=== PATIENT | female | born 1960 | race Caucasian/White ===

== ENCOUNTER 2018-01-16 06:56 | Inpatient (IN) | payer BC, OTHER ==
--- NOTE | 2018-01-16 07:13 | PDOC ---
Attending Attestation - HPI HPI: 01/16/18 10:08 The patient is a 58 year old female with a significant PMH of breast ca( recurred in September of this year, now on chemo pill, radiation, and hormone injections)who presents to the emergency department via EMS with 5 days of worsening SOB, confusion and decrease in food intake . EMS reports that that her pulse oxygenation was in the mid-80s on 25 LPM via non-rebreather en route to the ED, and she has been tachycardic and tachypneic. The patient and her family deny any recent fever, chills, new nausea or vomiting (they note baseline n/v since starting her chemo pill and radiation this year), rashes, headache, vision changes, new numbness/tingling/focal weakness, or other symptoms. Deny any other complaints. Documentation prepared by Daniela España, acting as medical office supervisor for Gilmer Wylie MD. <Daniela España - Last Filed: 01/16/18 10:08> - Resident Resident Name: Analisa Montgomery - ED Attending Attestation I have performed the following: I have examined & evaluated the patient, The case was reviewed & discussed with the resident, I agree w/resident's findings & plan, Exceptions are as noted - Physicial Exam PE: 01/16/18 15:14 Vitals: Triage Vital signs reviewed General Appearance: no acute distress, well nourished well developed, Head: Atraumatic, Neck: Supple;No Nucal rigidity Chest Wall: Nontender Cardiac: Tachycardic Lungs: Coarse breath sounds bilaterally crackles bilaterally, wheezing bilaterally Abdomen: Soft, non distended, normal bowel sounds, non tender to palpation Extremities: Full range of motion to all extremities, no cyanosis, clubbing, or edema Skin: Warm and dry, no rashes or lesions, no rash, no petechiae Neuro: AOX3; Cranial Nerves 2-12 grossly intact, Strength intact to all extremities, Sensation intact to all extremities Psych: normal mood, normal affect - Critical Care Time Total Critical Care Time: 120 Critical Care Statement: The care of this patient involved high complexity decision making to prevent further life threatening deterioration of the patient 's condition and/or to evaluate & treat vital organ system(s) failure or risk of failure. - Medical Decision Making 01/16/18 15:15 The patient is a 58 year old female with a significant PMH of breast ca( recurred in September of this year, now on chemo pill, radiation, and hormone injections)who presents to the emergency department via EMS with 5 days of worsening SOB, confusion and decrease in food intake . EMS reports that that her pulse oxygenation was in the mid-80s on 25 LPM via non-rebreather en route to the ED, and she has been tachycardic and tachypneic. The patient and her family deny any recent fever, chills, new nausea or vomiting (they note baseline n/v since starting her chemo pill and radiation this year), rashes, headache, vision changes, new numbness/tingling/focal weakness, or other symptoms. Deny any other complaints. Patient's vital signs concerning for sepsis. Sepsis workup initiated. Differential diagnosis includes likely sepsis from pneumonia we'll check labs cultures chest x-ray head CT given slight altered mental status despite patient being AO 3 Reevaluation nurse able to obtain IV access but unable to obtain labs. Multiple attempts including attempts by phlebotomy and using ultrasound for guidance unsuccessful at obtaining IV access Given concern for sepsis patient and family consented for central line Central line initially attempted see resident's note right IJ good blood return however at the approximate level of the clavicle unable to advance wire further. This may be secondary to previous radiation treatment At this point we'll change to femoral central line Timeout and consent performed on the universal sterile precautions a clean central line was placed in the right femoral region. See procedure note Patient started empirically on triple antibiotic Therapy Reevaluation: Patient noted to be pancytopenic. Platelets 13 hemoglobin 5 and neutropenic Case discussed with ICU infectious disease as well as hematology oncology. We attempted several times to reach the patient's oncologist at the [facility] but never received a phone call back After discussion with family given the gravity and seriousness of the patient's condition family requesting to have patient admitted here and not have patient transferred We have ordered 2 units of platelets 2 units of packed red blood cells she has been started on triple therapy antibiotics a central line has been placed ID, critical care, he marked oral consult didn't aware of the case. Patient will be transported to the ICU Patient's blood pressure prior to transfer 99 systolic. Upon arrival to the ICU given access pressors will be started <Gilmer Wylie - Last Filed: 01/16/18 15:26> Heart Score/ECG Review - ECG Impressions Comment:: 01/16/18 15:15 Sinus tachycardia no acute ST elevations or T-wave inversions patient with baseline tremor difficult to interpret EKG. <Gilmer Wylie - Last Filed: 01/16/18 15:26>
[2018-01-16] MEDS ORDERED: SODIUM CHLORIDE 0.9% 1000 ML INFUS.BAG IV ONE (07:14)
[2018-01-16] MEDS ORDERED: ALBUTEROL SO4 2.5/IPRATROPIUM 0.5 INH SOL 3 ML VIAL.NEB. NEB ONE ×2 (07:32→07:40)
--- NOTE | 2018-01-16 07:32 | PDOC ---
History of Present Illness - General Chief Complaint: Respiratory Distress Stated Complaint: AMS Time Seen by Provider: 01/16/18 07:12 History Source: Patient, Family Exam Limitations: No Limitations - History of Present Illness Initial Comments: This is a 58 YOF with h/o breast CA (mastectomy ~15 years ago, found to have recurred in September of this year, now on chemo pill, radiation, and hormone injections) who was BIBA with 5 days of worsening SOB, confusion, decreased PO intake of food and liquid, and pallor. EMS notes that her pulse oxygenation was in the mid-80s on 25 LPM via non-rebreather en route to the ED, and she has been tachycardic and tachypneic for them. The patient herself remains mildly confused but a/o x4. She and her family deny any recent fever, chills, new nausea or vomiting (they note baseline n/v since starting her chemo pill and radiation this year), rashes, headache, vision changes, new numbness/tingling/ focal weakness, or other symptoms. Past History - Past Medical History Allergies/Adverse Reactions: Allergies Allergy/AdvReac Type Severity Reaction Status Date / Time No Known Allergies Allergy Verified 01/16/18 07:21 Home Medications: Ambulatory Orders Unobtainable 01/16/18 Cancer: Yes (breast) COPD: No Lung CA: Yes - Suicide/Smoking/Psychosocial Hx Smoking History: Former smoker Have you smoked in the past 12 months: No Information on smoking cessation initiated: No *Physical Exam - Vital Signs Last Vital Signs Temp Pulse Resp BP Pulse Ox 98.9 F 130 H 34 H 75/50 83 L 01/16/18 07:17 01/16/18 07:17 01/16/18 07:17 01/16/18 07:17 01/16/18 07:17 Procedures - Central Line Central Line Lumen: triple Central Line Position: femoral (R) Anesthesia: 1% Lidocaine Amount of anesthesia (ccs): 4 Complications: none Post Central Line Insertion: sutured, good blood return Progress: Initially attempted placement of RIJ CVC with 3cc of 1% lidocaine, able to cannulate RIJ but wire could not be threaded after multiple attempts. Thought to be stenosis of vein vs. collapse of vein 2/2 severe dehydration vs. equipment malfunction. Ultimately decided to do right femoral vein CVC instead, which was placed on first attempt without issue or complication, good dark non- pulsatile blood return, line draws and flushes, sutured in place, sterile bio- dressing applied. ED Treatment Course - LABORATORY CBC & Chemistry Diagram: 01/16/18 11:49 01/16/18 10:30 Medical Decision Making - Medical Decision Making Patient p/w SOB, confusion, decreased PO intake, in the setting of chemoradiation and hormone injections for active metastatic breast cancer. Initial Vital Signs Temp Pulse Resp BP Pulse Ox 98.9 F 130 H 34 H 75/50 83 L 01/16/18 07:17 01/16/18 07:17 01/16/18 07:17 01/16/18 07:17 01/16/18 07:17 Exam: Tachypneic, tachycardic, pale, speaking 3-4 word sentences, diffuse crackles and mild wheezing, no edema, no calf tenderness. DDX IBNLT: PNA, bronchitis, CHF (e.g. cardiotoxicity from chemo), viral URI ( e.g. influenza), COPD, asthma, other lung disease, laryngitis, tracheitis, etc. W/U ordered: Septic w/u including CBCD CMP Coags Type&Screen Lactate x2 BCx UA UCx CXR EKG EKG: Sinus tachycardia, rate CXR: Bilateral diffuse patchy consolidations c/f bilateral PNA, bilateral pleural effusions, pulmonary vascular congestion. TX ordered: IVF, Vanc/Zosyn/Azithro for empiric coverage for HCAP. Patient is a very difficult PIV stick and after multiple attempts only blood cultures can be drawn. Given her predicted clinical course here in the hospital, CVC is indicated and will be placed and labs drawn. RIJ CVC could not be placed; Rt femoral vein CVC placed without issue. Blood drawn and sent to lab. 01/16/18 13:07 Reassessment: Patient appears slightly more agitated, tremulous Placed page to Pt's Hem/Onc provider Dr. Tay at [facility] ([phone]) who is not in office, message taken to call back here. The patient remains unstable for transfer to [facility]. The family and patient have chosen to have her stay Laboratory Tests 01/16/18 01/16/18 01/16/18 07:21 10:30 10:30 WBC 0.7 L* RBC 1.53 L Hgb 5.0 L* Hct 14.7 L MCV 95.7 MCH 32.8 MCHC 34.2 RDW 23.3 H Plt Count 13 L* MPV 10.5 Absolute Neuts (auto) 0.6 Neutrophils % 91.1 H Lymphocytes % 4.1 L Monocytes % 4.1 Eosinophils % 0.5 Basophils % 0.2 Nucleated RBC % 2 H PT with INR INR PTT (Actin FS) VBG pH 7.50 H POC VBG pCO2 36.0 L POC VBG pO2 124.0 H Mixed VBG HCO3 27.7 H Sodium 135 L Potassium 2.5 L* Chloride 94 L Carbon Dioxide 29 Anion Gap 12 BUN 16 Creatinine 0.5 L Creat Clearance w eGFR > 60 Random Glucose 179 H Lactic Acid Calcium 7.7 L Total Bilirubin 0.6 AST 8 L ALT 8 L Alkaline Phosphatase 107 Creatine Kinase 35 Troponin I < 0.02 Total Protein 5.6 L Albumin 2.1 L Urine Color Urine Appearance Urine pH Ur Specific [place] Urine Protein Urine Glucose (UA) Urine Ketones Urine Blood Urine Nitrite Urine Bilirubin Urine Urobilinogen Ur Leukocyte Esterase Blood Type Antibody Screen Crossmatch 01/16/18 01/16/18 01/16/18 10:30 10:30 10:30 WBC RBC Hgb Hct MCV MCH MCHC RDW Plt Count MPV Absolute Neuts (auto) Neutrophils % Lymphocytes % Monocytes % Eosinophils % Basophils % Nucleated RBC % PT with INR 17.10 H INR 1.51 H PTT (Actin FS) 16.6 L VBG pH POC VBG pCO2 POC VBG pO2 Mixed VBG HCO3 Sodium Potassium Chloride Carbon Dioxide Anion Gap BUN Creatinine Creat Clearance w eGFR Random Glucose Lactic Acid 1.5 Calcium Total Bilirubin AST ALT Alkaline Phosphatase Creatine Kinase Troponin I Total Protein Albumin Urine Color Urine Appearance Urine pH Ur Specific [place] Urine Protein Urine Glucose (UA) Urine Ketones Urine Blood Urine Nitrite Urine Bilirubin Urine Urobilinogen Ur Leukocyte Esterase Blood Type O POSITIVE Antibody Screen Crossmatch 01/16/18 01/16/18 01/16/18 11:49 11:49 11:54 WBC 0.6 L* RBC 1.33 L Hgb 4.4 L* D Hct 12.8 L MCV 96.2 H MCH 33.1 MCHC 34.4 RDW 23.3 H Plt Count 12 L* MPV 9.7 Absolute Neuts (auto) 0.6 Neutrophils % 91.5 H Lymphocytes % 3.7 L Monocytes % 4.2 Eosinophils % 0.0 D Basophils % 0.6 Nucleated RBC % 2 H PT with INR INR PTT (Actin FS) VBG pH POC VBG pCO2 POC VBG pO2 Mixed VBG HCO3 Sodium Potassium Chloride Carbon Dioxide Anion Gap BUN Creatinine Creat Clearance w eGFR Random Glucose Lactic Acid 2.0 Calcium Total Bilirubin AST ALT Alkaline Phosphatase Creatine Kinase Troponin I Total Protein Albumin Urine Color Yellow Urine Appearance Slcloudy Urine pH 6.0 Ur Specific [place] 1.014 Urine Protein Negative Urine Glucose (UA) Negative Urine Ketones Trace H Urine Blood Negative Urine Nitrite Negative Urine Bilirubin Negative Urine Urobilinogen 4.0 e.u/dl H Ur Leukocyte Esterase Negative Blood Type Antibody Screen Crossmatch 01/16/18 12:00 WBC RBC Hgb Hct MCV MCH MCHC RDW Plt Count MPV Absolute Neuts (auto) Neutrophils % Lymphocytes % Monocytes % Eosinophils % Basophils % Nucleated RBC % PT with INR INR PTT (Actin FS) VBG pH POC VBG pCO2 POC VBG pO2 Mixed VBG HCO3 Sodium Potassium Chloride Carbon Dioxide Anion Gap BUN Creatinine Creat Clearance w eGFR Random Glucose Lactic Acid Calcium Total Bilirubin AST ALT Alkaline Phosphatase Creatine Kinase Troponin I Total Protein Albumin Urine Color Urine Appearance Urine pH Ur Specific [place] Urine Protein Urine Glucose (UA) Urine Ketones Urine Blood Urine Nitrite Urine Bilirubin Urine Urobilinogen Ur Leukocyte Esterase Blood Type O POSITIVE Antibody Screen Negative Crossmatch See Detail Vital Signs Temperature 98.8 F 01/16/18 12:10 Pulse Rate 109 H 01/16/18 12:10 Respiratory Rate 20 01/16/18 12:10 Blood Pressure 123/76 01/16/18 12:10 O2 Sat by Pulse Oximetry (%) 100 01/16/18 12:10 Patient receiving 2 units pRBC and 2 units platelets. Potassium 10 mEq ordered for hypokalemia. CURB-65 and PSI suggest Pt should be admitted for inpatient management. Patient has pancytopenia and persistent unstable vitals. The Pt is unsafe for discharge at this time. They require further hospital observation, workup, and treatment. Spoke with Dr. Hutchison who accepts patient to the ICU. Spoke with Dr. Guardado, in agreement Pt to be admitted to ICU. Decision to Admit order placed to covering attending Dr. Guardado. 01/16/18 16:43 Spoke with patient's Heme/Onc provider at [facility], Dr. Thayer. She has been pancytopenic thought 2/2 extensive radiation to bones for bone mets (to right hip, etc). She notes that the patient had been getting transfused, getting Neupogen, with some success. She has missed a couple of appointments and had been DC'ed from Neupogen on discharge from SNF. Dr. Thayer is aware the patient is staying in [facility] ICU and will be cared for by Dr. Dugan and team. *DC/Admit/Observation/Transfer Diagnosis at time of Disposition: Pancytopenia due to antineoplastic chemotherapy, Hypokalemia Pneumonia Qualifiers: Pneumonia type: due to unspecified organism Laterality: bilateral Lung location : unspecified part of lung Qualified Code(s): J18.9 - Pneumonia, unspecified organism Breast cancer Qualifiers: Breast location: unspecified site of breast Estrogen receptor status: unspecified Patient sex: female Laterality: unspecified laterality Qualified Code(s): C50.919 - Malignant neoplasm of unspecified site of unspecified female breast Altered mental status Qualifiers: Altered mental status type: unspecified Qualified Code(s): R41.82 - Altered mental status, unspecified - Discharge Dispostion Condition at time of disposition: Guarded Decision to Admit order: Yes - Referrals - Patient Instructions - Post Discharge Activity
[2018-01-16] MEDS ORDERED: VANCOMYCIN 1,500 MG in DEXTROSE 5%-WATER - 250 ML IVPB ONE (08:38)
[2018-01-16] MEDS ORDERED: AZITHROMYCIN IVPB 500 MG in DEXTROSE 5%-WATER - 250 ML IVPB ONE (08:38)
[2018-01-16] MEDS ORDERED: PIPERACILLIN/TAZOB 3.375 GM 3.375 GM in DEXTROSE 5%-WATER - 50 ML IVPB ONE (08:44)
[2018-01-16] MEDS ORDERED: LIDOCAINE HCL 1%, 10 MG/ML (50 mL VIAL) SQ ONE (08:56)
[2018-01-16] MEDS ORDERED: LIDOCAINE HCL 1%, 10 MG/ML (20ML VIAL) ONE (08:58)
[2018-01-16] MEDS ORDERED: AZITHROMYCIN IVPB 250 ML IVPB ONE (09:09)
[2018-01-16] MEDS ORDERED: PIPERACILLIN/TAZOB 3.375 GM 3.375 GM/50 ML BAG IVPB ONE (09:09)
[2018-01-16] MEDS ORDERED: VANCOMYCIN 1,500 MG in DEXTROSE 5%-WATER - 500 ML IVPB ONE (09:30)
[2018-01-16 10:51] LABS: VENOUS PH 7.5 (7.32-7.42)
[2018-01-16 11:07] LABS: BASO % 0.2 % (0-2.0); EOS % 0.5 % (0-4.5); HEMATOCRIT 14.7 % (32.4-45.2); LYMPH % 4.1 % (8-40); MCH 32.8 pg (25.7-33.7); MCHC 34.2 g/dl (32.0-36.0); MEAN CELL VOLUME 95.7 fl (80-96); MEAN PLT VOLUME 10.5 fl (7.5-11.1); MONO % 4.1 % (3.8-10.2); NEUT % 91.1 % (42.8-82.8); RBC 1.53 M/mm3 (3.60-5.2); RDW 23.3 % (11.6-15.6)
[2018-01-16 11:27] LABS: ALBUMIN 2.1 g/dl (3.4-5.0); ANION GAP 12 (8-16); BILIRUBIN,TOTAL 0.6 mg/dL (0.2-1.0); BLOOD UREA NITROGEN 16 mg/dL (7-18); CALCIUM 7.7 mg/dL (8.5-10.1); CHLORIDE 94 mmol/L (98-107); CO2 29 mmol/L (21-32); CREATININE 0.5 mg/dL (0.55-1.02); GLUCOSE,RANDOM 179 mg/dL (74-106); SGOT/AST 8 U/L (15-37); SGPT/ALT 8 U/L (12-78); SODIUM 135 mmol/L (136-145); TOT PROT 5.6 g/dl (6.4-8.2)
[2018-01-16 11:29] LABS: ALK PHOS 107 U/L (45-117)
[2018-01-16 11:31] LABS: WHITE BLOOD COUNT 0.7 K/mm3 (4.0-10.0)
[2018-01-16 11:32] LABS: PLATELET COUNT 13 K/MM3 (134-434)
[2018-01-16 11:43] LABS: INR 1.51 (0.82-1.09); PROTHROMBIN TIME (PATIENT) 17.1 SEC (9.7-13.0)
[2018-01-16 11:51] LABS: POTASSIUM 2.5 mmol/L (3.5-5.1)
[2018-01-16 12:11] LABS: URINE APPEARANCE SLCLOUDY; URINE BILIRUBIN NEGATIVE (<2.0 mg/dL); URINE COLOR YELLOW; URINE GLUCOSE (UA) NEGATIVE (NEGATIVE); URINE KETONE TRACE (NEGATIVE); URINE LEUK ESTERASE NEGATIVE (NEGATIVE); URINE NITRITE NEGATIVE (NEGATIVE); URINE PROTEIN NEGATIVE (NEGATIVE); URINE UROBILINOGEN 4.0 E.U/dl mg/dL (0.2-1.0)
[2018-01-16 12:13] LABS: BASO % 0.6 % (0-2.0); HEMATOCRIT 12.8 % (32.4-45.2); LYMPH % 3.7 % (8-40); MCH 33.1 pg (25.7-33.7); MCHC 34.4 g/dl (32.0-36.0); MEAN CELL VOLUME 96.2 fl (80-96); MEAN PLT VOLUME 9.7 fl (7.5-11.1); MONO % 4.2 % (3.8-10.2); NEUT % 91.5 % (42.8-82.8); RBC 1.33 M/mm3 (3.60-5.2); RDW 23.3 % (11.6-15.6)
[2018-01-16 12:23] LABS: HEMOGLOBIN 4.4 GM/dL (10.7-15.3); PLATELET COUNT 12 K/MM3 (134-434); WHITE BLOOD COUNT 0.6 K/mm3 (4.0-10.0)
[2018-01-16 12:41] LABS: ACTIVATED PTT 16.6 SECONDS (25.2-36.5)
[2018-01-16] MEDS ORDERED: KCL 10 MEQ IVPB 10 MEQ/100 ML INFUS.BAG IVPB SCH (12:45)
[2018-01-16] MEDS ORDERED: BENZOIN/ALOE VERA/STORAX/TOLU 58 ML BOTTLE ONE (13:33)
[2018-01-16] MEDS ORDERED: KCL 10 MEQ IVPB 10 MEQ/100 ML INFUS.BAG IVPB ONE (13:35)
--- NOTE | 2018-01-16 14:27 | PN ---
Teaching Attending Note ATTENDING PHYSICIAN STATEMENT I saw and evaluated the patient. I reviewed the resident's note and discussed the case with the resident. I agree with the resident's findings and plan as documented. SUBJECTIVE: Pt seen and examined in the ICU. Briefly, 58yo female with h/o recurrent metastatic breast ca who presents with worsening shortness of breath x 5 days. Noted to be hypoxic despite supplemental oxygen. Found to be tachycardic, hypotensive and pancytopenic. Placed on BiPAP and transferred to the ICU for further monitoring. Per ER, RIJ attempted but could not pass the wire due to suspected stenosis and R femoral line placed under sterile conditions. OBJECTIVE: Vital Signs Period Temp Pulse Resp BP Sys/[place]y Pulse Ox Last 24 Hr 98.7 F-99.1 F 107-130 19-34 75-123/50-76 83-100 Intake & Output 01/13/18 01/14/18 01/15/18 01/16/18 23:59 23:59 23:59 23:59 Intake Total 2100 Output Total 200 Balance 1900 Weight 54.431 kg Gen: tachypneic on BiPAP Heart: tachycardic, regular Lung: bilateral rhonchi Abd: soft, nontender Ext: no edema CBC, BMP 01/16/18 11:49 01/16/18 10:30 ASSESSMENT AND PLAN: Acute Hypoxic Respiratory Failure Pneumonia Neutropenic Septic Shock Pancytopenia Coagulopathy r/o DIC Metastatic Breast Ca - broad spectrum antibiotics - f/u cultures - IVF resuscitation - start levophed gtt - replete K - transfuse platelets, PRBC - added on fibrinogen level - onc eval, will likely need filgrastim - continue BiPAP to assist in work of breathing - echocardiogram - discussed with pt if her respiratory status worsens, she will need intubation and she consents - prognosis guarded - ICU monitoring critical care time spent in reviewing chart, evaluating patient and formulating plan 35 min
--- NOTE | 2018-01-16 14:29 | CONSULT ---
Consult - text type - Consultation Consultation Note: This is a 58 YOF with h/o breast CA (mastectomy ~15 years ago, found to have recurred in September of this year) who was BIBA with 5 days of worsening SOB, confusion, decreased PO intake, and pallor. EMS notes that her pulse oxygenation was in the mid-80s on 25 LPM via non-rebreather en route to the ED, and she has been tachycardic and tachypneic. She is currently on BIPAP Talking and coherent Per patient has been getting abemaciclib for the last 6 weeks - Past Medical History Breast cancer Allergies/Adverse Reactions: Allergies Allergy/AdvReac Type Severity Reaction Status Date / Time No Known Allergies Allergy Verified 01/16/18 07:21 Home Medications: Ambulatory Orders Unobtainable 01/16/18 - Suicide/Smoking/Psychosocial Hx Smoking History: Former smoker *Physical Exam - Vital Signs Last Vital Signs Temp Pulse Resp BP Pulse Ox 98.4 F 97 H 28 H 80/56 97 01/16/18 14:20 01/16/18 14:59 01/16/18 14:59 01/16/18 14:59 01/16/18 14:46 Cor: RSR, No murmurs, No gallops Lungs: Clear to P&A Abd: Soft, Normal bowel sounds, No organomegaly Ext:No significant edema Left breast mastectomy/reconstruction Abnormal Lab Results 01/16/18 01/16/18 01/16/18 07:21 10:30 10:30 WBC 0.7 L* RBC 1.53 L Hgb 5.0 L* Hct 14.7 L MCV RDW 23.3 H Plt Count 13 L* Neutrophils % 91.1 H Neutrophils % (Manual) 92.0 H Lymphocytes % 4.1 L Lymphocytes % (Manual) 6.0 L Monocytes % (Manual) 1 L Nucleated RBC % 2 H PT with INR INR PTT (Actin FS) VBG pH 7.50 H POC VBG pCO2 36.0 L POC VBG pO2 124.0 H Mixed VBG HCO3 27.7 H Sodium 135 L Potassium 2.5 L* Chloride 94 L Creatinine 0.5 L Random Glucose 179 H Calcium 7.7 L AST 8 L ALT 8 L Total Protein 5.6 L Albumin 2.1 L Urine Ketones Urine Urobilinogen Crossmatch 06/01/16/18 01/16/18 10:30 11:49 11:54 WBC 0.6 L* RBC 1.33 L Hgb 4.4 L* D Hct 12.8 L MCV 96.2 H RDW 23.3 H Plt Count 12 L* Neutrophils % 91.5 H Neutrophils % (Manual) Lymphocytes % 3.7 L Lymphocytes % (Manual) Monocytes % (Manual) Nucleated RBC % 2 H PT with INR 17.10 H INR 1.51 H PTT (Actin FS) 16.6 L VBG pH POC VBG pCO2 POC VBG pO2 Mixed VBG HCO3 Sodium Potassium Chloride Creatinine Random Glucose Calcium AST ALT Total Protein Albumin Urine Ketones Trace H Urine Urobilinogen 4.0 e.u/dl H Crossmatch 01/16/18 12:00 WBC RBC Hgb Hct MCV RDW Plt Count Neutrophils % Neutrophils % (Manual) Lymphocytes % Lymphocytes % (Manual) Monocytes % (Manual) Nucleated RBC % PT with INR INR PTT (Actin FS) VBG pH POC VBG pCO2 POC VBG pO2 Mixed VBG HCO3 Sodium Potassium Chloride Creatinine Random Glucose Calcium AST ALT Total Protein Albumin Urine Ketones Urine Urobilinogen Crossmatch See Detail Active Medications Generic Name Dose Route Start Last Admin Trade Name Freq PRN Reason Stop Dose Admin Sodium Chloride 1,000 mls @ 1,000 mls/hr 01/16/18 14:34 Normal Saline - IV 01/16/18 15:33 ASDIR STA Norepinephrine Bitartrate 8, 500 mls @ 18.75 mls/hr 01/16/18 14:45 01/16/18 14:46 000 mcg/ Dextrose IV 5 mcg/min TITR TYSHAWN 18.75 mls/hr Administration Protocol 5 MCG/MIN Piperacillin Sod/Tazobactam 100 mls @ 200 mls/hr 01/16/18 15:00 Sod 4.5 gm/ Dextrose IVPB 01/16/18 15:29 ONCE ONE Protocol Potassium Chloride 20 meq 01/16/18 14:45 01/16/18 14:52 Potassium Chloride 20 Meq Premix Ivpb - IVPB 01/16/18 16:46 20 meq Q60M TYSHAWN Administration A/P 58 y/o patient with metastatic breast cancer, extensive bone mets, on abemaciclib 150mg bid for last 6 weeks and faslodex monthly. Recently discharged from rehab 2 weeks ago. Had RT early November. Now with profound pancytopenia, respiratory distress ? pneumonia Transfuse PRBCs/monodonor platelets Empiric antibiotics with vanco/zosyn neupogen support
[2018-01-16] MEDS ORDERED: NOREPINEPHRINE BITARTRATE 4 MG/4 ML ML IV ONE (14:34)
[2018-01-16] MEDS ORDERED: SODIUM CHLORIDE 1,000 ML IV STA (14:34)
[2018-01-16] MEDS ORDERED: NOREPINEPHRINE BITARTRATE 8,000 MCG in DEXTROSE 5%-WATER - 492 ML IV SCH (14:45)
[2018-01-16] MEDS: NOREPINEPHRINE BITARTRATE 8,000 MCG in DEXTROSE 5%-WATER - 492 ML IV SCH (14:46)
[2018-01-16] MEDS: POTASSIUM CHLORIDE 20 MEQ PREMIX IVPB 100 ML IVPB SCH ×2 (14:52→16:45)
--- NOTE | 2018-01-16 14:56 | HP ---
Admitting History and Physical - Primary Care Physician PCP: Jhon Guardado - Admission History of Present Illness: 58 year old female with a significant PMH of breast ca(recurred in September of this year, now on chemo pill, radiation, and hormone injections)who presents to the emergency department via EMS with 5 days of worsening SOB, confusion and decrease in food intake . EMS reports that that her pulse oxygenation was in the mid-80s on 25 LPM via non-rebreather en route to the ED, and she has been tachycardic and tachypneic. The patient and her family deny any recent fever, chills, new nausea or vomiting (they note baseline n/v since starting her chemo pill and radiation this year), rashes, headache, vision changes, new numbness/ tingling/focal weakness, or other symptoms. Deny any other complaints. - Past Medical History Heme/Onc: Yes: Other (br ca) - Smoking History Smoking history: Former smoker Have you smoked in the past 12 months: No Home Medications - Allergies Allergies/Adverse Reactions: Allergies Allergy/AdvReac Type Severity Reaction Status Date / Time No Known Allergies Allergy Verified 01/16/18 07:21 - Home Medications Home Medications: Ambulatory Orders Unobtainable 01/16/18 Physical Examination Vital Signs: Vital Signs Temperature 98.4 F 01/16/18 14:20 Pulse Rate 94 H 01/16/18 14:46 Respiratory Rate 26 H 01/16/18 14:35 Blood Pressure 71/52 01/16/18 14:46 O2 Sat by Pulse Oximetry (%) 97 01/16/18 14:20 Constitutional: Yes: Calm HENT: Yes: Atraumatic Neck: Yes: Supple Cardiovascular: Yes: Regular Rate and Rhythm Respiratory: Yes: Rhonchi Gastrointestinal: Yes: Normal Bowel Sounds Extremities: Yes: WNL Neurological: Yes: Other (awake) Labs: CBC, BMP 01/16/18 11:49 01/16/18 10:30 Imaging - Results Chest X-ray: Report Reviewed Problem List - Problems (1) Altered mental status Assessment/Plan: ON BIPAP Code(s): R41.82 - ALTERED MENTAL STATUS, UNSPECIFIED Qualifiers: Altered mental status type: unspecified Qualified Code(s): R41.82 - Altered mental status, unspecified (2) Pancytopenia due to antineoplastic chemotherapy Assessment/Plan: will get prbc and platelets Code(s): D61.810 - ANTINEOPLASTIC CHEMOTHERAPY INDUCED PANCYTOPENIA; T45.1X5A - ADVERSE EFFECT OF ANTINEOPLASTIC AND IMMUNOSUP DRUGS, INIT (3) Pneumonia Assessment/Plan: iv abx cxs sent id on board Code(s): J18.9 - PNEUMONIA, UNSPECIFIED ORGANISM Qualifiers: Pneumonia type: due to unspecified organism Laterality: bilateral Lung location: unspecified part of lung Qualified Code(s): J18.9 - Pneumonia, unspecified organism (4) Acute respiratory failure with hypoxia Assessment/Plan: on bipap Code(s): J96.01 - ACUTE RESPIRATORY FAILURE WITH HYPOXIA Assessment/Plan Laboratory Tests 01/16/18 01/16/18 01/16/18 07:21 10:30 10:30 WBC 0.7 L* RBC 1.53 L Hgb 5.0 L* Hct 14.7 L MCV 95.7 MCH 32.8 MCHC 34.2 RDW 23.3 H Plt Count 13 L* MPV 10.5 Absolute Neuts (auto) 0.6 Neutrophils % 91.1 H Lymphocytes % 4.1 L Monocytes % 4.1 Eosinophils % 0.5 Basophils % 0.2 Nucleated RBC % 2 H PT with INR INR PTT (Actin FS) VBG pH 7.50 H POC VBG pCO2 36.0 L POC VBG pO2 124.0 H Mixed VBG HCO3 27.7 H Sodium 135 L Potassium 2.5 L* Chloride 94 L Carbon Dioxide 29 Anion Gap 12 BUN 16 Creatinine 0.5 L Creat Clearance w eGFR > 60 Random Glucose 179 H Lactic Acid Calcium 7.7 L Total Bilirubin 0.6 AST 8 L ALT 8 L Alkaline Phosphatase 107 Creatine Kinase 35 Troponin I < 0.02 Total Protein 5.6 L Albumin 2.1 L Urine Color Urine Appearance Urine pH Ur Specific [place] Urine Protein Urine Glucose (UA) Urine Ketones Urine Blood Urine Nitrite Urine Bilirubin Urine Urobilinogen Ur Leukocyte Esterase Blood Type Antibody Screen Crossmatch 01/16/18 01/16/18 01/16/18 10:30 10:30 10:30 WBC RBC Hgb Hct MCV MCH MCHC RDW Plt Count MPV Absolute Neuts (auto) Neutrophils % Lymphocytes % Monocytes % Eosinophils % Basophils % Nucleated RBC % PT with INR 17.10 H INR 1.51 H PTT (Actin FS) 16.6 L VBG pH POC VBG pCO2 POC VBG pO2 Mixed VBG HCO3 Sodium Potassium Chloride Carbon Dioxide Anion Gap BUN Creatinine Creat Clearance w eGFR Random Glucose Lactic Acid 1.5 Calcium Total Bilirubin AST ALT Alkaline Phosphatase Creatine Kinase Troponin I Total Protein Albumin Urine Color Urine Appearance Urine pH Ur Specific [place] Urine Protein Urine Glucose (UA) Urine Ketones Urine Blood Urine Nitrite Urine Bilirubin Urine Urobilinogen Ur Leukocyte Esterase Blood Type O POSITIVE Antibody Screen Crossmatch 01/16/18 01/16/18 01/16/18 11:49 11:49 11:54 WBC 0.6 L* RBC 1.33 L Hgb 4.4 L* D Hct 12.8 L MCV 96.2 H MCH 33.1 MCHC 34.4 RDW 23.3 H Plt Count 12 L* MPV 9.7 Absolute Neuts (auto) 0.6 Neutrophils % 91.5 H Lymphocytes % 3.7 L Monocytes % 4.2 Eosinophils % 0.0 D Basophils % 0.6 Nucleated RBC % 2 H PT with INR INR PTT (Actin FS) VBG pH POC VBG pCO2 POC VBG pO2 Mixed VBG HCO3 Sodium Potassium Chloride Carbon Dioxide Anion Gap BUN Creatinine Creat Clearance w eGFR Random Glucose Lactic Acid 2.0 Calcium Total Bilirubin AST ALT Alkaline Phosphatase Creatine Kinase Troponin I Total Protein Albumin Urine Color Yellow Urine Appearance Slcloudy Urine pH 6.0 Ur Specific [place] 1.014 Urine Protein Negative Urine Glucose (UA) Negative Urine Ketones Trace H Urine Blood Negative Urine Nitrite Negative Urine Bilirubin Negative Urine Urobilinogen 4.0 e.u/dl H Ur Leukocyte Esterase Negative Blood Type Antibody Screen Crossmatch 01/16/18 12:00 WBC RBC Hgb Hct MCV MCH MCHC RDW Plt Count MPV Absolute Neuts (auto) Neutrophils % Lymphocytes % Monocytes % Eosinophils % Basophils % Nucleated RBC % PT with INR INR PTT (Actin FS) VBG pH POC VBG pCO2 POC VBG pO2 Mixed VBG HCO3 Sodium Potassium Chloride Carbon Dioxide Anion Gap BUN Creatinine Creat Clearance w eGFR Random Glucose Lactic Acid Calcium Total Bilirubin AST ALT Alkaline Phosphatase Creatine Kinase Troponin I Total Protein Albumin Urine Color Urine Appearance Urine pH Ur Specific [place] Urine Protein Urine Glucose (UA) Urine Ketones Urine Blood Urine Nitrite Urine Bilirubin Urine Urobilinogen Ur Leukocyte Esterase Blood Type O POSITIVE Antibody Screen Negative Crossmatch See Detail Active Medications Generic Name Dose Route Start Last Admin Trade Name Freq PRN Reason Stop Dose Admin Sodium Chloride 1,000 mls @ 1,000 mls/hr 01/16/18 14:34 Normal Saline - IV 01/16/18 15:33 ASDIR STA Norepinephrine Bitartrate 8, 500 mls @ 18.75 mls/hr 01/16/18 14:45 01/16/18 14:46 000 mcg/ Dextrose IV 5 mcg/min TITR TYSHAWN 18.75 mls/hr Administration Protocol 5 MCG/MIN Piperacillin Sod/Tazobactam 100 mls @ 200 mls/hr 01/16/18 15:00 Sod 4.5 gm/ Dextrose IVPB 01/16/18 15:29 ONCE ONE Protocol Potassium Chloride 20 meq 01/16/18 14:45 01/16/18 14:52 Potassium Chloride 20 Meq Premix Ivpb - IVPB 01/16/18 16:46 20 meq Q60M TYSHAWN Administration cc time 60 min
--- NOTE | 2018-01-16 15:29 | CON.CARD ---
Consult Consult Specialty:: Cardiology Referred by:: Lisa Guardado MD Reason for Consultation:: Dyspnea - History of Present Illness Chief Complaint: Dyspnea History of Present Illness: 58yo female with h/o recurrent metastatic breast ca who presents with worsening shortness of breath, found to be hypoxic despite supplemental oxygen, confused anorexic, tachycardic, tachypneic, hypotensive and pancytopenic. Placed on BiPAP and transferred to the ICU for further monitoring. Per ER, RIJ attempted but could not pass the wire due to suspected stenosis and R femoral line placed under sterile conditions. She is now at baseline sensorium, hemodynamics stabilized on Levophed gtt. - History Source History Provided By: Patient Limitations to Obtaining History: No Limitations - Past Medical History ...: No - Alcohol/Substance Use Hx Alcohol Use: No - Smoking History Smoking history: Former smoker Have you smoked in the past 12 months: No Home Medications - Allergies Allergies/Adverse Reactions: Allergies Allergy/AdvReac Type Severity Reaction Status Date / Time No Known Allergies Allergy Verified 01/16/18 07:21 - Home Medications Home Medications: Ambulatory Orders Unobtainable 01/16/18 Review of Systems - Review of Systems Constitutional: reports: Lethargy, Loss of Appetite Respiratory: reports: SOB Vital Signs: Vital Signs Temperature 98.8 F 01/16/18 15:07 Pulse Rate 98 H 01/16/18 15:14 Respiratory Rate 34 H 01/16/18 15:14 Blood Pressure 85/65 01/16/18 15:14 O2 Sat by Pulse Oximetry (%) 97 01/16/18 14:46 Constitutional: Yes: No Distress, Calm, Thin Neck: Yes: Supple Respiratory: Yes: On BiPap, Rhonchi Gastrointestinal: Yes: Soft, Hypoactive Bowel Sounds Cardiovascular: Yes: Regular Rate and Rhythm, Tachycardia JVD: No Carotid Bruit: No Heart Sounds: Yes: S1, S2 Edema: No - Other Data Labs, Other Data: CBC, BMP 01/16/18 11:49 01/16/18 10:30 INR, PTT INR 1.51 (0.82-1.09) H 01/16/18 10:30 Troponin, BNP 01/16/18 10:30 Troponin I < 0.02 Troponin, BNP 01/16/18 10:30 Troponin I < 0.02 Pending Imaging - Results Chest X-ray: Report Reviewed (Congestion, left infiltrates) EKG: Pending Problem List - Problems (1) Acute respiratory failure with hypoxia Code(s): J96.01 - ACUTE RESPIRATORY FAILURE WITH HYPOXIA (2) Breast cancer Code(s): C50.919 - MALIGNANT NEOPLASM OF UNSP SITE OF UNSPECIFIED FEMALE BREAST Qualifiers: Breast location: unspecified site of breast Estrogen receptor status: unspecified Patient sex: female Laterality: unspecified laterality Qualified Code(s): C50.919 - Malignant neoplasm of unspecified site of unspecified female breast (3) Pancytopenia due to antineoplastic chemotherapy Code(s): D61.810 - ANTINEOPLASTIC CHEMOTHERAPY INDUCED PANCYTOPENIA; T45.1X5A - ADVERSE EFFECT OF ANTINEOPLASTIC AND IMMUNOSUP DRUGS, INIT (4) Pneumonia Code(s): J18.9 - PNEUMONIA, UNSPECIFIED ORGANISM Qualifiers: Pneumonia type: due to unspecified organism Laterality: bilateral Lung location: unspecified part of lung Qualified Code(s): J18.9 - Pneumonia, unspecified organism Assessment/Plan 1. Acute Hypoxic Respiratory Failure->Pneumonia 2. Neutropenic Septic Shock 3. Pancytopenia 4. Coagulopathy, r/o DIC 5. Metastatic Breast Ca, extensive bone mets on abemaciclib post XRT P: 1. Empiric broad spectrum antibiotics, f/u cultures, IVF resuscitation, replete K 2. Levophed gtt to maintain MAP>65 mmHg 3. Transfuse monodonor platelets, PRBC, neupogen 4. Continue BiPAP to assist in work of breathing, wean FIO2 5. F/u echocardiogram results 6. Thank you for consultative opportunity
[2018-01-16] MEDS ORDERED: PIPERACILLIN/TAZOB 4.5 GM 4.5 GM in DEXTROSE 5%-WATER 100 ML IVPB ONE (16:00)
[2018-01-16] MEDS: KCL 20 MEQ PREMIX BAG 100 ML IVPB SCH ×3 (16:45→20:04)
[2018-01-16] MEDS ORDERED: PIPERACILLIN/TAZOBACTAM 4.5 GM VIAL IVPB ONE (16:54)
[2018-01-16] MEDS ORDERED: DEXTROSE 5%-WATER 100 ML IVPB ONE (16:54)
[2018-01-16] MEDS ORDERED: PIPERACILLIN/TAZOB 4.5 GM 4.5 GM in DEXTROSE 5%-WATER 100 ML IVPB SCH (18:00)
[2018-01-17] MEDS ORDERED: TBO-FILGRASTIM 300 MCG/0.5 ML DISP.SYRINGE SQ ONE (00:27)
[2018-01-17 01:42] LABS: BASO % 0.3 % (0-2.0); EOS % 0.3 % (0-4.5); HEMATOCRIT 24.2 % (32.4-45.2); HEMOGLOBIN 8.3 GM/dL (10.7-15.3); LYMPH % 1.8 % (8-40); MCH 30.8 pg (25.7-33.7); MCHC 34.1 g/dl (32.0-36.0); MEAN CELL VOLUME 90.3 fl (80-96); MEAN PLT VOLUME 8.1 fl (7.5-11.1); MONO % 2.1 % (3.8-10.2); NEUT % 95.5 % (42.8-82.8); PLATELET COUNT 97 K/MM3 (134-434); RBC 2.68 M/mm3 (3.60-5.2); RDW 18.3 % (11.6-15.6)
[2018-01-17 01:51] LABS: WHITE BLOOD COUNT 1.3 K/mm3 (4.0-10.0)
[2018-01-17 02:00] LABS: INR 1.38 (0.82-1.09); PROTHROMBIN TIME (PATIENT) 15.6 SEC (9.7-13.0)
[2018-01-17] MEDS ORDERED: PIPERACILLIN/TAZOB 4.5 GM 4.5 GM in DEXTROSE 5%-WATER 100 ML IVPB SCH (02:00)
[2018-01-17 02:02] LABS: ACTIVATED PTT 22.7 SECONDS (25.2-36.5)
[2018-01-17] MEDS ORDERED: PIPERACILLIN/TAZOBACTAM 4.5 GM VIAL IVPB ONE ×3 (02:59→17:21)
[2018-01-17] MEDS ORDERED: DEXTROSE 5%-WATER 100 ML IVPB ONE ×3 (03:01→17:21)
[2018-01-17] MEDS: PIPERACILLIN/TAZOB 4.5 GM 4.5 GM in DEXTROSE 5%-WATER 100 ML IVPB SCH ×3 (03:03→17:23)
[2018-01-17 06:12] LABS: BASO % 0.7 % (0-2.0); EOS % 0.1 % (0-4.5); HEMATOCRIT 23.2 % (32.4-45.2); HEMOGLOBIN 8.1 GM/dL (10.7-15.3); MCH 31.7 pg (25.7-33.7); MCHC 35.1 g/dl (32.0-36.0); MEAN CELL VOLUME 90.3 fl (80-96); MEAN PLT VOLUME 7.9 fl (7.5-11.1); MONO % 2.2 % (3.8-10.2); PLATELET COUNT 77 K/MM3 (134-434); RBC 2.57 M/mm3 (3.60-5.2); RDW 18.1 % (11.6-15.6)
[2018-01-17 06:27] LABS: ANISOCYTOSIS 2+; MACROCYTOSIS 1+; PLATELET ESTIMATE DECREASED
[2018-01-17 06:33] LABS: INR 1.43 (0.82-1.09); PROTHROMBIN TIME (PATIENT) 16.2 SEC (9.7-13.0)
[2018-01-17 06:35] LABS: ACTIVATED PTT 22.1 SECONDS (25.2-36.5)
[2018-01-17 06:41] LABS: WHITE BLOOD COUNT 1.4 K/mm3 (4.0-10.0)
[2018-01-17 06:46] LABS: CHLORIDE 100 mmol/L (98-107); POTASSIUM 3.5 mmol/L (3.5-5.1); SODIUM 137 mmol/L (136-145)
[2018-01-17 06:54] LABS: ARTERIAL BLOOD GAS BASE EXCESS 0.9 meq/l (-2-2); ARTERIAL BLOOD GAS PCO2 49.1 mmHg (35-45); ARTERIAL BLOOD GAS PO2 97.7 mmHg (80-100); ARTERIAL BLOOD GAS pH 7.35 (7.35-7.45)
--- NOTE | 2018-01-17 07:00 | PN ---
Progress Note (short form) - Note Progress Note: Chief Complaint: Events noted, notes reviewed, on BiPAP complaining of persistent dyspnea, denies any chest pain, remains on pressors/Norepinephrine, sinus rhythm noted History of Present Illness: Seen and examined in the ICU. Events noted, notes reviewed, on BiPAP complaining of persistent dyspnea, denies any chest pain, remains on pressors/ Norepinephrine, sinus rhythm noted Electrocardiogram revealed normal LV size and function, with trace to mild MR Medications: Current Medications Norepinephrine Bitartrate 8, (000 mcg/ Dextrose) 500 mls @ 18.75 mls/hr IV TITR TYSHAWN; Protocol Last Admin: 01/16/18 14:46 Dose: 5 mcg/min, 18.75 mls/hr Piperacillin Sod/Tazobactam (Sod 4.5 gm/ Dextrose) 100 mls @ 200 mls/hr IVPB Q8H-IV TYSHAWN; Protocol Last Admin: 01/17/18 03:03 Dose: 200 mls/hr Review of Systems Cardiovascular: As noted above Respiratory: denies: Cough or Sputum Production Gastrointestinal: denies: Nausea, Vomiting, Diarrhea, Constipation or Abdominal Discomfort Musculoskeletal: No Symptoms Reported Endocrine: No Symptoms Reported Vital Signs: Last Vital Signs Temp Pulse Resp BP Pulse Ox 96.6 F L 94 H 25 H 91/67 97 01/17/18 05:58 01/17/18 05:58 01/17/18 05:58 01/17/18 05:58 01/17/18 06:55 Intake & Output 01/14/18 01/15/18 01/16/18 01/17/18 23:59 23:59 23:59 23:59 Intake Total 4192 250 Output Total 900 775 Balance 3292 -525 Weight 101 lb 11.2 oz Constitutional: No Distress, Calm, Thin Neck: Supple Respiratory: Bilateral Course Crepitus Cardiovascular: S1 S2 Regular Rate and Rhythm Gastrointestinal: Soft, Benign Normal Bowel Sounds Ext: No Edema Labs: CBC, BMP 01/17/18 05:30 Hepatic Panel Total Bilirubin 0.6 mg/dL (0.2-1.0) 01/16/18 10:30 AST 8 U/L (15-37) L 01/16/18 10:30 ALT 8 U/L (12-78) L 01/16/18 10:30 Alkaline Phosphatase 107 U/L (45-117) 01/16/18 10:30 Albumin 2.1 g/dl (3.4-5.0) L 01/16/18 10:30 INR, PTT INR 1.43 (0.82-1.09) H 01/17/18 05:30 Fibrinogen 388.0 mg/dL (238-498) 01/17/18 05:30 Assessment/Plan ASSESSMENT: 1. Acute Hypoxic Respiratory Failure related to probable pneumonia, rule out lymphangitic spread based on chest x-ray finding and clinical exam 2. Neutropenic Septic Shock, remains on pressors/Norepinephrine 3. Pancytopenia related to probable chemotherapy 4. Metastatic Breast carcinoma, extensive bone mets on abemaciclib post XRT PLAN: 1. Antibiotics as per the primary team 2. Continue Norepinephrine to maintain MAP > 65 mmHg and attempt to wean off as tolerated 3. Transfuse and maintain Hg equal or > 8.0 4. Continue supplemental O2 5. Consider CT scan of the chest for evaluation of the above noted pulmonary pathology Joselin Sanchez MD
[2018-01-17 07:01] LABS: ALK PHOS 94 U/L (45-117); ANION GAP 9 (8-16); BILIRUBIN,TOTAL 1.2 mg/dL (0.2-1.0); BLOOD UREA NITROGEN 7 mg/dL (7-18); CALCIUM 7.5 mg/dL (8.5-10.1); CO2 28 mmol/L (21-32); CREATININE 0.3 mg/dL (0.55-1.02); GLUCOSE,RANDOM 148 mg/dL (74-106); MAGNESIUM 1.6 mg/dL (1.8-2.4); PHOSPHOROUS 1.9 mg/dL (2.5-4.9); SGOT/AST 12 U/L (15-37); SGPT/ALT 9 U/L (12-78); TOT PROT 5.3 g/dl (6.4-8.2)
[2018-01-17 07:30] LABS: ALLENS TEST POSITIVE
[2018-01-17] MEDS ORDERED: SODIUM PHOSPHATE - 30 MM in SODIUM CHLORIDE 250 ML IVPB ONE (08:45)
[2018-01-17] MEDS ORDERED: MAGNESIUM 1GM/D5W 100ML - 100 ML IVPB IVPB ONE (09:00)
[2018-01-17 09:55] LABS: ANISOCYTOSIS 1+; MACROCYTOSIS 1+; PLATELET ESTIMATE DECREASED
[2018-01-17] MEDS ORDERED: TBO-FILGRASTIM 300 MCG/0.5 ML DISP.SYRINGE SQ SCH (10:00)
--- NOTE | 2018-01-17 11:10 | PN ---
Progress Note (short form) - Note Progress Note: On BIPAP Spoke to daughter s Cor: RSR, No murmurs, No gallops Lungs: Clear to P&A Abd: Soft, Normal bowel sounds, No organomegaly Ext:No significant edema Left breast mastectomy/reconstruction Temp Pulse Resp BP Pulse Ox 96.6 F L 97 H 24 101/61 97 01/17/18 10:00 01/17/18 10:00 01/17/18 10:00 01/17/18 10:00 01/17/18 10:36 CBC, BMP 01/17/18 05:30 01/17/18 05:30 Current Medications Generic Name Dose Route Start Last Admin Trade Name Freq PRN Reason Stop Dose Admin Norepinephrine Bitartrate 8, 500 mls @ 18.75 mls/hr 01/16/18 14:45 01/16/18 14:46 000 mcg/ Dextrose IV 5 mcg/min TITR TYSHAWN 18.75 mls/hr Administration Protocol 5 MCG/MIN Piperacillin Sod/Tazobactam 100 mls @ 200 mls/hr 01/17/18 02:00 01/17/18 09: 15 Sod 4.5 gm/ Dextrose IVPB 200 mls/hr Q8H-IV TYSHAWN Administration Protocol Sodium Phosphate 30 mm/ Sodium 260 mls @ 62.5 mls/hr 01/17/18 08:45 01/17/18 09:12 Chloride IVPB 01/17/18 12:54 62.5 mls/hr ONCE ONE Administration Tbo-Filgrastim 300 mcg 01/17/18 11:15 Granix - SQ DAILY TYSHAWN mBC--extensive bony dis, including spinal cord, s/p RT Neutropenic septic shock Resp failure on BiPAP, ?PNA hold chemo neupogen support--continue daily until improvement Platelets stable ID c/s follows with ,will d/w her
--- NOTE | 2018-01-17 12:25 | PN ---
Teaching Attending Note Name of Resident: Alisa Romero ATTENDING PHYSICIAN STATEMENT I saw and evaluated the patient. I reviewed the resident's note and discussed the case with the resident. I agree with the resident's findings and plan as documented. SUBJECTIVE: Patient seen and examined in the ICU. Remains drowsy but arousbale on NIPPV. NE @ 3 mcq via femoral TLC. Daughter at the bedside. Apparently has been declining since September. OBJECTIVE: Intake & Output 01/14/18 01/15/18 01/16/18 01/17/18 23:59 23:59 23:59 23:59 Intake Total 4192 250 Output Total 900 775 Balance 3292 -525 Weight 101 lb 11.2 oz Last Vital Signs Temp Pulse Resp BP Pulse Ox 96.6 F L 93 H 23 85/70 97 01/17/18 10:00 01/17/18 11:26 01/17/18 11:00 01/17/18 11:26 01/17/18 10:36 Active Medications Norepinephrine Bitartrate 8, (000 mcg/ Dextrose) 500 mls @ 18.75 mls/hr IV TITR TYSHAWN; Protocol Last Titration: 01/17/18 11:26 Dose: 0 mcg/min, 0 mls/hr Piperacillin Sod/Tazobactam (Sod 4.5 gm/ Dextrose) 100 mls @ 200 mls/hr IVPB Q8H-IV TYSHAWN; Protocol Last Admin: 01/17/18 09:15 Dose: 200 mls/hr Sodium Phosphate 30 mm/ Sodium (Chloride) 260 mls @ 62.5 mls/hr IVPB ONCE ONE Stop: 01/17/18 12:54 Last Admin: 01/17/18 09:12 Dose: 62.5 mls/hr Tbo-Filgrastim (Granix -) 300 mcg SQ DAILY TYSHAWN Gen: Drowsy but mildly tachypneic on BiPAP Heart: tachycardic, regular Lung: bilateral rhonchi Abd: soft, nontender Ext: no edema Laboratory Results - last 24 hr 01/16/18 01/16/18 01/16/18 10:30 10:30 10:30 WBC RBC Hgb Hct MCV MCH MCHC RDW Plt Count MPV Absolute Neuts (auto) Total Counted 100 Neutrophils % Neutrophils % (Manual) 92.0 H Band Neutrophils % Lymphocytes % Lymphocytes % (Manual) 6.0 L Monocytes % Monocytes % (Manual) 1 L Eosinophils % Eosinophils % (Manual) Basophils % Basophils % (Manual) 1.0 Myelocytes % (Man) Promyelocytes % (Man) Blast Cells % (Manual) Nucleated RBC % Metamyelocytes Hypochromia Platelet Estimate Polychromasia Poikilocytosis Anisocytosis Microcytosis Macrocytosis Schistocytes PT with INR INR PTT (Actin FS) 16.6 L Fibrinogen Anticoagulation Therapy Puncture Site ABG pH ABG pCO2 at Pt Temp ABG pO2 at Pt Temp ABG HCO3 ABG O2 Sat (Measured) ABG O2 Content ABG Base Excess Deejay Test O2 Delivery Device Oxygen Flow Rate Vent Mode Vent Rate Mechanical Rate Pressure Support Vent Sodium Potassium Chloride Carbon Dioxide Anion Gap BUN Creatinine Creat Clearance w eGFR Random Glucose Lactic Acid Calcium Phosphorus Magnesium Total Bilirubin AST ALT Alkaline Phosphatase Creatine Kinase Troponin I Total Protein Albumin Urine Color Urine Appearance Urine pH Ur Specific [place] Urine Protein Urine Glucose (UA) Urine Ketones Urine Blood Urine Nitrite Urine Bilirubin Urine Urobilinogen Ur Leukocyte Esterase Blood Type O POSITIVE Antibody Screen Crossmatch 01/16/18 01/16/18 01/16/18 11:49 11:49 11:54 WBC RBC Hgb Hct MCV MCH MCHC RDW Plt Count MPV Absolute Neuts (auto) Total Counted Neutrophils % Neutrophils % (Manual) No Result Required. Band Neutrophils % Lymphocytes % Lymphocytes % (Manual) Monocytes % Monocytes % (Manual) Eosinophils % Eosinophils % (Manual) Basophils % Basophils % (Manual) Myelocytes % (Man) Promyelocytes % (Man) Blast Cells % (Manual) Nucleated RBC % Metamyelocytes Hypochromia Platelet Estimate Polychromasia Poikilocytosis Anisocytosis Microcytosis Macrocytosis Schistocytes PT with INR INR PTT (Actin FS) Fibrinogen Anticoagulation Therapy Puncture Site ABG pH ABG pCO2 at Pt Temp ABG pO2 at Pt Temp ABG HCO3 ABG O2 Sat (Measured) ABG O2 Content ABG Base Excess Deejay Test O2 Delivery Device Oxygen Flow Rate Vent Mode Vent Rate Mechanical Rate Pressure Support Vent Sodium Potassium Chloride Carbon Dioxide Anion Gap BUN Creatinine Creat Clearance w eGFR Random Glucose Lactic Acid 2.0 Calcium Phosphorus Magnesium Total Bilirubin AST ALT Alkaline Phosphatase Creatine Kinase Troponin I Total Protein Albumin Urine Color Yellow Urine Appearance Slcloudy Urine pH 6.0 Ur Specific [place] 1.014 Urine Protein Negative Urine Glucose (UA) Negative Urine Ketones Trace H Urine Blood Negative Urine Nitrite Negative Urine Bilirubin Negative Urine Urobilinogen 4.0 e.u/dl H Ur Leukocyte Esterase Negative Blood Type Antibody Screen Crossmatch 01/16/18 01/16/18 01/16/18 12:00 15:15 15:15 WBC RBC Hgb Hct MCV MCH MCHC RDW Plt Count MPV Absolute Neuts (auto) Total Counted Neutrophils % Neutrophils % (Manual) Band Neutrophils % Lymphocytes % Lymphocytes % (Manual) Monocytes % Monocytes % (Manual) Eosinophils % Eosinophils % (Manual) Basophils % Basophils % (Manual) Myelocytes % (Man) Promyelocytes % (Man) Blast Cells % (Manual) Nucleated RBC % Metamyelocytes Hypochromia Platelet Estimate Polychromasia Poikilocytosis Anisocytosis Microcytosis Macrocytosis Schistocytes PT with INR INR PTT (Actin FS) Fibrinogen 363.0 Anticoagulation Therapy Puncture Site ABG pH ABG pCO2 at Pt Temp ABG pO2 at Pt Temp ABG HCO3 ABG O2 Sat (Measured) ABG O2 Content ABG Base Excess Deejay Test O2 Delivery Device Oxygen Flow Rate Vent Mode Vent Rate Mechanical Rate Pressure Support Vent Sodium Potassium Chloride Carbon Dioxide Anion Gap BUN Creatinine Creat Clearance w eGFR Random Glucose Lactic Acid Calcium Phosphorus Magnesium 1.5 L Total Bilirubin AST ALT Alkaline Phosphatase Creatine Kinase Troponin I Total Protein Albumin Urine Color Urine Appearance Urine pH Ur Specific [place] Urine Protein Urine Glucose (UA) Urine Ketones Urine Blood Urine Nitrite Urine Bilirubin Urine Urobilinogen Ur Leukocyte Esterase Blood Type O POSITIVE Antibody Screen Negative Crossmatch See Detail 01/16/18 01/17/18 01/17/18 15:15 01:00 01:00 WBC 1.3 L* D RBC 2.68 L D Hgb 8.3 L D Hct 24.2 L D MCV 90.3 MCH 30.8 MCHC 34.1 RDW 18.3 H Plt Count 97 L D MPV 8.1 D Absolute Neuts (auto) 1.2 Total Counted Neutrophils % 95.5 H Neutrophils % (Manual) 88.9 H Band Neutrophils % 4.1 Lymphocytes % 1.8 L D Lymphocytes % (Manual) 3.0 L D Monocytes % 2.1 L Monocytes % (Manual) 2 L D Eosinophils % 0.3 D Eosinophils % (Manual) 0.0 Basophils % 0.3 Basophils % (Manual) 0.0 Myelocytes % (Man) 0 Promyelocytes % (Man) 0 Blast Cells % (Manual) 0 Nucleated RBC % 2 H Metamyelocytes 0 Hypochromia 1+ Platelet Estimate Decreased Polychromasia 1+ Poikilocytosis 1+ Anisocytosis 2+ Microcytosis 2+ Macrocytosis 1+ Schistocytes PT with INR 15.60 H INR 1.38 H PTT (Actin FS) 22.7 L D Fibrinogen 378.0 Anticoagulation Therapy Puncture Site ABG pH ABG pCO2 at Pt Temp ABG pO2 at Pt Temp ABG HCO3 ABG O2 Sat (Measured) ABG O2 Content ABG Base Excess Deejay Test O2 Delivery Device Oxygen Flow Rate Vent Mode Vent Rate Mechanical Rate Pressure Support Vent Sodium Potassium Chloride Carbon Dioxide Anion Gap BUN Creatinine Creat Clearance w eGFR Random Glucose Lactic Acid Calcium Phosphorus Magnesium Total Bilirubin AST ALT Alkaline Phosphatase Creatine Kinase 41 Troponin I < 0.02 Total Protein Albumin Urine Color Urine Appearance Urine pH Ur Specific [place] Urine Protein Urine Glucose (UA) Urine Ketones Urine Blood Urine Nitrite Urine Bilirubin Urine Urobilinogen Ur Leukocyte Esterase Blood Type Antibody Screen Crossmatch 01/17/18 01/17/18 01/17/18 05:30 05:30 05:30 WBC 1.4 L* RBC 2.57 L Hgb 8.1 L Hct 23.2 L MCV 90.3 MCH 31.7 MCHC 35.1 RDW 18.1 H Plt Count 77 L D MPV 7.9 Absolute Neuts (auto) 1.3 Total Counted Neutrophils % 95.0 H Neutrophils % (Manual) 94.9 H Band Neutrophils % 2.0 Lymphocytes % 2.0 L Lymphocytes % (Manual) 2.1 L D Monocytes % 2.2 L Monocytes % (Manual) 1 L Eosinophils % 0.1 Eosinophils % (Manual) 0.0 Basophils % 0.7 Basophils % (Manual) 0.0 Myelocytes % (Man) 0 Promyelocytes % (Man) 0 Blast Cells % (Manual) 0 Nucleated RBC % 1 H Metamyelocytes 0 Hypochromia 0 Platelet Estimate Decreased Polychromasia 0 Poikilocytosis 0 Anisocytosis 1+ Microcytosis 1+ Macrocytosis 1+ Schistocytes 1+ PT with INR 16.20 H INR 1.43 H PTT (Actin FS) 22.1 L Fibrinogen 388.0 Anticoagulation Therapy Puncture Site ABG pH ABG pCO2 at Pt Temp ABG pO2 at Pt Temp ABG HCO3 ABG O2 Sat (Measured) ABG O2 Content ABG Base Excess Deejay Test O2 Delivery Device Oxygen Flow Rate Vent Mode Vent Rate Mechanical Rate Pressure Support Vent Sodium 137 Potassium 3.5 Chloride 100 Carbon Dioxide 28 Anion Gap 9 BUN 7 Creatinine 0.3 L Creat Clearance w eGFR > 60 Random Glucose 148 H Lactic Acid Calcium 7.5 L Phosphorus 1.9 L Magnesium 1.6 L Total Bilirubin 1.2 H D AST 12 L ALT 9 L Alkaline Phosphatase 94 Creatine Kinase 43 Troponin I < 0.02 Total Protein 5.3 L Albumin 2.0 L Urine Color Urine Appearance Urine pH Ur Specific [place] Urine Protein Urine Glucose (UA) Urine Ketones Urine Blood Urine Nitrite Urine Bilirubin Urine Urobilinogen Ur Leukocyte Esterase Blood Type Antibody Screen Crossmatch 01/17/18 06:15 WBC RBC Hgb Hct MCV MCH MCHC RDW Plt Count MPV Absolute Neuts (auto) Total Counted Neutrophils % Neutrophils % (Manual) Band Neutrophils % Lymphocytes % Lymphocytes % (Manual) Monocytes % Monocytes % (Manual) Eosinophils % Eosinophils % (Manual) Basophils % Basophils % (Manual) Myelocytes % (Man) Promyelocytes % (Man) Blast Cells % (Manual) Nucleated RBC % Metamyelocytes Hypochromia Platelet Estimate Polychromasia Poikilocytosis Anisocytosis Microcytosis Macrocytosis Schistocytes PT with INR INR PTT (Actin FS) Fibrinogen Anticoagulation Therapy No Result Required. Puncture Site Right radial ABG pH 7.35 ABG pCO2 at Pt Temp 49.1 H ABG pO2 at Pt Temp 97.7 ABG HCO3 26.3 H ABG O2 Sat (Measured) 98.0 ABG O2 Content 11.2 L ABG Base Excess 0.9 Deejay Test Positive O2 Delivery Device No Result Required. Oxygen Flow Rate 60% Vent Mode S/t Vent Rate 14 Mechanical Rate Bipap Pressure Support Vent 14/5 Sodium Potassium Chloride Carbon Dioxide Anion Gap BUN Creatinine Creat Clearance w eGFR Random Glucose Lactic Acid Calcium Phosphorus Magnesium Total Bilirubin AST ALT Alkaline Phosphatase Creatine Kinase Troponin I Total Protein Albumin Urine Color Urine Appearance Urine pH Ur Specific [place] Urine Protein Urine Glucose (UA) Urine Ketones Urine Blood Urine Nitrite Urine Bilirubin Urine Urobilinogen Ur Leukocyte Esterase Blood Type Antibody Screen Crossmatch ASSESSMENT AND PLAN: Acute Hypoxic Respiratory Failure Pneumonia Neutropenic Septic Shock Pancytopenia Coagulopathy r/o DIC Metastatic Breast Ca - broad spectrum antibiotics - f/u cultures - IVF resuscitation - Wean levophed drip - transfuse platelets, PRBC as indicated - filgrastim - NIPPV support - echocardiogram - prognosis guarded - ICU monitoring Dr Sosa Critical care time spent in reviewing chart, evaluating patient and formulating plan 35 min
[2018-01-17] MEDS: TBO-FILGRASTIM 300 MCG/0.5 ML DISP.SYRINGE SQ SCH (12:46)
--- NOTE | 2018-01-17 13:06 | PN ---
Physical Exam: SUBJECTIVE: Patient seen and examined. Patient offers no complaints today. Levophed 3mcgs via R femoral line. OBJECTIVE: Vital Signs Period Temp Pulse Resp BP Sys/[place] Pulse Ox Last 24 Hr 96 F-99.1 F 84-110 19-34 71-107/52-77 95-100 GENERAL: drowsy, a/o x 3 but confused. EYES: sclera anicteric, conjunctiva clear. ENT: oropharynx clear without exudates, moist mucous membranes. NECK: Trachea midline, full range of motion, supple. LUNGS: b/l rhonchi HEART: Regular rate and rhythm ABDOMEN: Soft, nontender, nondistended, normoactive bowel sounds EXTREMITIES: 2+ pulses, warm, no edema. Laboratory Results - last 24 hr 01/16/18 01/16/18 01/16/18 10:30 11:49 12:00 WBC RBC Hgb Hct MCV MCH MCHC RDW Plt Count MPV Absolute Neuts (auto) Total Counted 100 Neutrophils % Neutrophils % (Manual) 92.0 H No Result Required. Band Neutrophils % Lymphocytes % Lymphocytes % (Manual) 6.0 L Monocytes % Monocytes % (Manual) 1 L Eosinophils % Eosinophils % (Manual) Basophils % Basophils % (Manual) 1.0 Myelocytes % (Man) Promyelocytes % (Man) Blast Cells % (Manual) Nucleated RBC % Metamyelocytes Hypochromia Platelet Estimate Polychromasia Poikilocytosis Anisocytosis Microcytosis Macrocytosis Schistocytes PT with INR INR PTT (Actin FS) Fibrinogen Anticoagulation Therapy Puncture Site ABG pH ABG pCO2 at Pt Temp ABG pO2 at Pt Temp ABG HCO3 ABG O2 Sat (Measured) ABG O2 Content ABG Base Excess Deejay Test O2 Delivery Device Oxygen Flow Rate Vent Mode Vent Rate Mechanical Rate Pressure Support Vent Sodium Potassium Chloride Carbon Dioxide Anion Gap BUN Creatinine Creat Clearance w eGFR Random Glucose Calcium Phosphorus Magnesium Total Bilirubin AST ALT Alkaline Phosphatase Creatine Kinase Troponin I Total Protein Albumin Blood Type O POSITIVE Antibody Screen Negative Crossmatch See Detail 01/16/18 01/16/18 01/16/18 15:15 15:15 15:15 WBC RBC Hgb Hct MCV MCH MCHC RDW Plt Count MPV Absolute Neuts (auto) Total Counted Neutrophils % Neutrophils % (Manual) Band Neutrophils % Lymphocytes % Lymphocytes % (Manual) Monocytes % Monocytes % (Manual) Eosinophils % Eosinophils % (Manual) Basophils % Basophils % (Manual) Myelocytes % (Man) Promyelocytes % (Man) Blast Cells % (Manual) Nucleated RBC % Metamyelocytes Hypochromia Platelet Estimate Polychromasia Poikilocytosis Anisocytosis Microcytosis Macrocytosis Schistocytes PT with INR INR PTT (Actin FS) Fibrinogen 363.0 Anticoagulation Therapy Puncture Site ABG pH ABG pCO2 at Pt Temp ABG pO2 at Pt Temp ABG HCO3 ABG O2 Sat (Measured) ABG O2 Content ABG Base Excess Deejay Test O2 Delivery Device Oxygen Flow Rate Vent Mode Vent Rate Mechanical Rate Pressure Support Vent Sodium Potassium Chloride Carbon Dioxide Anion Gap BUN Creatinine Creat Clearance w eGFR Random Glucose Calcium Phosphorus Magnesium 1.5 L Total Bilirubin AST ALT Alkaline Phosphatase Creatine Kinase 41 Troponin I < 0.02 Total Protein Albumin Blood Type Antibody Screen Crossmatch 01/17/18 01/17/18 01/17/18 01:00 01:00 05:30 WBC 1.3 L* D 1.4 L* RBC 2.68 L D 2.57 L Hgb 8.3 L D 8.1 L Hct 24.2 L D 23.2 L MCV 90.3 90.3 MCH 30.8 31.7 MCHC 34.1 35.1 RDW 18.3 H 18.1 H Plt Count 97 L D 77 L D MPV 8.1 D 7.9 Absolute Neuts (auto) 1.2 1.3 Total Counted Neutrophils % 95.5 H 95.0 H Neutrophils % (Manual) 88.9 H 94.9 H Band Neutrophils % 4.1 2.0 Lymphocytes % 1.8 L D 2.0 L Lymphocytes % (Manual) 3.0 L D 2.1 L D Monocytes % 2.1 L 2.2 L Monocytes % (Manual) 2 L D 1 L Eosinophils % 0.3 D 0.1 Eosinophils % (Manual) 0.0 0.0 Basophils % 0.3 0.7 Basophils % (Manual) 0.0 0.0 Myelocytes % (Man) 0 0 Promyelocytes % (Man) 0 0 Blast Cells % (Manual) 0 0 Nucleated RBC % 2 H 1 H Metamyelocytes 0 0 Hypochromia 1+ 0 Platelet Estimate Decreased Decreased Polychromasia 1+ 0 Poikilocytosis 1+ 0 Anisocytosis 2+ 1+ Microcytosis 2+ 1+ Macrocytosis 1+ 1+ Schistocytes 1+ PT with INR 15.60 H INR 1.38 H PTT (Actin FS) 22.7 L D Fibrinogen 378.0 Anticoagulation Therapy Puncture Site ABG pH ABG pCO2 at Pt Temp ABG pO2 at Pt Temp ABG HCO3 ABG O2 Sat (Measured) ABG O2 Content ABG Base Excess Deejay Test O2 Delivery Device Oxygen Flow Rate Vent Mode Vent Rate Mechanical Rate Pressure Support Vent Sodium Potassium Chloride Carbon Dioxide Anion Gap BUN Creatinine Creat Clearance w eGFR Random Glucose Calcium Phosphorus Magnesium Total Bilirubin AST ALT Alkaline Phosphatase Creatine Kinase Troponin I Total Protein Albumin Blood Type Antibody Screen Crossmatch 01/17/18 01/17/18 01/17/18 05:30 05:30 06:15 WBC RBC Hgb Hct MCV MCH MCHC RDW Plt Count MPV Absolute Neuts (auto) Total Counted Neutrophils % Neutrophils % (Manual) Band Neutrophils % Lymphocytes % Lymphocytes % (Manual) Monocytes % Monocytes % (Manual) Eosinophils % Eosinophils % (Manual) Basophils % Basophils % (Manual) Myelocytes % (Man) Promyelocytes % (Man) Blast Cells % (Manual) Nucleated RBC % Metamyelocytes Hypochromia Platelet Estimate Polychromasia Poikilocytosis Anisocytosis Microcytosis Macrocytosis Schistocytes PT with INR 16.20 H INR 1.43 H PTT (Actin FS) 22.1 L Fibrinogen 388.0 Anticoagulation Therapy No Result Required. Puncture Site Right radial ABG pH 7.35 ABG pCO2 at Pt Temp 49.1 H ABG pO2 at Pt Temp 97.7 ABG HCO3 26.3 H ABG O2 Sat (Measured) 98.0 ABG O2 Content 11.2 L ABG Base Excess 0.9 Deejay Test Positive O2 Delivery Device No Result Required. Oxygen Flow Rate 60% Vent Mode S/t Vent Rate 14 Mechanical Rate Bipap Pressure Support Vent 14/5 Sodium 137 Potassium 3.5 Chloride 100 Carbon Dioxide 28 Anion Gap 9 BUN 7 Creatinine 0.3 L Creat Clearance w eGFR > 60 Random Glucose 148 H Calcium 7.5 L Phosphorus 1.9 L Magnesium 1.6 L Total Bilirubin 1.2 H D AST 12 L ALT 9 L Alkaline Phosphatase 94 Creatine Kinase 43 Troponin I < 0.02 Total Protein 5.3 L Albumin 2.0 L Blood Type Antibody Screen Crossmatch Active Medications Generic Name Dose Route Start Last Admin Trade Name Freq PRN Reason Stop Dose Admin Norepinephrine Bitartrate 8, 500 mls @ 18.75 mls/hr 01/16/18 14:45 01/17/18 11:26 000 mcg/ Dextrose IV 0 mcg/min TITR TYSHAWN 0 mls/hr Titration Protocol 5 MCG/MIN Piperacillin Sod/Tazobactam 100 mls @ 200 mls/hr 01/17/18 02:00 01/17/18 09: 15 Sod 4.5 gm/ Dextrose IVPB 200 mls/hr Q8H-IV TYSHAWN Administration Protocol Tbo-Filgrastim 300 mcg 01/17/18 12:00 01/17/18 12:46 Granix - SQ 300 mcg DAILY TYSHAWN Administration ASSESSMENT/PLAN: PULM -Acute hypoxic respiratory failure likely secondary to PNA -Neutropenic -IV abx: Zosyn -ID on board -NIPPV support on BiPap, maintaining sats -maintain O2 > 90% CV -Neutropenic Septic Shock -fu urine, blood cultures -Levophed currently 3mcgs -Wean of pressors -IVF resuscitiation -echo unremarkable -Keep MAP >65 HEME/ONC -hx of metastatic breast cancer, extensive bone mets -Pancytopenia, with mild improvement today. -Filgastrim, continue daily until improvement -transfuse platelets, PRBC as indicated -s/p 2 U PRBC, 2 U platelets 01/16 -Heme/onc on board, follow reccs -follows with . FEN NS @ 100 replete mag, phos npo DVT -scds cont. ICU monitoring Visit type - Emergency Visit Emergency Visit: Yes ED Registration Date: 01/16/18 Care time: The patient presented to the Emergency Department on the above date and was hospitalized for further evaluation of their emergent condition. - New Patient This patient is new to me today: Yes Date on this admission: 01/17/18 - Critical Care Critical Care patient: Yes Total Critical Care Time (in minutes): 40 Critical Care Statement: The care of this patient involved high complexity decision making to prevent further life threatening deterioration of the patient 's condition and/or to evaluate & treat vital organ system(s) failure or risk of failure.
[2018-01-17] MEDS: NOREPINEPHRINE BITARTRATE 8,000 MCG in DEXTROSE 5%-WATER - 492 ML IV SCH (17:26)
[2018-01-17] MEDS ORDERED: SODIUM CHLORIDE 1,000 ML IV SCH (18:00)
--- NOTE | 2018-01-17 18:21 | PN ---
Progress Note, Physician Chief Complaint: on bipap - Current Medication List Current Medications: Active Medications Norepinephrine Bitartrate 8, (000 mcg/ Dextrose) 500 mls @ 18.75 mls/hr IV TITR TYSHAWN; Protocol Last Admin: 01/17/18 17:26 Dose: Not Given Piperacillin Sod/Tazobactam (Sod 4.5 gm/ Dextrose) 100 mls @ 200 mls/hr IVPB Q8H-IV TYSHAWN; Protocol Last Admin: 01/17/18 17:23 Dose: 200 mls/hr Sodium Chloride (Normal Saline -) 1,000 mls @ 100 mls/hr IV ASDIR TYSHAWN Tbo-Filgrastim (Granix -) 300 mcg SQ DAILY TYSHAWN Last Admin: 01/17/18 12:46 Dose: 300 mcg - Objective Vital Signs: Vital Signs Temperature 97 F L 01/17/18 15:00 Pulse Rate 107 H 01/17/18 17:00 Respiratory Rate 22 01/17/18 17:00 Blood Pressure 89/64 01/17/18 17:00 O2 Sat by Pulse Oximetry (%) 96 01/17/18 12:00 Constitutional: Yes: Calm HENT: Yes: Atraumatic Neck: Yes: Supple Cardiovascular: Yes: Regular Rate and Rhythm Respiratory: Yes: Rhonchi Gastrointestinal: Yes: Normal Bowel Sounds Extremities: Yes: WNL Edema: No Neurological: Yes: Alert, Oriented Labs: CBC, BMP 01/17/18 05:30 01/17/18 05:30 INR, PTT INR 1.43 (0.82-1.09) H 01/17/18 05:30 Fibrinogen 388.0 mg/dL (238-498) 01/17/18 05:30 Problem List - Problems (1) Altered mental status Assessment/Plan: pt is awake and alert Code(s): R41.82 - ALTERED MENTAL STATUS, UNSPECIFIED Qualifiers: Altered mental status type: unspecified Qualified Code(s): R41.82 - Altered mental status, unspecified (2) Pancytopenia due to antineoplastic chemotherapy Assessment/Plan: s/p prbc and platelets counts have improved Code(s): D61.810 - ANTINEOPLASTIC CHEMOTHERAPY INDUCED PANCYTOPENIA; T45.1X5A - ADVERSE EFFECT OF ANTINEOPLASTIC AND IMMUNOSUP DRUGS, INIT (3) Pneumonia Assessment/Plan: iv abx cxs sent id on board Code(s): J18.9 - PNEUMONIA, UNSPECIFIED ORGANISM Qualifiers: Pneumonia type: due to unspecified organism Laterality: bilateral Lung location: unspecified part of lung Qualified Code(s): J18.9 - Pneumonia, unspecified organism Assessment/Plan cc time 35 min
[2018-01-17] MEDS ORDERED: CEFEPIME HCL/D5W 1 GM/50 ML BAG IVPB SCH (19:00)
[2018-01-17] MEDS: VANCOMYCIN 1,250 MG in DEXTROSE 5%-WATER - 250 ML IVPB SCH (20:52)
[2018-01-18] MEDS ORDERED: PIPERACILLIN/TAZOBACTAM 4.5 GM VIAL IVPB ONE ×3 (00:04→18:30)
[2018-01-18] MEDS ORDERED: DEXTROSE 5%-WATER 100 ML IVPB ONE ×3 (00:04→18:30)
[2018-01-18] MEDS: PIPERACILLIN/TAZOB 4.5 GM 4.5 GM in DEXTROSE 5%-WATER 100 ML IVPB SCH ×3 (02:00→18:41)
[2018-01-18 05:53] LABS: HEMATOCRIT 22.9 % (32.4-45.2); MCH 31.8 pg (25.7-33.7); MCHC 35.2 g/dl (32.0-36.0); MEAN CELL VOLUME 90.4 fl (80-96); MEAN PLT VOLUME 8.2 fl (7.5-11.1); PLATELET COUNT 48 K/MM3 (134-434); RBC 2.53 M/mm3 (3.60-5.2); RDW 20.4 % (11.6-15.6)
[2018-01-18 06:12] LABS: WHITE BLOOD COUNT 0.7 K/mm3 (4.0-10.0)
[2018-01-18 06:18] LABS: CHLORIDE 102 mmol/L (98-107); SODIUM 142 mmol/L (136-145)
[2018-01-18 06:24] LABS: ALBUMIN 1.7 g/dl (3.4-5.0); ALK PHOS 83 U/L (45-117); ANION GAP 7 (8-16); BILIRUBIN,TOTAL 0.5 mg/dL (0.2-1.0); BLOOD UREA NITROGEN 3 mg/dL (7-18); CALCIUM 7.5 mg/dL (8.5-10.1); CO2 33 mmol/L (21-32); CREATININE 0.2 mg/dL (0.55-1.02); GLUCOSE,RANDOM 127 mg/dL (74-106); MAGNESIUM 1.8 mg/dL (1.8-2.4); PHOSPHOROUS 2.5 mg/dL (2.5-4.9); SGOT/AST 7 U/L (15-37); SGPT/ALT 7 U/L (12-78); TOT PROT 4.9 g/dl (6.4-8.2)
[2018-01-18 06:40] LABS: POTASSIUM 2.5 mmol/L (3.5-5.1)
[2018-01-18] MEDS ORDERED: POTASSIUM CHLORIDE 20 MEQ PREMIX IVPB 100 ML IVPB ONE (07:01)
[2018-01-18] MEDS ORDERED: MAGNESIUM SULF 50% (8.12 MEQ/2 ML-1 GM VIAL) IVPB ONE (07:01)
--- NOTE | 2018-01-18 08:55 | PN ---
Physical Exam: SUBJECTIVE: Patient seen and examined. No acute events overnight. Offers no complaints. Off pressors since yesterday afternoon. Maintaining BP. OBJECTIVE: Vital Signs Period Temp Pulse Resp BP Sys/Langley Pulse Ox Last 24 Hr 96.5 F-97 F 91-107 21-25 81-108/51-75 93-98 GENERAL: lethargic, confused EYES: sclera anicteric, conjunctiva clear. ENT: oropharynx clear without exudates, moist mucous membranes. NECK: Trachea midline, full range of motion, supple. LUNGS: b/l rhonchi HEART: Regular rate and rhythm ABDOMEN: Soft, nontender, nondistended, normoactive bowel sounds EXTREMITIES: 2+ pulses, warm, no edema. Laboratory Results - last 24 hr 01/17/18 01/17/18 01/18/18 05:30 14:30 05:30 WBC 0.7 L* D RBC 2.53 L Hgb 8.0 L Hct 22.9 L MCV 90.4 MCH 31.8 MCHC 35.2 RDW 20.4 H Plt Count 48 L D MPV 8.2 Neutrophils % (Manual) 94.9 H Band Neutrophils % 2.0 Lymphocytes % (Manual) 2.1 L D Monocytes % (Manual) 1 L Eosinophils % (Manual) 0.0 Basophils % (Manual) 0.0 Myelocytes % (Man) 0 Promyelocytes % (Man) 0 Blast Cells % (Manual) 0 Metamyelocytes 0 Hypochromia 0 Platelet Estimate Decreased Polychromasia 0 Poikilocytosis 0 Anisocytosis 1+ Microcytosis 1+ Macrocytosis 1+ Schistocytes 1+ Sodium Potassium Chloride Carbon Dioxide Anion Gap BUN Creatinine Creat Clearance w eGFR Random Glucose Calcium Phosphorus Magnesium Total Bilirubin AST ALT Alkaline Phosphatase Creatine Kinase 35 Troponin I < 0.02 Total Protein Albumin 01/18/18 05:30 WBC RBC Hgb Hct MCV MCH MCHC RDW Plt Count MPV Neutrophils % (Manual) Band Neutrophils % Lymphocytes % (Manual) Monocytes % (Manual) Eosinophils % (Manual) Basophils % (Manual) Myelocytes % (Man) Promyelocytes % (Man) Blast Cells % (Manual) Metamyelocytes Hypochromia Platelet Estimate Polychromasia Poikilocytosis Anisocytosis Microcytosis Macrocytosis Schistocytes Sodium 142 Potassium 2.5 L* Chloride 102 Carbon Dioxide 33 H Anion Gap 7 L BUN 3 L Creatinine 0.2 L Creat Clearance w eGFR > 60 Random Glucose 127 H Calcium 7.5 L Phosphorus 2.5 Magnesium 1.8 Total Bilirubin 0.5 D AST 7 L ALT 7 L Alkaline Phosphatase 83 Creatine Kinase Troponin I Total Protein 4.9 L Albumin 1.7 L Active Medications Generic Name Dose Route Start Last Admin Trade Name Freq PRN Reason Stop Dose Admin Piperacillin Sod/Tazobactam 100 mls @ 200 mls/hr 01/17/18 02:00 01/18/18 02: 00 Sod 4.5 gm/ Dextrose IVPB 200 mls/hr Q8H-IV TYSHAWN Administration Protocol Sodium Chloride 1,000 mls @ 100 mls/hr 01/17/18 18:00 01/17/18 21:04 Normal Saline - IV 100 mls/hr ASDIR TYSHAWN Administration Vancomycin HCl 1,250 mg/ 250 mls @ 250 mls/2 hr 01/17/18 19:00 01/17/18 20:52 Dextrose IVPB 250 mls/2 hr Q24H TYSHAWN Administration Protocol Tbo-Filgrastim 300 mcg 01/17/18 12:00 01/17/18 12:46 Granix - SQ 300 mcg DAILY TYSHAWN Administration ASSESSMENT/PLAN: PULM -Acute hypoxic respiratory failure likely secondary to PNA -Neutropenic -Cont. IV abx: Zosyn, Vanc -Medrol 40mg q8 -Duonebs QID, Albuterol PRN -ID on board -NIPPV support on BiPap, maintaining sats -maintain O2 > 90% CV -Neutropenic Septic Shock -Cx negative -Keep MAP >65 -Off pressors. -echo unremarkable HEME/ONC -hx of metastatic breast cancer, extensive bone mets -Pancytopenia, with mild improvement today. -Filgastrim, continue daily until improvement -transfuse platelets, PRBC as indicated -s/p 2 U PRBC, 2 U platelets 01/16 -Heme/onc on board, follow reccs -follows with . FEN D5 1 with 40K monitor lytes, replete K npo DVT -scds cont. ICU monitoring Visit type - Emergency Visit Emergency Visit: Yes ED Registration Date: 01/16/18 Care time: The patient presented to the Emergency Department on the above date and was hospitalized for further evaluation of their emergent condition. - New Patient This patient is new to me today: No - Critical Care Critical Care patient: Yes Total Critical Care Time (in minutes): 40 Critical Care Statement: The care of this patient involved high complexity decision making to prevent further life threatening deterioration of the patient 's condition and/or to evaluate & treat vital organ system(s) failure or risk of failure.
[2018-01-18] MEDS ORDERED: PT OWN MED DRAWER 7, Y5N ONE ×2 (09:56→18:29)
[2018-01-18] MEDS: TBO-FILGRASTIM 300 MCG/0.5 ML DISP.SYRINGE SQ SCH (10:14)
[2018-01-18] MEDS ORDERED: ALBUTEROL SO4 0.083% IH SOL 2.5 MG/3 ML VIAL.NEB. NEB PRN (10:47)
[2018-01-18] MEDS ORDERED: D5-1/2NS+40 MEQ KCL - 40 MEQ/1,000 ML INFUS.BAG IV SCH (11:00)
--- NOTE | 2018-01-18 11:32 | PN ---
Teaching Attending Note Name of Resident: Alisa Romero ATTENDING PHYSICIAN STATEMENT I saw and evaluated the patient. I reviewed the resident's note and discussed the case with the resident. I agree with the resident's findings and plan as documented. SUBJECTIVE: Pt seen and examined in the ICU. Remains on BiPAP. Off pressors. No fevers recorded. Cultures negative to date. OBJECTIVE: Vital Signs Period Temp Pulse Resp BP Sys/Langley Pulse Ox Last 24 Hr 96.6 F-97.5 F 91-107 21-25 81-108/51-69 93-98 Intake & Output 01/15/18 01/16/18 01/17/18 01/18/18 23:59 23:59 23:59 23:59 Intake Total 4192 1750 1100 Output Total 900 1975 500 Balance 3292 -225 600 Weight 46.13 kg Gen: tachypneic on BiPAP Heart: RRR Lung: bilateral rhonchi, wheezes Abd: soft, nontender Ext: no edema CBC, BMP 01/18/18 05:30 01/18/18 05:30 Active Medications Albuterol Sulfate (Ventolin 0.083% Nebulizer Soln -) 1 amp NEB Q4H PRN PRN Reason: SHORT OF BREATH/WHEEZING Albuterol/Ipratropium (Duoneb -) 1 amp NEB RQID TYSHAWN Piperacillin Sod/Tazobactam (Sod 4.5 gm/ Dextrose) 100 mls @ 200 mls/hr IVPB Q8H-IV TYSHAWN; Protocol Last Admin: 01/18/18 10:12 Dose: 200 mls/hr Vancomycin HCl 1,250 mg/ (Dextrose) 250 mls @ 250 mls/2 hr IVPB Q24H TYSHAWN; Protocol Last Admin: 01/17/18 20:52 Dose: 250 mls/2 hr Dextrose/Sodium Chloride (D5-1/2ns+40 Meq Kcl -) 40 meq in 1,000 mls @ 100 mls/ hr IV ASDIR TYSHAWN Methylprednisolone Sodium Succinate (Solu-Medrol -) 40 mg IVPUSH Q8H-IV TYSHAWN Potassium Chloride (Potassium Chloride 20 Meq Premix Ivpb -) 20 meq IVPB Q60M TYSHAWN Stop: 01/18/18 12:16 Tbo-Filgrastim (Granix -) 300 mcg SQ DAILY TYSHAWN Last Admin: 01/18/18 10:14 Dose: 300 mcg ASSESSMENT AND PLAN: Acute Hypoxic Respiratory Failure Pneumonia Neutropenic Septic Shock Pancytopenia Coagulopathy Metastatic Breast Ca - broad spectrum antibiotics - f/u cultures - IVF - monitor off pressors, maintain MAP >65 - replete K - filgrastim per heme - continue BiPAP to assist in work of breathing - inhaled bronchodilators - start empiric steroids - prognosis guarded - ICU monitoring critical care time spent in reviewing chart, evaluating patient and formulating plan 35 min
[2018-01-18] MEDS: POTASSIUM CHLORIDE 20 MEQ PREMIX IVPB 100 ML IVPB SCH ×2 (11:48→15:12)
--- NOTE | 2018-01-18 11:51 | PN ---
Progress Note, Physician History of Present Illness: Weaned off Levophed gtt on bipap. - Current Medication List Current Medications: Active Medications Albuterol Sulfate (Ventolin 0.083% Nebulizer Soln -) 1 amp NEB Q4H PRN PRN Reason: SHORT OF BREATH/WHEEZING Albuterol/Ipratropium (Duoneb -) 1 amp NEB RQID TYSHAWN Piperacillin Sod/Tazobactam (Sod 4.5 gm/ Dextrose) 100 mls @ 200 mls/hr IVPB Q8H-IV TYSHAWN; Protocol Last Admin: 01/18/18 10:12 Dose: 200 mls/hr Vancomycin HCl 1,250 mg/ (Dextrose) 250 mls @ 250 mls/2 hr IVPB Q24H TYSHAWN; Protocol Last Admin: 01/17/18 20:52 Dose: 250 mls/2 hr Dextrose/Sodium Chloride (D5-1/2ns+40 Meq Kcl -) 40 meq in 1,000 mls @ 100 mls/ hr IV ASDIR TYSHAWN Last Admin: 01/18/18 11:48 Dose: 100 mls/hr Methylprednisolone Sodium Succinate (Solu-Medrol -) 40 mg IVPUSH Q8H-IV TYSHAWN Potassium Chloride (Potassium Chloride 20 Meq Premix Ivpb -) 20 meq IVPB Q60M TYSHAWN Stop: 01/18/18 12:16 Last Admin: 01/18/18 11:48 Dose: 20 meq Tbo-Filgrastim (Granix -) 300 mcg SQ DAILY TYSHAWN Last Admin: 01/18/18 10:14 Dose: 300 mcg - Objective Vital Signs: Vital Signs Temperature 97.5 F L 01/18/18 10:24 Pulse Rate 92 H 01/18/18 10:24 Respiratory Rate 22 01/18/18 10:24 Blood Pressure 106/68 01/18/18 10:24 O2 Sat by Pulse Oximetry (%) 95 01/18/18 09:00 Constitutional: Yes: No Distress, Calm Neck: Yes: Supple Cardiovascular: Yes: Regular Rate and Rhythm Respiratory: Yes: Diminished, On BiPap, Rhonchi Gastrointestinal: Yes: Soft, Hypoactive Bowel Sounds Edema: No Labs: CBC, BMP 01/18/18 05:30 01/18/18 05:30 INR, PTT INR 1.43 (0.82-1.09) H 01/17/18 05:30 Fibrinogen 388.0 mg/dL (238-498) 01/17/18 05:30 - ....Imaging Chest X-ray: Report Reviewed (Stable congestion/pleural effusions) Problem List - Problems (1) Acute respiratory failure with hypoxia Code(s): J96.01 - ACUTE RESPIRATORY FAILURE WITH HYPOXIA (2) Breast cancer Code(s): C50.919 - MALIGNANT NEOPLASM OF UNSP SITE OF UNSPECIFIED FEMALE BREAST Qualifiers: Breast location: unspecified site of breast Estrogen receptor status: unspecified Patient sex: female Laterality: unspecified laterality Qualified Code(s): C50.919 - Malignant neoplasm of unspecified site of unspecified female breast (3) Pancytopenia due to antineoplastic chemotherapy Code(s): D61.810 - ANTINEOPLASTIC CHEMOTHERAPY INDUCED PANCYTOPENIA; T45.1X5A - ADVERSE EFFECT OF ANTINEOPLASTIC AND IMMUNOSUP DRUGS, INIT (4) Pneumonia Code(s): J18.9 - PNEUMONIA, UNSPECIFIED ORGANISM Qualifiers: Pneumonia type: due to unspecified organism Laterality: bilateral Lung location: unspecified part of lung Qualified Code(s): J18.9 - Pneumonia, unspecified organism Assessment/Plan January 16, 2018 Echo: Normal LV size and fxn, tr-mild MR 1. Acute Hypoxic Respiratory Failure->Pneumonia 2. Post Neutropenic Septic Shock 3. Pancytopenia 4. Coagulopathy, r/o DIC 5. Metastatic Breast Ca, extensive bone mets on abemaciclib post XRT P: 1. Empiric broad spectrum antibiotics, f/u cultures, replete K 2. Weaned off Levophed gtt 3. Transfuse monodonor platelets, PRBC, neupogen 4. Continue BiPAP to assist in work of breathing, wean FIO2, BD, IV steroids
[2018-01-18] MEDS: ALBUTEROL SO4 2.5/IPRATROPIUM 0.5 INH SOL 3 ML VIAL.NEB. NEB SCH ×3 (12:00→20:23)
--- NOTE | 2018-01-18 12:06 | PN ---
Progress Note, Physician History of Present Illness: on bipap - Current Medication List Current Medications: Active Medications Albuterol Sulfate (Ventolin 0.083% Nebulizer Soln -) 1 amp NEB Q4H PRN PRN Reason: SHORT OF BREATH/WHEEZING Albuterol/Ipratropium (Duoneb -) 1 amp NEB RQID TYSHAWN Piperacillin Sod/Tazobactam (Sod 4.5 gm/ Dextrose) 100 mls @ 200 mls/hr IVPB Q8H-IV TYSHAWN; Protocol Last Admin: 01/18/18 10:12 Dose: 200 mls/hr Vancomycin HCl 1,250 mg/ (Dextrose) 250 mls @ 250 mls/2 hr IVPB Q24H TYSHAWN; Protocol Last Admin: 01/17/18 20:52 Dose: 250 mls/2 hr Dextrose/Sodium Chloride (D5-1/2ns+40 Meq Kcl -) 40 meq in 1,000 mls @ 100 mls/ hr IV ASDIR TYSHAWN Last Admin: 01/18/18 11:48 Dose: 100 mls/hr Methylprednisolone Sodium Succinate (Solu-Medrol -) 40 mg IVPUSH Q8H-IV TYSHAWN Potassium Chloride (Potassium Chloride 20 Meq Premix Ivpb -) 20 meq IVPB Q60M TYSHAWN Stop: 01/18/18 12:16 Last Admin: 01/18/18 11:48 Dose: 20 meq Tbo-Filgrastim (Granix -) 300 mcg SQ DAILY TYSHAWN Last Admin: 01/18/18 10:14 Dose: 300 mcg - Objective Vital Signs: Vital Signs Temperature 97.5 F L 01/18/18 10:24 Pulse Rate 92 H 01/18/18 10:24 Respiratory Rate 22 01/18/18 10:24 Blood Pressure 106/68 01/18/18 10:24 O2 Sat by Pulse Oximetry (%) 95 01/18/18 09:00 Constitutional: Yes: Calm HENT: Yes: Atraumatic Neck: Yes: Supple Cardiovascular: Yes: Regular Rate and Rhythm Respiratory: Yes: Rhonchi Gastrointestinal: Yes: Normal Bowel Sounds Extremities: Yes: WNL Neurological: Yes: Alert, Oriented Labs: CBC, BMP 01/18/18 05:30 01/18/18 05:30 INR, PTT INR 1.43 (0.82-1.09) H 01/17/18 05:30 Fibrinogen 388.0 mg/dL (238-498) 01/17/18 05:30 Problem List - Problems (1) Altered mental status Assessment/Plan: pt is awake and alert wants food Code(s): R41.82 - ALTERED MENTAL STATUS, UNSPECIFIED Qualifiers: Altered mental status type: unspecified Qualified Code(s): R41.82 - Altered mental status, unspecified (2) Pancytopenia due to antineoplastic chemotherapy Assessment/Plan: s/p prbc and platelets counts have improved Code(s): D61.810 - ANTINEOPLASTIC CHEMOTHERAPY INDUCED PANCYTOPENIA; T45.1X5A - ADVERSE EFFECT OF ANTINEOPLASTIC AND IMMUNOSUP DRUGS, INIT (3) Pneumonia Assessment/Plan: iv abx cxs sent id on board Code(s): J18.9 - PNEUMONIA, UNSPECIFIED ORGANISM Qualifiers: Pneumonia type: due to unspecified organism Laterality: bilateral Lung location: unspecified part of lung Qualified Code(s): J18.9 - Pneumonia, unspecified organism (4) Acute respiratory failure with hypoxia Code(s): J96.01 - ACUTE RESPIRATORY FAILURE WITH HYPOXIA
[2018-01-18] MEDS ORDERED: AMINO ACIDS 4.25%/D5W 1,000 ML IV SCH ×2 (13:30→15:00)
[2018-01-18] MEDS ORDERED: MULTIVIT INJECTION ADULT 10 ML in AMINO ACIDS 4.25%/D5W 1,000 ML IV SCH (15:00)
--- NOTE | 2018-01-18 15:26 | CON.ID ---
Consult Consult Specialty:: infectious diseases Reason for Consultation:: neutropenia resp failure - History of Present Illness Chief Complaint: sob History of Present Illness: 58 year old female with a significant PMH of breast ca who presents to the emergency department via EMS with 5 days of worsening SOB, confusion and decrease in food intake . EMS reports that that her pulse oxygenation was in the mid-80s on 25 LPM via non-rebreather en route to the ED, and she has been tachycardic and tachypneic. The patient and her family deny any recent fever, chills, new nausea or vomiting (they note baseline n/v since starting her chemo pill and radiation this year), rashes, headache, vision changes, new numbness/ tingling/focal weakness, or other symptoms. Deny any other complaints. the above was her history on admission taken from the charts as patient is on bipap patients family in the room.they mention that couple of days back she had dirrhoea and abd pain currently she does not have it patient on bipap and neutropenic patient now on pressors - History Source History Provided By: Family Member, Medical Record Limitations to Obtaining History: Clinical Condition - Past Medical History ...: No - Alcohol/Substance Use Hx Alcohol Use: No - Smoking History Smoking history: Former smoker Have you smoked in the past 12 months: No Home Medications - Allergies Allergies/Adverse Reactions: Allergies Allergy/AdvReac Type Severity Reaction Status Date / Time No Known Allergies Allergy Verified 01/16/18 07:21 - Home Medications Home Medications: Ambulatory Orders Unobtainable 01/16/18 Review of Systems - Review of Systems Constitutional: reports: No Symptoms Eyes: reports: No Symptoms HENT: reports: No Symptoms Neck: reports: No Symptoms Cardiovascular: reports: No Symptoms Respiratory: reports: SOB, SOB on Exertion, Other Gastrointestinal: reports: No Symptoms Genitourinary: reports: No Symptoms Musculoskeletal: reports: No Symptoms Integumentary: reports: No Symptoms Neurological: reports: No Symptoms Endocrine: reports: No Symptoms Hematology/Lymphatic: reports: No Symptoms Psychiatric: reports: No Symptoms Physical Exam Vital Signs: Vital Signs Temperature 97.8 F 01/18/18 10:00 Pulse Rate 90 01/18/18 14:00 Respiratory Rate 22 01/18/18 14:00 Blood Pressure 90/59 01/18/18 14:00 O2 Sat by Pulse Oximetry (%) 95 01/18/18 09:00 Constitutional: Yes: No Distress, Calm Eyes: Yes: Conjunctiva Clear HENT: Yes: Atraumatic, Normocephalic Neck: Yes: Supple, Trachea Midline Cardiovascular: Yes: Regular Rate and Rhythm, Tachycardia Respiratory: Yes: On BiPap, Rhonchi Gastrointestinal: Yes: Soft, Hypoactive Bowel Sounds Musculoskeletal: Yes: WNL Extremities: Yes: WNL Neurological: Yes: Alert, Oriented Psychiatric: Yes: Alert, Oriented Labs: CBC, BMP 01/18/18 05:30 01/18/18 05:30 Imaging - Results Chest X-ray: Report Reviewed, Image Reviewed Cat Scan: Report Reviewed, Image Reviewed Assessment/Plan this patient coming in with neutropenia resp failure and in sepsis and also hypothermia was given vanco and zosyn currently she still using bipap awake and alert on pressors pneumonia septic shock neutropenia resp failure hypoxia metastatic breast ca plan continue broad spectrum abx await for all cx reports pressor support hydration resp support monitor closely rest as per the team and icu discussed in great detail with the family cc time 50 min
--- NOTE | 2018-01-18 15:33 | PN ---
Progress Note, Physician History of Present Illness: wbc has trended down again still on bipap off of pressors - Current Medication List Current Medications: Active Medications Albuterol Sulfate (Ventolin 0.083% Nebulizer Soln -) 1 amp NEB Q4H PRN PRN Reason: SHORT OF BREATH/WHEEZING Albuterol/Ipratropium (Duoneb -) 1 amp NEB RQID TYSHAWN Piperacillin Sod/Tazobactam (Sod 4.5 gm/ Dextrose) 100 mls @ 200 mls/hr IVPB Q8H-IV TYSHAWN; Protocol Last Admin: 01/18/18 10:12 Dose: 200 mls/hr Vancomycin HCl 1,250 mg/ (Dextrose) 250 mls @ 250 mls/2 hr IVPB Q24H TYSHAWN; Protocol Last Admin: 01/17/18 20:52 Dose: 250 mls/2 hr Dextrose/Sodium Chloride (D5-1/2ns+40 Meq Kcl -) 40 meq in 1,000 mls @ 100 mls/ hr IV ASDIR TYSHAWN Last Admin: 01/18/18 11:48 Dose: 100 mls/hr Amino Acids (Clinimix -) 1,000 mls @ 42 mls/hr IV DAILY TYSHAWN Methylprednisolone Sodium Succinate (Solu-Medrol -) 40 mg IVPUSH Q8H-IV TYSHAWN Multivitamins/Minerals (Infuvite Adult -) 10 ml IV DAILY TYSHAWN Tbo-Filgrastim (Granix -) 300 mcg SQ DAILY TYSHAWN Last Admin: 01/18/18 10:14 Dose: 300 mcg - Objective Vital Signs: Vital Signs Temperature 97.8 F 01/18/18 10:00 Pulse Rate 90 01/18/18 14:00 Respiratory Rate 22 01/18/18 14:00 Blood Pressure 90/59 01/18/18 14:00 O2 Sat by Pulse Oximetry (%) 95 01/18/18 09:00 Constitutional: Yes: No Distress, Calm Cardiovascular: Yes: Regular Rate and Rhythm Respiratory: Yes: On BiPap, Rhonchi Gastrointestinal: Yes: Normal Bowel Sounds, Soft Musculoskeletal: Yes: WNL, Muscle Weakness Integumentary: Yes: WNL Neurological: Yes: Alert, Oriented Psychiatric: Yes: Alert, Oriented Labs: CBC, BMP 01/18/18 05:30 01/18/18 05:30 INR, PTT INR 1.43 (0.82-1.09) H 01/17/18 05:30 Fibrinogen 388.0 mg/dL (238-498) 01/17/18 05:30 - ....Imaging Chest X-ray: Report Reviewed, Image Reviewed Assessment/Plan this patient coming in with neutropenia resp failure and in sepsis and also hypothermia was given vanco and zosyn currently she still using bipap awake and alert on pressors pneumonia septic shock neutropenia resp failure hypoxia metastatic breast ca plan continue broad spectrum abx cx reports noted pressor support hydration resp support monitor closely rest as per the team and icu monitor wbc onco on board cc time 50 min
--- NOTE | 2018-01-18 18:27 | PN ---
Progress Note (short form) - Note Progress Note: On BIPAP, but limproved than yesterday Spoke to daughter s Cor: RSR, No murmurs, No gallops Lungs: Clear to P&A Abd: Soft, Normal bowel sounds, No organomegaly Ext:No significant edema Left breast mastectomy/reconstruction Temp Pulse Resp BP Pulse Ox 96.6 F L 97 H 24 101/61 97 01/17/18 10:00 01/17/18 10:00 01/17/18 10:00 01/17/18 10:00 01/17/18 10:36 CBC, BMP 01/17/18 05:30 01/17/18 05:30 Current Medications Generic Name Dose Route Start Last Admin Trade Name Freq PRN Reason Stop Dose Admin Norepinephrine Bitartrate 8, 500 mls @ 18.75 mls/hr 01/16/18 14:45 01/16/18 14:46 000 mcg/ Dextrose IV 5 mcg/min TITR TYSHAWN 18.75 mls/hr Administration Protocol 5 MCG/MIN Piperacillin Sod/Tazobactam 100 mls @ 200 mls/hr 01/17/18 02:00 01/17/18 09: 15 Sod 4.5 gm/ Dextrose IVPB 200 mls/hr Q8H-IV TYSHAWN Administration Protocol Sodium Phosphate 30 mm/ Sodium 260 mls @ 62.5 mls/hr 01/17/18 08:45 01/17/18 09:12 Chloride IVPB 01/17/18 12:54 62.5 mls/hr ONCE ONE Administration Tbo-Filgrastim 300 mcg 01/17/18 11:15 Granix - SQ DAILY TYSHAWN mBC--extensive bony dis, including spinal cord, s/p RT Neutropenic septic shock Resp failure on BiPAP, ?PNA Broad spectrum abx per ID c/w granix regular supportive transfusions never received RT to brain ?ct chest- stability d/wDr.Pelligrino--
[2018-01-18] MEDS: methylPREDNISolone NA SUCC 40 MG/1 ML VIAL IVPUSH SCH (18:41)
[2018-01-18] MEDS: AMINO ACIDS 4.25%/D5W 1,000 ML IV SCH (18:45)
[2018-01-18] MEDS: MULTIVIT INJ. ADULT COMBO WITH VIT K 1 COMBO 10 ML VIAL IV SCH (18:46)
[2018-01-18] MEDS: VANCOMYCIN 1,250 MG in DEXTROSE 5%-WATER - 250 ML IVPB SCH (19:29)
[2018-01-19] MEDS ORDERED: PIPERACILLIN/TAZOBACTAM 4.5 GM VIAL IVPB ONE ×3 (02:29→17:23)
[2018-01-19] MEDS ORDERED: DEXTROSE 5%-WATER 100 ML IVPB ONE ×3 (02:30→17:23)
[2018-01-19] MEDS: PIPERACILLIN/TAZOB 4.5 GM 4.5 GM in DEXTROSE 5%-WATER 100 ML IVPB SCH ×3 (02:32→17:31)
[2018-01-19] MEDS: methylPREDNISolone NA SUCC 40 MG/1 ML VIAL IVPUSH SCH ×3 (02:32→17:30)
[2018-01-19] MEDS: DEXTROSE 5%-0.45% SALINE 1,000 ML IV SCH ×2 (03:14→17:00)
[2018-01-19 06:07] LABS: BASO % 0.1 % (0-2.0); EOS % 0.2 % (0-4.5); HEMATOCRIT 24.3 % (32.4-45.2); HEMOGLOBIN 8.6 GM/dL (10.7-15.3); LYMPH % 1.6 % (8-40); MCH 31.8 pg (25.7-33.7); MCHC 35.2 g/dl (32.0-36.0); MEAN CELL VOLUME 90.5 fl (80-96); MEAN PLT VOLUME 7.9 fl (7.5-11.1); MONO % 2.2 % (3.8-10.2); NEUT % 95.9 % (42.8-82.8); RBC 2.69 M/mm3 (3.60-5.2); RDW 19.3 % (11.6-15.6)
[2018-01-19 06:22] LABS: WHITE BLOOD COUNT 1.8 K/mm3 (4.0-10.0)
[2018-01-19 06:23] LABS: PLATELET COUNT 30 K/MM3 (134-434)
[2018-01-19 06:32] LABS: ALBUMIN 1.7 g/dl (3.4-5.0); ANION GAP 4 (8-16); BLOOD UREA NITROGEN 5 mg/dL (7-18); CALCIUM 7.9 mg/dL (8.5-10.1); CHLORIDE 101 mmol/L (98-107); CO2 35 mmol/L (21-32); GLUCOSE,RANDOM 192 mg/dL (74-106); PHOSPHOROUS 1.4 mg/dL (2.5-4.9); POTASSIUM 3.1 mmol/L (3.5-5.1); SGOT/AST 9 U/L (15-37); SODIUM 140 mmol/L (136-145)
[2018-01-19 06:34] LABS: ALK PHOS 86 U/L (45-117); BILIRUBIN,TOTAL 0.5 mg/dL (0.2-1.0); CREATININE 0.2 mg/dL (0.55-1.02); SGPT/ALT 7 U/L (12-78)
[2018-01-19] MEDS: ALBUTEROL SO4 2.5/IPRATROPIUM 0.5 INH SOL 3 ML VIAL.NEB. NEB SCH ×4 (07:20→20:48)
[2018-01-19] MEDS ORDERED: POTASSIUM PHOSPHATE 30 MM in SODIUM CHLORIDE 250 ML IVPB ONE (07:38)
[2018-01-19] MEDS ORDERED: PT OWN MED DRAWER 7, Y5N ONE ×2 (07:48→17:08)
[2018-01-19] MEDS: TBO-FILGRASTIM 300 MCG/0.5 ML DISP.SYRINGE SQ SCH (09:52)
[2018-01-19 10:49] LABS: ANISOCYTOSIS 1+; MACROCYTOSIS 1+; PLATELET ESTIMATE DECREASED
--- NOTE | 2018-01-19 11:58 | EKG ---
Test Reason : Blood Pressure : / mmHG Vent. Rate : 129 BPM Atrial Rate : 129 BPM P-R Int : 140 ms QRS Dur : 074 ms QT Int : 292 ms P-R-T Axes : 055 050 026 degrees QTc Int : 427 ms POOR DATA QUALITY, INTERPRETATION MAY BE ADVERSELY AFFECTED SINUS TACHYCARDIA POSSIBLE LEFT ATRIAL ENLARGEMENT BORDERLINE ECG NO PREVIOUS ECGS AVAILABLE Confirmed by PARMINDER SHELLEY MD ([id number]) on 01/19/2018 11:58:05 AM Referred By: Confirmed By:PARMINDER SHELLEY MD
--- NOTE | 2018-01-19 12:01 | PN ---
Progress Note, Physician History of Present Illness: Remains off Levophed gtt on T piece. - Current Medication List Current Medications: Active Medications Albuterol Sulfate (Ventolin 0.083% Nebulizer Soln -) 1 amp NEB Q4H PRN PRN Reason: SHORT OF BREATH/WHEEZING Albuterol/Ipratropium (Duoneb -) 1 amp NEB RQID TYSHAWN Last Admin: 01/19/18 11:25 Dose: 1 amp Piperacillin Sod/Tazobactam (Sod 4.5 gm/ Dextrose) 100 mls @ 200 mls/hr IVPB Q8H-IV TYSHAWN; Protocol Last Admin: 01/19/18 09:51 Dose: 200 mls/hr Vancomycin HCl 1,250 mg/ (Dextrose) 250 mls @ 250 mls/2 hr IVPB Q24H TYSHAWN; Protocol Last Admin: 01/18/18 19:29 Dose: 250 mls/2 hr Dextrose/Sodium Chloride (D5-1/2ns -) 1,000 mls @ 100 mls/hr IV ASDIR TYSHAWN Last Admin: 01/19/18 03:14 Dose: 100 mls/hr Methylprednisolone Sodium Succinate (Solu-Medrol -) 40 mg IVPUSH Q8H-IV TYSHAWN Last Admin: 01/19/18 09:51 Dose: 40 mg Tbo-Filgrastim (Granix -) 300 mcg SQ DAILY TYSHAWN Last Admin: 01/19/18 09:52 Dose: 300 mcg - Objective Vital Signs: Vital Signs Temperature 97.4 F L 01/19/18 05:41 Pulse Rate 11 L 01/19/18 11:59 Respiratory Rate 20 01/19/18 09:08 Blood Pressure 110/71 01/19/18 09:08 O2 Sat by Pulse Oximetry (%) 93 L 01/19/18 11:59 Constitutional: Yes: No Distress, Calm, Thin Neck: Yes: Supple Cardiovascular: Yes: Tachycardia Respiratory: Yes: Regular, Diminished, On Venti-Mask, Rhonchi, SOB Gastrointestinal: Yes: Soft, Hypoactive Bowel Sounds Edema: No Labs: CBC, BMP 01/19/18 05:30 01/19/18 05:30 INR, PTT INR 1.43 (0.82-1.09) H 01/17/18 05:30 Fibrinogen 388.0 mg/dL (238-498) 01/17/18 05:30 - ....Imaging Chest X-ray: Report Reviewed (Nodular opacities suspicious of metastatic process ) Problem List - Problems (1) Acute respiratory failure with hypoxia Code(s): J96.01 - ACUTE RESPIRATORY FAILURE WITH HYPOXIA (2) Breast cancer Code(s): C50.919 - MALIGNANT NEOPLASM OF UNSP SITE OF UNSPECIFIED FEMALE BREAST Qualifiers: Breast location: unspecified site of breast Estrogen receptor status: unspecified Patient sex: female Laterality: unspecified laterality Qualified Code(s): C50.919 - Malignant neoplasm of unspecified site of unspecified female breast (3) Pancytopenia due to antineoplastic chemotherapy Code(s): D61.810 - ANTINEOPLASTIC CHEMOTHERAPY INDUCED PANCYTOPENIA; T45.1X5A - ADVERSE EFFECT OF ANTINEOPLASTIC AND IMMUNOSUP DRUGS, INIT (4) Pneumonia Code(s): J18.9 - PNEUMONIA, UNSPECIFIED ORGANISM Qualifiers: Pneumonia type: due to unspecified organism Laterality: bilateral Lung location: unspecified part of lung Qualified Code(s): J18.9 - Pneumonia, unspecified organism Assessment/Plan January 16, 2018 Echo: Normal LV size and fxn, tr-mild MR 1. Acute Hypoxic Respiratory Failure->Pneumonia 2. Post Neutropenic Septic Shock 3. Pancytopenia with improving counts 4. Coagulopathy 5. Metastatic Breast Ca, extensive bone mets on abemaciclib post XRT P: 1. Empiric broad spectrum antibiotics, f/u cultures, replete K 2. Remains off Levophed gtt 3. Transfuse monodonor platelets, PRBC, neupogen 4. Continue T-piece to assist in work of breathing, wean FIO2, BD, IV steroids , chest CT once stable
--- NOTE | 2018-01-19 14:13 | PN ---
Physical Exam: SUBJECTIVE: Patient seen and examined. No acute events overnight. Offers no complaints. Still on bipap. OBJECTIVE: Vital Signs Period Temp Pulse Resp BP Sys/[place]y Pulse Ox Last 24 Hr 97.4 F-97.8 F 11-110 20-32 89-110/61-71 90-97 GENERAL: lethargic, awake and alert EYES: sclera anicteric, conjunctiva clear. ENT: oropharynx clear without exudates, moist mucous membranes. NECK: Trachea midline, full range of motion, supple. LUNGS: b/l rhonchi HEART: Regular rate and rhythm ABDOMEN: Soft, nontender, nondistended, normoactive bowel sounds EXTREMITIES: 2+ pulses, warm, no edema. Laboratory Results - last 24 hr 01/19/18 01/19/18 05:30 05:30 WBC 1.8 L* D RBC 2.69 L Hgb 8.6 L Hct 24.3 L MCV 90.5 MCH 31.8 MCHC 35.2 RDW 19.3 H Plt Count 30 L* D MPV 7.9 Absolute Neuts (auto) 1.7 Neutrophils % 95.9 H Neutrophils % (Manual) 90.7 H Band Neutrophils % 3.1 Lymphocytes % 1.6 L Lymphocytes % (Manual) 1.0 L D Monocytes % 2.2 L Monocytes % (Manual) 3 L D Eosinophils % 0.2 D Eosinophils % (Manual) 0.0 Basophils % 0.1 Basophils % (Manual) 0.0 Myelocytes % (Man) 0 Promyelocytes % (Man) 0 Blast Cells % (Manual) 0 Nucleated RBC % 2 H Metamyelocytes 2 D Hypochromia 0 Platelet Estimate Decreased Polychromasia 0 Poikilocytosis 0 Anisocytosis 1+ Microcytosis 1+ Macrocytosis 1+ Sodium 140 Potassium 3.1 L Chloride 101 Carbon Dioxide 35 H Anion Gap 4 L BUN 5 L Creatinine 0.2 L Creat Clearance w eGFR > 60 Random Glucose 192 H Calcium 7.9 L Phosphorus 1.4 L Magnesium 2.0 Total Bilirubin 0.5 AST 9 L ALT 7 L Alkaline Phosphatase 86 Total Protein 5.0 L Albumin 1.7 L Active Medications Generic Name Dose Route Start Last Admin Trade Name Freq PRN Reason Stop Dose Admin Albuterol Sulfate 1 amp 01/18/18 10:47 Ventolin 0.083% Nebulizer Soln - NEB Q4H PRN SHORT OF BREATH/WHEEZING Albuterol/Ipratropium 1 amp 01/18/18 12:00 01/19/18 11:25 Duoneb - NEB 1 amp RQID TYSHAWN Administration Piperacillin Sod/Tazobactam 100 mls @ 200 mls/hr 01/17/18 02:00 01/19/18 09: 51 Sod 4.5 gm/ Dextrose IVPB 200 mls/hr Q8H-IV TYSHAWN Administration Protocol Vancomycin HCl 1,250 mg/ 250 mls @ 250 mls/2 hr 01/17/18 19:00 01/18/18 19:29 Dextrose IVPB 250 mls/2 hr Q24H TYSHAWN Administration Protocol Dextrose/Sodium Chloride 1,000 mls @ 100 mls/hr 01/18/18 22:00 01/19/18 03:14 D5-1/2ns - IV 100 mls/hr ASDIR TYSHAWN Administration Methylprednisolone Sodium Succinate 40 mg 01/18/18 18:00 01/19/18 09:51 Solu-Medrol - IVPUSH 40 mg Q8H-IV TYSHAWN Administration Tbo-Filgrastim 300 mcg 01/17/18 12:00 01/19/18 09:52 Granix - SQ 300 mcg DAILY TYSHAWN Administration ASSESSMENT/PLAN: PULM -Acute hypoxic respiratory failure likely secondary to PNA -Neutropenic -Cont. IV abx: Zosyn, Vanc -Medrol 40mg q8 -Duonebs QID, Albuterol PRN -ID on board -maintaining sats, take off bipap, start trial of HFNC -maintain O2 > 90% CV -Neutropenic Septic Shock -Cx negative -Keep MAP >65 -BP stable since being off pressors. -echo unremarkable HEME/ONC -hx of metastatic breast cancer, extensive bone mets -Pancytopenia, with mild improvement today. -Filgastrim, continue daily until improvement -transfuse platelets, PRBC as indicated -s/p 2 U PRBC, 2 U platelets 01/16 -Heme/onc on board, follow reccs -follows with . FEN D5 1/2 @ 100 ml/hour monitor lytes, replete K, Phos npo DVT -scds cont. ICU monitoring Visit type - Emergency Visit Emergency Visit: Yes ED Registration Date: 01/16/18 Care time: The patient presented to the Emergency Department on the above date and was hospitalized for further evaluation of their emergent condition. - New Patient This patient is new to me today: No - Critical Care Critical Care patient: Yes Total Critical Care Time (in minutes): 40 Critical Care Statement: The care of this patient involved high complexity decision making to prevent further life threatening deterioration of the patient 's condition and/or to evaluate & treat vital organ system(s) failure or risk of failure.
--- NOTE | 2018-01-19 14:45 | PN ---
Progress Note (short form) - Note Progress Note: seen and examined chart reviewed pt is off of BIPAP, on HF, she is more awake than before and able to converse but appears tachypenic now with diarrhea s Gen: tachypenic Cor: RSR, No murmurs, No gallops Lungs: decreased breath sounds Abd: Soft, Normal bowel sounds, No organomegaly Ext:No significant edema Left breast mastectomy/reconstruction Last Vital Signs Temp Pulse Resp BP Pulse Ox 97.4 F L 11 L 20 110/71 94 L 01/19/18 05:41 01/19/18 11:59 01/19/18 09:08 01/19/18 09:08 01/19/18 14:16 CBC, BMP 01/19/18 05:30 01/19/18 05:30 Current Medications Generic Name Dose Route Start Last Admin Trade Name Freq PRN Reason Stop Dose Admin Albuterol Sulfate 1 amp 01/18/18 10:47 Ventolin 0.083% Nebulizer Soln - NEB Q4H PRN SHORT OF BREATH/WHEEZING Albuterol/Ipratropium 1 amp 01/18/18 12:00 01/19/18 11:25 Duoneb - NEB 1 amp RQID TYSHAWN Administration Piperacillin Sod/Tazobactam 100 mls @ 200 mls/hr 01/17/18 02:00 01/19/18 09: 51 Sod 4.5 gm/ Dextrose IVPB 200 mls/hr Q8H-IV TYSHAWN Administration Protocol Vancomycin HCl 1,250 mg/ 250 mls @ 250 mls/2 hr 01/17/18 19:00 01/18/18 19:29 Dextrose IVPB 250 mls/2 hr Q24H TYSHAWN Administration Protocol Dextrose/Sodium Chloride 1,000 mls @ 100 mls/hr 01/18/18 22:00 01/19/18 03:14 D5-1/2ns - IV 100 mls/hr ASDIR TYSHAWN Administration Methylprednisolone Sodium Succinate 40 mg 01/18/18 18:00 01/19/18 09:51 Solu-Medrol - IVPUSH 40 mg Q8H-IV TYSHAWN Administration Tbo-Filgrastim 300 mcg 01/17/18 12:00 01/19/18 09:52 Granix - SQ 300 mcg DAILY TYSHAWN Administration mBC--extensive bony dis, including spinal cord, s/p RT to the cord/bilateral hip Neutropenic septic shock Resp failure from PNA /?possible Lung mets resp status tenuous--CXR today reviewed/report read on Abx per ID r/o C diff on steroids c/w granix and supportive transfusions/lyte repletion as per daughter, they are unaware if has visceral disease and rememebers being told its predominantly bone. sent message to primary oncologist will follow. Per my discussion with daughter, no advance directives were in place. will follow
--- NOTE | 2018-01-19 14:50 | PN ---
Teaching Attending Note Name of Resident: Alisa Romero ATTENDING PHYSICIAN STATEMENT I saw and evaluated the patient. I reviewed the resident's note and discussed the case with the resident. I agree with the resident's findings and plan as documented. SUBJECTIVE: Patient seen and examined in the ICU. Remains on NIPPV, desaturates quickly off. No pressors. CXR: no gross change in bilateral extensive airspace disease. OBJECTIVE: Intake & Output 01/16/18 01/17/18 01/18/18 01/19/18 23:59 23:59 23:59 23:59 Intake Total 4192 1750 1450 770 Output Total 900 1975 1900 200 Balance 3292 225 -450 570 Weight 101 lb 11.2 oz 101 lb 127 lb 3.307 oz Last Vital Signs Temp Pulse Resp BP Pulse Ox 97.4 F L 11 L 20 110/71 94 L 01/19/18 05:41 01/19/18 11:59 01/19/18 09:08 01/19/18 09:08 01/19/18 14:16 Active Medications Albuterol Sulfate (Ventolin 0.083% Nebulizer Soln -) 1 amp NEB Q4H PRN PRN Reason: SHORT OF BREATH/WHEEZING Albuterol/Ipratropium (Duoneb -) 1 amp NEB RQID TYSHAWN Last Admin: 01/19/18 11:25 Dose: 1 amp Piperacillin Sod/Tazobactam (Sod 4.5 gm/ Dextrose) 100 mls @ 200 mls/hr IVPB Q8H-IV TYSHAWN; Protocol Last Admin: 01/19/18 09:51 Dose: 200 mls/hr Vancomycin HCl 1,250 mg/ (Dextrose) 250 mls @ 250 mls/2 hr IVPB Q24H TYSHAWN; Protocol Last Admin: 01/18/18 19:29 Dose: 250 mls/2 hr Dextrose/Sodium Chloride (D5-1/2ns -) 1,000 mls @ 100 mls/hr IV ASDIR TYSHAWN Last Admin: 01/19/18 03:14 Dose: 100 mls/hr Methylprednisolone Sodium Succinate (Solu-Medrol -) 40 mg IVPUSH Q8H-IV TYSHAWN Last Admin: 01/19/18 09:51 Dose: 40 mg Tbo-Filgrastim (Granix -) 300 mcg SQ DAILY TYSHAWN Last Admin: 01/19/18 09:52 Dose: 300 mcg Gen: Awake and responsive on NIPPV Heart: RRR Lung: bilateral coarse rhonchi, no wheezes Abd: soft, nontender Ext: no edema Laboratory Results - last 24 hr 01/19/18 01/19/18 05:30 05:30 WBC 1.8 L* D RBC 2.69 L Hgb 8.6 L Hct 24.3 L MCV 90.5 MCH 31.8 MCHC 35.2 RDW 19.3 H Plt Count 30 L* D MPV 7.9 Absolute Neuts (auto) 1.7 Neutrophils % 95.9 H Neutrophils % (Manual) 90.7 H Band Neutrophils % 3.1 Lymphocytes % 1.6 L Lymphocytes % (Manual) 1.0 L D Monocytes % 2.2 L Monocytes % (Manual) 3 L D Eosinophils % 0.2 D Eosinophils % (Manual) 0.0 Basophils % 0.1 Basophils % (Manual) 0.0 Myelocytes % (Man) 0 Promyelocytes % (Man) 0 Blast Cells % (Manual) 0 Nucleated RBC % 2 H Metamyelocytes 2 D Hypochromia 0 Platelet Estimate Decreased Polychromasia 0 Poikilocytosis 0 Anisocytosis 1+ Microcytosis 1+ Macrocytosis 1+ Sodium 140 Potassium 3.1 L Chloride 101 Carbon Dioxide 35 H Anion Gap 4 L BUN 5 L Creatinine 0.2 L Creat Clearance w eGFR > 60 Random Glucose 192 H Calcium 7.9 L Phosphorus 1.4 L Magnesium 2.0 Total Bilirubin 0.5 AST 9 L ALT 7 L Alkaline Phosphatase 86 Total Protein 5.0 L Albumin 1.7 L ASSESSMENT AND PLAN: Acute Hypoxic Respiratory Failure Pneumonia Neutropenic Septic Shock Pancytopenia Coagulopathy Metastatic Breast CA Suspected lymphangitic Pulmonary spread - ABX per ID - Minimize IVF as hemodynamics tolerate - Replete lytes PRN - Filgrastim per heme - Trial of HF NC O2 - inhaled bronchodilators - Empiric steroids - prognosis guarded - ICU monitoring - Need to further elucidate GOC with patient/family Dr Sosa Critical care time spent in reviewing chart, evaluating patient and formulating plan 35 min
[2018-01-19] MEDS: AMINO ACIDS 4.25%/D5W 1,000 ML IV SCH (17:32)
[2018-01-19] MEDS: MULTIVIT INJ. ADULT COMBO WITH VIT K 1 COMBO 10 ML VIAL IV SCH (17:32)
--- NOTE | 2018-01-19 18:01 | PN ---
Progress Note, Physician History of Present Illness: patient stable off of bipap on high flow oxygen awake and alert still in distress - Current Medication List Current Medications: Active Medications Albuterol Sulfate (Ventolin 0.083% Nebulizer Soln -) 1 amp NEB Q4H PRN PRN Reason: SHORT OF BREATH/WHEEZING Albuterol/Ipratropium (Duoneb -) 1 amp NEB RQID TYSHAWN Last Admin: 01/19/18 15:22 Dose: 1 amp Piperacillin Sod/Tazobactam (Sod 4.5 gm/ Dextrose) 100 mls @ 200 mls/hr IVPB Q8H-IV TYSHAWN; Protocol Last Admin: 01/19/18 17:31 Dose: 200 mls/hr Dextrose/Sodium Chloride (D5-1/2ns -) 1,000 mls @ 100 mls/hr IV ASDIR TYSHAWN Last Admin: 01/19/18 17:00 Dose: 100 mls/hr Methylprednisolone Sodium Succinate (Solu-Medrol -) 40 mg IVPUSH Q8H-IV TYSHAWN Last Admin: 01/19/18 17:30 Dose: 40 mg Tbo-Filgrastim (Granix -) 300 mcg SQ DAILY TYSHAWN Last Admin: 01/19/18 09:52 Dose: 300 mcg - Objective Vital Signs: Vital Signs Temperature 97.6 F 01/19/18 14:00 Pulse Rate 92 H 01/19/18 15:01 Respiratory Rate 20 01/19/18 15:01 Blood Pressure 107/72 01/19/18 15:01 O2 Sat by Pulse Oximetry (%) 95 01/19/18 17:20 Constitutional: Yes: Calm, Mild Distress Cardiovascular: Yes: Regular Rate and Rhythm Respiratory: Yes: Regular, Poor Air Entry Gastrointestinal: Yes: Normal Bowel Sounds, Soft Musculoskeletal: Yes: WNL Extremities: Yes: WNL Neurological: Yes: Alert, Oriented Psychiatric: Yes: Alert, Oriented Labs: CBC, BMP 01/19/18 05:30 01/19/18 05:30 INR, PTT INR 1.43 (0.82-1.09) H 01/17/18 05:30 Fibrinogen 388.0 mg/dL (238-498) 01/17/18 05:30 Assessment/Plan this patient coming in with neutropenia resp failure and in sepsis and also hypothermia was given vanco and zosyn currently she still using bipap awake and alert on pressors pneumonia septic shock neutropenia resp failure hypoxia metastatic breast ca plan continue abx resp support monitor closely rest as per the team and icu monitor wbc onco on board will stop vanco for now and observe patient is off of pressors now cc time 40 min
[2018-01-19] MEDS ORDERED: DEXTROSE 5%-0.45% SALINE 1,000 ML IV SCH (18:30)
--- NOTE | 2018-01-19 18:52 | PN ---
Progress Note, Physician History of Present Illness: off of bipap had some clear liquids - Current Medication List Current Medications: Active Medications Albuterol Sulfate (Ventolin 0.083% Nebulizer Soln -) 1 amp NEB Q4H PRN PRN Reason: SHORT OF BREATH/WHEEZING Albuterol/Ipratropium (Duoneb -) 1 amp NEB RQID TYSHAWN Last Admin: 01/19/18 15:22 Dose: 1 amp Piperacillin Sod/Tazobactam (Sod 4.5 gm/ Dextrose) 100 mls @ 200 mls/hr IVPB Q8H-IV TYSHAWN; Protocol Last Admin: 01/19/18 17:31 Dose: 200 mls/hr Dextrose/Sodium Chloride (D5-1/2ns -) 1,000 mls @ 75 mls/hr IV ASDIR TYSHAWN Methylprednisolone Sodium Succinate (Solu-Medrol -) 40 mg IVPUSH Q8H-IV TYSHAWN Last Admin: 01/19/18 17:30 Dose: 40 mg Tbo-Filgrastim (Granix -) 300 mcg SQ DAILY TYSHAWN Last Admin: 01/19/18 09:52 Dose: 300 mcg - Objective Vital Signs: Vital Signs Temperature 97.6 F 01/19/18 14:00 Pulse Rate 92 H 01/19/18 15:01 Respiratory Rate 20 01/19/18 15:01 Blood Pressure 107/72 01/19/18 15:01 O2 Sat by Pulse Oximetry (%) 94 L 01/19/18 18:44 HENT: Yes: Atraumatic Neck: Yes: Supple Cardiovascular: Yes: Regular Rate and Rhythm Respiratory: Yes: Rhonchi Gastrointestinal: Yes: Normal Bowel Sounds Extremities: Yes: WNL Neurological: Yes: Alert, Oriented Labs: CBC, BMP 01/19/18 05:30 01/19/18 05:30 INR, PTT INR 1.43 (0.82-1.09) H 01/17/18 05:30 Fibrinogen 388.0 mg/dL (238-498) 01/17/18 05:30 Problem List - Problems (1) Altered mental status Assessment/Plan: pt is awake and alert off of bipap Code(s): R41.82 - ALTERED MENTAL STATUS, UNSPECIFIED Qualifiers: Altered mental status type: unspecified Qualified Code(s): R41.82 - Altered mental status, unspecified (2) Pancytopenia due to antineoplastic chemotherapy Assessment/Plan: s/p prbc and platelets counts have improved Code(s): D61.810 - ANTINEOPLASTIC CHEMOTHERAPY INDUCED PANCYTOPENIA; T45.1X5A - ADVERSE EFFECT OF ANTINEOPLASTIC AND IMMUNOSUP DRUGS, INIT (3) Pneumonia Assessment/Plan: iv abx cxs sent id on board Code(s): J18.9 - PNEUMONIA, UNSPECIFIED ORGANISM Qualifiers: Pneumonia type: due to unspecified organism Laterality: bilateral Lung location: unspecified part of lung Qualified Code(s): J18.9 - Pneumonia, unspecified organism (4) Acute respiratory failure with hypoxia Assessment/Plan: off of bipap monitor Code(s): J96.01 - ACUTE RESPIRATORY FAILURE WITH HYPOXIA Assessment/Plan cc time 35 min
[2018-01-20] MEDS ORDERED: PIPERACILLIN/TAZOBACTAM 4.5 GM VIAL IVPB ONE ×3 (00:48→17:47)
[2018-01-20] MEDS ORDERED: DEXTROSE 5%-WATER 100 ML IVPB ONE ×3 (00:48→17:47)
[2018-01-20] MEDS: methylPREDNISolone NA SUCC 40 MG/1 ML VIAL IVPUSH SCH ×3 (01:16→17:50)
[2018-01-20] MEDS: PIPERACILLIN/TAZOB 4.5 GM 4.5 GM in DEXTROSE 5%-WATER 100 ML IVPB SCH ×3 (01:18→17:49)
[2018-01-20 06:38] LABS: ALBUMIN 1.8 g/dl (3.4-5.0); BLOOD UREA NITROGEN 7 mg/dL (7-18); CHLORIDE 100 mmol/L (98-107); GLUCOSE,RANDOM 210 mg/dL (74-106); PHOSPHOROUS 2.4 mg/dL (2.5-4.9); SGOT/AST 10 U/L (15-37); SODIUM 142 mmol/L (136-145)
[2018-01-20 06:41] LABS: ALK PHOS 96 U/L (45-117); ANION GAP 7 (8-16); BILIRUBIN,TOTAL 0.4 mg/dL (0.2-1.0); CO2 35 mmol/L (21-32); CREATININE 0.2 mg/dL (0.55-1.02); MAGNESIUM 1.9 mg/dL (1.8-2.4); SGPT/ALT 9 U/L (12-78); TOT PROT 5.3 g/dl (6.4-8.2)
[2018-01-20 06:47] LABS: HEMATOCRIT 25.9 % (32.4-45.2); MCH 31.4 pg (25.7-33.7); MCHC 34.6 g/dl (32.0-36.0); MEAN CELL VOLUME 90.8 fl (80-96); MEAN PLT VOLUME 8.5 fl (7.5-11.1); RBC 2.86 M/mm3 (3.60-5.2); RDW 20.3 % (11.6-15.6); WHITE BLOOD COUNT 4.5 K/mm3 (4.0-10.0)
[2018-01-20 07:57] LABS: PLATELET COUNT 24 K/MM3 (134-434)
[2018-01-20] MEDS: ALBUTEROL SO4 2.5/IPRATROPIUM 0.5 INH SOL 3 ML VIAL.NEB. NEB SCH ×4 (08:12→20:50)
[2018-01-20] MEDS ORDERED: POTASSIUM PHOSPHATE 30 MM in DEXTROSE 5%-WATER - 250 ML IVPB ONE (08:55)
[2018-01-20] MEDS ORDERED: POTASSIUM CHLORIDE 20 MEQ PREMIX IVPB 100 ML IVPB SCH (09:00)
[2018-01-20] MEDS ORDERED: MAGNESIUM OXIDE 400 MG TABLET (FP) PO ONE (09:30)
[2018-01-20] MEDS ORDERED: POTASSIUM CHLORIDE TABS 20 MEQ TABLET.ER (FP) PO ONE (09:30)
[2018-01-20] MEDS ORDERED: NAPH,MB-DB/K PH,MBDB POWDER PACKET PO ONE (09:30)
[2018-01-20] MEDS ORDERED: PT OWN MED DRAWER 7, Y5N ONE (10:31)
[2018-01-20] MEDS: TBO-FILGRASTIM 300 MCG/0.5 ML DISP.SYRINGE SQ SCH (10:38)
--- NOTE | 2018-01-20 11:40 | PN ---
Teaching Attending Note Name of Resident: Alisa Romero ATTENDING PHYSICIAN STATEMENT I saw and evaluated the patient. I reviewed the resident's note and discussed the case with the resident. I agree with the resident's findings and plan as documented. SUBJECTIVE: Patient seen and examined in the ICU. Currently on HF NC O2: 50 liters / 70% FiO2. More awake and alert. Reports breathing feels better on the HF. CXR: some improvement in the right base OBJECTIVE: Intake & Output 01/17/18 01/18/18 01/19/18 01/20/18 23:59 23:59 23:59 23:59 Intake Total 1750 1450 2720 720 Output Total 1975 1900 1300 800 Balance -225 -450 1420 -80 Weight 101 lb 127 lb 3.307 oz 121 lb 9 oz Last Vital Signs Temp Pulse Resp BP Pulse Ox 98.6 F 102 H 28 H 100/63 91 L 01/20/18 10:00 01/20/18 10:00 01/20/18 10:00 01/20/18 10:00 01/20/18 10:35 Active Medications Albuterol Sulfate (Ventolin 0.083% Nebulizer Soln -) 1 amp NEB Q4H PRN PRN Reason: SHORT OF BREATH/WHEEZING Albuterol/Ipratropium (Duoneb -) 1 amp NEB RQID TYSHAWN Last Admin: 01/20/18 08:12 Dose: Not Given Piperacillin Sod/Tazobactam (Sod 4.5 gm/ Dextrose) 100 mls @ 200 mls/hr IVPB Q8H-IV TYSHAWN; Protocol Last Admin: 01/20/18 10:34 Dose: 200 mls/hr Dextrose/Sodium Chloride (D5-1/2ns -) 1,000 mls @ 75 mls/hr IV ASDIR TYSHAWN Last Admin: 01/20/18 06:53 Dose: 75 mls/hr Methylprednisolone Sodium Succinate (Solu-Medrol -) 40 mg IVPUSH Q8H-IV TYSHAWN Last Admin: 01/20/18 10:36 Dose: 40 mg Tbo-Filgrastim (Granix -) 300 mcg SQ DAILY TYSHAWN Last Admin: 01/20/18 10:38 Dose: 300 mcg Gen: Awake and responsive on HF NC O2 Heart: RRR Lung: bilateral coarse rhonchi, no wheezes Abd: soft, nontender Ext: no edema Laboratory Results - last 24 hr 01/16/18 01/20/18 01/20/18 12:00 05:30 05:30 WBC 4.5 D RBC 2.86 L Hgb 9.0 L Hct 25.9 L MCV 90.8 MCH 31.4 MCHC 34.6 RDW 20.3 H Plt Count 24 L* MPV 8.5 Sodium 142 Potassium 3.0 L Chloride 100 Carbon Dioxide 35 H Anion Gap 7 L BUN 7 Creatinine 0.2 L Creat Clearance w eGFR > 60 Random Glucose 210 H Calcium 8.0 L Phosphorus 2.4 L Magnesium 1.9 Total Bilirubin 0.4 AST 10 L ALT 9 L Alkaline Phosphatase 96 Total Protein 5.3 L Albumin 1.8 L Blood Type O POSITIVE Antibody Screen Negative Crossmatch See Detail ASSESSMENT AND PLAN: Acute Hypoxic Respiratory Failure Pneumonia Neutropenic Septic Shock Pancytopenia Coagulopathy Metastatic Breast CA Suspected lymphangitic Pulmonary spread - ABX per ID - Minimize IVF as hemodynamics tolerate - Replete lytes PRN - Filgrastim per heme - HF NC O2 - inhaled bronchodilators - Empiric steroids - prognosis guarded - ICU monitoring - Need to further elucidate GOC with patient/family - Will need CT chest Dr Sosa Critical care time spent in reviewing chart, evaluating patient and formulating plan 35 min
--- NOTE | 2018-01-20 11:41 | PN ---
Progress Note (short form) - Note Progress Note: Patient seen and examined Remains dyspneic at rest . On 70% oxygen Denies significant pains Having diarrhea Last Vital Signs Temp Pulse Resp BP Pulse Ox 98.6 F 102 H 28 H 100/63 91 L 01/20/18 10:00 01/20/18 10:00 01/20/18 10:00 01/20/18 10:00 01/20/18 10:35 HEENT: LYSSA, EOM Intact, on oxygen Oropharynx: No thrush, No mucositis Breasts: Without masses, s/p reconstructive surgery Cor: sinus tachycardia, No murmurs, No gallops Lungs: diminished breath sounds bilaterally Abd: Soft, Normal bowel sounds, No organomegaly Ext:No significant edema Skin: No rashes, Integument intact, ecchymoses CBC, BMP 01/20/18 05:30 01/20/18 05:30 Current Medications Generic Name Dose Route Start Last Admin Trade Name Freq PRN Reason Stop Dose Admin Albuterol Sulfate 1 amp 01/18/18 10:47 Ventolin 0.083% Nebulizer Soln - NEB Q4H PRN SHORT OF BREATH/WHEEZING Albuterol/Ipratropium 1 amp 01/18/18 12:00 01/20/18 08:12 Duoneb - NEB Not Given RQID TYSHAWN Piperacillin Sod/Tazobactam 100 mls @ 200 mls/hr 01/17/18 02:00 01/20/18 10: 34 Sod 4.5 gm/ Dextrose IVPB 200 mls/hr Q8H-IV TYSHAWN Administration Protocol Dextrose/Sodium Chloride 1,000 mls @ 75 mls/hr 01/19/18 18:30 01/20/18 06:53 D5-1/2ns - IV 75 mls/hr ASDIR TYSHAWN Administration Methylprednisolone Sodium Succinate 40 mg 01/18/18 18:00 01/20/18 10:36 Solu-Medrol - IVPUSH 40 mg Q8H-IV TYSHAWN Administration Tbo-Filgrastim 300 mcg 01/17/18 12:00 01/20/18 10:38 Granix - SQ 300 mcg DAILY TYSHAWN Administration Impression: Metastatic breast cancer under therapy Bone mets Likely pulmonary mets ? pneumonia Neutropenic sepsis- on granix Anemia Thrombocytopenia- progressive in nature Etiology of thrombocytopenia unclear. Apparent clinical improvement , although ongoing sepsis still possible, coagulopathy possible and will recheck coags, meds- currently on zosyn which may need to be changed would consider platelet infusion if clinical signs of bleeding or if platelets < 15K
--- NOTE | 2018-01-20 11:58 | PN ---
Physical Exam: SUBJECTIVE: Patient seen and examined. No acute events overnight. Patient says she is feeling much better today with improvement in her breathing. on HFNC 50L/70% FiO2 OBJECTIVE: Vital Signs Period Temp Pulse Resp BP Sys/[place] Pulse Ox Last 24 Hr 97.6 F-98.6 F 11-109 22-32 100-114/58-77 91-95 GENERAL: awake, alert, appears comfortable. EYES: sclera anicteric, conjunctiva clear. ENT: oropharynx clear without exudates, moist mucous membranes. NECK: Trachea midline, full range of motion, supple. LUNGS: b/l rhonchi HEART: Regular rate and rhythm ABDOMEN: Soft, nontender, nondistended, normoactive bowel sounds EXTREMITIES: 2+ pulses, warm, no edema. Laboratory Results - last 24 hr 01/16/18 01/20/18 01/20/18 12:00 05:30 05:30 WBC 4.5 D RBC 2.86 L Hgb 9.0 L Hct 25.9 L MCV 90.8 MCH 31.4 MCHC 34.6 RDW 20.3 H Plt Count 24 L* MPV 8.5 Sodium 142 Potassium 3.0 L Chloride 100 Carbon Dioxide 35 H Anion Gap 7 L BUN 7 Creatinine 0.2 L Creat Clearance w eGFR > 60 Random Glucose 210 H Calcium 8.0 L Phosphorus 2.4 L Magnesium 1.9 Total Bilirubin 0.4 AST 10 L ALT 9 L Alkaline Phosphatase 96 Total Protein 5.3 L Albumin 1.8 L Blood Type O POSITIVE Antibody Screen Negative Crossmatch See Detail Active Medications Generic Name Dose Route Start Last Admin Trade Name Freq PRN Reason Stop Dose Admin Albuterol Sulfate 1 amp 01/18/18 10:47 Ventolin 0.083% Nebulizer Soln - NEB Q4H PRN SHORT OF BREATH/WHEEZING Albuterol/Ipratropium 1 amp 01/18/18 12:00 01/20/18 08:12 Duoneb - NEB Not Given RQID TYSHAWN Piperacillin Sod/Tazobactam 100 mls @ 200 mls/hr 01/17/18 02:00 01/20/18 10: 34 Sod 4.5 gm/ Dextrose IVPB 200 mls/hr Q8H-IV TYSHAWN Administration Protocol Dextrose/Sodium Chloride 1,000 mls @ 75 mls/hr 01/19/18 18:30 01/20/18 06:53 D5-1/2ns - IV 75 mls/hr ASDIR TYSHAWN Administration Methylprednisolone Sodium Succinate 40 mg 01/18/18 18:00 01/20/18 10:36 Solu-Medrol - IVPUSH 40 mg Q8H-IV TYSHAWN Administration Tbo-Filgrastim 300 mcg 01/17/18 12:00 01/20/18 10:38 Granix - SQ 300 mcg DAILY TYSHAWN Administration ASSESSMENT/PLAN: PULM -Acute hypoxic respiratory failure likely secondary to PNA -Neutropenic -Cont. IV abx: Zosyn, Vanc -Medrol 40mg q8 -Duonebs QID, Albuterol PRN -ID on board -maintaining sats on HFNC. Will decrease settings and monitor. -maintain O2 > 90% CV -Neutropenic Septic Shock -BP stable since being off pressors. -Cultures negative -Keep MAP >65 -echo unremarkable HEME/ONC #hx of metastatic breast cancer, extensive bone mets #Pancytopenia -wbc improvement today to 4.5 vs 1.8 yesterday. -Filgastrim, continue daily until improvement -transfuse platelets if <15,000, PRBC as indicated -s/p 2 U PRBC, 2 U platelets 01/16 -Heme/onc on board, follow reccs -follows with . FEN D5 1/2 @ 100 ml/hour monitor evi dsouza Phos npo DVT -scds Discuss GOC of with family. cont. ICU monitoring Visit type - Emergency Visit Emergency Visit: Yes ED Registration Date: 01/16/18 Care time: The patient presented to the Emergency Department on the above date and was hospitalized for further evaluation of their emergent condition. - New Patient This patient is new to me today: No - Critical Care Critical Care patient: Yes Total Critical Care Time (in minutes): 40 Critical Care Statement: The care of this patient involved high complexity decision making to prevent further life threatening deterioration of the patient 's condition and/or to evaluate & treat vital organ system(s) failure or risk of failure.
--- NOTE | 2018-01-20 14:21 | PN ---
Progress Note, Physician Chief Complaint: feeling good - Current Medication List Current Medications: Active Medications Albuterol Sulfate (Ventolin 0.083% Nebulizer Soln -) 1 amp NEB Q4H PRN PRN Reason: SHORT OF BREATH/WHEEZING Albuterol/Ipratropium (Duoneb -) 1 amp NEB RQID TYSHAWN Last Admin: 01/20/18 11:25 Dose: 1 amp Piperacillin Sod/Tazobactam (Sod 4.5 gm/ Dextrose) 100 mls @ 200 mls/hr IVPB Q8H-IV TYSHAWN; Protocol Last Admin: 01/20/18 10:34 Dose: 200 mls/hr Dextrose/Sodium Chloride (D5-1/2ns -) 1,000 mls @ 75 mls/hr IV ASDIR TYSHAWN Last Admin: 01/20/18 06:53 Dose: 75 mls/hr Methylprednisolone Sodium Succinate (Solu-Medrol -) 40 mg IVPUSH Q8H-IV TYSHAWN Last Admin: 01/20/18 10:36 Dose: 40 mg Tbo-Filgrastim (Granix -) 300 mcg SQ DAILY TYSHAWN Last Admin: 01/20/18 10:38 Dose: 300 mcg - Objective Vital Signs: Vital Signs Temperature 97.7 F 01/20/18 14:00 Pulse Rate 106 H 01/20/18 14:00 Respiratory Rate 24 01/20/18 14:00 Blood Pressure 115/66 01/20/18 14:00 O2 Sat by Pulse Oximetry (%) 95 01/20/18 13:07 Constitutional: Yes: No Distress HENT: Yes: Atraumatic Cardiovascular: Yes: Regular Rate and Rhythm Respiratory: Yes: Rhonchi Gastrointestinal: Yes: Normal Bowel Sounds Extremities: Yes: WNL Neurological: Yes: Alert, Oriented Labs: CBC, BMP 01/20/18 05:30 01/20/18 05:30 INR, PTT INR 1.43 (0.82-1.09) H 01/17/18 05:30 Fibrinogen 388.0 mg/dL (238-498) 01/17/18 05:30 Problem List - Problems (1) Altered mental status Assessment/Plan: pt is awake and alert off of bipap on nc doing well Code(s): R41.82 - ALTERED MENTAL STATUS, UNSPECIFIED Qualifiers: Altered mental status type: unspecified Qualified Code(s): R41.82 - Altered mental status, unspecified (2) Pancytopenia due to antineoplastic chemotherapy Assessment/Plan: s/p prbc and platelets counts have improved Code(s): D61.810 - ANTINEOPLASTIC CHEMOTHERAPY INDUCED PANCYTOPENIA; T45.1X5A - ADVERSE EFFECT OF ANTINEOPLASTIC AND IMMUNOSUP DRUGS, INIT (3) Pneumonia Assessment/Plan: iv abx cxs sent id on board Code(s): J18.9 - PNEUMONIA, UNSPECIFIED ORGANISM Qualifiers: Pneumonia type: due to unspecified organism Laterality: bilateral Lung location: unspecified part of lung Qualified Code(s): J18.9 - Pneumonia, unspecified organism (4) Acute respiratory failure with hypoxia Code(s): J96.01 - ACUTE RESPIRATORY FAILURE WITH HYPOXIA
--- NOTE | 2018-01-20 14:30 | PN ---
Progress Note, Physician History of Present Illness: Remains off Levophed gtt on high flow O2 to maintain saO2. - Current Medication List Current Medications: Active Medications Albuterol Sulfate (Ventolin 0.083% Nebulizer Soln -) 1 amp NEB Q4H PRN PRN Reason: SHORT OF BREATH/WHEEZING Albuterol/Ipratropium (Duoneb -) 1 amp NEB RQID TYSHAWN Last Admin: 01/20/18 11:25 Dose: 1 amp Piperacillin Sod/Tazobactam (Sod 4.5 gm/ Dextrose) 100 mls @ 200 mls/hr IVPB Q8H-IV TYSHAWN; Protocol Last Admin: 01/20/18 10:34 Dose: 200 mls/hr Dextrose/Sodium Chloride (D5-1/2ns -) 1,000 mls @ 75 mls/hr IV ASDIR TYSHAWN Last Admin: 01/20/18 06:53 Dose: 75 mls/hr Methylprednisolone Sodium Succinate (Solu-Medrol -) 40 mg IVPUSH Q8H-IV TYSHAWN Last Admin: 01/20/18 10:36 Dose: 40 mg Tbo-Filgrastim (Granix -) 300 mcg SQ DAILY TYSHAWN Last Admin: 01/20/18 10:38 Dose: 300 mcg - Objective Vital Signs: Vital Signs Temperature 97.7 F 01/20/18 14:00 Pulse Rate 106 H 01/20/18 14:00 Respiratory Rate 24 01/20/18 14:00 Blood Pressure 115/66 01/20/18 14:00 O2 Sat by Pulse Oximetry (%) 95 01/20/18 13:07 Constitutional: Yes: No Distress, Calm, Thin Neck: Yes: Supple Cardiovascular: Yes: Regular Rate and Rhythm Respiratory: Yes: Regular, Diminished, On Nasal O2 Gastrointestinal: Yes: Normal Bowel Sounds, Soft Edema: No Labs: CBC, BMP 01/20/18 05:30 01/20/18 05:30 INR, PTT INR 1.43 (0.82-1.09) H 01/17/18 05:30 Fibrinogen 388.0 mg/dL (238-498) 01/17/18 05:30 - ....Imaging Chest X-ray: Report Reviewed (Stable) Problem List - Problems (1) Acute respiratory failure with hypoxia Code(s): J96.01 - ACUTE RESPIRATORY FAILURE WITH HYPOXIA (2) Breast cancer Code(s): C50.919 - MALIGNANT NEOPLASM OF UNSP SITE OF UNSPECIFIED FEMALE BREAST Qualifiers: Breast location: unspecified site of breast Estrogen receptor status: unspecified Patient sex: female Laterality: unspecified laterality Qualified Code(s): C50.919 - Malignant neoplasm of unspecified site of unspecified female breast (3) Pancytopenia due to antineoplastic chemotherapy Code(s): D61.810 - ANTINEOPLASTIC CHEMOTHERAPY INDUCED PANCYTOPENIA; T45.1X5A - ADVERSE EFFECT OF ANTINEOPLASTIC AND IMMUNOSUP DRUGS, INIT (4) Pneumonia Code(s): J18.9 - PNEUMONIA, UNSPECIFIED ORGANISM Qualifiers: Pneumonia type: due to unspecified organism Laterality: bilateral Lung location: unspecified part of lung Qualified Code(s): J18.9 - Pneumonia, unspecified organism Assessment/Plan January 16, 2018 Echo: Normal LV size and fxn, tr-mild MR 1. Acute Hypoxic Respiratory Failure->Pneumonia 2. Post Neutropenic Septic Shock 3. Pancytopenia with improving counts 4. Coagulopathy 5. Metastatic Breast Ca, extensive bone mets on abemaciclib post XRT, suspected lymphangitic Pulmonary spread P: 1. Empiric broad spectrum antibiotics, f/u cultures, replete K 2. Remains off Levophed gtt 3. Transfuse monodonor platelets, PRBC as needed, neupogen 4. Continue high flow O2 as needed to assist in work of breathing, wean FIO2, BD, IV steroids, chest CT once stable
[2018-01-20 14:36] LABS: INR 1.2 (0.82-1.09); PROTHROMBIN TIME (PATIENT) 13.6 SEC (9.7-13.0)
[2018-01-20 14:39] LABS: ACTIVATED PTT 20.8 SECONDS (25.2-36.5)
[2018-01-20] MEDS: SODIUM CHLORIDE 0.45% 1,000 ML IV SCH (15:12)
--- NOTE | 2018-01-20 16:20 | PN ---
Progress Note, Physician History of Present Illness: stable remains on high flow oxygen wbc now in normal range - Current Medication List Current Medications: Active Medications Albuterol Sulfate (Ventolin 0.083% Nebulizer Soln -) 1 amp NEB Q4H PRN PRN Reason: SHORT OF BREATH/WHEEZING Albuterol/Ipratropium (Duoneb -) 1 amp NEB RQID TYSHAWN Last Admin: 01/20/18 15:44 Dose: 1 amp Piperacillin Sod/Tazobactam (Sod 4.5 gm/ Dextrose) 100 mls @ 200 mls/hr IVPB Q8H-IV TYSHAWN; Protocol Last Admin: 01/20/18 10:34 Dose: 200 mls/hr Sodium Chloride (1/2 Normal Saline) 1,000 mls @ 2 mls/hr IV ASDIR TYSHAWN Last Admin: 01/20/18 15:12 Dose: 2 mls/hr Methylprednisolone Sodium Succinate (Solu-Medrol -) 40 mg IVPUSH Q8H-IV TYSHAWN Last Admin: 01/20/18 10:36 Dose: 40 mg Tbo-Filgrastim (Granix -) 300 mcg SQ DAILY TYSHAWN Last Admin: 01/20/18 10:38 Dose: 300 mcg - Objective Vital Signs: Vital Signs Temperature 97.7 F 01/20/18 14:00 Pulse Rate 112 H 01/20/18 16:00 Respiratory Rate 24 01/20/18 16:00 Blood Pressure 107/67 01/20/18 16:00 O2 Sat by Pulse Oximetry (%) 94 L 01/20/18 15:13 Constitutional: Yes: No Distress, Calm Cardiovascular: Yes: Regular Rate and Rhythm Respiratory: Yes: Regular, Poor Air Entry Gastrointestinal: Yes: Normal Bowel Sounds, Soft Musculoskeletal: Yes: WNL Extremities: Yes: WNL Neurological: Yes: Alert, Oriented Psychiatric: Yes: Alert, Oriented Labs: CBC, BMP 01/20/18 05:30 01/20/18 05:30 INR, PTT INR 1.20 (0.82-1.09) H 01/20/18 12:55 Fibrinogen 344.0 mg/dL (238-498) 01/20/18 12:55 Assessment/Plan pneumonia septic shock neutropenia resp failure hypoxia metastatic breast ca plan continue abx resp support monitor closely rest as per the team and icu monitor wbc onco on board continue monitoring cc time 40 min
[2018-01-21] MEDS: CEFEPIME HCL/D5W 1 GM/50 ML BAG IVPB SCH ×3 (02:00→17:25)
[2018-01-21] MEDS: methylPREDNISolone NA SUCC 40 MG/1 ML VIAL IVPUSH SCH ×3 (02:44→17:25)
[2018-01-21 06:14] LABS: BASO % 0.2 % (0-2.0); EOS % 0.3 % (0-4.5); HEMATOCRIT 25.8 % (32.4-45.2); LYMPH % 0.9 % (8-40); MCHC 34.8 g/dl (32.0-36.0); MEAN CELL VOLUME 91.8 fl (80-96); MEAN PLT VOLUME 8.7 fl (7.5-11.1); MONO % 0.4 % (3.8-10.2); NEUT % 98.2 % (42.8-82.8); RBC 2.81 M/mm3 (3.60-5.2); RDW 20.4 % (11.6-15.6); WHITE BLOOD COUNT 8.1 K/mm3 (4.0-10.0)
[2018-01-21 06:27] LABS: PLATELET COUNT 20 K/MM3 (134-434)
[2018-01-21 07:08] LABS: ANION GAP 4 (8-16); BILIRUBIN,TOTAL 0.4 mg/dL (0.2-1.0); BLOOD UREA NITROGEN 10 mg/dL (7-18); CALCIUM 8.4 mg/dL (8.5-10.1); CHLORIDE 102 mmol/L (98-107); CO2 39 mmol/L (21-32); CREATININE 0.3 mg/dL (0.55-1.02); GLUCOSE,RANDOM 181 mg/dL (74-106); MAGNESIUM 1.9 mg/dL (1.8-2.4); POTASSIUM 3.1 mmol/L (3.5-5.1); SGOT/AST 10 U/L (15-37); SGPT/ALT 11 U/L (12-78); SODIUM 145 mmol/L (136-145); TOT PROT 5.3 g/dl (6.4-8.2)
[2018-01-21 07:09] LABS: ALK PHOS 113 U/L (45-117)
[2018-01-21] MEDS: ALBUTEROL SO4 2.5/IPRATROPIUM 0.5 INH SOL 3 ML VIAL.NEB. NEB SCH ×4 (08:09→20:46)
[2018-01-21 09:26] LABS: ANISOCYTOSIS 1+
[2018-01-21 09:27] LABS: PLATELET ESTIMATE DECREASED
--- NOTE | 2018-01-21 09:29 | PN ---
Progress Note, Physician Chief Complaint: Events noted Remains in ICU Tachycardic History of Present Illness: Not on Levophed Respiratory distress with tachypnea Denies chest pain Sinus tachycardia at 100-110 bpm - Current Medication List Current Medications: Active Medications Albuterol Sulfate (Ventolin 0.083% Nebulizer Soln -) 1 amp NEB Q4H PRN PRN Reason: SHORT OF BREATH/WHEEZING Albuterol/Ipratropium (Duoneb -) 1 amp NEB RQID TYSHAWN Last Admin: 01/21/18 08:09 Dose: 1 amp Sodium Chloride (1/2 Normal Saline) 1,000 mls @ 2 mls/hr IV ASDIR TYSHAWN Last Admin: 01/20/18 15:12 Dose: 2 mls/hr Cefepime HCl (Maxipime 1 Gm Premix Ivpb) 1 gm in 50 mls @ 100 mls/hr IVPB Q8H- IV TYSHAWN; Protocol Last Admin: 01/21/18 02:00 Dose: 100 mls/hr Methylprednisolone Sodium Succinate (Solu-Medrol -) 40 mg IVPUSH Q8H-IV TYSHAWN Last Admin: 01/21/18 02:44 Dose: 40 mg Tbo-Filgrastim (Granix -) 300 mcg SQ DAILY TYSHAWN Last Admin: 01/20/18 10:38 Dose: 300 mcg - Objective Vital Signs: Vital Signs Temperature 98.6 F 01/21/18 08:59 Pulse Rate 101 H 01/21/18 07:48 Respiratory Rate 19 01/21/18 07:48 Blood Pressure 118/71 01/21/18 07:48 O2 Sat by Pulse Oximetry (%) 95 01/21/18 07:50 Neck: Yes: Supple Cardiovascular: Yes: Regular Rate and Rhythm, Tachycardia, S1, S2 Respiratory: Yes: Diminished Gastrointestinal: Yes: Normal Bowel Sounds, Soft. No: Tenderness Edema: No Labs: CBC, BMP 01/21/18 05:30 01/21/18 05:30 INR, PTT INR 1.20 (0.82-1.09) H 01/20/18 12:55 Fibrinogen 344.0 mg/dL (238-498) 01/20/18 12:55 Problem List - Problems (1) Sinus tachycardia Code(s): R00.0 - TACHYCARDIA, UNSPECIFIED (2) Acute respiratory failure with hypoxia Code(s): J96.01 - ACUTE RESPIRATORY FAILURE WITH HYPOXIA (3) Breast cancer Code(s): C50.919 - MALIGNANT NEOPLASM OF UNSP SITE OF UNSPECIFIED FEMALE BREAST Qualifiers: Breast location: unspecified site of breast Estrogen receptor status: unspecified Patient sex: female Laterality: unspecified laterality Qualified Code(s): C50.919 - Malignant neoplasm of unspecified site of unspecified female breast (4) Hypokalemia Code(s): E87.6 - HYPOKALEMIA (5) Pancytopenia due to antineoplastic chemotherapy Code(s): D61.810 - ANTINEOPLASTIC CHEMOTHERAPY INDUCED PANCYTOPENIA; T45.1X5A - ADVERSE EFFECT OF ANTINEOPLASTIC AND IMMUNOSUP DRUGS, INIT (6) Pneumonia Code(s): J18.9 - PNEUMONIA, UNSPECIFIED ORGANISM Qualifiers: Pneumonia type: due to unspecified organism Laterality: bilateral Lung location: unspecified part of lung Qualified Code(s): J18.9 - Pneumonia, unspecified organism Assessment/Plan 1. Acute Hypoxic Respiratory Failure with Pneumonia 2. Post neutropenic septic shock 3. Pancytopenia 4. Coagulopathy 5. Metastatic Breast Cancer, extensive bone mets on abemaciclib post XRT, suspected lymphangitic Pulmonary spread PLAN: 1. Empiric broad spectrum antibiotics 2. Monitor electrolytes and replete K 3. Transfuse blood product as needed and monitor CBC 4. Continue high flow O2 as needed to assist in work of breathing, wean FIO2, bronchodilator and IV steroids Prognosis: guarded Martin Sanders MD
--- NOTE | 2018-01-21 10:08 | PN ---
Progress Note (short form) - Note Progress Note: PULMONARY/CCM Pt seen and examined in the ICU. Confused, hallucinating. Remains on HFOT with 50L/min, FiO2 70%. Vital Signs Period Temp Pulse Resp BP Sys/Langley Pulse Ox Last 24 Hr 97.7 F-98.6 F 101-112 19-26 103-118/64-75 91-98 Intake & Output 01/18/18 01/19/18 01/20/18 01/21/18 23:59 23:59 23:59 23:59 Intake Total 1450 2720 1628 220 Output Total 1900 1300 1600 500 Balance -450 1420 28 -280 Weight 45.813 kg 57.7 kg 55.14 kg Gen: tachypneic on HFOT Heart: tachycardic, regular Lung: bilateral rhonchi Abd: soft, nontender Ext: no edema CBC, BMP 01/21/18 05:30 01/21/18 05:30 Active Medications Albuterol Sulfate (Ventolin 0.083% Nebulizer Soln -) 1 amp NEB Q4H PRN PRN Reason: SHORT OF BREATH/WHEEZING Albuterol/Ipratropium (Duoneb -) 1 amp NEB RQID TYSHAWN Last Admin: 01/21/18 08:09 Dose: 1 amp Sodium Chloride (1/2 Normal Saline) 1,000 mls @ 2 mls/hr IV ASDIR TYSHAWN Last Admin: 01/20/18 15:12 Dose: 2 mls/hr Cefepime HCl (Maxipime 1 Gm Premix Ivpb) 1 gm in 50 mls @ 100 mls/hr IVPB Q8H- IV TYSHAWN; Protocol Last Admin: 01/21/18 10:00 Dose: 100 mls/hr Methylprednisolone Sodium Succinate (Solu-Medrol -) 40 mg IVPUSH Q8H-IV TYSHAWN Last Admin: 01/21/18 10:00 Dose: 40 mg Tbo-Filgrastim (Granix -) 300 mcg SQ DAILY TYSHAWN Last Admin: 01/20/18 10:38 Dose: 300 mcg A/P Acute Hypoxic Respiratory Failure Pneumonia Neutropenic Septic Shock Pancytopenia Coagulopathy Metastatic Breast Ca - continue antibiotics - monitor off pressors, maintain MAP >65 - replete K - filgrastim per heme - monitor CBC, coags - transfuse as needed - continue HFOT, taper FiO2 to keep SpO2 >90% - inhaled bronchodilators - continue empiric steroids - prognosis guarded - palliatve care eval - ICU monitoring critical care time spent in reviewing chart, evaluating patient and formulating plan 35 min
[2018-01-21] MEDS: TBO-FILGRASTIM 300 MCG/0.5 ML DISP.SYRINGE SQ SCH (10:50)
--- NOTE | 2018-01-21 12:24 | PN ---
Progress Note, Physician History of Present Illness: Pt seen and examined. Chart, labs, radiologic studies reviewed. Pt is alert but still mildly confused as per daughter at bedside. Has had a couple of loose stools today but no abdominal cramping or pain. No respiratory difficulties at this time, on oxygen. - Current Medication List Current Medications: Active Medications Albuterol Sulfate (Ventolin 0.083% Nebulizer Soln -) 1 amp NEB Q4H PRN PRN Reason: SHORT OF BREATH/WHEEZING Albuterol/Ipratropium (Duoneb -) 1 amp NEB RQID TYSHAWN Last Admin: 01/21/18 08:09 Dose: 1 amp Sodium Chloride (1/2 Normal Saline) 1,000 mls @ 2 mls/hr IV ASDIR TYSHAWN Last Admin: 01/20/18 15:12 Dose: 2 mls/hr Cefepime HCl (Maxipime 1 Gm Premix Ivpb) 1 gm in 50 mls @ 100 mls/hr IVPB Q8H- IV TYSHAWN; Protocol Last Admin: 01/21/18 10:00 Dose: 100 mls/hr Methylprednisolone Sodium Succinate (Solu-Medrol -) 40 mg IVPUSH Q8H-IV TYSHAWN Last Admin: 01/21/18 10:00 Dose: 40 mg Tbo-Filgrastim (Granix -) 300 mcg SQ DAILY TYSHAWN Last Admin: 01/21/18 10:50 Dose: 300 mcg - Objective Vital Signs: Vital Signs Temperature 98.6 F 01/21/18 08:59 Pulse Rate 106 H 01/21/18 10:00 Respiratory Rate 18 01/21/18 10:00 Blood Pressure 120/77 01/21/18 10:00 O2 Sat by Pulse Oximetry (%) 95 01/21/18 09:34 Constitutional: Yes: No Distress, Calm Cardiovascular: Yes: Tachycardia Respiratory: Yes: Regular, On Nasal O2 Gastrointestinal: Yes: Normal Bowel Sounds, Soft Genitourinary: Yes: WNL Extremities: Yes: WNL Neurological: Yes: Alert, Confusion, Other (responds to questions) Psychiatric: Yes: Alert Labs: CBC, BMP 01/21/18 05:30 01/21/18 05:30 INR, PTT INR 1.20 (0.82-1.09) H 01/20/18 12:55 Fibrinogen 344.0 mg/dL (238-498) 01/20/18 12:55 Microbiology 01/16/18 07:30 Blood - Peripheral Venous Blood Culture - Final NO GROWTH AFTER 5 DAYS INCUBATION 01/16/18 07:30 Blood - Peripheral Venous Blood Culture - Final NO GROWTH AFTER 5 DAYS INCUBATION 01/16/18 11:34 Urine - Urine Clean Catch Urine Culture - Final NO GROWTH OBTAINED - ....Imaging Chest X-ray: Report Reviewed Cat Scan: Report Reviewed Problem List - Problems (1) Acute respiratory failure with hypoxia Code(s): J96.01 - ACUTE RESPIRATORY FAILURE WITH HYPOXIA (2) Altered mental status Code(s): R41.82 - ALTERED MENTAL STATUS, UNSPECIFIED Qualifiers: Altered mental status type: unspecified Qualified Code(s): R41.82 - Altered mental status, unspecified (3) Breast cancer Code(s): C50.919 - MALIGNANT NEOPLASM OF UNSP SITE OF UNSPECIFIED FEMALE BREAST Qualifiers: Breast location: unspecified site of breast Estrogen receptor status: unspecified Patient sex: female Laterality: unspecified laterality Qualified Code(s): C50.919 - Malignant neoplasm of unspecified site of unspecified female breast (4) Pancytopenia due to antineoplastic chemotherapy Code(s): D61.810 - ANTINEOPLASTIC CHEMOTHERAPY INDUCED PANCYTOPENIA; T45.1X5A - ADVERSE EFFECT OF ANTINEOPLASTIC AND IMMUNOSUP DRUGS, INIT (5) Pneumonia Code(s): J18.9 - PNEUMONIA, UNSPECIFIED ORGANISM Qualifiers: Pneumonia type: due to unspecified organism Laterality: bilateral Lung location: unspecified part of lung Qualified Code(s): J18.9 - Pneumonia, unspecified organism Assessment/Plan Metastatic Breast CA on chemotherapy Septic Shock - resolved PNA Hypoxic Respiratory Failure Neutropenia Thrombocytopenia -- pt is afebrile, on O2, off vasopressors -- platelets progressively decreasing, Zosyn switched to Cefepime in case antibiotic-induced -- if diarrhea persists, send stool for CDT -- continue monitor closely -- rest of care per ICU cc time: 40 min
--- NOTE | 2018-01-21 13:40 | PN ---
Progress Note (short form) - Note Progress Note: Patient seen and examined anxious oriented in person but not in place or time Last Vital Signs Temp Pulse Resp BP Pulse Ox 98.4 F 104 H 20 116/65 96 01/21/18 12:00 01/21/18 12:00 01/21/18 12:00 01/21/18 12:00 01/21/18 13:00 Cor: sinus tachycardia, No murmurs, No gallops Lungs: diminished breath sounds bilaterally Abd: Soft, Normal bowel sounds, No organomegaly Ext:No significant edema Abnormal Lab Results 01/20/18 01/21/18 01/21/18 12:55 05:30 05:30 RBC 2.81 L Hgb 9.0 L Hct 25.8 L RDW 20.4 H Plt Count 20 L* Neutrophils % 98.2 H Neutrophils % (Manual) 91.0 H Lymphocytes % 0.9 L Lymphocytes % (Manual) 1.0 L Monocytes % 0.4 L D PT with INR 13.60 H INR 1.20 H PTT (Actin FS) 20.8 L Potassium 3.1 L Carbon Dioxide 39 H Anion Gap 4 L Creatinine 0.3 L Random Glucose 181 H Calcium 8.4 L AST 10 L ALT 11 L Total Protein 5.3 L Albumin 2.0 L Active Medications Generic Name Dose Route Start Last Admin Trade Name Freq PRN Reason Stop Dose Admin Albuterol Sulfate 1 amp 01/18/18 10:47 Ventolin 0.083% Nebulizer Soln - NEB Q4H PRN SHORT OF BREATH/WHEEZING Albuterol/Ipratropium 1 amp 01/18/18 12:00 01/21/18 12:29 Duoneb - NEB 1 amp RQID TYSHAWN Administration Sodium Chloride 1,000 mls @ 2 mls/hr 01/20/18 15:00 01/20/18 15:12 1/2 Normal Saline IV 2 mls/hr ASDIR TYSHAWN Administration Cefepime HCl 1 gm in 50 mls @ 100 mls/hr 01/21/18 02:00 01/21/18 10:00 Maxipime 1 Gm Premix Ivpb IVPB 100 mls/hr Q8H-IV TYSHAWN Administration Protocol Methylprednisolone Sodium Succinate 40 mg 01/18/18 18:00 01/21/18 10:00 Solu-Medrol - IVPUSH 40 mg Q8H-IV TYSHAWN Administration Tbo-Filgrastim 300 mcg 01/17/18 12:00 01/21/18 10:50 Granix - SQ 300 mcg DAILY TYSHAWN Administration A/P Metastatic breast cancer Bone mets Likely pulmonary mets ? pneumonia neutropenic sepsis --improved. d/c granix Anemia Thrombocytopenia pain control discussed diagnosis of stage IV cancer, her poor fuctional status, treatment being on hold due to perormance status/thrombocytopenia with patients and daughter. Will leave message with patients primary oncologist Dr. Tay. Family requesting CT scans to assess disease status . At this time they want full supportive care
[2018-01-21] MEDS ORDERED: morphine SULFATE 4 MG/ML VIAL ONE (14:59)
[2018-01-21] MEDS: MORPHINE SULFATE 2 MG/ML VIAL IVPUSH PRN ×2 (15:10→23:41)
[2018-01-21] MEDS: SODIUM CHLORIDE 0.45% 1,000 ML IV SCH (15:17)
--- NOTE | 2018-01-21 18:03 | PN ---
Progress Note, Physician History of Present Illness: doing well - Current Medication List Current Medications: Active Medications Albuterol Sulfate (Ventolin 0.083% Nebulizer Soln -) 1 amp NEB Q4H PRN PRN Reason: SHORT OF BREATH/WHEEZING Albuterol/Ipratropium (Duoneb -) 1 amp NEB RQID TYSHAWN Last Admin: 01/21/18 17:01 Dose: 1 amp Sodium Chloride (1/2 Normal Saline) 1,000 mls @ 2 mls/hr IV ASDIR TYSHAWN Last Admin: 01/21/18 15:17 Dose: 2 mls/hr Cefepime HCl (Maxipime 1 Gm Premix Ivpb) 1 gm in 50 mls @ 100 mls/hr IVPB Q8H- IV TYSHAWN; Protocol Last Admin: 01/21/18 17:25 Dose: 100 mls/hr Methylprednisolone Sodium Succinate (Solu-Medrol -) 40 mg IVPUSH Q8H-IV TYSHAWN Last Admin: 01/21/18 17:25 Dose: 40 mg Morphine Sulfate (Morphine Sulfate) 1.5 mg IVPUSH Q6H PRN PRN Reason: PAIN LEVEL 4 - 6 Last Admin: 01/21/18 15:10 Dose: 1.5 mg - Objective Vital Signs: Vital Signs Temperature 98.7 F 01/21/18 17:33 Pulse Rate 102 H 01/21/18 17:33 Respiratory Rate 20 01/21/18 17:33 Blood Pressure 110/74 01/21/18 17:33 O2 Sat by Pulse Oximetry (%) 97 01/21/18 17:49 Constitutional: Yes: Calm HENT: Yes: Atraumatic Neck: Yes: Supple Cardiovascular: Yes: Regular Rate and Rhythm Respiratory: Yes: CTA Bilaterally Gastrointestinal: Yes: Normal Bowel Sounds Extremities: Yes: WNL Edema: No Peripheral Pulses WNL: Yes Neurological: Yes: Alert, Oriented Labs: CBC, BMP 01/21/18 05:30 01/21/18 05:30 INR, PTT INR 1.20 (0.82-1.09) H 01/20/18 12:55 Fibrinogen 344.0 mg/dL (238-498) 01/20/18 12:55 Problem List - Problems (1) Altered mental status Assessment/Plan: pt is awake and alert off of bipap on nc doing well Code(s): R41.82 - ALTERED MENTAL STATUS, UNSPECIFIED Qualifiers: Altered mental status type: unspecified Qualified Code(s): R41.82 - Altered mental status, unspecified (2) Pancytopenia due to antineoplastic chemotherapy Assessment/Plan: s/p prbc and platelets counts have improved Code(s): D61.810 - ANTINEOPLASTIC CHEMOTHERAPY INDUCED PANCYTOPENIA; T45.1X5A - ADVERSE EFFECT OF ANTINEOPLASTIC AND IMMUNOSUP DRUGS, INIT (3) Pneumonia Assessment/Plan: iv abx cxs sent id on board Code(s): J18.9 - PNEUMONIA, UNSPECIFIED ORGANISM Qualifiers: Pneumonia type: due to unspecified organism Laterality: bilateral Lung location: unspecified part of lung Qualified Code(s): J18.9 - Pneumonia, unspecified organism (4) Acute respiratory failure with hypoxia Assessment/Plan: off of bipap monitor Code(s): J96.01 - ACUTE RESPIRATORY FAILURE WITH HYPOXIA Assessment/Plan cc time 35 min
[2018-01-22] MEDS: CEFEPIME HCL/D5W 1 GM/50 ML BAG IVPB SCH ×3 (01:43→17:25)
[2018-01-22] MEDS: methylPREDNISolone NA SUCC 40 MG/1 ML VIAL IVPUSH SCH ×3 (01:43→17:25)
[2018-01-22 06:41] LABS: BASO % 0.3 % (0-2.0); EOS % 0.2 % (0-4.5); HEMATOCRIT 26.2 % (32.4-45.2); HEMOGLOBIN 8.8 GM/dL (10.7-15.3); LYMPH % 0.5 % (8-40); MCH 31.5 pg (25.7-33.7); MCHC 33.7 g/dl (32.0-36.0); MEAN CELL VOLUME 93.6 fl (80-96); MEAN PLT VOLUME 8.9 fl (7.5-11.1); MONO % 0.2 % (3.8-10.2); NEUT % 98.8 % (42.8-82.8); RBC 2.79 M/mm3 (3.60-5.2); RDW 20.8 % (11.6-15.6); WHITE BLOOD COUNT 11.8 K/mm3 (4.0-10.0)
[2018-01-22 06:54] LABS: PLATELET COUNT 17 K/MM3 (134-434)
[2018-01-22 07:02] LABS: INR 1.35 (0.82-1.09); PROTHROMBIN TIME (PATIENT) 15.2 SEC (9.7-13.0)
[2018-01-22 07:04] LABS: ACTIVATED PTT 19.6 SECONDS (25.2-36.5)
[2018-01-22 07:21] LABS: ANION GAP 3 (8-16); BILIRUBIN,TOTAL 0.4 mg/dL (0.2-1.0); BLOOD UREA NITROGEN 16 mg/dL (7-18); CALCIUM 8.4 mg/dL (8.5-10.1); CHLORIDE 101 mmol/L (98-107); CO2 40 mmol/L (21-32); CREATININE 0.3 mg/dL (0.55-1.02); GLUCOSE,RANDOM 207 mg/dL (74-106); PHOSPHOROUS 2.2 mg/dL (2.5-4.9); POTASSIUM 3.2 mmol/L (3.5-5.1); SGOT/AST 15 U/L (15-37); SGPT/ALT 18 U/L (12-78); SODIUM 144 mmol/L (136-145)
[2018-01-22 07:22] LABS: ALK PHOS 134 U/L (45-117); TOT PROT 5.5 g/dl (6.4-8.2)
[2018-01-22] MEDS: ALBUTEROL SO4 2.5/IPRATROPIUM 0.5 INH SOL 3 ML VIAL.NEB. NEB SCH ×4 (08:19→20:33)
--- NOTE | 2018-01-22 09:17 | PN ---
Progress Note (short form) - Note Progress Note: PULMONARY/CCM Pt seen and examined in the ICU. More oriented today. Remains on HFOT with 50L/ min, FiO2 70%. c/o vaginal pain. Vital Signs Period Temp Pulse Resp BP Sys/Langley Pulse Ox Last 24 Hr 98 F-98.8 F 90-114 17-27 97-130/51-77 92-98 Intake & Output 01/19/18 01/20/18 01/21/18 01/22/18 23:59 23:59 23:59 23:59 Intake Total 2720 1628 570 120 Output Total 1300 1600 1400 200 Balance 1420 28 -830 -80 Weight 57.7 kg 55.14 kg 75 kg Gen: less tachypneic on HFOT Heart: tachycardic, regular Lung: bilateral rhonchi Abd: soft, nontender Ext: no edema CBC, BMP 01/22/18 05:30 01/22/18 05:30 Active Medications Albuterol Sulfate (Ventolin 0.083% Nebulizer Soln -) 1 amp NEB Q4H PRN PRN Reason: SHORT OF BREATH/WHEEZING Albuterol/Ipratropium (Duoneb -) 1 amp NEB RQID TYSHAWN Last Admin: 01/22/18 08:19 Dose: 1 amp Sodium Chloride (1/2 Normal Saline) 1,000 mls @ 2 mls/hr IV ASDIR TYSHAWN Last Admin: 01/21/18 15:17 Dose: 2 mls/hr Cefepime HCl (Maxipime 1 Gm Premix Ivpb) 1 gm in 50 mls @ 100 mls/hr IVPB Q8H- IV TYSHAWN; Protocol Last Admin: 01/22/18 01:43 Dose: 100 mls/hr Methylprednisolone Sodium Succinate (Solu-Medrol -) 40 mg IVPUSH Q8H-IV TYSHAWN Last Admin: 01/22/18 01:43 Dose: 40 mg Morphine Sulfate (Morphine Sulfate) 1.5 mg IVPUSH Q6H PRN PRN Reason: PAIN LEVEL 4 - 6 Last Admin: 01/21/18 23:41 Dose: 1.5 mg A/P Acute Hypoxic Respiratory Failure Pneumonia Neutropenic Septic Shock Pancytopenia Coagulopathy Metastatic Breast Ca - continue antibiotics - monitor off pressors, maintain MAP >65 - replete K - filgrastim per heme - monitor CBC, coags - transfuse as needed - continue HFOT, taper FiO2 to keep SpO2 >90%, decreased to 60% - empiric oral fluconazole - inhaled bronchodilators - continue empiric steroids - prognosis guarded - palliatve care eval - ICU monitoring critical care time spent in reviewing chart, evaluating patient and formulating plan 35 min
[2018-01-22] MEDS ORDERED: POTASSIUM CHLORIDE TABS 20 MEQ TABLET.ER (FP) PO SCH (09:30)
[2018-01-22] MEDS ORDERED: POTASSIUM CHLORIDE TABS 20 MEQ TABLET.ER (FP) PO ONE (10:00)
--- NOTE | 2018-01-22 10:16 | PN ---
Progress Note, Physician Chief Complaint: Events noted Remains in ICU Tachypeic still uses some accessory muscles when breathing Tolerating therapy History of Present Illness: Not on Levophed Respiratory distress with tachypnea Denies chest pain - Current Medication List Current Medications: Active Medications Albuterol Sulfate (Ventolin 0.083% Nebulizer Soln -) 1 amp NEB Q4H PRN PRN Reason: SHORT OF BREATH/WHEEZING Albuterol/Ipratropium (Duoneb -) 1 amp NEB RQID TYSHAWN Last Admin: 01/22/18 08:19 Dose: 1 amp Fluconazole (Diflucan -) 150 mg PO ONCE ONE Stop: 01/22/18 11:01 Sodium Chloride (1/2 Normal Saline) 1,000 mls @ 2 mls/hr IV ASDIR TYSHAWN Last Admin: 01/21/18 15:17 Dose: 2 mls/hr Cefepime HCl (Maxipime 1 Gm Premix Ivpb) 1 gm in 50 mls @ 100 mls/hr IVPB Q8H- IV TYSHAWN; Protocol Last Admin: 01/22/18 09:17 Dose: 100 mls/hr Methylprednisolone Sodium Succinate (Solu-Medrol -) 40 mg IVPUSH Q8H-IV TYSHAWN Last Admin: 01/22/18 09:16 Dose: 40 mg Morphine Sulfate (Morphine Sulfate) 1.5 mg IVPUSH Q6H PRN PRN Reason: PAIN LEVEL 4 - 6 Last Admin: 01/21/18 23:41 Dose: 1.5 mg Potassium Phos/Sodium Phos (Phos-Nak Packet -) 1 packet PO TID TYSHAWN Stop: 01/22/18 22:01 - Objective Vital Signs: Vital Signs Temperature 98 F 01/22/18 06:00 Pulse Rate 90 01/22/18 08:00 Respiratory Rate 18 01/22/18 08:00 Blood Pressure 135/77 01/22/18 08:00 O2 Sat by Pulse Oximetry (%) 96 01/22/18 09:40 Neck: Yes: Supple Cardiovascular: Yes: Regular Rate and Rhythm, S1, S2 Respiratory: Yes: Accessory Muscle Use, Diminished Gastrointestinal: Yes: Normal Bowel Sounds, Soft. No: Tenderness Edema: No Labs: CBC, BMP 01/22/18 05:30 01/22/18 05:30 INR, PTT INR 1.35 (0.82-1.09) H 01/22/18 05:30 Fibrinogen 344.0 mg/dL (238-498) 01/20/18 12:55 Problem List - Problems (1) Sinus tachycardia Code(s): R00.0 - TACHYCARDIA, UNSPECIFIED (2) Acute respiratory failure with hypoxia Code(s): J96.01 - ACUTE RESPIRATORY FAILURE WITH HYPOXIA (3) Breast cancer Code(s): C50.919 - MALIGNANT NEOPLASM OF UNSP SITE OF UNSPECIFIED FEMALE BREAST Qualifiers: Breast location: unspecified site of breast Estrogen receptor status: unspecified Patient sex: female Laterality: unspecified laterality Qualified Code(s): C50.919 - Malignant neoplasm of unspecified site of unspecified female breast (4) Hypokalemia Code(s): E87.6 - HYPOKALEMIA (5) Pancytopenia due to antineoplastic chemotherapy Code(s): D61.810 - ANTINEOPLASTIC CHEMOTHERAPY INDUCED PANCYTOPENIA; T45.1X5A - ADVERSE EFFECT OF ANTINEOPLASTIC AND IMMUNOSUP DRUGS, INIT (6) Pneumonia Code(s): J18.9 - PNEUMONIA, UNSPECIFIED ORGANISM Qualifiers: Pneumonia type: due to unspecified organism Laterality: bilateral Lung location: unspecified part of lung Qualified Code(s): J18.9 - Pneumonia, unspecified organism Assessment/Plan 1. Acute Hypoxic Respiratory Failure with Pneumonia 2. Post neutropenic septic shock 3. Anemia and severe thrombocytopenia 4. Coagulopathy 5. Metastatic Breast Cancer, extensive bone mets on abemaciclib post XRT, suspected lymphangitic Pulmonary spread PLAN: 1. Empiric broad spectrum antibiotics 2. Monitor electrolytes and replete K 3. Transfuse blood product as needed and monitor CBC 4. Continue high flow O2 as needed to assist in work of breathing, wean FIO2, bronchodilator and IV steroids Prognosis: guarded Martin Sanders MD
[2018-01-22] MEDS: NAPH,MB-DB/K PH,MBDB POWDER PACKET PO SCH ×3 (10:52→21:29)
[2018-01-22] MEDS ORDERED: FLUCONAZOLE 50 MG TABLET PO ONE (11:00)
[2018-01-22 12:32] LABS: ANISOCYTOSIS 3+; MACROCYTOSIS 0; PLATELET ESTIMATE DECREASED; TOXIC GRANULATION 2+
[2018-01-22] MEDS: SODIUM CHLORIDE 0.45% 1,000 ML IV SCH (15:00)
--- NOTE | 2018-01-22 16:05 | PN ---
Progress Note, Physician History of Present Illness: Pt remains afebrile, alert. Still with mild confusion per family at bedside. Platelets continues to decrease. Noted with tachypnea, on HFOT. - Current Medication List Current Medications: Active Medications Albuterol Sulfate (Ventolin 0.083% Nebulizer Soln -) 1 amp NEB Q4H PRN PRN Reason: SHORT OF BREATH/WHEEZING Albuterol/Ipratropium (Duoneb -) 1 amp NEB RQID TYSHAWN Last Admin: 01/22/18 12:04 Dose: 1 amp Sodium Chloride (1/2 Normal Saline) 1,000 mls @ 2 mls/hr IV ASDIR TYSHAWN Last Admin: 01/21/18 15:17 Dose: 2 mls/hr Cefepime HCl (Maxipime 1 Gm Premix Ivpb) 1 gm in 50 mls @ 100 mls/hr IVPB Q8H- IV TYSHAWN; Protocol Last Admin: 01/22/18 09:17 Dose: 100 mls/hr Methylprednisolone Sodium Succinate (Solu-Medrol -) 40 mg IVPUSH Q8H-IV TYSHAWN Last Admin: 01/22/18 09:16 Dose: 40 mg Morphine Sulfate (Morphine Sulfate) 1.5 mg IVPUSH Q6H PRN PRN Reason: PAIN LEVEL 4 - 6 Last Admin: 01/21/18 23:41 Dose: 1.5 mg Potassium Phos/Sodium Phos (Phos-Nak Packet -) 1 packet PO TID [facility] Stop: 01/22/18 22:01 Last Admin: 01/22/18 13:48 Dose: 1 packet - Objective Vital Signs: Vital Signs Temperature 98 F 01/22/18 06:00 Pulse Rate 90 01/22/18 08:00 Respiratory Rate 18 01/22/18 09:00 Blood Pressure 135/77 01/22/18 08:00 O2 Sat by Pulse Oximetry (%) 95 01/22/18 14:14 Constitutional: Yes: Mild Distress Neck: Yes: Supple Cardiovascular: Yes: Tachycardia Respiratory: Yes: Accessory Muscle Use Gastrointestinal: Yes: Normal Bowel Sounds, Soft Genitourinary: Yes: [place] Present, Other (vaginal discomfort, no d/c noted) Neurological: Yes: Alert Labs: CBC, BMP 01/22/18 05:30 01/22/18 05:30 INR, PTT INR 1.35 (0.82-1.09) H 01/22/18 05:30 Fibrinogen 344.0 mg/dL (238-498) 01/20/18 12:55 - ....Imaging Chest X-ray: Report Reviewed Problem List - Problems (1) Acute respiratory failure with hypoxia Code(s): J96.01 - ACUTE RESPIRATORY FAILURE WITH HYPOXIA (2) Altered mental status Code(s): R41.82 - ALTERED MENTAL STATUS, UNSPECIFIED Qualifiers: Altered mental status type: unspecified Qualified Code(s): R41.82 - Altered mental status, unspecified (3) Breast cancer Code(s): C50.919 - MALIGNANT NEOPLASM OF UNSP SITE OF UNSPECIFIED FEMALE BREAST Qualifiers: Breast location: unspecified site of breast Estrogen receptor status: unspecified Patient sex: female Laterality: unspecified laterality Qualified Code(s): C50.919 - Malignant neoplasm of unspecified site of unspecified female breast (4) Pancytopenia due to antineoplastic chemotherapy Code(s): D61.810 - ANTINEOPLASTIC CHEMOTHERAPY INDUCED PANCYTOPENIA; T45.1X5A - ADVERSE EFFECT OF ANTINEOPLASTIC AND IMMUNOSUP DRUGS, INIT (5) Pneumonia Code(s): J18.9 - PNEUMONIA, UNSPECIFIED ORGANISM Qualifiers: Pneumonia type: due to unspecified organism Laterality: bilateral Lung location: unspecified part of lung Qualified Code(s): J18.9 - Pneumonia, unspecified organism Assessment/Plan Metastatic Breast CA on chemotherapy Sepsis/ Neutropenic Pancytopenia Progressive thrombocytopenia s/p Shock - off vasopressors PNA Hypoxic Respiratory Failure -- cont. antibiotics for now -- diflucan ordered for possible jayde vaginitis -- monitor for evidence of active bleed, blood products as needed -- consider CT chest -- hematology following cont. monitor closely
--- NOTE | 2018-01-22 16:46 | PN ---
Progress Note, Physician History of Present Illness: doing well - Current Medication List Current Medications: Active Medications Albuterol Sulfate (Ventolin 0.083% Nebulizer Soln -) 1 amp NEB Q4H PRN PRN Reason: SHORT OF BREATH/WHEEZING Albuterol/Ipratropium (Duoneb -) 1 amp NEB RQID TYSHAWN Last Admin: 01/22/18 16:43 Dose: 1 amp Sodium Chloride (1/2 Normal Saline) 1,000 mls @ 2 mls/hr IV ASDIR TYSHAWN Last Admin: 01/21/18 15:17 Dose: 2 mls/hr Cefepime HCl (Maxipime 1 Gm Premix Ivpb) 1 gm in 50 mls @ 100 mls/hr IVPB Q8H- IV TYSHAWN; Protocol Last Admin: 01/22/18 09:17 Dose: 100 mls/hr Methylprednisolone Sodium Succinate (Solu-Medrol -) 40 mg IVPUSH Q8H-IV TYSHAWN Last Admin: 01/22/18 09:16 Dose: 40 mg Morphine Sulfate (Morphine Sulfate) 1.5 mg IVPUSH Q6H PRN PRN Reason: PAIN LEVEL 4 - 6 Last Admin: 01/21/18 23:41 Dose: 1.5 mg Potassium Phos/Sodium Phos (Phos-Nak Packet -) 1 packet PO TID [facility] Stop: 01/22/18 22:01 Last Admin: 01/22/18 13:48 Dose: 1 packet - Objective Vital Signs: Vital Signs Temperature 98 F 01/22/18 06:00 Pulse Rate 90 01/22/18 08:00 Respiratory Rate 18 01/22/18 09:00 Blood Pressure 135/77 01/22/18 08:00 O2 Sat by Pulse Oximetry (%) 99 01/22/18 16:42 Constitutional: Yes: No Distress HENT: Yes: Atraumatic Neck: Yes: Supple Cardiovascular: Yes: Regular Rate and Rhythm Respiratory: Yes: CTA Bilaterally Gastrointestinal: Yes: Normal Bowel Sounds Extremities: Yes: WNL Edema: Yes Edema: LLE: 1+, RLE: 1+ Neurological: Yes: Alert, Oriented Labs: CBC, BMP 01/22/18 05:30 01/22/18 05:30 INR, PTT INR 1.35 (0.82-1.09) H 01/22/18 05:30 Fibrinogen 344.0 mg/dL (238-498) 01/20/18 12:55 Problem List - Problems (1) Altered mental status Assessment/Plan: pt is awake and alert on nc doing well Code(s): R41.82 - ALTERED MENTAL STATUS, UNSPECIFIED Qualifiers: Altered mental status type: unspecified Qualified Code(s): R41.82 - Altered mental status, unspecified (2) Pancytopenia due to antineoplastic chemotherapy Assessment/Plan: s/p prbc and platelets counts have improved PLATELET COUNT GOING DOWN Code(s): D61.810 - ANTINEOPLASTIC CHEMOTHERAPY INDUCED PANCYTOPENIA; T45.1X5A - ADVERSE EFFECT OF ANTINEOPLASTIC AND IMMUNOSUP DRUGS, INIT (3) Pneumonia Assessment/Plan: iv abx cxs sent id on board Code(s): J18.9 - PNEUMONIA, UNSPECIFIED ORGANISM Qualifiers: Pneumonia type: due to unspecified organism Laterality: bilateral Lung location: unspecified part of lung Qualified Code(s): J18.9 - Pneumonia, unspecified organism (4) Acute respiratory failure with hypoxia Code(s): J96.01 - ACUTE RESPIRATORY FAILURE WITH HYPOXIA (5) Thrombocytopenia Assessment/Plan: s/p chemo need heme input Code(s): D69.6 - THROMBOCYTOPENIA, UNSPECIFIED
[2018-01-22 18:07] LABS: HEMATOCRIT 24.1 % (32.4-45.2); HEMOGLOBIN 8.1 GM/dL (10.7-15.3); MCH 31.3 pg (25.7-33.7); MCHC 33.5 g/dl (32.0-36.0); MEAN CELL VOLUME 93.4 fl (80-96); MEAN PLT VOLUME 8.9 fl (7.5-11.1); RBC 2.58 M/mm3 (3.60-5.2); RDW 21.6 % (11.6-15.6)
--- NOTE | 2018-01-22 20:54 | PN ---
Progress Note (short form) - Note Progress Note: Patient seen and examined anxious oriented in person but not in place or time Last Vital Signs Temp Pulse Resp BP Pulse Ox 99.1 F 112 H 22 120/70 97 01/22/18 19:26 01/22/18 19:26 01/22/18 19:26 01/22/18 19:26 01/22/18 19:09 Cor: sinus tachycardia, No murmurs, No gallops Lungs: diminished breath sounds bilaterally Abd: Soft, Normal bowel sounds, No organomegaly Ext:No significant edema Abnormal Lab Results 01/20/18 01/21/18 01/21/18 12:55 05:30 05:30 RBC 2.81 L Hgb 9.0 L Hct 25.8 L RDW 20.4 H Plt Count 20 L* Neutrophils % 98.2 H Neutrophils % (Manual) 91.0 H Lymphocytes % 0.9 L Lymphocytes % (Manual) 1.0 L Monocytes % 0.4 L D PT with INR 13.60 H INR 1.20 H PTT (Actin FS) 20.8 L Potassium 3.1 L Carbon Dioxide 39 H Anion Gap 4 L Creatinine 0.3 L Random Glucose 181 H Calcium 8.4 L AST 10 L ALT 11 L Total Protein 5.3 L Albumin 2.0 L Active Medications Generic Name Dose Route Start Last Admin Trade Name Freq PRN Reason Stop Dose Admin Albuterol Sulfate 1 amp 01/18/18 10:47 Ventolin 0.083% Nebulizer Soln - NEB Q4H PRN SHORT OF BREATH/WHEEZING Albuterol/Ipratropium 1 amp 01/18/18 12:00 01/21/18 12:29 Duoneb - NEB 1 amp RQID TYSHAWN Administration Sodium Chloride 1,000 mls @ 2 mls/hr 01/20/18 15:00 01/20/18 15:12 1/2 Normal Saline IV 2 mls/hr ASDIR TYSHAWN Administration Cefepime HCl 1 gm in 50 mls @ 100 mls/hr 01/21/18 02:00 01/21/18 10:00 Maxipime 1 Gm Premix Ivpb IVPB 100 mls/hr Q8H-IV TYSHAWN Administration Protocol Methylprednisolone Sodium Succinate 40 mg 01/18/18 18:00 01/21/18 10:00 Solu-Medrol - IVPUSH 40 mg Q8H-IV TYSHAWN Administration Tbo-Filgrastim 300 mcg 01/17/18 12:00 01/21/18 10:50 Granix - SQ 300 mcg DAILY TYSHAWN Administration A/P Metastatic breast cancer Bone mets Likely pulmonary mets ? pneumonia neutropenic sepsis --improved. d/c granix Anemia Thrombocytopenia ?? marrow suppression from abemaciclib use pain control discussed diagnosis of stage IV cancer, her poor fuctional status, treatment being on hold due to perormance status/thrombocytopenia with patients . Will leave message with patients primary oncologist Dr. Tay. Family requesting CT scans to assess disease status . At this time they want full supportive care palliative care consult
[2018-01-22 21:26] LABS: ADD RBC MORPHOLOGY YES; WHITE BLOOD COUNT 10.5 K/mm3 (4.0-10.0)
[2018-01-22 21:28] LABS: PLATELET COUNT 19 K/MM3 (134-434)
[2018-01-22 21:30] LABS: ANISOCYTOSIS 2+; MACROCYTOSIS 1+; OVALOCYTE 1+; TEAR DROP CELLS RARE
[2018-01-23] MEDS: methylPREDNISolone NA SUCC 40 MG/1 ML VIAL IVPUSH SCH ×3 (01:49→21:28)
[2018-01-23] MEDS: CEFEPIME HCL/D5W 1 GM/50 ML BAG IVPB SCH ×3 (01:49→17:07)
[2018-01-23 06:29] LABS: BASO % 0.3 % (0-2.0); EOS % 1.9 % (0-4.5); HEMATOCRIT 24.4 % (32.4-45.2); HEMOGLOBIN 8.4 GM/dL (10.7-15.3); LYMPH % 0.8 % (8-40); MCH 32.5 pg (25.7-33.7); MCHC 34.6 g/dl (32.0-36.0); MEAN CELL VOLUME 93.8 fl (80-96); MEAN PLT VOLUME 10.5 fl (7.5-11.1); MONO % 0.1 % (3.8-10.2); NEUT % 96.9 % (42.8-82.8); RDW 21.4 % (11.6-15.6); WHITE BLOOD COUNT 10.9 K/mm3 (4.0-10.0)
[2018-01-23 06:30] LABS: PLATELET COUNT 13 K/MM3 (134-434)
[2018-01-23 06:41] LABS: CHLORIDE 99 mmol/L (98-107); POTASSIUM 3.8 mmol/L (3.5-5.1); SODIUM 142 mmol/L (136-145)
[2018-01-23 07:00] LABS: ALK PHOS 142 U/L (45-117); ANION GAP 4 (8-16); BILIRUBIN,TOTAL 0.4 mg/dL (0.2-1.0); BLOOD UREA NITROGEN 14 mg/dL (7-18); CALCIUM 7.8 mg/dL (8.5-10.1); CO2 39 mmol/L (21-32); CREATININE 0.3 mg/dL (0.55-1.02); GLUCOSE,RANDOM 215 mg/dL (74-106); PHOSPHOROUS 2.5 mg/dL (2.5-4.9); SGOT/AST 18 U/L (15-37); SGPT/ALT 25 U/L (12-78); TOT PROT 5.2 g/dl (6.4-8.2)
[2018-01-23] MEDS: ALBUTEROL SO4 2.5/IPRATROPIUM 0.5 INH SOL 3 ML VIAL.NEB. NEB SCH ×4 (08:37→20:09)
[2018-01-23] MEDS ORDERED: FUROSEMIDE 40 MG/4 ML INJECTABLE VIAL IVPUSH ONE (11:13)
--- NOTE | 2018-01-23 11:13 | PN ---
Progress Note, Physician Chief Complaint: Events noted Remains in ICU Tachypeic still uses some accessory muscles when breathing Sinus tachycardia History of Present Illness: Not on Levophed Respiratory distress with tachypnea Denies chest pain - Current Medication List Current Medications: Active Medications Albuterol Sulfate (Ventolin 0.083% Nebulizer Soln -) 1 amp NEB Q4H PRN PRN Reason: SHORT OF BREATH/WHEEZING Albuterol/Ipratropium (Duoneb -) 1 amp NEB RQID TYSHAWN Last Admin: 01/23/18 08:37 Dose: 1 amp Sodium Chloride (1/2 Normal Saline) 1,000 mls @ 2 mls/hr IV ASDIR TYSHAWN Last Admin: 01/22/18 15:00 Dose: 2 mls/hr Cefepime HCl (Maxipime 1 Gm Premix Ivpb) 1 gm in 50 mls @ 100 mls/hr IVPB Q8H- IV TYSHAWN; Protocol Last Admin: 01/23/18 09:31 Dose: 100 mls/hr Methylprednisolone Sodium Succinate (Solu-Medrol -) 40 mg IVPUSH Q8H-IV TYSHAWN Last Admin: 01/23/18 09:31 Dose: 40 mg Morphine Sulfate (Morphine Sulfate) 1.5 mg IVPUSH Q6H PRN PRN Reason: PAIN LEVEL 4 - 6 Last Admin: 01/21/18 23:41 Dose: 1.5 mg - Objective Vital Signs: Vital Signs Temperature 98.6 F 01/23/18 06:00 Pulse Rate 105 H 01/23/18 08:42 Respiratory Rate 21 01/23/18 09:00 Blood Pressure 125/69 01/23/18 06:00 O2 Sat by Pulse Oximetry (%) 96 01/23/18 09:00 HENT: Yes: Atraumatic Neck: Yes: Supple Cardiovascular: Yes: Regular Rate and Rhythm, Tachycardia, S1, S2 Respiratory: Yes: Diminished, On Nasal O2 Gastrointestinal: Yes: Normal Bowel Sounds, Soft. No: Tenderness Musculoskeletal: No: Joint Stiffness, Joint Swelling Edema: No Additional Findings/Remarks: - Review of Systems Constitutional: denies: Weakness. denies: Chills, Fever Cardiovascular: reports: Palpitations, Shortness of Breath. denies: Chest Pain Respiratory: reports: SOB. denies: Cough, Hemoptysis, Orthopnea, PND Gastrointestinal: denies: Abdominal Pain, Diarrhea, Dysphagia, Melena, Nausea, Rectal Bleeding, Vomiting Genitourinary: denies: Dysuria, Hematuria Musculoskeletal: denies: Joint Pain Neurological: denies: Weakness. denies: Dizziness, Headache, Seizure, Syncope Labs: CBC, BMP 01/23/18 05:30 01/23/18 05:30 INR, PTT INR 1.35 (0.82-1.09) H 01/22/18 05:30 Fibrinogen 344.0 mg/dL (238-498) 01/20/18 12:55 Problem List - Problems (1) Sinus tachycardia Code(s): R00.0 - TACHYCARDIA, UNSPECIFIED (2) Acute respiratory failure with hypoxia Code(s): J96.01 - ACUTE RESPIRATORY FAILURE WITH HYPOXIA (3) Breast cancer Code(s): C50.919 - MALIGNANT NEOPLASM OF UNSP SITE OF UNSPECIFIED FEMALE BREAST Qualifiers: Breast location: unspecified site of breast Estrogen receptor status: unspecified Patient sex: female Laterality: unspecified laterality Qualified Code(s): C50.919 - Malignant neoplasm of unspecified site of unspecified female breast (4) Hypokalemia Code(s): E87.6 - HYPOKALEMIA (5) Pancytopenia due to antineoplastic chemotherapy Code(s): D61.810 - ANTINEOPLASTIC CHEMOTHERAPY INDUCED PANCYTOPENIA; T45.1X5A - ADVERSE EFFECT OF ANTINEOPLASTIC AND IMMUNOSUP DRUGS, INIT (6) Pneumonia Code(s): J18.9 - PNEUMONIA, UNSPECIFIED ORGANISM Qualifiers: Pneumonia type: due to unspecified organism Laterality: bilateral Lung location: unspecified part of lung Qualified Code(s): J18.9 - Pneumonia, unspecified organism Assessment/Plan 1. Acute Hypoxic Respiratory Failure with Pneumonia 2. Post neutropenic septic shock 3. Anemia and severe thrombocytopenia 4. Coagulopathy 5. Metastatic Breast Cancer, extensive bone mets on abemaciclib post XRT, suspected lymphangitic Pulmonary spread PLAN: 1. Empiric broad spectrum antibiotics 2. Monitor electrolytes and replete K 3. Transfuse blood product as needed and monitor CBC 4. Continue high flow O2 as needed to assist in work of breathing, wean FIO2, bronchodilator and IV steroids Prognosis: guarded, Patient was seen, examined and chart reviewed for 35 min Martin Sanders MD
--- NOTE | 2018-01-23 13:05 | PN ---
Teaching Attending Note Name of Resident: Alisa Romero ATTENDING PHYSICIAN STATEMENT I saw and evaluated the patient. I reviewed the resident's note and discussed the case with the resident. I agree with the resident's findings and plan as documented. SUBJECTIVE: Pt seen and examined in the ICU. Remains on HFOT 50L/min 70% FiO2, states breathing slightly better. +nonproductive cough. OBJECTIVE: Vital Signs Period Temp Pulse Resp BP Sys/[place]y Pulse Ox Last 24 Hr 98.5 F-99.1 F 98-112 19-28 106-125/69-78 95-100 Intake & Output 01/20/18 01/21/18 01/22/18 01/23/18 23:59 23:59 23:59 23:59 Intake Total 1628 570 760 320 Output Total 1600 8669 156 8102 Balance 28 -830 160 -680 Weight 55.14 kg 75 kg Gen: tachypneic on HFOT Heart: tachycardic, regular Lung: bilateral rhonchi Abd: soft, nontender Ext: + edema CBC, BMP 01/23/18 05:30 01/23/18 05:30 Active Medications Albuterol Sulfate (Ventolin 0.083% Nebulizer Soln -) 1 amp NEB Q4H PRN PRN Reason: SHORT OF BREATH/WHEEZING Albuterol/Ipratropium (Duoneb -) 1 amp NEB RQID TYSHAWN Last Admin: 01/23/18 11:34 Dose: 1 amp Cefepime HCl (Maxipime 1 Gm Premix Ivpb) 1 gm in 50 mls @ 100 mls/hr IVPB Q8H- IV TYSHAWN; Protocol Last Admin: 01/23/18 09:31 Dose: 100 mls/hr Methylprednisolone Sodium Succinate (Solu-Medrol -) 40 mg IVPUSH BID TYSHAWN Morphine Sulfate (Morphine Sulfate) 1.5 mg IVPUSH Q6H PRN PRN Reason: PAIN LEVEL 4 - 6 Last Admin: 01/21/18 23:41 Dose: 1.5 mg ASSESSMENT AND PLAN: Acute Hypoxic Respiratory Failure Pneumonia Neutropenic Septic Shock Pancytopenia Coagulopathy Metastatic Breast Ca Volume Overload - continue antibiotics - monitor off pressors, maintain MAP >65 - lasix today - monitor CBC, coags - transfuse as needed - continue HFOT, taper FiO2 to keep SpO2 >90%, decreased to 60% - inhaled bronchodilators - taper steroids - prognosis guarded - palliatve care eval - ICU monitoring critical care time spent in reviewing chart, evaluating patient and formulating plan 35 min
--- NOTE | 2018-01-23 13:27 | PN ---
Progress Note, Physician History of Present Illness: stable still needing high flow oxygen still very sob wbc high - Current Medication List Current Medications: Active Medications Albuterol Sulfate (Ventolin 0.083% Nebulizer Soln -) 1 amp NEB Q4H PRN PRN Reason: SHORT OF BREATH/WHEEZING Albuterol/Ipratropium (Duoneb -) 1 amp NEB RQID TYSHAWN Last Admin: 01/23/18 11:34 Dose: 1 amp Cefepime HCl (Maxipime 1 Gm Premix Ivpb) 1 gm in 50 mls @ 100 mls/hr IVPB Q8H- IV TYSHAWN; Protocol Last Admin: 01/23/18 09:31 Dose: 100 mls/hr Methylprednisolone Sodium Succinate (Solu-Medrol -) 40 mg IVPUSH BID TYSHAWN Morphine Sulfate (Morphine Sulfate) 1.5 mg IVPUSH Q6H PRN PRN Reason: PAIN LEVEL 4 - 6 Last Admin: 01/21/18 23:41 Dose: 1.5 mg - Objective Vital Signs: Vital Signs Temperature 98.6 F 01/23/18 06:00 Pulse Rate 105 H 01/23/18 08:42 Respiratory Rate 21 01/23/18 09:00 Blood Pressure 125/69 01/23/18 06:00 O2 Sat by Pulse Oximetry (%) 100 01/23/18 11:31 Constitutional: Yes: Calm, Mild Distress Cardiovascular: Yes: Regular Rate and Rhythm Respiratory: Yes: On Nasal O2 (hig flow o2), Poor Air Entry Gastrointestinal: Yes: Normal Bowel Sounds, Soft Musculoskeletal: Yes: WNL Extremities: Yes: WNL Neurological: Yes: Alert, Oriented Psychiatric: Yes: Alert, Oriented Labs: CBC, BMP 01/23/18 05:30 01/23/18 05:30 INR, PTT INR 1.35 (0.82-1.09) H 01/22/18 05:30 Fibrinogen 344.0 mg/dL (238-498) 01/20/18 12:55 Assessment/Plan pneumonia septic shock neutropenia resp failure hypoxia metastatic breast ca plan continue abx resp support monitor closely rest as per the team and icu monitor wbc and platelets onco on board continue monitoring cc time 40 min
[2018-01-23 13:59] LABS: PLATELET ESTIMATE DECREASED
--- NOTE | 2018-01-23 14:09 | PN ---
Physical Exam: SUBJECTIVE: Patient seen and examined. Confused. Pulling on nasal cannula. Offers no complaints. Platelet count 13 this AM. On HFNC 70% Fio2, 50L OBJECTIVE: Vital Signs Period Temp Pulse Resp BP Sys/[place]y Pulse Ox Last 24 Hr 98.5 F-99.1 F 98-112 19-28 106-125/69-78 95-100 GENERAL: awake, alert, confused, tachypneic EYES: sclera anicteric, conjunctiva clear. ENT: oropharynx clear without exudates, moist mucous membranes. NECK: Trachea midline, full range of motion, supple. LUNGS: bibasilar crackles, rhonchi HEART: Regular rate and rhythm ABDOMEN: Soft, nontender, nondistended, normoactive bowel sounds EXTREMITIES: 2+ pulses, warm, +edema Laboratory Results - last 24 hr 01/22/18 01/23/18 01/23/18 15:30 05:30 05:30 WBC 10.5 H 10.9 H RBC 2.58 L 2.60 L Hgb 8.1 L 8.4 L Hct 24.1 L 24.4 L MCV 93.4 93.8 MCH 31.3 32.5 MCHC 33.5 34.6 RDW 21.6 H 21.4 H Plt Count 19 L* 13 L* D MPV 8.9 10.5 D Absolute Neuts (auto) 10.3 10.6 Total Counted 100 100 Neutrophils % No Result Required. 96.9 H Neutrophils % (Manual) 91.0 H 92.0 H Band Neutrophils % 7.0 6.0 Lymphocytes % No Result Required. 0.8 L Lymphocytes % (Manual) 1.0 L D 1.0 L Monocytes % 0.1 L Monocytes % (Manual) 1 L 1 L Eosinophils % 1.9 D Basophils % 0.3 Nucleated RBC % 0 0 Differential Comment Man diff performed Platelet Estimate Decreased Platelet Comment Polychromasia 1+ Poikilocytosis 1+ Anisocytosis 2+ Microcytosis 1+ Macrocytosis 1+ Tear Drop Cells Rare Ovalocytes 1+ Fragmented RBCs Few Sodium 142 Potassium 3.8 Chloride 99 Carbon Dioxide 39 H Anion Gap 4 L BUN 14 Creatinine 0.3 L Creat Clearance w eGFR > 60 Random Glucose 215 H Calcium 7.8 L Phosphorus 2.5 Magnesium 2.0 Total Bilirubin 0.4 AST 18 ALT 25 Alkaline Phosphatase 142 H Total Protein 5.2 L Albumin 2.0 L Active Medications Generic Name Dose Route Start Last Admin Trade Name Freq PRN Reason Stop Dose Admin Albuterol Sulfate 1 amp 01/18/18 10:47 Ventolin 0.083% Nebulizer Soln - NEB Q4H PRN SHORT OF BREATH/WHEEZING Albuterol/Ipratropium 1 amp 01/18/18 12:00 01/23/18 11:34 Duoneb - NEB 1 amp RQID TYSHAWN Administration Cefepime HCl 1 gm in 50 mls @ 100 mls/hr 01/21/18 02:00 01/23/18 09:31 Maxipime 1 Gm Premix Ivpb IVPB 100 mls/hr Q8H-IV TYSHAWN Administration Protocol Methylprednisolone Sodium Succinate 40 mg 01/23/18 22:00 Solu-Medrol - IVPUSH BID TYSHAWN Morphine Sulfate 1.5 mg 01/21/18 14:58 01/21/18 23:41 Morphine Sulfate IVPUSH 1.5 mg Q6H PRN Administration PAIN LEVEL 4 - 6 ASSESSMENT/PLAN: PULM -Acute hypoxic respiratory failure likely secondary to PNA -Neutropenic -Cont. IV abx: Cefepime -Taper Medrol 40mg BID -Lasix 40mg -d/c IV fluids -Duonebs QID, Albuterol PRN -ID on board -maintaining sats on HFNC. Taper -maintain O2 > 90% CV #Neutropenic Septic Shock -resolved -BP stable since off pressors. -Cultures negative -Keep MAP >65 -echo unremarkable HEME/ONC #hx of metastatic breast cancer, extensive bone mets #Pancytopenia -wbc 10.9 today -Platelet 13 -Transfuse 2U platelets today. -FU cbc -transfuse platelets if <15,000, PRBC as indicated -s/p 2 U PRBC, 2 U platelets 01/16 -Heme/onc on board, follow reccs -follows with . FEN Fluids held monitor lytes npo DVT -scds PT for deconditioning Discuss GOC of with family. cont. ICU monitoring Visit type - Emergency Visit Emergency Visit: Yes ED Registration Date: 01/16/18 Care time: The patient presented to the Emergency Department on the above date and was hospitalized for further evaluation of their emergent condition. - New Patient This patient is new to me today: No - Critical Care Critical Care patient: Yes Total Critical Care Time (in minutes): 40 Critical Care Statement: The care of this patient involved high complexity decision making to prevent further life threatening deterioration of the patient 's condition and/or to evaluate & treat vital organ system(s) failure or risk of failure.
[2018-01-23] MEDS: MORPHINE SULFATE 2 MG/ML VIAL IVPUSH PRN (21:30)
--- NOTE | 2018-01-23 21:40 | PN ---
Progress Note, Physician History of Present Illness: doing well - Current Medication List Current Medications: Active Medications Albuterol Sulfate (Ventolin 0.083% Nebulizer Soln -) 1 amp NEB Q4H PRN PRN Reason: SHORT OF BREATH/WHEEZING Albuterol/Ipratropium (Duoneb -) 1 amp NEB RQID TYSHAWN Last Admin: 01/23/18 20:09 Dose: 1 amp Cefepime HCl (Maxipime 1 Gm Premix Ivpb) 1 gm in 50 mls @ 100 mls/hr IVPB Q8H- IV TYSHAWN; Protocol Last Admin: 01/23/18 17:07 Dose: 100 mls/hr Methylprednisolone Sodium Succinate (Solu-Medrol -) 40 mg IVPUSH BID TYSHAWN Last Admin: 01/23/18 21:28 Dose: 40 mg Morphine Sulfate (Morphine Sulfate) 1.5 mg IVPUSH Q6H PRN PRN Reason: PAIN LEVEL 4 - 6 Last Admin: 01/23/18 21:30 Dose: 1.5 mg - Objective Vital Signs: Vital Signs Temperature 97.8 F 01/23/18 20:00 Pulse Rate 110 H 01/23/18 20:00 Respiratory Rate 21 01/23/18 20:00 Blood Pressure 119/72 01/23/18 20:00 O2 Sat by Pulse Oximetry (%) 96 01/23/18 20:16 Constitutional: Yes: No Distress HENT: Yes: Atraumatic Neck: Yes: Supple Cardiovascular: Yes: Regular Rate and Rhythm Respiratory: Yes: Rhonchi Gastrointestinal: Yes: Normal Bowel Sounds Extremities: Yes: WNL Edema: Yes Edema: LLE: 1+, RLE: 1+ Neurological: Yes: Alert, Oriented Labs: CBC, BMP 01/23/18 05:30 01/23/18 05:30 INR, PTT INR 1.35 (0.82-1.09) H 01/22/18 05:30 Fibrinogen 344.0 mg/dL (238-498) 01/20/18 12:55 Problem List - Problems (1) Altered mental status Assessment/Plan: pt is awake and alert on nc doing well Code(s): R41.82 - ALTERED MENTAL STATUS, UNSPECIFIED Qualifiers: Altered mental status type: unspecified Qualified Code(s): R41.82 - Altered mental status, unspecified (2) Pancytopenia due to antineoplastic chemotherapy Assessment/Plan: s/p prbc and platelets counts have improved PLATELET COUNT GOING DOWN Code(s): D61.810 - ANTINEOPLASTIC CHEMOTHERAPY INDUCED PANCYTOPENIA; T45.1X5A - ADVERSE EFFECT OF ANTINEOPLASTIC AND IMMUNOSUP DRUGS, INIT (3) Pneumonia Assessment/Plan: iv abx cxs sent id on board Code(s): J18.9 - PNEUMONIA, UNSPECIFIED ORGANISM Qualifiers: Pneumonia type: due to unspecified organism Laterality: bilateral Lung location: unspecified part of lung Qualified Code(s): J18.9 - Pneumonia, unspecified organism (4) Acute respiratory failure with hypoxia Assessment/Plan: on [place] now Code(s): J96.01 - ACUTE RESPIRATORY FAILURE WITH HYPOXIA (5) Thrombocytopenia Assessment/Plan: s/p chemo need heme input platelet transfusion per hematology Code(s): D69.6 - THROMBOCYTOPENIA, UNSPECIFIED Assessment/Plan cc time 35 min
--- NOTE | 2018-01-23 22:41 | PN ---
Progress Note (short form) - Note Progress Note: Patient seen and examined oriented in person but not in place or time Last Vital Signs Temp Pulse Resp BP Pulse Ox 97.8 F 66 15 106/66 95 01/23/18 20:00 01/24/18 00:00 01/24/18 00:00 01/24/18 00:00 01/23/18 23:45 Cor: sinus tachycardia, No murmurs, No gallops Lungs: diminished breath sounds bilaterally Abd: Soft, Normal bowel sounds, No organomegaly Ext:No significant edema Abnormal Lab Results 01/23/18 01/23/18 05:30 05:30 WBC 10.9 H RBC 2.60 L Hgb 8.4 L Hct 24.4 L RDW 21.4 H Plt Count 13 L* D Neutrophils % 96.9 H Neutrophils % (Manual) 92.0 H Lymphocytes % 0.8 L Lymphocytes % (Manual) 1.0 L Monocytes % 0.1 L Monocytes % (Manual) 1 L Carbon Dioxide 39 H Anion Gap 4 L Creatinine 0.3 L Random Glucose 215 H Calcium 7.8 L Alkaline Phosphatase 142 H Total Protein 5.2 L Albumin 2.0 L Active Medications Generic Name Dose Route Start Last Admin Trade Name Freq PRN Reason Stop Dose Admin Albuterol Sulfate 1 amp 01/18/18 10:47 Ventolin 0.083% Nebulizer Soln - NEB Q4H PRN SHORT OF BREATH/WHEEZING Albuterol/Ipratropium 1 amp 01/18/18 12:00 01/23/18 20:09 Duoneb - NEB 1 amp RQID TYSHAWN Administration Cefepime HCl 1 gm in 50 mls @ 100 mls/hr 01/21/18 02:00 01/23/18 17:07 Maxipime 1 Gm Premix Ivpb IVPB 100 mls/hr Q8H-IV TYSHAWN Administration Protocol Methylprednisolone Sodium Succinate 40 mg 01/23/18 22:00 01/23/18 21:28 Solu-Medrol - IVPUSH 40 mg BID TYSHAWN Administration Morphine Sulfate 1.5 mg 01/21/18 14:58 01/23/18 21:30 Morphine Sulfate IVPUSH 1.5 mg Q6H PRN Administration PAIN LEVEL 4 - 6 A/P Metastatic breast cancer Bone mets Likely pulmonary mets ?lymphangitic spread ? pneumonia s/p neutropenic sepsis Anemia Thrombocytopenia ?? marrow suppression from abemaciclib use vs omgoing infectious/consumptive process? meds transfused 1 unit platelets today ongoing discussions regarding goals of care
[2018-01-24] MEDS: CEFEPIME HCL/D5W 1 GM/50 ML BAG IVPB SCH ×3 (02:09→17:01)
[2018-01-24 06:12] LABS: BASO % 0.3 % (0-2.0); EOS % 0.1 % (0-4.5); HEMOGLOBIN 7.9 GM/dL (10.7-15.3); LYMPH % 0.7 % (8-40); MCH 32.2 pg (25.7-33.7); MCHC 34.5 g/dl (32.0-36.0); MEAN CELL VOLUME 93.4 fl (80-96); MONO % 0.3 % (3.8-10.2); NEUT % 98.6 % (42.8-82.8); PLATELET COUNT 86 K/MM3 (134-434); RBC 2.47 M/mm3 (3.60-5.2); RDW 21.5 % (11.6-15.6); WHITE BLOOD COUNT 7.8 K/mm3 (4.0-10.0)
[2018-01-24 06:42] LABS: ALBUMIN 2.2 g/dl (3.4-5.0); ALK PHOS 153 U/L (45-117); ANION GAP 4 (8-16); BILIRUBIN,TOTAL 0.3 mg/dL (0.2-1.0); BLOOD UREA NITROGEN 12 mg/dL (7-18); CALCIUM 8.2 mg/dL (8.5-10.1); CHLORIDE 94 mmol/L (98-107); CO2 44 mmol/L (21-32); CREATININE 0.3 mg/dL (0.55-1.02); GLUCOSE,RANDOM 213 mg/dL (74-106); MAGNESIUM 1.9 mg/dL (1.8-2.4); PHOSPHOROUS 2.3 mg/dL (2.5-4.9); POTASSIUM 3.3 mmol/L (3.5-5.1); SGOT/AST 12 U/L (15-37); SGPT/ALT 25 U/L (12-78); SODIUM 142 mmol/L (136-145); TOT PROT 5.4 g/dl (6.4-8.2)
--- NOTE | 2018-01-24 07:28 | PN ---
Progress Note (short form) - Note Progress Note: Chief Complaint: Events noted, notes reviewed, dyspnea improved, denies any chest pain, sinus rhythm noted History of Present Illness: Seen and examined in the ICU. Events noted, notes reviewed, dyspnea improved, denies any chest pain, sinus rhythm noted Echocardiography revealed normal LV size and function, with trace to mild MR Medications: Current Medications Albuterol Sulfate (Ventolin 0.083% Nebulizer Soln -) 1 amp NEB Q4H PRN PRN Reason: SHORT OF BREATH/WHEEZING Albuterol/Ipratropium (Duoneb -) 1 amp NEB RQID TYSHAWN Last Admin: 01/23/18 20:09 Dose: 1 amp Cefepime HCl (Maxipime 1 Gm Premix Ivpb) 1 gm in 50 mls @ 100 mls/hr IVPB Q8H- IV TYSHAWN; Protocol Last Admin: 01/24/18 02:09 Dose: 100 mls/hr Methylprednisolone Sodium Succinate (Solu-Medrol -) 40 mg IVPUSH BID TYSHAWN Last Admin: 01/23/18 21:28 Dose: 40 mg Morphine Sulfate (Morphine Sulfate) 1.5 mg IVPUSH Q6H PRN PRN Reason: PAIN LEVEL 4 - 6 Last Admin: 01/23/18 21:30 Dose: 1.5 mg Review of Systems Cardiovascular: As noted above Respiratory: denies: Cough or Sputum Production Gastrointestinal: denies: Nausea, Vomiting, Diarrhea, Constipation or Abdominal Discomfort Musculoskeletal: No Symptoms Reported Endocrine: No Symptoms Reported Vital Signs: Last Vital Signs Temp Pulse Resp BP Pulse Ox 98.4 F 82 16 112/67 95 01/24/18 02:00 01/24/18 06:00 01/24/18 06:00 01/24/18 06:00 01/24/18 06:45 Intake & Output 01/21/18 01/22/18 01/23/18 01/24/18 23:59 23:59 23:59 23:59 Intake Total 349 308 9810 100 Output Total 5887 843 3952 600 Balance -830 160 -1908 -500 Weight 165 lb 5.547 oz 150 lb 3 oz Constitutional: No Distress, Calm, Thin Neck: Supple Respiratory: Bilateral Course Crepitus Cardiovascular: S1 S2 Regular Rate and Rhythm Gastrointestinal: Soft, Benign Normal Bowel Sounds Ext: No Edema Labs: CBC, BMP 01/24/18 05:30 01/24/18 05:30 Assessment/Plan ASSESSMENT: 1. Acute Hypoxic Respiratory Failure related to probable pneumonia, rule out lymphangitic spread based on chest x-ray finding and clinical exam 2. Neutropenic Septic Shock, resolved 3. Pancytopenia related to probable chemotherapy 4. Metastatic Breast carcinoma, extensive bone mets on abemaciclib post XRT PLAN: 1. Antibiotics as per the primary team 2. Transfuse and maintain Hg equal or > 8.0 3. Monitor Platelet count 4. Consider CT scan of the chest for evaluation of the above noted pulmonary pathology Overall poor prognosis Joselin Sanchez MD
[2018-01-24] MEDS: ALBUTEROL SO4 2.5/IPRATROPIUM 0.5 INH SOL 3 ML VIAL.NEB. NEB SCH ×4 (08:25→20:50)
[2018-01-24] MEDS ORDERED: POTASSIUM PHOSPHATE 30 MM in SODIUM CHLORIDE 250 ML IVPB ONE (09:00)
[2018-01-24] MEDS: methylPREDNISolone NA SUCC 40 MG/1 ML VIAL IVPUSH SCH ×2 (09:09→21:16)
[2018-01-24 11:21] LABS: ANISOCYTOSIS 2+; MACROCYTOSIS 1+; PLATELET ESTIMATE DECREASED
[2018-01-24] MEDS ORDERED: FUROSEMIDE 40 MG/4 ML INJECTABLE VIAL IVPUSH ONE (12:09)
[2018-01-24] MEDS: MORPHINE SULFATE 2 MG/ML VIAL IVPUSH PRN (12:22)
--- NOTE | 2018-01-24 13:39 | PN ---
Teaching Attending Note Name of Resident: Alisa Romero ATTENDING PHYSICIAN STATEMENT I saw and evaluated the patient. I reviewed the resident's note and discussed the case with the resident. I agree with the resident's findings and plan as documented. SUBJECTIVE: Pt seen and examined in the ICU. Diuresed well with lasix yesterday. Breathing better. Remains on HFOT 60% FiO2, 50L/min. OBJECTIVE: Vital Signs Period Temp Pulse Resp BP Sys/Langley Pulse Ox Last 24 Hr 97.6 F-98.9 F 66-126 15-26 98-137/50-79 90-99 Intake & Output 01/21/18 01/22/18 01/23/18 01/24/18 23:59 23:59 23:59 23:59 Intake Total 719 380 2511 100 Output Total 4970 533 7711 1300 Balance -830 160 -1908 -1200 Weight 75 kg 68.124 kg Gen: less tachypneic Heart: RRR Lung: bilateral rhonchi Abd: soft, nontender Ext: + edema CBC, BMP 01/24/18 05:30 01/24/18 05:30 Active Medications Albuterol Sulfate (Ventolin 0.083% Nebulizer Soln -) 1 amp NEB Q4H PRN PRN Reason: SHORT OF BREATH/WHEEZING Albuterol/Ipratropium (Duoneb -) 1 amp NEB RQID TYSHAWN Last Admin: 01/24/18 11:32 Dose: 1 amp Cefepime HCl (Maxipime 1 Gm Premix Ivpb) 1 gm in 50 mls @ 100 mls/hr IVPB Q8H- IV TYSHAWN; Protocol Last Admin: 01/24/18 09:09 Dose: 100 mls/hr Potassium Phosphate 30 mm/ (Sodium Chloride) 260 mls @ 52 mls/hr IVPB ONCE ONE Stop: 01/24/18 13:59 Last Admin: 01/24/18 09:22 Dose: 52 mls/hr Methylprednisolone Sodium Succinate (Solu-Medrol -) 40 mg IVPUSH BID TYSHAWN Last Admin: 01/24/18 09:09 Dose: 40 mg Morphine Sulfate (Morphine Sulfate) 1.5 mg IVPUSH Q6H PRN PRN Reason: PAIN LEVEL 4 - 6 Last Admin: 01/24/18 12:22 Dose: 1.5 mg ASSESSMENT AND PLAN: Acute Hypoxic Respiratory Failure Pneumonia Neutropenic Septic Shock Pancytopenia Coagulopathy Metastatic Breast Ca Volume Overload - continue antibiotics - monitor off pressors, maintain MAP >65 - dose lasix again today - replete lytes - monitor CBC, coags - transfuse as needed - continue HFOT, taper FiO2 to keep SpO2 >90%, decreased to 60% - inhaled bronchodilators - taper steroids - prognosis guarded - palliatve care eval - ICU monitoring critical care time spent in reviewing chart, evaluating patient and formulating plan 35 min
--- NOTE | 2018-01-24 14:01 | PN ---
Physical Exam: SUBJECTIVE: Patient seen and examined. Offers no complaints today. says she feels better today compared to yesterday. On HFNC 60%. Platelet count 86 this am. Diuresed well with lasix. No acute events overnight. OBJECTIVE: Vital Signs Period Temp Pulse Resp BP Sys/Langley Pulse Ox Last 24 Hr 97.6 F-98.9 F 66-126 15-26 98-137/50-79 90-99 GENERAL: awake, alert, tachypneic EYES: sclera anicteric, conjunctiva clear. ENT: oropharynx clear without exudates, moist mucous membranes. NECK: Trachea midline, full range of motion, supple. LUNGS: bibasilar crackles, rhonchi HEART: Regular rate and rhythm ABDOMEN: Soft, nontender, nondistended, normoactive bowel sounds EXTREMITIES: 2+ pulses, warm, +edema Laboratory Results - last 24 hr 01/23/18 01/24/18 01/24/18 05:30 05:30 05:30 WBC 7.8 RBC 2.47 L Hgb 7.9 L Hct 23.0 L MCV 93.4 MCH 32.2 MCHC 34.5 RDW 21.5 H Plt Count 86 L D MPV 7.0 L D Absolute Neuts (auto) 7.7 Total Counted 100 Neutrophils % 98.6 H Neutrophils % (Manual) 92.0 H 90.9 H Band Neutrophils % 6.0 4.1 Lymphocytes % 0.7 L Lymphocytes % (Manual) 1.0 L 2.0 L D Monocytes % 0.3 L D Monocytes % (Manual) 1 L 3 L D Eosinophils % 0.1 D Eosinophils % (Manual) 0.0 Basophils % 0.3 Basophils % (Manual) 0.0 Myelocytes % (Man) 0 Promyelocytes % (Man) 0 Blast Cells % (Manual) 0 Nucleated RBC % 0 Metamyelocytes 0 Hypochromia 0 Platelet Estimate Decreased Decreased Polychromasia 0 Poikilocytosis 0 Basophilic Stippling 1+ Anisocytosis 2+ Microcytosis 1+ Macrocytosis 1+ Sodium 142 Potassium 3.3 L Chloride 94 L Carbon Dioxide 44 H Anion Gap 4 L BUN 12 Creatinine 0.3 L Creat Clearance w eGFR > 60 Random Glucose 213 H Calcium 8.2 L Phosphorus 2.3 L Magnesium 1.9 Total Bilirubin 0.3 AST 12 L ALT 25 Alkaline Phosphatase 153 H D Total Protein 5.4 L Albumin 2.2 L Active Medications Generic Name Dose Route Start Last Admin Trade Name Freq PRN Reason Stop Dose Admin Albuterol Sulfate 1 amp 01/18/18 10:47 Ventolin 0.083% Nebulizer Soln - NEB Q4H PRN SHORT OF BREATH/WHEEZING Albuterol/Ipratropium 1 amp 01/18/18 12:00 01/24/18 11:32 Duoneb - NEB 1 amp RQID TYSHAWN Administration Cefepime HCl 1 gm in 50 mls @ 100 mls/hr 01/21/18 02:00 01/24/18 09:09 Maxipime 1 Gm Premix Ivpb IVPB 100 mls/hr Q8H-IV TYSHAWN Administration Protocol Potassium Phosphate 30 mm/ 260 mls @ 52 mls/hr 01/24/18 09:00 01/24/18 09:22 Sodium Chloride IVPB 01/24/18 13:59 52 mls/hr ONCE ONE Administration Methylprednisolone Sodium Succinate 40 mg 01/23/18 22:00 01/24/18 09:09 Solu-Medrol - IVPUSH 40 mg BID TYSHAWN Administration Morphine Sulfate 1.5 mg 01/21/18 14:58 01/24/18 12:22 Morphine Sulfate IVPUSH 1.5 mg Q6H PRN Administration PAIN LEVEL 4 - 6 ASSESSMENT/PLAN: PULM -Acute hypoxic respiratory failure likely secondary to PNA -Neutropenic -Cont. IV abx: Cefepime -Taper Medrol 40mg BID -Lasix 40mg today -d/c IV fluids -Duonebs QID, Albuterol PRN -ID on board -maintaining sats on HFNC. Taper -maintain O2 > 90% CV #Neutropenic Septic Shock -resolved -BP stable since off pressors. -Cultures negative -Keep MAP >65 -echo unremarkable HEME/ONC #hx of metastatic breast cancer, extensive bone mets #Pancytopenia -wbc 10.9 today -Platelet 86 -FU cbc -transfuse platelets if <15,000, PRBC as indicated -s/p 2 U PRBC, 2 U platelets /18, 2U platelets 6.25 -Heme/onc on board, follow reccs -follows with . FEN Fluids held monitor lytes Regular diet DVT -scds PT for deconditioning Discuss GOC of with family. cont. ICU monitoring Visit type - Emergency Visit Emergency Visit: Yes ED Registration Date: 01/16/18 Care time: The patient presented to the Emergency Department on the above date and was hospitalized for further evaluation of their emergent condition. - New Patient This patient is new to me today: No - Critical Care Critical Care patient: Yes Total Critical Care Time (in minutes): 40 Critical Care Statement: The care of this patient involved high complexity decision making to prevent further life threatening deterioration of the patient 's condition and/or to evaluate & treat vital organ system(s) failure or risk of failure.
--- NOTE | 2018-01-24 16:40 | PN ---
Progress Note, Physician History of Present Illness: feeling good - Current Medication List Current Medications: Active Medications Albuterol Sulfate (Ventolin 0.083% Nebulizer Soln -) 1 amp NEB Q4H PRN PRN Reason: SHORT OF BREATH/WHEEZING Albuterol/Ipratropium (Duoneb -) 1 amp NEB RQID TYSHAWN Last Admin: 01/24/18 11:32 Dose: 1 amp Cefepime HCl (Maxipime 1 Gm Premix Ivpb) 1 gm in 50 mls @ 100 mls/hr IVPB Q8H- IV TYSHAWN; Protocol Last Admin: 01/24/18 09:09 Dose: 100 mls/hr Methylprednisolone Sodium Succinate (Solu-Medrol -) 40 mg IVPUSH BID TYSHAWN Last Admin: 01/24/18 09:09 Dose: 40 mg - Objective Vital Signs: Vital Signs Temperature 97.8 F 01/24/18 14:00 Pulse Rate 112 H 01/24/18 16:00 Respiratory Rate 12 01/24/18 16:00 Blood Pressure 85/56 01/24/18 16:00 O2 Sat by Pulse Oximetry (%) 97 01/24/18 13:59 Constitutional: Yes: No Distress HENT: Yes: Atraumatic Cardiovascular: Yes: Regular Rate and Rhythm Respiratory: Yes: Rales, Rhonchi Gastrointestinal: Yes: Normal Bowel Sounds Extremities: Yes: WNL Neurological: Yes: Alert, Oriented Labs: CBC, BMP 01/24/18 05:30 01/24/18 05:30 INR, PTT INR 1.35 (0.82-1.09) H 01/22/18 05:30 Fibrinogen 344.0 mg/dL (238-498) 01/20/18 12:55 Problem List - Problems (1) Altered mental status Assessment/Plan: pt is awake and alert on nc doing well tolerating diet Code(s): R41.82 - ALTERED MENTAL STATUS, UNSPECIFIED Qualifiers: Altered mental status type: unspecified Qualified Code(s): R41.82 - Altered mental status, unspecified (2) Pancytopenia due to antineoplastic chemotherapy Assessment/Plan: s/p prbc and platelets transfusion counts have improved Code(s): D61.810 - ANTINEOPLASTIC CHEMOTHERAPY INDUCED PANCYTOPENIA; T45.1X5A - ADVERSE EFFECT OF ANTINEOPLASTIC AND IMMUNOSUP DRUGS, INIT (3) Pneumonia Assessment/Plan: iv abx cxs sent id on board Code(s): J18.9 - PNEUMONIA, UNSPECIFIED ORGANISM Qualifiers: Pneumonia type: due to unspecified organism Laterality: bilateral Lung location: unspecified part of lung Qualified Code(s): J18.9 - Pneumonia, unspecified organism (4) Acute respiratory failure with hypoxia Assessment/Plan: on [place] now Code(s): J96.01 - ACUTE RESPIRATORY FAILURE WITH HYPOXIA (5) Thrombocytopenia Assessment/Plan: platelet transfusion per hematology Code(s): D69.6 - THROMBOCYTOPENIA, UNSPECIFIED Assessment/Plan cc time 35 min
--- NOTE | 2018-01-24 16:55 | PN ---
Progress Note, Physician History of Present Illness: stable on flow high oxygen - Current Medication List Current Medications: Active Medications Albuterol Sulfate (Ventolin 0.083% Nebulizer Soln -) 1 amp NEB Q4H PRN PRN Reason: SHORT OF BREATH/WHEEZING Albuterol/Ipratropium (Duoneb -) 1 amp NEB RQID TYSHAWN Last Admin: 01/24/18 11:32 Dose: 1 amp Cefepime HCl (Maxipime 1 Gm Premix Ivpb) 1 gm in 50 mls @ 100 mls/hr IVPB Q8H- IV TYSHAWN; Protocol Last Admin: 01/24/18 09:09 Dose: 100 mls/hr Methylprednisolone Sodium Succinate (Solu-Medrol -) 40 mg IVPUSH BID TYSHAWN Last Admin: 01/24/18 09:09 Dose: 40 mg - Objective Vital Signs: Vital Signs Temperature 97.8 F 01/24/18 14:00 Pulse Rate 112 H 01/24/18 16:00 Respiratory Rate 12 01/24/18 16:00 Blood Pressure 85/56 01/24/18 16:00 O2 Sat by Pulse Oximetry (%) 97 01/24/18 13:59 Constitutional: Yes: Calm, Mild Distress Cardiovascular: Yes: Regular Rate and Rhythm Respiratory: Yes: Regular, On Nasal O2 (high flow o2) Gastrointestinal: Yes: Normal Bowel Sounds, Soft Musculoskeletal: Yes: WNL Extremities: Yes: WNL Neurological: Yes: Alert, Oriented Psychiatric: Yes: Alert, Oriented Labs: CBC, BMP 01/24/18 05:30 01/24/18 05:30 INR, PTT INR 1.35 (0.82-1.09) H 01/22/18 05:30 Fibrinogen 344.0 mg/dL (238-498) 01/20/18 12:55 Assessment/Plan pneumonia septic shock neutropenia resp failure hypoxia metastatic breast ca plan continue abx resp support monitor closely rest as per the team and icu monitor wbc and platelets onco on board continue monitoring cc time 40 min
--- NOTE | 2018-01-24 18:38 | PN ---
Progress Note (short form) - Note Progress Note: Patient seen and examined Denies significant pain Denies significant SOB On HFOT Daughter at bedside Last Vital Signs Temp Pulse Resp BP Pulse Ox 97.8 F 109 H 20 122/77 97 01/24/18 14:00 01/24/18 18:00 01/24/18 18:00 01/24/18 18:00 01/24/18 17:00 HFOT Diminished breath sounds bilaterally Cor- sinus tach Abdomen - distended Ext- SCD CBC, BMP 01/24/18 05:30 01/24/18 05:30 Current Medications Generic Name Dose Route Start Last Admin Trade Name Freq PRN Reason Stop Dose Admin Albuterol Sulfate 1 amp 01/18/18 10:47 Ventolin 0.083% Nebulizer Soln - NEB Q4H PRN SHORT OF BREATH/WHEEZING Albuterol/Ipratropium 1 amp 01/18/18 12:00 01/24/18 17:11 Duoneb - NEB 1 amp RQID TYSHAWN Administration Cefepime HCl 1 gm in 50 mls @ 100 mls/hr 01/21/18 02:00 01/24/18 17:01 Maxipime 1 Gm Premix Ivpb IVPB 100 mls/hr Q8H-IV TYSHAWN Administration Protocol Methylprednisolone Sodium Succinate 40 mg 01/23/18 22:00 01/24/18 09:09 Solu-Medrol - IVPUSH 40 mg BID TYSHAWN Administration Impression: Metastatic breast ca -bone mets Neutropenic sepsis Hypoxic respiratory failure Pneumonia Anemia Thrombocytopenia Pulmonary congestion Plans: current therapy Transfuse if further fall in Hb/Hct Patient said that she wished this was all over. I asked her after this if she wanted to give up. She said she would never give up and wanted to keep on fighting.
[2018-01-24] MEDS ORDERED: MORPHINE SULFATE 2 MG/ML VIAL IVPUSH ONE (21:45)
[2018-01-24] MEDS ORDERED: MORPHINE SULFATE 2 MG/ML VIAL IVPUSH PRN (21:56)
[2018-01-25] MEDS: CEFEPIME HCL/D5W 1 GM/50 ML BAG IVPB SCH ×3 (02:00→17:32)
[2018-01-25 06:20] LABS: HEMATOCRIT 22.7 % (32.4-45.2); HEMOGLOBIN 7.9 GM/dL (10.7-15.3); MCH 32.3 pg (25.7-33.7); MCHC 34.5 g/dl (32.0-36.0); MEAN CELL VOLUME 93.4 fl (80-96); PLATELET COUNT 59 K/MM3 (134-434); RBC 2.43 M/mm3 (3.60-5.2); RDW 20.6 % (11.6-15.6); WHITE BLOOD COUNT 5.3 K/mm3 (4.0-10.0)
[2018-01-25 06:58] LABS: ALBUMIN 2.2 g/dl (3.4-5.0); ANION GAP 2 (8-16); BLOOD UREA NITROGEN 15 mg/dL (7-18); CALCIUM 8.1 mg/dL (8.5-10.1); CHLORIDE 93 mmol/L (98-107); CO2 45 mmol/L (21-32); CREATININE 0.4 mg/dL (0.55-1.02); GLUCOSE,RANDOM 226 mg/dL (74-106); MAGNESIUM 1.8 mg/dL (1.8-2.4); PHOSPHOROUS 2.6 mg/dL (2.5-4.9); POTASSIUM 3.6 mmol/L (3.5-5.1); SGOT/AST 12 U/L (15-37); SGPT/ALT 27 U/L (12-78); SODIUM 140 mmol/L (136-145)
[2018-01-25 06:59] LABS: ALK PHOS 158 U/L (45-117); BILIRUBIN,TOTAL 0.4 mg/dL (0.2-1.0); TOT PROT 5.3 g/dl (6.4-8.2)
[2018-01-25] MEDS: ALBUTEROL SO4 2.5/IPRATROPIUM 0.5 INH SOL 3 ML VIAL.NEB. NEB SCH ×4 (08:05→21:31)
[2018-01-25] MEDS: methylPREDNISolone NA SUCC 40 MG/1 ML VIAL IVPUSH SCH (09:44)
[2018-01-25] MEDS ORDERED: FUROSEMIDE 40 MG/4 ML INJECTABLE VIAL IVPUSH ONE (11:40)
--- NOTE | 2018-01-25 12:00 | PN ---
Progress Note, Physician History of Present Illness: Remains on high flow O2 to maintain saO2. - Current Medication List Current Medications: Active Medications Albuterol Sulfate (Ventolin 0.083% Nebulizer Soln -) 1 amp NEB Q4H PRN PRN Reason: SHORT OF BREATH/WHEEZING Albuterol/Ipratropium (Duoneb -) 1 amp NEB RQID TYSHAWN Last Admin: 01/25/18 11:52 Dose: 1 amp Furosemide (Lasix Injection -) 40 mg IVPUSH ONCE ONE Stop: 01/25/18 11:41 Cefepime HCl (Maxipime 1 Gm Premix Ivpb) 1 gm in 50 mls @ 100 mls/hr IVPB Q8H- IV TYSHAWN; Protocol Last Admin: 01/25/18 09:44 Dose: 100 mls/hr Methylprednisolone Sodium Succinate (Solu-Medrol -) 40 mg IVPUSH DAILY TYSHAWN Morphine Sulfate (Morphine Sulfate) 1.5 mg IVPUSH Q6H PRN PRN Reason: PAIN LEVEL 4 - 6 - Objective Vital Signs: Vital Signs Temperature 97.7 F 01/25/18 09:45 Pulse Rate 98 H 01/25/18 09:45 Respiratory Rate 18 01/25/18 09:45 Blood Pressure 111/65 01/25/18 09:45 O2 Sat by Pulse Oximetry (%) 94 L 01/25/18 11:40 Constitutional: Yes: No Distress, Calm Neck: Yes: Supple Cardiovascular: Yes: Regular Rate and Rhythm Respiratory: Yes: Regular, Diminished, On Venti-Mask Gastrointestinal: Yes: Normal Bowel Sounds, Soft Edema: No Labs: CBC, BMP 01/25/18 05:30 01/25/18 05:30 INR, PTT INR 1.35 (0.82-1.09) H 01/22/18 05:30 Fibrinogen 344.0 mg/dL (238-498) 01/20/18 12:55 Problem List - Problems (1) Acute respiratory failure with hypoxia Code(s): J96.01 - ACUTE RESPIRATORY FAILURE WITH HYPOXIA (2) Breast cancer Code(s): C50.919 - MALIGNANT NEOPLASM OF UNSP SITE OF UNSPECIFIED FEMALE BREAST Qualifiers: Breast location: unspecified site of breast Estrogen receptor status: unspecified Patient sex: female Laterality: unspecified laterality Qualified Code(s): C50.919 - Malignant neoplasm of unspecified site of unspecified female breast (3) Pancytopenia due to antineoplastic chemotherapy Code(s): D61.810 - ANTINEOPLASTIC CHEMOTHERAPY INDUCED PANCYTOPENIA; T45.1X5A - ADVERSE EFFECT OF ANTINEOPLASTIC AND IMMUNOSUP DRUGS, INIT (4) Pneumonia Code(s): J18.9 - PNEUMONIA, UNSPECIFIED ORGANISM Qualifiers: Pneumonia type: due to unspecified organism Laterality: bilateral Lung location: unspecified part of lung Qualified Code(s): J18.9 - Pneumonia, unspecified organism Assessment/Plan January 16, 2018 Echo: Normal LV size and fxn, tr-mild MR 1. Acute Hypoxic Respiratory Failure->Pneumonia 2. Post Neutropenic Septic Shock 3. Pancytopenia with improving counts 4. Coagulopathy 5. Metastatic Breast Ca, extensive bone mets on abemaciclib post XRT, suspected lymphangitic spread P: 1. Empiric broad spectrum antibiotics 2. Transfuse monodonor platelets, PRBC as needed, neupogen 3. Continue high flow O2 as needed to assist in work of breathing, wean FIO2, BD , IV steroid taper, chest CT once stable 4. Diuresis as needed 5. Goals of care being addressed
--- NOTE | 2018-01-25 12:31 | PN ---
Teaching Attending Note Name of Resident: Alisa Romero ATTENDING PHYSICIAN STATEMENT I saw and evaluated the patient. I reviewed the resident's note and discussed the case with the resident. I agree with the resident's findings and plan as documented. SUBJECTIVE: Pt seen and examined in the ICU. Remains on HFOT 50L/min, 60% FiO2 saturating low 90s. Diuresed well with lasix again yesterday. OBJECTIVE: Vital Signs Period Temp Pulse Resp BP Sys/[place]y Pulse Ox Last 24 Hr 97.7 F-98 F 70-115 11-20 85-126/56-77 92-100 Intake & Output 01/22/18 01/23/18 01/24/18 01/25/18 23:59 23:59 23:59 23:59 Intake Total 760 1492 1350 100 Output Total 600 3400 3300 400 Balance 160 -1908 -1950 -300 Weight 75 kg 68.124 kg 63.588 kg Gen: less tachypneic on HFOT Heart: tachycardic, regular Lung: scattered rhonchi Abd: soft, nontender Ext: no edema CBC, BMP 01/25/18 05:30 01/25/18 05:30 Active Medications Albuterol Sulfate (Ventolin 0.083% Nebulizer Soln -) 1 amp NEB Q4H PRN PRN Reason: SHORT OF BREATH/WHEEZING Albuterol/Ipratropium (Duoneb -) 1 amp NEB RQID TYSHAWN Last Admin: 01/25/18 11:52 Dose: 1 amp Cefepime HCl (Maxipime 1 Gm Premix Ivpb) 1 gm in 50 mls @ 100 mls/hr IVPB Q8H- IV TYSHAWN; Protocol Last Admin: 01/25/18 09:44 Dose: 100 mls/hr Methylprednisolone Sodium Succinate (Solu-Medrol -) 40 mg IVPUSH DAILY TYSHAWN Morphine Sulfate (Morphine Sulfate) 1.5 mg IVPUSH Q6H PRN PRN Reason: PAIN LEVEL 4 - 6 ASSESSMENT AND PLAN: Acute Hypoxic Respiratory Failure Pneumonia Neutropenic Septic Shock Pancytopenia Coagulopathy Metastatic Breast Ca Volume Overload - continue antibiotics - monitor off pressors, maintain MAP >65 - dose lasix again today - replete lytes - monitor CBC, coags - transfuse as needed - continue HFOT, taper FiO2 to keep SpO2 >90% - inhaled bronchodilators - taper steroids - prognosis guarded - continue discussions regarding goals of care - ICU monitoring critical care time spent in reviewing chart, evaluating patient and formulating plan 35 min
--- NOTE | 2018-01-25 14:23 | PN ---
Physical Exam: SUBJECTIVE: Patient seen and examined. Offers no complaints. Says she feels "great". No acute events overnight. HFNC 50L/60% FIO2, sat low 90's. Good diuresis in 24 hours, Neg 2.3 L. OBJECTIVE: Vital Signs Period Temp Pulse Resp BP Sys/Langley Pulse Ox Last 24 Hr 97.7 F-98 F 70-112 11-20 85-126/56-77 92-100 GENERAL: awake, alert, appears comfortable on HFNC EYES: sclera anicteric, conjunctiva clear. ENT: oropharynx clear without exudates, moist mucous membranes. NECK: Trachea midline, full range of motion, supple. LUNGS: bibasilar crackles, rhonchi HEART: Regular rate and rhythm ABDOMEN: Soft, nontender, nondistended, normoactive bowel sounds EXTREMITIES: 2+ pulses, warm, +edema RUE, b/l LE Laboratory Results - last 24 hr 01/25/18 01/25/18 05:30 05:30 WBC 5.3 RBC 2.43 L Hgb 7.9 L Hct 22.7 L MCV 93.4 MCH 32.3 MCHC 34.5 RDW 20.6 H Plt Count 59 L D MPV 7.0 L Sodium 140 Potassium 3.6 Chloride 93 L Carbon Dioxide 45 H Anion Gap 2 L BUN 15 Creatinine 0.4 L Creat Clearance w eGFR > 60 Random Glucose 226 H Calcium 8.1 L Phosphorus 2.6 Magnesium 1.8 Total Bilirubin 0.4 AST 12 L ALT 27 Alkaline Phosphatase 158 H Total Protein 5.3 L Albumin 2.2 L Active Medications Generic Name Dose Route Start Last Admin Trade Name Dakotaq PRN Reason Stop Dose Admin Albuterol Sulfate 1 amp 01/18/18 10:47 Ventolin 0.083% Nebulizer Soln - NEB Q4H PRN SHORT OF BREATH/WHEEZING Albuterol/Ipratropium 1 amp 01/18/18 12:00 01/25/18 11:52 Duoneb - NEB 1 amp RQID TYSHAWN Administration Cefepime HCl 1 gm in 50 mls @ 100 mls/hr 01/21/18 02:00 01/25/18 09:44 Maxipime 1 Gm Premix Ivpb IVPB 100 mls/hr Q8H-IV TYSHAWN Administration Protocol Methylprednisolone Sodium Succinate 40 mg 01/26/18 10:00 Solu-Medrol - IVPUSH DAILY TYSHAWN Morphine Sulfate 1.5 mg 01/24/18 21:56 Morphine Sulfate IVPUSH Q6H PRN PAIN LEVEL 4 - 6 ASSESSMENT/PLAN: PULM -Acute hypoxic respiratory failure likely secondary to PNA -Neutropenic -Cont. IV abx: Cefepime -Taper Medrol 40mg Daily -Lasix 40mg today -Duonebs QID, Albuterol PRN -ID on board -maintaining sats on HFNC. Wean as tolerated -maintain O2 > 90% CV #Neutropenic Septic Shock -resolved -BP stable since off pressors. -Cultures negative -Keep MAP >65 -echo unremarkable HEME/ONC #hx of metastatic breast cancer, extensive bone mets #Pancytopenia -wbc 5.3 today -Platelet 59 -transfuse platelets if <15,000, PRBC as indicated -s/p 2 U PRBC, 2 U platelets 01/16, 2U platelets 01/23 -Heme/onc on board, follow reccs -follows with . FEN No IV fluids monitor lytes Regular diet DVT -scds PT for deconditioning Discuss GOC of with family. cont. ICU monitoring Visit type - Emergency Visit Emergency Visit: Yes ED Registration Date: 01/16/18 Care time: The patient presented to the Emergency Department on the above date and was hospitalized for further evaluation of their emergent condition. - New Patient This patient is new to me today: No - Critical Care Critical Care patient: Yes Total Critical Care Time (in minutes): 40 Critical Care Statement: The care of this patient involved high complexity decision making to prevent further life threatening deterioration of the patient 's condition and/or to evaluate & treat vital organ system(s) failure or risk of failure.
[2018-01-25 14:43] VITALS: BMI 24.4
--- NOTE | 2018-01-25 16:33 | PN ---
Progress Note, Physician History of Present Illness: remaining stable still requiring high flow oxygen gets sob quickly patient otherwise in good spirits platelets dropping again - Current Medication List Current Medications: Active Medications Albuterol Sulfate (Ventolin 0.083% Nebulizer Soln -) 1 amp NEB Q4H PRN PRN Reason: SHORT OF BREATH/WHEEZING Albuterol/Ipratropium (Duoneb -) 1 amp NEB RQID TYSHAWN Last Admin: 01/25/18 15:46 Dose: 1 amp Cefepime HCl (Maxipime 1 Gm Premix Ivpb) 1 gm in 50 mls @ 100 mls/hr IVPB Q8H- IV TYSHAWN; Protocol Last Admin: 01/25/18 09:44 Dose: 100 mls/hr Methylprednisolone Sodium Succinate (Solu-Medrol -) 40 mg IVPUSH DAILY TYSHAWN Morphine Sulfate (Morphine Sulfate) 1.5 mg IVPUSH Q6H PRN PRN Reason: PAIN LEVEL 4 - 6 - Objective Vital Signs: Vital Signs Temperature 97.7 F 01/25/18 09:45 Pulse Rate 106 H 01/25/18 14:00 Respiratory Rate 18 01/25/18 14:00 Blood Pressure 116/68 01/25/18 14:00 O2 Sat by Pulse Oximetry (%) 96 01/25/18 14:04 Constitutional: Yes: No Distress, Calm Neck: Yes: Supple, Trachea Midline Cardiovascular: Yes: Regular Rate and Rhythm Respiratory: Yes: Regular, Poor Air Entry, Other (on high flow oxygen) Gastrointestinal: Yes: Normal Bowel Sounds, Soft Musculoskeletal: Yes: WNL Extremities: Yes: WNL Neurological: Yes: Alert, Oriented Psychiatric: Yes: Alert, Oriented Labs: CBC, BMP 01/25/18 05:30 01/25/18 05:30 INR, PTT INR 1.35 (0.82-1.09) H 01/22/18 05:30 Fibrinogen 344.0 mg/dL (238-498) 01/20/18 12:55 Assessment/Plan pneumonia septic shock neutropenia resp failure hypoxia metastatic breast ca plan continue abx resp support monitor closely rest as per the team and icu monitor wbc and platelets onco on board continue monitoring cc time 40 min
--- NOTE | 2018-01-25 17:24 | PN ---
Progress Note, Physician History of Present Illness: feeling good - Current Medication List Current Medications: Active Medications Albuterol Sulfate (Ventolin 0.083% Nebulizer Soln -) 1 amp NEB Q4H PRN PRN Reason: SHORT OF BREATH/WHEEZING Albuterol/Ipratropium (Duoneb -) 1 amp NEB RQID TYSHAWN Last Admin: 01/25/18 15:46 Dose: 1 amp Cefepime HCl (Maxipime 1 Gm Premix Ivpb) 1 gm in 50 mls @ 100 mls/hr IVPB Q8H- IV TYSHAWN; Protocol Last Admin: 01/25/18 09:44 Dose: 100 mls/hr Methylprednisolone Sodium Succinate (Solu-Medrol -) 40 mg IVPUSH DAILY TYSHAWN Morphine Sulfate (Morphine Sulfate) 1.5 mg IVPUSH Q6H PRN PRN Reason: PAIN LEVEL 4 - 6 - Objective Vital Signs: Vital Signs Temperature 97.7 F 01/25/18 09:45 Pulse Rate 117 H 01/25/18 16:00 Respiratory Rate 18 01/25/18 16:00 Blood Pressure 118/68 01/25/18 16:00 O2 Sat by Pulse Oximetry (%) 96 01/25/18 14:04 Constitutional: Yes: No Distress HENT: Yes: Atraumatic Neck: Yes: Supple Cardiovascular: Yes: Regular Rate and Rhythm Respiratory: Yes: Rhonchi Gastrointestinal: Yes: Normal Bowel Sounds Extremities: Yes: WNL Edema: LLE: Trace, RLE: Trace Neurological: Yes: Alert, Oriented Labs: CBC, BMP 01/25/18 05:30 01/25/18 05:30 INR, PTT INR 1.35 (0.82-1.09) H 01/22/18 05:30 Fibrinogen 344.0 mg/dL (238-498) 01/20/18 12:55 Problem List - Problems (1) Altered mental status Assessment/Plan: pt is awake and alert on nc doing well tolerating diet Code(s): R41.82 - ALTERED MENTAL STATUS, UNSPECIFIED Qualifiers: Altered mental status type: unspecified Qualified Code(s): R41.82 - Altered mental status, unspecified (2) Pancytopenia due to antineoplastic chemotherapy Assessment/Plan: s/p prbc and platelets transfusion counts have improved Code(s): D61.810 - ANTINEOPLASTIC CHEMOTHERAPY INDUCED PANCYTOPENIA; T45.1X5A - ADVERSE EFFECT OF ANTINEOPLASTIC AND IMMUNOSUP DRUGS, INIT (3) Pneumonia Assessment/Plan: iv abx cxs sent id on board Code(s): J18.9 - PNEUMONIA, UNSPECIFIED ORGANISM Qualifiers: Pneumonia type: due to unspecified organism Laterality: bilateral Lung location: unspecified part of lung Qualified Code(s): J18.9 - Pneumonia, unspecified organism (4) Acute respiratory failure with hypoxia Code(s): J96.01 - ACUTE RESPIRATORY FAILURE WITH HYPOXIA (5) Thrombocytopenia Code(s): D69.6 - THROMBOCYTOPENIA, UNSPECIFIED Assessment/Plan cc time 35 min
[2018-01-26] MEDS: CEFEPIME HCL/D5W 1 GM/50 ML BAG IVPB SCH ×3 (01:08→17:53)
[2018-01-26 06:16] LABS: HEMATOCRIT 24.3 % (32.4-45.2); HEMOGLOBIN 8.2 GM/dL (10.7-15.3); MCHC 33.9 g/dl (32.0-36.0); MEAN CELL VOLUME 94.4 fl (80-96); MEAN PLT VOLUME 6.8 fl (7.5-11.1); PLATELET COUNT 43 K/MM3 (134-434); RBC 2.58 M/mm3 (3.60-5.2); RDW 21.2 % (11.6-15.6); WHITE BLOOD COUNT 4.8 K/mm3 (4.0-10.0)
[2018-01-26 06:46] LABS: ALBUMIN 2.1 g/dl (3.4-5.0); ANION GAP 6 (8-16); BLOOD UREA NITROGEN 12 mg/dL (7-18); CALCIUM 8.4 mg/dL (8.5-10.1); CHLORIDE 89 mmol/L (98-107); CO2 44 mmol/L (21-32); GLUCOSE,RANDOM 170 mg/dL (74-106); MAGNESIUM 1.9 mg/dL (1.8-2.4); POTASSIUM 3.2 mmol/L (3.5-5.1); SODIUM 139 mmol/L (136-145)
[2018-01-26 06:51] LABS: ALK PHOS 149 U/L (45-117); BILIRUBIN,TOTAL 0.4 mg/dL (0.2-1.0); CREATININE 0.3 mg/dL (0.55-1.02); PHOSPHOROUS 1.6 mg/dL (2.5-4.9); SGOT/AST 17 U/L (15-37); SGPT/ALT 32 U/L (12-78); TOT PROT 5.4 g/dl (6.4-8.2)
[2018-01-26] MEDS: ALBUTEROL SO4 2.5/IPRATROPIUM 0.5 INH SOL 3 ML VIAL.NEB. NEB SCH ×4 (07:15→21:00)
[2018-01-26] MEDS ORDERED: POTASSIUM PHOSPHATE 30 MM in SODIUM CHLORIDE 250 ML IVPB ONE (09:15)
[2018-01-26] MEDS: methylPREDNISolone NA SUCC 40 MG/1 ML VIAL IVPUSH SCH (10:25)
--- NOTE | 2018-01-26 10:47 | PN ---
Progress Note, Physician History of Present Illness: Remains on high flow O2 to maintain saO2. - Current Medication List Current Medications: Active Medications Albuterol Sulfate (Ventolin 0.083% Nebulizer Soln -) 1 amp NEB Q4H PRN PRN Reason: SHORT OF BREATH/WHEEZING Albuterol/Ipratropium (Duoneb -) 1 amp NEB RQID TYSHAWN Last Admin: 01/26/18 07:15 Dose: 1 amp Cefepime HCl (Maxipime 1 Gm Premix Ivpb) 1 gm in 50 mls @ 100 mls/hr IVPB Q8H- IV TYSHAWN; Protocol Last Admin: 01/26/18 10:24 Dose: 100 mls/hr Potassium Phosphate 30 mm/ (Sodium Chloride) 260 mls @ 65 mls/hr IVPB ONCE ONE Stop: 01/26/18 13:14 Last Admin: 01/26/18 09:13 Dose: 65 mls/hr Methylprednisolone Sodium Succinate (Solu-Medrol -) 40 mg IVPUSH DAILY TYSHAWN Last Admin: 01/26/18 10:25 Dose: 40 mg Morphine Sulfate (Morphine Sulfate) 1.5 mg IVPUSH Q6H PRN PRN Reason: PAIN LEVEL 4 - 6 - Objective Vital Signs: Vital Signs Temperature 98.8 F 01/26/18 08:00 Pulse Rate 114 H 01/26/18 10:00 Respiratory Rate 24 01/26/18 10:00 Blood Pressure 107/51 01/26/18 10:00 O2 Sat by Pulse Oximetry (%) 94 L 01/26/18 09:42 Constitutional: Yes: No Distress, Calm Neck: Yes: Supple Cardiovascular: Yes: Regular Rate and Rhythm Respiratory: Yes: Diminished, On Venti-Mask, SOB Gastrointestinal: Yes: Soft, Hypoactive Bowel Sounds Edema: No Labs: CBC, BMP 01/26/18 05:30 01/26/18 05:30 INR, PTT INR 1.35 (0.82-1.09) H 01/22/18 05:30 Fibrinogen 344.0 mg/dL (238-498) 01/20/18 12:55 Problem List - Problems (1) Acute respiratory failure with hypoxia Code(s): J96.01 - ACUTE RESPIRATORY FAILURE WITH HYPOXIA (2) Breast cancer Code(s): C50.919 - MALIGNANT NEOPLASM OF UNSP SITE OF UNSPECIFIED FEMALE BREAST Qualifiers: Breast location: unspecified site of breast Estrogen receptor status: unspecified Patient sex: female Laterality: unspecified laterality Qualified Code(s): C50.919 - Malignant neoplasm of unspecified site of unspecified female breast (3) Pancytopenia due to antineoplastic chemotherapy Code(s): D61.810 - ANTINEOPLASTIC CHEMOTHERAPY INDUCED PANCYTOPENIA; T45.1X5A - ADVERSE EFFECT OF ANTINEOPLASTIC AND IMMUNOSUP DRUGS, INIT (4) Pneumonia Code(s): J18.9 - PNEUMONIA, UNSPECIFIED ORGANISM Qualifiers: Pneumonia type: due to unspecified organism Laterality: bilateral Lung location: unspecified part of lung Qualified Code(s): J18.9 - Pneumonia, unspecified organism Assessment/Plan January 16, 2018 Echo: Normal LV size and fxn, tr-mild MR 1. Acute Hypoxic Respiratory Failure->Pneumonia 2. Post Neutropenic Septic Shock 3. Pancytopenia with improving counts 4. Coagulopathy 5. Metastatic Breast Ca, extensive bone mets on abemaciclib post XRT, suspected lymphangitic spread P: 1. Empiric broad spectrum antibiotics 2. Transfuse monodonor platelets, PRBC as needed, neupogen 3. Continue high flow O2 as needed to assist in work of breathing, wean FIO2, BD , IV steroid taper with GI protection, chest CT once stable 4. Diuresis as needed, replete K 5. Goals of care being addressed
[2018-01-26 11:12] LABS: ANISOCYTOSIS 2+; MACROCYTOSIS 0; PLATELET ESTIMATE DECREASED
--- NOTE | 2018-01-26 11:19 | PN ---
Teaching Attending Note Name of Resident: Alisa Romero ATTENDING PHYSICIAN STATEMENT I saw and evaluated the patient. I reviewed the resident's note and discussed the case with the resident. I agree with the resident's findings and plan as documented. SUBJECTIVE: Pt seen and examined in the ICU. Remains on HFOT 50L/min, FiO2 60%. Continues to diurese well. OBJECTIVE: Vital Signs Period Temp Pulse Resp BP Sys/Langley Pulse Ox Last 24 Hr 98 F-98.8 F 81-120 18-24 97-121/49-74 94-100 Intake & Output 01/23/18 01/24/18 01/25/18 01/26/18 23:59 23:59 23:59 23:59 Intake Total 1492 1350 1440 Output Total 3400 3300 3400 400 Balance -1907 -1949 -1959 - Weight 68.124 kg 63.588 kg Gen: less tachypneic Heart: tachycardic, regular Lung: bibasilar rales Abd: soft, nontender Ext: sacral edema CBC, BMP 01/26/18 05:30 01/26/18 05:30 Active Medications Albuterol Sulfate (Ventolin 0.083% Nebulizer Soln -) 1 amp NEB Q4H PRN PRN Reason: SHORT OF BREATH/WHEEZING Albuterol/Ipratropium (Duoneb -) 1 amp NEB RQID TYSHAWN Last Admin: 01/26/18 07:15 Dose: 1 amp Furosemide (Lasix Injection -) 40 mg IVPUSH ONCE ONE Stop: 01/26/18 10:51 Cefepime HCl (Maxipime 1 Gm Premix Ivpb) 1 gm in 50 mls @ 100 mls/hr IVPB Q8H- IV TYSHAWN; Protocol Last Admin: 01/26/18 10:24 Dose: 100 mls/hr Potassium Phosphate 30 mm/ (Sodium Chloride) 260 mls @ 65 mls/hr IVPB ONCE ONE Stop: 01/26/18 13:14 Last Admin: 01/26/18 09:13 Dose: 65 mls/hr Methylprednisolone Sodium Succinate (Solu-Medrol -) 40 mg IVPUSH DAILY TYSHAWN Last Admin: 01/26/18 10:25 Dose: 40 mg Morphine Sulfate (Morphine Sulfate) 1.5 mg IVPUSH Q6H PRN PRN Reason: PAIN LEVEL 4 - 6 ASSESSMENT AND PLAN: Acute Hypoxic Respiratory Failure Pneumonia Neutropenic Septic Shock Pancytopenia Coagulopathy Metastatic Breast Ca Volume Overload - continue antibiotics - monitor off pressors, maintain MAP >65 - dose lasix again today - replete lytes - monitor CBC, coags - transfuse as needed - continue HFOT, taper FiO2 to keep SpO2 >90% - inhaled bronchodilators - taper steroids - prognosis guarded - continue discussions regarding goals of care - ICU monitoring critical care time spent in reviewing chart, evaluating patient and formulating plan 35 min
--- NOTE | 2018-01-26 11:21 | PN ---
Physical Exam: SUBJECTIVE: Patient seen and examined. No acute events overnight. Still on high flow nasal cannula 50 L/60% FIo2. Offers no new complaints. Denies chest pain, dizziness, sob, nausea, vomiting, abdominal pain. I/O's: diuresed neg 2.4 L with Lasix OBJECTIVE: Vital Signs Period Temp Pulse Resp BP Sys/Langley Pulse Ox Last 24 Hr 98 F-98.8 F 81-120 18-24 97-121/49-74 94-100 GENERAL: awake, alert, appears comfortable EYES: sclera anicteric, conjunctiva clear. ENT: oropharynx clear without exudates, moist mucous membranes. NECK: Trachea midline, full range of motion, supple. LUNGS: bibasilar crackles HEART: tachy, regular rhythm ABDOMEN: Soft, nontender, nondistended, normoactive bowel sounds EXTREMITIES: 2+ pulses, warm, +edema RUE, b/l LE Laboratory Results - last 24 hr 01/26/18 01/26/18 05:30 05:30 WBC 4.8 RBC 2.58 L Hgb 8.2 L Hct 24.3 L MCV 94.4 MCH 32.0 MCHC 33.9 RDW 21.2 H Plt Count 43 L D MPV 6.8 L Absolute Neuts (auto) 4.7 Neutrophils % No Result Required. Lymphocytes % No Result Required. Nucleated RBC % 0 Sodium 139 Potassium 3.2 L Chloride 89 L Carbon Dioxide 44 H Anion Gap 6 L BUN 12 Creatinine 0.3 L Creat Clearance w eGFR > 60 Random Glucose 170 H Calcium 8.4 L Phosphorus 1.6 L Magnesium 1.9 Total Bilirubin 0.4 AST 17 ALT 32 Alkaline Phosphatase 149 H Total Protein 5.4 L Albumin 2.1 L Active Medications Generic Name Dose Route Start Last Admin Trade Name Freq PRN Reason Stop Dose Admin Albuterol Sulfate 1 amp 01/18/18 10:47 Ventolin 0.083% Nebulizer Soln - NEB Q4H PRN SHORT OF BREATH/WHEEZING Albuterol/Ipratropium 1 amp 01/18/18 12:00 01/26/18 07:15 Duoneb - NEB 1 amp RQID TYSHAWN Administration Furosemide 40 mg 01/26/18 10:50 Lasix Injection - IVPUSH 01/26/18 10:51 ONCE ONE Cefepime HCl 1 gm in 50 mls @ 100 mls/hr 01/21/18 02:00 01/26/18 10:24 Maxipime 1 Gm Premix Ivpb IVPB 100 mls/hr Q8H-IV TYSHAWN Administration Protocol Potassium Phosphate 30 mm/ 260 mls @ 65 mls/hr 01/26/18 09:15 01/26/18 09:13 Sodium Chloride IVPB 01/26/18 13:14 65 mls/hr ONCE ONE Administration Methylprednisolone Sodium Succinate 40 mg 01/26/18 10:00 01/26/18 10:25 Solu-Medrol - IVPUSH 40 mg DAILY TYSHAWN Administration Morphine Sulfate 1.5 mg 01/24/18 21:56 Morphine Sulfate IVPUSH Q6H PRN PAIN LEVEL 4 - 6 ASSESSMENT/PLAN: PULM -Acute hypoxic respiratory failure likely secondary to PNA -Neutropenic -Cont. IV abx: Cefepime -Taper Medrol 40mg Daily -Lasix 40mg today -Duonebs QID, Albuterol PRN -ID on board -maintaining sats on HFNC. Wean as tolerated -maintain O2 > 90% CV #Neutropenic Septic Shock -resolved -BP stable since off pressors. -Cultures negative -Keep MAP >65 -echo unremarkable HEME/ONC #hx of metastatic breast cancer, extensive bone mets #Pancytopenia -wbc 4.8 today -Platelet 43 -transfuse platelets if <15,000, PRBC as indicated -s/p 2 U PRBC, 2 U platelets 01/16, 2U platelets 01/23 -Heme/onc on board, follow reccs -follows with . FEN No IV fluids monitor lytes Regular diet DVT -scds PT for deconditioning Discuss GOC of with family. Visit type - Emergency Visit Emergency Visit: Yes ED Registration Date: 01/16/18 Care time: The patient presented to the Emergency Department on the above date and was hospitalized for further evaluation of their emergent condition. - New Patient This patient is new to me today: No - Critical Care Critical Care patient: Yes Total Critical Care Time (in minutes): 40 Critical Care Statement: The care of this patient involved high complexity decision making to prevent further life threatening deterioration of the patient 's condition and/or to evaluate & treat vital organ system(s) failure or risk of failure.
[2018-01-26] MEDS ORDERED: FUROSEMIDE 40 MG/4 ML INJECTABLE VIAL IVPUSH ONE (11:30)
--- NOTE | 2018-01-26 15:03 | PN ---
Progress Note (short form) - Note Progress Note: seen and examined chart reviewed unchanged resp status. mental status, much more awake, says shes feeling good. s Gen: tachypenic Cor: RSR, No murmurs, No gallops Lungs: decreased breath sounds Abd: Soft, Normal bowel sounds, No organomegaly Ext:No significant edema Left breast mastectomy/reconstruction Last Vital Signs Temp Pulse Resp BP Pulse Ox 98.2 F 110 H 20 101/67 93 L 01/26/18 16:00 01/26/18 18:00 01/26/18 18:00 01/26/18 18:00 01/26/18 21:00 CBC, BMP 01/26/18 05:30 01/26/18 05:30 Current Medications Generic Name Dose Route Start Last Admin Trade Name Freq PRN Reason Stop Dose Admin Albuterol Sulfate 1 amp 01/18/18 10:47 Ventolin 0.083% Nebulizer Soln - NEB Q4H PRN SHORT OF BREATH/WHEEZING Albuterol/Ipratropium 1 amp 01/18/18 12:00 01/26/18 21:00 Duoneb - NEB 1 amp RQID TYSHAWN Administration Cefepime HCl 1 gm in 50 mls @ 100 mls/hr 01/21/18 02:00 01/26/18 17:53 Maxipime 1 Gm Premix Ivpb IVPB 100 mls/hr Q8H-IV TYSHAWN Administration Protocol Methylprednisolone Sodium Succinate 40 mg 01/26/18 10:00 01/26/18 10:25 Solu-Medrol - IVPUSH 40 mg DAILY TYSHAWN Administration Morphine Sulfate 1.5 mg 01/24/18 21:56 Morphine Sulfate IVPUSH Q6H PRN PAIN LEVEL 4 - 6 Metastatic breast ca -bone mets Neutropenic sepsis Hypoxic respiratory failure Pneumonia Anemia Thrombocytopenia Pulmonary congestion ?lung mets Plans: current therapy Transfuse if further fall in Hb/Hct Full code
--- NOTE | 2018-01-26 16:37 | PN ---
Progress Note, Physician History of Present Illness: feeling good - Current Medication List Current Medications: Active Medications Albuterol Sulfate (Ventolin 0.083% Nebulizer Soln -) 1 amp NEB Q4H PRN PRN Reason: SHORT OF BREATH/WHEEZING Albuterol/Ipratropium (Duoneb -) 1 amp NEB RQID TYSHAWN Last Admin: 01/26/18 16:08 Dose: 1 amp Cefepime HCl (Maxipime 1 Gm Premix Ivpb) 1 gm in 50 mls @ 100 mls/hr IVPB Q8H- IV TYSHAWN; Protocol Last Admin: 01/26/18 10:24 Dose: 100 mls/hr Methylprednisolone Sodium Succinate (Solu-Medrol -) 40 mg IVPUSH DAILY TYSHAWN Last Admin: 01/26/18 10:25 Dose: 40 mg Morphine Sulfate (Morphine Sulfate) 1.5 mg IVPUSH Q6H PRN PRN Reason: PAIN LEVEL 4 - 6 - Objective Vital Signs: Vital Signs Temperature 98.8 F 01/26/18 08:00 Pulse Rate 110 H 01/26/18 13:34 Respiratory Rate 24 01/26/18 13:34 Blood Pressure 96/54 01/26/18 13:34 O2 Sat by Pulse Oximetry (%) 96 01/26/18 16:08 Constitutional: Yes: No Distress HENT: Yes: Atraumatic Neck: Yes: Supple Cardiovascular: Yes: Regular Rate and Rhythm Respiratory: Yes: Rhonchi, Wheezes Gastrointestinal: Yes: Normal Bowel Sounds Extremities: Yes: WNL Edema: Yes Edema: LLE: Trace, RLE: Trace Neurological: Yes: Alert, Oriented Labs: CBC, BMP 01/26/18 05:30 01/26/18 05:30 INR, PTT INR 1.35 (0.82-1.09) H 01/22/18 05:30 Fibrinogen 344.0 mg/dL (238-498) 01/20/18 12:55 Problem List - Problems (1) Altered mental status Assessment/Plan: pt is awake and alert on nc doing well tolerating diet Code(s): R41.82 - ALTERED MENTAL STATUS, UNSPECIFIED Qualifiers: Altered mental status type: unspecified Qualified Code(s): R41.82 - Altered mental status, unspecified (2) Pancytopenia due to antineoplastic chemotherapy Assessment/Plan: s/p prbc and platelets transfusion counts going down again need transfusions prn Code(s): D61.810 - ANTINEOPLASTIC CHEMOTHERAPY INDUCED PANCYTOPENIA; T45.1X5A - ADVERSE EFFECT OF ANTINEOPLASTIC AND IMMUNOSUP DRUGS, INIT (3) Pneumonia Assessment/Plan: iv abx cxs sent id on board Code(s): J18.9 - PNEUMONIA, UNSPECIFIED ORGANISM Qualifiers: Pneumonia type: due to unspecified organism Laterality: bilateral Lung location: unspecified part of lung Qualified Code(s): J18.9 - Pneumonia, unspecified organism (4) Acute respiratory failure with hypoxia Assessment/Plan: on NC now Code(s): J96.01 - ACUTE RESPIRATORY FAILURE WITH HYPOXIA (5) Thrombocytopenia Assessment/Plan: platelet transfusion per hematology Code(s): D69.6 - THROMBOCYTOPENIA, UNSPECIFIED
--- NOTE | 2018-01-26 17:02 | PN ---
Progress Note, Physician History of Present Illness: stable had some physio still requiring high flow o2 platelets lower agin - Current Medication List Current Medications: Active Medications Albuterol Sulfate (Ventolin 0.083% Nebulizer Soln -) 1 amp NEB Q4H PRN PRN Reason: SHORT OF BREATH/WHEEZING Albuterol/Ipratropium (Duoneb -) 1 amp NEB RQID TYSHAWN Last Admin: 01/26/18 16:08 Dose: 1 amp Cefepime HCl (Maxipime 1 Gm Premix Ivpb) 1 gm in 50 mls @ 100 mls/hr IVPB Q8H- IV TYSHAWN; Protocol Last Admin: 01/26/18 10:24 Dose: 100 mls/hr Methylprednisolone Sodium Succinate (Solu-Medrol -) 40 mg IVPUSH DAILY TYSHAWN Last Admin: 01/26/18 10:25 Dose: 40 mg Morphine Sulfate (Morphine Sulfate) 1.5 mg IVPUSH Q6H PRN PRN Reason: PAIN LEVEL 4 - 6 - Objective Vital Signs: Vital Signs Temperature 98.8 F 01/26/18 08:00 Pulse Rate 110 H 01/26/18 13:34 Respiratory Rate 24 01/26/18 13:34 Blood Pressure 96/54 01/26/18 13:34 O2 Sat by Pulse Oximetry (%) 96 01/26/18 16:08 Constitutional: Yes: No Distress, Calm Cardiovascular: Yes: Regular Rate and Rhythm Respiratory: Yes: Regular, Other (on high flow oxygen) Gastrointestinal: Yes: Normal Bowel Sounds, Soft Musculoskeletal: Yes: WNL Extremities: Yes: WNL Neurological: Yes: Alert, Oriented Psychiatric: Yes: Alert, Oriented Labs: CBC, BMP 01/26/18 05:30 01/26/18 05:30 INR, PTT INR 1.35 (0.82-1.09) H 01/22/18 05:30 Fibrinogen 344.0 mg/dL (238-498) 01/20/18 12:55 - ....Imaging Chest X-ray: Report Reviewed, Image Reviewed Assessment/Plan pneumonia septic shock neutropenia resp failure hypoxia metastatic breast ca plan continue abx resp support monitor closely rest as per the team and icu monitor wbc and platelets onco on board continue monitoring will see how patient does tomorrow and decide about abx cc time 40 min
--- NOTE | 2018-01-26 22:09 | PN ---
Progress Note (short form) - Note Progress Note: seen and examined note from 01/25--published today due to system issues last evening chart reviewed unchanged resp status. mental status, much more awake, says shes feeling good. s Gen: tachypenic Cor: RSR, No murmurs, No gallops Lungs: decreased breath sounds Abd: Soft, Normal bowel sounds, No organomegaly Ext:No significant edema Left breast mastectomy/reconstruction Last Vital Signs Temp Pulse Resp BP Pulse Ox 98.2 F 110 H 20 101/67 93 L 01/26/18 16:00 01/26/18 18:00 01/26/18 18:00 01/26/18 18:00 01/26/18 21:00 CBC, BMP 01/26/18 05:30 01/26/18 05:30 Current Medications Generic Name Dose Route Start Last Admin Trade Name Freq PRN Reason Stop Dose Admin Albuterol Sulfate 1 amp 01/18/18 10:47 Ventolin 0.083% Nebulizer Soln - NEB Q4H PRN SHORT OF BREATH/WHEEZING Albuterol/Ipratropium 1 amp 01/18/18 12:00 01/26/18 21:00 Duoneb - NEB 1 amp RQID TYSHAWN Administration Cefepime HCl 1 gm in 50 mls @ 100 mls/hr 01/21/18 02:00 01/26/18 17:53 Maxipime 1 Gm Premix Ivpb IVPB 100 mls/hr Q8H-IV TYSHAWN Administration Protocol Methylprednisolone Sodium Succinate 40 mg 01/26/18 10:00 01/26/18 10:25 Solu-Medrol - IVPUSH 40 mg DAILY TYSHAWN Administration Morphine Sulfate 1.5 mg 01/24/18 21:56 Morphine Sulfate IVPUSH Q6H PRN PAIN LEVEL 4 - 6 Metastatic breast ca -bone mets Neutropenic sepsis Hypoxic respiratory failure Pneumonia Anemia Thrombocytopenia Pulmonary congestion ?lung mets Plans: current therapy Transfuse prn Full code
[2018-01-27] MEDS: CEFEPIME HCL/D5W 1 GM/50 ML BAG IVPB SCH ×2 (02:06→09:11)
[2018-01-27 06:06] LABS: BASO % 0.2 % (0-2.0); EOS % 0.1 % (0-4.5); HEMATOCRIT 23.9 % (32.4-45.2); HEMOGLOBIN 8.2 GM/dL (10.7-15.3); LYMPH % 1.1 % (8-40); MCHC 34.2 g/dl (32.0-36.0); MEAN CELL VOLUME 93.6 fl (80-96); MEAN PLT VOLUME 8.1 fl (7.5-11.1); MONO % 1.3 % (3.8-10.2); NEUT % 97.3 % (42.8-82.8); RBC 2.55 M/mm3 (3.60-5.2); RDW 20.6 % (11.6-15.6); WHITE BLOOD COUNT 4.8 K/mm3 (4.0-10.0)
[2018-01-27 06:21] LABS: PLATELET COUNT 34 K/MM3 (134-434)
[2018-01-27 06:35] LABS: BLOOD UREA NITROGEN 10 mg/dL (7-18); CHLORIDE 88 mmol/L (98-107); GLUCOSE,RANDOM 214 mg/dL (74-106); PHOSPHOROUS 1.9 mg/dL (2.5-4.9); POTASSIUM 3.4 mmol/L (3.5-5.1); SGOT/AST 14 U/L (15-37); SODIUM 136 mmol/L (136-145)
[2018-01-27 06:38] LABS: ALK PHOS 153 U/L (45-117); ANION GAP 5 (8-16); BILIRUBIN,TOTAL 0.3 mg/dL (0.2-1.0); CALCIUM 8.2 mg/dL (8.5-10.1); CO2 43 mmol/L (21-32); CREATININE 0.3 mg/dL (0.55-1.02); MAGNESIUM 1.8 mg/dL (1.8-2.4); SGPT/ALT 29 U/L (12-78); TOT PROT 5.5 g/dl (6.4-8.2)
[2018-01-27] MEDS: ALBUTEROL SO4 2.5/IPRATROPIUM 0.5 INH SOL 3 ML VIAL.NEB. NEB SCH (07:30)
[2018-01-27] MEDS ORDERED: PT OWN MED DRAWER 7, Y5N ONE (08:54)
[2018-01-27] MEDS: methylPREDNISolone NA SUCC 40 MG/1 ML VIAL IVPUSH SCH (09:10)
[2018-01-27] MEDS ORDERED: POTASSIUM PHOSPHATE 30 MM in SODIUM CHLORIDE 250 ML IVPB ONE (10:00)
[2018-01-27 10:17] LABS: PLATELET ESTIMATE DECREASED
[2018-01-27] MEDS ORDERED: FUROSEMIDE 40 MG/4 ML INJECTABLE VIAL IVPUSH ONE (11:29)
--- NOTE | 2018-01-27 11:36 | PN ---
Teaching Attending Note Name of Resident: Alisa Romero ATTENDING PHYSICIAN STATEMENT I saw and evaluated the patient. I reviewed the resident's note and discussed the case with the resident. I agree with the resident's findings and plan as documented. SUBJECTIVE: Pt seen and examined in the ICU. Remains on HFOT 65% FiO2, 50L/min. States breathing slightly improving. OBJECTIVE: Vital Signs Period Temp Pulse Resp BP Sys/Langley Pulse Ox Last 24 Hr 98.0 F-99.2 F 99-114 20-24 96-114/45-69 93-99 Intake & Output 01/24/18 01/25/18 01/26/18 01/27/18 23:59 23:59 23:59 23:59 Intake Total 1350 1440 560 50 Output Total 3300 3400 3000 400 Balance -1950 -1960 -6070 -350 Weight 68.124 kg 63.588 kg Gen: tachypneic on HFOT Heart: tachycardic, regular Lung: bibasilar rales Abd: soft, nontender Ext: no edema CBC, BMP 01/27/18 05:30 01/27/18 05:30 Active Medications Furosemide (Lasix Injection -) 40 mg IVPUSH ONCE ONE Stop: 01/27/18 11:30 Cefepime HCl (Maxipime 1 Gm Premix Ivpb) 1 gm in 50 mls @ 100 mls/hr IVPB Q8H- IV TYSHAWN; Protocol Last Admin: 01/27/18 09:11 Dose: 100 mls/hr Potassium Phosphate 30 mm/ (Sodium Chloride) 260 mls @ 65 mls/hr IVPB ONCE ONE Stop: 01/27/18 13:59 Last Admin: 01/27/18 10:15 Dose: 65 mls/hr Methylprednisolone Sodium Succinate (Solu-Medrol -) 40 mg IVPUSH DAILY TYSHAWN Last Admin: 01/27/18 09:10 Dose: 40 mg Morphine Sulfate (Morphine Sulfate) 1.5 mg IVPUSH Q6H PRN PRN Reason: PAIN LEVEL 4 - 6 Last Admin: 01/27/18 03:50 Dose: 1.5 mg ASSESSMENT AND PLAN: Acute Hypoxic Respiratory Failure Pneumonia Neutropenic Septic Shock Pancytopenia Coagulopathy Metastatic Breast Ca Volume Overload - continue antibiotics - monitor off pressors, maintain MAP >65 - dose lasix again today - replete lytes - monitor CBC, coags - transfuse as needed - continue HFOT, taper FiO2 to keep SpO2 >90% - inhaled bronchodilators - taper steroids - prognosis guarded - continue discussions regarding goals of care - ICU monitoring critical care time spent in reviewing chart, evaluating patient and formulating plan 35 min
--- NOTE | 2018-01-27 12:46 | PN ---
Progress Note, Physician History of Present Illness: Remains on high flow O2 to maintain saO2. - Current Medication List Current Medications: Active Medications Cefepime HCl (Maxipime 1 Gm Premix Ivpb) 1 gm in 50 mls @ 100 mls/hr IVPB Q8H- IV TYSHAWN; Protocol Last Admin: 01/27/18 09:11 Dose: 100 mls/hr Potassium Phosphate 30 mm/ (Sodium Chloride) 260 mls @ 65 mls/hr IVPB ONCE ONE Stop: 01/27/18 13:59 Last Admin: 01/27/18 10:15 Dose: 65 mls/hr Methylprednisolone Sodium Succinate (Solu-Medrol -) 40 mg IVPUSH DAILY TYSHAWN Last Admin: 01/27/18 09:10 Dose: 40 mg Morphine Sulfate (Morphine Sulfate) 1.5 mg IVPUSH Q6H PRN PRN Reason: PAIN LEVEL 4 - 6 Last Admin: 01/27/18 03:50 Dose: 1.5 mg - Objective Vital Signs: Vital Signs Temperature 97.6 F 01/27/18 12:00 Pulse Rate 104 H 01/27/18 12:00 Respiratory Rate 22 01/27/18 12:00 Blood Pressure 104/68 01/27/18 12:00 O2 Sat by Pulse Oximetry (%) 94 L 01/27/18 11:32 Constitutional: Yes: No Distress, Calm Neck: Yes: Supple Cardiovascular: Yes: Tachycardia Respiratory: Yes: Regular, Diminished, Other (High-Flow O2) Gastrointestinal: Yes: Soft, Hypoactive Bowel Sounds Edema: No Labs: CBC, BMP 01/27/18 05:30 01/27/18 05:30 INR, PTT INR 1.35 (0.82-1.09) H 01/22/18 05:30 Fibrinogen 344.0 mg/dL (238-498) 01/20/18 12:55 - ....Imaging Chest X-ray: Report Reviewed (Stable, unchanged) EKG: Report Reviewed (Tele: ST) Problem List - Problems (1) Acute respiratory failure with hypoxia Code(s): J96.01 - ACUTE RESPIRATORY FAILURE WITH HYPOXIA (2) Breast cancer Code(s): C50.919 - MALIGNANT NEOPLASM OF UNSP SITE OF UNSPECIFIED FEMALE BREAST Qualifiers: Breast location: unspecified site of breast Estrogen receptor status: unspecified Patient sex: female Laterality: unspecified laterality Qualified Code(s): C50.919 - Malignant neoplasm of unspecified site of unspecified female breast (3) Pancytopenia due to antineoplastic chemotherapy Code(s): D61.810 - ANTINEOPLASTIC CHEMOTHERAPY INDUCED PANCYTOPENIA; T45.1X5A - ADVERSE EFFECT OF ANTINEOPLASTIC AND IMMUNOSUP DRUGS, INIT (4) Pneumonia Code(s): J18.9 - PNEUMONIA, UNSPECIFIED ORGANISM Qualifiers: Pneumonia type: due to unspecified organism Laterality: bilateral Lung location: unspecified part of lung Qualified Code(s): J18.9 - Pneumonia, unspecified organism Assessment/Plan January 16, 2018 Echo: Normal LV size and fxn, tr-mild MR 1. Acute Hypoxic Respiratory Failure->Pneumonia 2. Post Neutropenic Septic Shock 3. Pancytopenia with improving counts 4. Coagulopathy 5. Metastatic Breast Ca, extensive bone mets on abemaciclib post XRT, suspected lymphangitic spread P: 1. Empiric broad spectrum antibiotics 2. Transfuse monodonor platelets, PRBC as needed, neupogen 3. Continue high flow O2 as needed to assist in work of breathing, wean FIO2, BD , IV steroid taper with GI protection, chest CT once stable 4. Diuresis as needed, replete K 5. Goals of care being addressed
--- NOTE | 2018-01-27 13:54 | PN ---
Physical Exam: SUBJECTIVE: Patient seen and examined. No acute events overnight. Patient offers no new complaints. Afebrile On HFNC 65% FIO2/ 50L OBJECTIVE: Vital Signs Period Temp Pulse Resp BP Sys/[place]y Pulse Ox Last 24 Hr 97.6 F-99.2 F 99-114 20-23 97-115/45-69 93-99 GENERAL: lethargic today, a/o x 3 EYES: sclera anicteric, conjunctiva clear. ENT: oropharynx clear without exudates, moist mucous membranes. NECK: supple. LUNGS: bibasilar crackles HEART: tachy, regular rhythm ABDOMEN: Soft, nontender, nondistended, normoactive bowel sounds EXTREMITIES: 2+ pulses, warm, b/l thigh edema Laboratory Results - last 24 hr 01/27/18 01/27/18 05:30 05:30 WBC 4.8 RBC 2.55 L Hgb 8.2 L Hct 23.9 L MCV 93.6 MCH 32.0 MCHC 34.2 RDW 20.6 H Plt Count 34 L* D MPV 8.1 D Absolute Neuts (auto) 4.7 Neutrophils % 97.3 H Neutrophils % (Manual) 96.0 H Band Neutrophils % 1.0 Lymphocytes % 1.1 L D Lymphocytes % (Manual) 1.0 L Monocytes % 1.3 L D Monocytes % (Manual) 2 L D Eosinophils % 0.1 Eosinophils % (Manual) 0.0 Basophils % 0.2 Basophils % (Manual) 0.0 Myelocytes % (Man) 0 Promyelocytes % (Man) 0 Blast Cells % (Manual) 0 Nucleated RBC % 0 Metamyelocytes 0 Platelet Estimate Decreased Sodium 136 Potassium 3.4 L Chloride 88 L Carbon Dioxide 43 H Anion Gap 5 L BUN 10 Creatinine 0.3 L Creat Clearance w eGFR > 60 Random Glucose 214 H Calcium 8.2 L Phosphorus 1.9 L Magnesium 1.8 Total Bilirubin 0.3 AST 14 L ALT 29 Alkaline Phosphatase 153 H Total Protein 5.5 L Albumin 2.0 L Active Medications Generic Name Dose Route Start Last Admin Trade Name Freq PRN Reason Stop Dose Admin Cefepime HCl 1 gm in 50 mls @ 100 mls/hr 01/21/18 02:00 01/27/18 09:11 Maxipime 1 Gm Premix Ivpb IVPB 100 mls/hr Q8H-IV TYSHAWN Administration Protocol Potassium Phosphate 30 mm/ 260 mls @ 65 mls/hr 01/27/18 10:00 01/27/18 10:15 Sodium Chloride IVPB 01/27/18 13:59 65 mls/hr ONCE ONE Administration 30 MM/4 HR Methylprednisolone Sodium Succinate 40 mg 01/26/18 10:00 01/27/18 09:10 Solu-Medrol - IVPUSH 40 mg DAILY TYSHAWN Administration Morphine Sulfate 1.5 mg 01/24/18 21:56 01/27/18 03:50 Morphine Sulfate IVPUSH 1.5 mg Q6H PRN Administration PAIN LEVEL 4 - 6 ASSESSMENT/PLAN: PULM -Acute hypoxic respiratory failure likely secondary to PNA -Cont. IV abx: Cefepime -Taper Medrol 40mg Daily -Lasix 40mg today -Duonebs QID, Albuterol PRN -ID on board -maintaining sats on HFNC. Wean as tolerated -maintain O2 > 90% CV #Neutropenic Septic Shock -resolved -BP stable since off pressors. -Cultures negative -Keep MAP >65 -echo unremarkable HEME/ONC #hx of metastatic breast cancer, extensive bone mets #Pancytopenia -wbc 4.8 today -Platelet 34, monitor -transfuse platelets if <15,000, PRBC as indicated -s/p 2 U PRBC, 2 U platelets 01/16, 2U platelets 01/23 -Heme/onc on board, follow reccs -follows with . FEN No IV fluids monitor lytes Regular diet DVT -scds PT for deconditioning Discuss GOC of with family. Visit type - Emergency Visit Emergency Visit: Yes ED Registration Date: 01/16/18 Care time: The patient presented to the Emergency Department on the above date and was hospitalized for further evaluation of their emergent condition. - New Patient This patient is new to me today: No - Critical Care Critical Care patient: Yes Total Critical Care Time (in minutes): 40 Critical Care Statement: The care of this patient involved high complexity decision making to prevent further life threatening deterioration of the patient 's condition and/or to evaluate & treat vital organ system(s) failure or risk of failure.
[2018-01-27] MEDS ORDERED: FUROSEMIDE 40 MG/4 ML INJECTABLE VIAL ONE (14:53)
--- NOTE | 2018-01-27 15:49 | PN ---
Progress Note, Physician History of Present Illness: still requiring high flow oxygen has been out of bed into chair still very sob no fevers platelets decreasing - Current Medication List Current Medications: Active Medications Cefepime HCl (Maxipime 1 Gm Premix Ivpb) 1 gm in 50 mls @ 100 mls/hr IVPB Q8H- IV TYSHAWN; Protocol Last Admin: 01/27/18 09:11 Dose: 100 mls/hr Methylprednisolone Sodium Succinate (Solu-Medrol -) 40 mg IVPUSH DAILY TYSHAWN Last Admin: 01/27/18 09:10 Dose: 40 mg Morphine Sulfate (Morphine Sulfate) 1.5 mg IVPUSH Q6H PRN PRN Reason: PAIN LEVEL 4 - 6 Last Admin: 01/27/18 03:50 Dose: 1.5 mg - Objective Vital Signs: Vital Signs Temperature 97.6 F 01/27/18 12:00 Pulse Rate 104 H 01/27/18 12:00 Respiratory Rate 22 01/27/18 12:00 Blood Pressure 104/68 01/27/18 12:00 O2 Sat by Pulse Oximetry (%) 96 01/27/18 14:11 Constitutional: Yes: No Distress, Calm Eyes: Yes: Conjunctiva Clear, EOM Intact HENT: Yes: Atraumatic, Normocephalic Neck: Yes: Supple, Trachea Midline Cardiovascular: Yes: Regular Rate and Rhythm Respiratory: Yes: Poor Air Entry, Other Gastrointestinal: Yes: Normal Bowel Sounds, Soft Musculoskeletal: Yes: WNL Extremities: Yes: WNL Neurological: Yes: Alert, Oriented Psychiatric: Yes: Alert, Oriented Labs: CBC, BMP 01/27/18 05:30 01/27/18 05:30 INR, PTT INR 1.35 (0.82-1.09) H 01/22/18 05:30 Fibrinogen 344.0 mg/dL (238-498) 01/20/18 12:55 Assessment/Plan pneumonia septic shock neutropenia resp failure hypoxia metastatic breast ca plan will stop abx resp support monitor closely rest as per the team and icu monitor wbc and platelets onco on board continue monitoring cc time 40 min
--- NOTE | 2018-01-27 16:02 | PN ---
Progress Note (short form) - Note Progress Note: Patient seen and examined Remains alert , awake, responsive, frustrated No significant pains No significant chest pains Denies significant SOB Last Vital Signs Temp Pulse Resp BP Pulse Ox 97.6 F 104 H 22 104/68 96 01/27/18 12:00 01/27/18 12:00 01/27/18 12:00 01/27/18 12:00 01/27/18 14:11 CBC, BMP 01/27/18 05:30 01/27/18 05:30 HEENT: LYSSA, EOM Intact Breasts: s/p reconstruction Cor: RSR, No murmurs, No gallops Lungs-- diminished breath sounds bilaterally Abd: Soft, Normal bowel sounds, No organomegaly Ext:No significant edema Skin: No rashes, Integument intact, numerous ecchymoses Current Medications Generic Name Dose Route Start Last Admin Trade Name Freq PRN Reason Stop Dose Admin Methylprednisolone Sodium Succinate 40 mg 01/26/18 10:00 01/27/18 09:10 Solu-Medrol - IVPUSH 40 mg DAILY TYSHAWN Administration Morphine Sulfate 1.5 mg 01/24/18 21:56 01/27/18 03:50 Morphine Sulfate IVPUSH 1.5 mg Q6H PRN Administration PAIN LEVEL 4 - 6 Impression: Metastatic breast ca Bone Mets Possible pulmonary mets with lymphangitic disease Anemia Thrombocytopenia Plan: antibiotics have been discontinued Etiology of thrombocytopenia--? marrow suppression, sepsis, infiltrative bone marrow , coagulopathy to monitor.
--- NOTE | 2018-01-27 18:00 | PN ---
Progress Note, Physician History of Present Illness: feeling good - Current Medication List Current Medications: Active Medications Methylprednisolone Sodium Succinate (Solu-Medrol -) 40 mg IVPUSH DAILY TYSHAWN Last Admin: 01/27/18 09:10 Dose: 40 mg Morphine Sulfate (Morphine Sulfate) 1.5 mg IVPUSH Q6H PRN PRN Reason: PAIN LEVEL 4 - 6 Last Admin: 01/27/18 03:50 Dose: 1.5 mg - Objective Vital Signs: Vital Signs Temperature 97.6 F 01/27/18 12:00 Pulse Rate 107 H 01/27/18 16:00 Respiratory Rate 20 01/27/18 16:00 Blood Pressure 101/69 01/27/18 16:00 O2 Sat by Pulse Oximetry (%) 96 01/27/18 16:17 Constitutional: Yes: No Distress HENT: Yes: Atraumatic Neck: Yes: Supple Cardiovascular: Yes: Regular Rate and Rhythm Respiratory: Yes: Rhonchi, Wheezes Gastrointestinal: Yes: Normal Bowel Sounds Extremities: Yes: WNL Neurological: Yes: Alert, Oriented Labs: CBC, BMP 01/27/18 05:30 01/27/18 05:30 INR, PTT INR 1.35 (0.82-1.09) H 01/22/18 05:30 Fibrinogen 344.0 mg/dL (238-498) 01/20/18 12:55 Problem List - Problems (1) Altered mental status Assessment/Plan: pt is awake and alert on nc doing well tolerating diet Code(s): R41.82 - ALTERED MENTAL STATUS, UNSPECIFIED Qualifiers: Altered mental status type: unspecified Qualified Code(s): R41.82 - Altered mental status, unspecified (2) Pancytopenia due to antineoplastic chemotherapy Assessment/Plan: s/p prbc and platelets transfusion counts going down again need transfusions prn Code(s): D61.810 - ANTINEOPLASTIC CHEMOTHERAPY INDUCED PANCYTOPENIA; T45.1X5A - ADVERSE EFFECT OF ANTINEOPLASTIC AND IMMUNOSUP DRUGS, INIT (3) Pneumonia Assessment/Plan: off of abx stable Code(s): J18.9 - PNEUMONIA, UNSPECIFIED ORGANISM Qualifiers: Pneumonia type: due to unspecified organism Laterality: bilateral Lung location: unspecified part of lung Qualified Code(s): J18.9 - Pneumonia, unspecified organism (4) Acute respiratory failure with hypoxia Assessment/Plan: on NC now 60 % fio2 Code(s): J96.01 - ACUTE RESPIRATORY FAILURE WITH HYPOXIA (5) Thrombocytopenia Assessment/Plan: platelet transfusion per hematology Code(s): D69.6 - THROMBOCYTOPENIA, UNSPECIFIED
[2018-01-28 06:17] LABS: BASO % 0.1 % (0-2.0); EOS % 0.1 % (0-4.5); HEMATOCRIT 22.9 % (32.4-45.2); HEMOGLOBIN 7.9 GM/dL (10.7-15.3); LYMPH % 1.3 % (8-40); MCH 32.4 pg (25.7-33.7); MCHC 34.6 g/dl (32.0-36.0); MEAN CELL VOLUME 93.8 fl (80-96); MEAN PLT VOLUME 8.4 fl (7.5-11.1); MONO % 1.3 % (3.8-10.2); NEUT % 97.2 % (42.8-82.8); PLATELET COUNT 24 K/MM3 (134-434); RBC 2.44 M/mm3 (3.60-5.2); WHITE BLOOD COUNT 4.8 K/mm3 (4.0-10.0)
[2018-01-28 06:31] LABS: ANION GAP 2 (8-16); BILIRUBIN,TOTAL 0.3 mg/dL (0.2-1.0); BLOOD UREA NITROGEN 12 mg/dL (7-18); CALCIUM 8.2 mg/dL (8.5-10.1); CHLORIDE 91 mmol/L (98-107); CO2 43 mmol/L (21-32); CREATININE 0.3 mg/dL (0.55-1.02); GLUCOSE,RANDOM 223 mg/dL (74-106); MAGNESIUM 1.7 mg/dL (1.8-2.4); PHOSPHOROUS 2.1 mg/dL (2.5-4.9); POTASSIUM 3.6 mmol/L (3.5-5.1); SGOT/AST 14 U/L (15-37); SGPT/ALT 27 U/L (12-78); SODIUM 136 mmol/L (136-145); TOT PROT 5.5 g/dl (6.4-8.2)
[2018-01-28 06:32] LABS: ALK PHOS 162 U/L (45-117)
[2018-01-28 06:58] LABS: INR 1.1 (0.82-1.09); PROTHROMBIN TIME (PATIENT) 12.4 SEC (9.7-13.0)
[2018-01-28 07:00] LABS: ACTIVATED PTT 23.5 SECONDS (25.2-36.5)
--- NOTE | 2018-01-28 09:13 | PN ---
Progress Note (short form) - Note Progress Note: PULM/CCM SUBJECTIVE: Pt seen and examined in the ICU. 24HR: -cxr worse but symptoms unchanged -stil 60% fio2 OBJECTIVE: Vital Signs Temp 98.5 F 01/28/18 08:00 Pulse 86 01/28/18 06:04 Resp 23 01/28/18 08:00 BP 107/64 01/28/18 08:00 Pulse Ox 96 01/28/18 04:30 Intake & Output 01/27/18 01/27/18 01/28/18 11:59 23:59 11:59 Intake Total 50 580 200 Output Total 400 1800 900 Balance -350 -1220 -700 Weight 64.864 kg Intake: IVPB 50 300 Oral 280 200 Output: Urine 400 1800 900 [place] 400 1800 900 Other: Voiding Method Indwelling Catheter Indwelling Catheter Bowel Movement Yes # Bowel Movements 1 Weight Measurement Method Built in [facility] Active Medications Methylprednisolone Sodium Succinate (Solu-Medrol -) 40 mg IVPUSH DAILY TYSHAWN Last Admin: 01/27/18 09:10 Dose: 40 mg Morphine Sulfate (Morphine Sulfate) 1.5 mg IVPUSH Q6H PRN PRN Reason: PAIN LEVEL 4 - 6 Last Admin: 01/27/18 03:50 Dose: 1.5 mg Gen: tachypneic on HFOT, not in distress Heart: tachycardic, regular, No m/r/g appreciated Lung:diffuse rales Abd: soft, nontender Ext: no edema CBCD WBC 4.8 K/mm3 (4.0-10.0) 01/28/18 05:30 RBC 2.44 M/mm3 (3.60-5.2) L 01/28/18 05:30 Hgb 7.9 GM/dL (10.7-15.3) L 01/28/18 05:30 Hct 22.9 % (32.4-45.2) L 01/28/18 05:30 MCV 93.8 fl (80-96) 01/28/18 05:30 MCHC 34.6 g/dl (32.0-36.0) 01/28/18 05:30 RDW 21.0 % (11.6-15.6) H 01/28/18 05:30 Plt Count 24 K/MM3 (134-434) L* D 01/28/18 05:30 MPV 8.4 fl (7.5-11.1) 01/28/18 05:30 CMP Sodium 136 mmol/L (136-145) 01/28/18 05:30 Potassium 3.6 mmol/L (3.5-5.1) 01/28/18 05:30 Chloride 91 mmol/L (98-107) L 01/28/18 05:30 Carbon Dioxide 43 mmol/L (21-32) H 01/28/18 05:30 Anion Gap 2 (8-16) L 01/28/18 05:30 BUN 12 mg/dL (7-18) 01/28/18 05:30 Creatinine 0.3 mg/dL (0.55-1.02) L 01/28/18 05:30 Creat Clearance w eGFR > 60 (>60) 01/28/18 05:30 Random Glucose 223 mg/dL (74-106) H 01/28/18 05:30 Calcium 8.2 mg/dL (8.5-10.1) L 01/28/18 05:30 Total Bilirubin 0.3 mg/dL (0.2-1.0) 01/28/18 05:30 AST 14 U/L (15-37) L 01/28/18 05:30 ALT 27 U/L (12-78) 01/28/18 05:30 Alkaline Phosphatase 162 U/L (45-117) H 01/28/18 05:30 Total Protein 5.5 g/dl (6.4-8.2) L 01/28/18 05:30 Albumin 2.0 g/dl (3.4-5.0) L 01/28/18 05:30 CARDIAC ENZYMES Creatine Kinase 35 IU/L (26-192) 01/17/18 14:30 Troponin I < 0.02 ng/ml (0.00-0.05) 01/17/18 14:30 ASSESSMENT AND PLAN: Acute Hypoxic Respiratory Failure Pneumonia Neutropenic Septic Shock Pancytopenia Coagulopathy Metastatic Breast Ca Volume Overload - off abx - lasix for O>I - replete lytes - monitor CBC, coags - transfuse as needed for Hgb < 7, Plt < 15 (50 if bleeding) - continue HFOT, taper FiO2 to keep SpO2 >90% - inhaled bronchodilators - taper steroids slowly - prognosis guarded - continue discussions regarding goals of care, consider calvalry...can take HFNC i believe - ICU monitoring [place] ACNP 0725 critical care time spent in reviewing chart, evaluating patient and formulating plan 35 min
[2018-01-28] MEDS: methylPREDNISolone NA SUCC 40 MG/1 ML VIAL IVPUSH SCH (09:25)
[2018-01-28 10:59] LABS: ANISOCYTOSIS 2+; MACROCYTOSIS 1+; OVALOCYTE 1+; PLATELET ESTIMATE DECREASED
--- NOTE | 2018-01-28 11:46 | PN ---
Progress Note, Physician History of Present Illness: chloé still on high flow oxygen off of abx now remained stable still platelets on the lower side - Current Medication List Current Medications: Active Medications Methylprednisolone Sodium Succinate (Solu-Medrol -) 40 mg IVPUSH DAILY [facility] Last Admin: 01/28/18 09:25 Dose: 40 mg Morphine Sulfate (Morphine Sulfate) 1.5 mg IVPUSH Q6H PRN PRN Reason: PAIN LEVEL 4 - 6 Last Admin: 01/27/18 03:50 Dose: 1.5 mg - Objective Vital Signs: Vital Signs Temperature 98.3 F 01/28/18 09:17 Pulse Rate 88 01/28/18 09:40 Respiratory Rate 22 01/28/18 09:40 Blood Pressure 100/45 01/28/18 09:40 O2 Sat by Pulse Oximetry (%) 92 L 01/28/18 09:14 Constitutional: Yes: No Distress, Calm Cardiovascular: Yes: Regular Rate and Rhythm Respiratory: Yes: On Nasal O2 (high flow), Poor Air Entry Gastrointestinal: Yes: Normal Bowel Sounds, Soft Musculoskeletal: Yes: WNL Extremities: Yes: WNL Neurological: Yes: Alert, Oriented Psychiatric: Yes: Alert, Oriented Labs: CBC, BMP 01/28/18 05:30 01/28/18 05:30 INR, PTT INR 1.10 (0.82-1.09) 01/28/18 05:30 Fibrinogen 486.0 mg/dL (238-498) D 01/28/18 05:30 Assessment/Plan pneumonia septic shock neutropenia resp failure hypoxia metastatic breast ca plan stable off of abx resp support monitor closely rest as per the team and icu monitor wbc and platelets onco on board continue monitoring cc time 40 min
--- NOTE | 2018-01-28 13:08 | PN ---
Progress Note, Physician History of Present Illness: Remains on high flow O2 60% to maintain saO2. CXR worse but stable dyspnea. - Current Medication List Current Medications: Active Medications Methylprednisolone Sodium Succinate (Solu-Medrol -) 40 mg IVPUSH DAILY TYSHAWN Last Admin: 01/28/18 09:25 Dose: 40 mg Morphine Sulfate (Morphine Sulfate) 1.5 mg IVPUSH Q6H PRN PRN Reason: PAIN LEVEL 4 - 6 Last Admin: 01/27/18 03:50 Dose: 1.5 mg - Objective Vital Signs: Vital Signs Temperature 98.3 F 01/28/18 09:17 Pulse Rate 83 01/28/18 12:06 Respiratory Rate 22 01/28/18 09:40 Blood Pressure 100/45 01/28/18 09:40 O2 Sat by Pulse Oximetry (%) 93 L 01/28/18 12:06 Constitutional: Yes: No Distress, Calm Neck: Yes: Supple Cardiovascular: Yes: Regular Rate and Rhythm, Tachycardia Respiratory: Yes: Regular, Diminished, Other (HFOT) Gastrointestinal: Yes: Soft, Hypoactive Bowel Sounds Edema: No Labs: CBC, BMP 01/28/18 05:30 01/28/18 05:30 INR, PTT INR 1.10 (0.82-1.09) 01/28/18 05:30 Fibrinogen 486.0 mg/dL (238-498) D 01/28/18 05:30 Problem List - Problems (1) Acute respiratory failure with hypoxia Code(s): J96.01 - ACUTE RESPIRATORY FAILURE WITH HYPOXIA (2) Breast cancer Code(s): C50.919 - MALIGNANT NEOPLASM OF UNSP SITE OF UNSPECIFIED FEMALE BREAST Qualifiers: Breast location: unspecified site of breast Estrogen receptor status: unspecified Patient sex: female Laterality: unspecified laterality Qualified Code(s): C50.919 - Malignant neoplasm of unspecified site of unspecified female breast (3) Pancytopenia due to antineoplastic chemotherapy Code(s): D61.810 - ANTINEOPLASTIC CHEMOTHERAPY INDUCED PANCYTOPENIA; T45.1X5A - ADVERSE EFFECT OF ANTINEOPLASTIC AND IMMUNOSUP DRUGS, INIT (4) Pneumonia Code(s): J18.9 - PNEUMONIA, UNSPECIFIED ORGANISM Qualifiers: Pneumonia type: due to unspecified organism Laterality: bilateral Lung location: unspecified part of lung Qualified Code(s): J18.9 - Pneumonia, unspecified organism Assessment/Plan January 16, 2018 Echo: Normal LV size and fxn, tr-mild MR 1. Acute Hypoxic Respiratory Failure->Pneumonia 2. Post Neutropenic Septic Shock 3. Pancytopenia with thrombocyopenia 4. Coagulopathy 5. Metastatic Breast Ca, extensive bone mets on abemaciclib post XRT, suspected lymphangitic spread P: 1. Observe off antibiotics 2. Transfuse monodonor platelets for bleeding or fever, PRBC as needed, neupogen 3. Continue high flow O2 as needed to assist in work of breathing, wean FIO2, BD , IV steroid taper with GI protection, chest CT once stable 4. Diuresis as needed, replete K 5. Goals of care being addressed
[2018-01-28] MEDS ORDERED: FUROSEMIDE 40 MG/4 ML INJECTABLE VIAL IVPUSH ONE (13:30)
--- NOTE | 2018-01-28 20:46 | PN ---
Progress Note, Physician History of Present Illness: feeling good - Current Medication List Current Medications: Active Medications Methylprednisolone Sodium Succinate (Solu-Medrol -) 40 mg IVPUSH DAILY TYSHAWN Last Admin: 01/28/18 09:25 Dose: 40 mg Morphine Sulfate (Morphine Sulfate) 1.5 mg IVPUSH Q6H PRN PRN Reason: PAIN LEVEL 4 - 6 Last Admin: 01/27/18 03:50 Dose: 1.5 mg - Objective Vital Signs: Vital Signs Temperature 97.8 F 01/28/18 18:00 Pulse Rate 110 H 01/28/18 20:00 Respiratory Rate 25 H 01/28/18 20:21 Blood Pressure 103/73 01/28/18 20:00 O2 Sat by Pulse Oximetry (%) 93 L 01/28/18 20:21 Constitutional: Yes: No Distress HENT: Yes: Atraumatic Cardiovascular: Yes: Regular Rate and Rhythm Respiratory: Yes: Rhonchi Gastrointestinal: Yes: Normal Bowel Sounds Extremities: Yes: WNL Edema: LLE: Trace, RLE: Trace Neurological: Yes: Alert, Oriented Labs: CBC, BMP 01/28/18 05:30 01/28/18 05:30 INR, PTT INR 1.10 (0.82-1.09) 01/28/18 05:30 Fibrinogen 486.0 mg/dL (238-498) D 01/28/18 05:30 Problem List - Problems (1) Altered mental status Assessment/Plan: pt is awake and alert on nc doing well tolerating diet Code(s): R41.82 - ALTERED MENTAL STATUS, UNSPECIFIED Qualifiers: Altered mental status type: unspecified Qualified Code(s): R41.82 - Altered mental status, unspecified (2) Pancytopenia due to antineoplastic chemotherapy Assessment/Plan: s/p prbc and platelets transfusion counts going down again need transfusions prn Code(s): D61.810 - ANTINEOPLASTIC CHEMOTHERAPY INDUCED PANCYTOPENIA; T45.1X5A - ADVERSE EFFECT OF ANTINEOPLASTIC AND IMMUNOSUP DRUGS, INIT (3) Pneumonia Assessment/Plan: off of abx stable Code(s): J18.9 - PNEUMONIA, UNSPECIFIED ORGANISM Qualifiers: Pneumonia type: due to unspecified organism Laterality: bilateral Lung location: unspecified part of lung Qualified Code(s): J18.9 - Pneumonia, unspecified organism (4) Acute respiratory failure with hypoxia Assessment/Plan: on NC now 60 % fio2 on steroid taper Code(s): J96.01 - ACUTE RESPIRATORY FAILURE WITH HYPOXIA (5) Thrombocytopenia Assessment/Plan: platelet transfusion per hematology Code(s): D69.6 - THROMBOCYTOPENIA, UNSPECIFIED Assessment/Plan cc time 35 min
[2018-01-29] MEDS: methylPREDNISolone NA SUCC 40 MG/1 ML VIAL IVPUSH SCH (09:18)
--- NOTE | 2018-01-29 10:13 | PN ---
Progress Note (short form) - Note Progress Note: PULM/CCM SUBJECTIVE: Pt seen and examined in the ICU. 24HR: -unchanged -labs pending -slept well OBJECTIVE: Vital Signs Temp 98.6 F 01/29/18 08:55 Pulse 118 H 01/29/18 08:55 Resp 24 01/29/18 08:55 BP 103/65 01/29/18 08:55 Pulse Ox 92 L 01/29/18 09:47 Intake & Output 01/28/18 01/28/18 01/29/18 11:59 23:59 11:59 Intake Total 200 200 150 Output Total 900 500 200 Balance -700 -300 -50 Weight 64.864 kg 58.513 kg Intake: Oral 200 200 150 Output: Urine 900 500 200 [place] 900 500 200 Other: Voiding Method Indwelling Catheter Indwelling Catheter Bowel Movement Yes: exlarge Weight Measurement Method [facility] Current Medications Methylprednisolone Sodium Succinate (Solu-Medrol -) 40 mg IVPUSH DAILY TYSHAWN Last Admin: 01/29/18 09:18 Dose: 40 mg Morphine Sulfate (Morphine Sulfate) 1.5 mg IVPUSH Q6H PRN PRN Reason: PAIN LEVEL 4 - 6 Last Admin: 01/27/18 03:50 Dose: 1.5 mg Gen: tachypneic on HFOT, not in distress Heart: tachycardic, regular, No m/r/g appreciated Lung:diffuse rales, no wheezes Abd: soft, nontender Ext: no edema Labs from today still pending, reordered CBCD WBC 4.8 K/mm3 (4.0-10.0) 01/28/18 05:30 RBC 2.44 M/mm3 (3.60-5.2) L 01/28/18 05:30 Hgb 7.9 GM/dL (10.7-15.3) L 01/28/18 05:30 Hct 22.9 % (32.4-45.2) L 01/28/18 05:30 MCV 93.8 fl (80-96) 01/28/18 05:30 MCHC 34.6 g/dl (32.0-36.0) 01/28/18 05:30 RDW 21.0 % (11.6-15.6) H 01/28/18 05:30 Plt Count 24 K/MM3 (134-434) L* D 01/28/18 05:30 MPV 8.4 fl (7.5-11.1) 01/28/18 05:30 CMP Sodium 136 mmol/L (136-145) 01/28/18 05:30 Potassium 3.6 mmol/L (3.5-5.1) 01/28/18 05:30 Chloride 91 mmol/L (98-107) L 01/28/18 05:30 Carbon Dioxide 43 mmol/L (21-32) H 01/28/18 05:30 Anion Gap 2 (8-16) L 01/28/18 05:30 BUN 12 mg/dL (7-18) 01/28/18 05:30 Creatinine 0.3 mg/dL (0.55-1.02) L 01/28/18 05:30 Creat Clearance w eGFR > 60 (>60) 01/28/18 05:30 Random Glucose 223 mg/dL (74-106) H 01/28/18 05:30 Calcium 8.2 mg/dL (8.5-10.1) L 01/28/18 05:30 Total Bilirubin 0.3 mg/dL (0.2-1.0) 01/28/18 05:30 AST 14 U/L (15-37) L 01/28/18 05:30 ALT 27 U/L (12-78) 01/28/18 05:30 Alkaline Phosphatase 162 U/L (45-117) H 01/28/18 05:30 Total Protein 5.5 g/dl (6.4-8.2) L 01/28/18 05:30 Albumin 2.0 g/dl (3.4-5.0) L 01/28/18 05:30 CARDIAC ENZYMES Creatine Kinase 35 IU/L (26-192) 01/17/18 14:30 Troponin I < 0.02 ng/ml (0.00-0.05) 01/17/18 14:30 ASSESSMENT AND PLAN: Acute Hypoxic Respiratory Failure Pneumonia Neutropenic Septic Shock Pancytopenia Coagulopathy Metastatic Breast Ca Volume Overload - off abx - lasix for O>I - replete lytes - monitor CBC, coags - transfuse as needed for Hgb < 7, Plt < 15 (50 if bleeding) - continue HFOT, taper FiO2 to keep SpO2 >90% - inhaled bronchodilators - taper steroids slowly - prognosis guarded - continue discussions regarding goals of care, consider calvalry...can take HFNC i believe, pt relates she is still seeking disease modify therapy - ICU monitoring [place] [facility]OP [id number] critical care time spent in reviewing chart, evaluating patient and formulating plan 35 min
[2018-01-29 10:41] LABS: HEMATOCRIT 24.4 % (32.4-45.2); HEMOGLOBIN 8.2 GM/dL (10.7-15.3); MCH 31.8 pg (25.7-33.7); MCHC 33.8 g/dl (32.0-36.0); MEAN CELL VOLUME 94.2 fl (80-96); MEAN PLT VOLUME 8.5 fl (7.5-11.1); RBC 2.59 M/mm3 (3.60-5.2); RDW 21.6 % (11.6-15.6); WHITE BLOOD COUNT 3.9 K/mm3 (4.0-10.0)
[2018-01-29 10:44] LABS: PLATELET COUNT 21 K/MM3 (134-434)
[2018-01-29 10:58] LABS: ANION GAP 5 (8-16); BLOOD UREA NITROGEN 12 mg/dL (7-18); CALCIUM 8.4 mg/dL (8.5-10.1); CHLORIDE 92 mmol/L (98-107); CO2 40 mmol/L (21-32); CREATININE 0.3 mg/dL (0.55-1.02); GLUCOSE,RANDOM 222 mg/dL (74-106); POTASSIUM 3.7 mmol/L (3.5-5.1); SODIUM 137 mmol/L (136-145)
--- NOTE | 2018-01-29 12:03 | PN ---
Progress Note, Physician History of Present Illness: stable no new events still requiring high flow o2 very sob without oxygen - Current Medication List Current Medications: Active Medications Methylprednisolone Sodium Succinate (Solu-Medrol -) 40 mg IVPUSH DAILY TYSHAWN Last Admin: 01/29/18 09:18 Dose: 40 mg Morphine Sulfate (Morphine Sulfate) 1.5 mg IVPUSH Q6H PRN PRN Reason: PAIN LEVEL 4 - 6 Last Admin: 01/27/18 03:50 Dose: 1.5 mg - Objective Vital Signs: Vital Signs Temperature 98.6 F 01/29/18 10:00 Pulse Rate 118 H 01/29/18 10:00 Respiratory Rate 24 01/29/18 10:00 Blood Pressure 103/65 01/29/18 10:00 O2 Sat by Pulse Oximetry (%) 95 01/29/18 11:43 Constitutional: Yes: No Distress, Calm Cardiovascular: Yes: Regular Rate and Rhythm Respiratory: Yes: Regular, Poor Air Entry, Other (high flow o2) Gastrointestinal: Yes: Normal Bowel Sounds, Soft Musculoskeletal: Yes: WNL Extremities: Yes: WNL Neurological: Yes: Alert, Oriented Psychiatric: Yes: Alert, Oriented Labs: CBC, BMP 01/29/18 10:28 01/29/18 10:28 INR, PTT INR 1.10 (0.82-1.09) 01/28/18 05:30 Fibrinogen 486.0 mg/dL (238-498) D 01/28/18 05:30 Assessment/Plan pneumonia septic shock neutropenia resp failure hypoxia metastatic breast ca plan stable off of abx resp support monitor closely rest as per the team and icu monitor wbc and platelets onco on board continue monitoring physio cc time 40 min
--- NOTE | 2018-01-29 13:39 | PN ---
Progress Note, Physician History of Present Illness: Remains on high flow O2 60% to maintain saO2. CXR worse but stable dyspnea. - Current Medication List Current Medications: Active Medications Methylprednisolone Sodium Succinate (Solu-Medrol -) 40 mg IVPUSH DAILY TYSHAWN Last Admin: 01/29/18 09:18 Dose: 40 mg Morphine Sulfate (Morphine Sulfate) 1.5 mg IVPUSH Q6H PRN PRN Reason: PAIN LEVEL 4 - 6 Last Admin: 01/27/18 03:50 Dose: 1.5 mg - Objective Vital Signs: Vital Signs Temperature 98.6 F 01/29/18 10:00 Pulse Rate 11 L 01/29/18 12:00 Respiratory Rate 25 H 01/29/18 12:00 Blood Pressure 114/76 01/29/18 12:00 O2 Sat by Pulse Oximetry (%) 95 01/29/18 12:00 Constitutional: Yes: No Distress, Calm, Thin Neck: Yes: Supple Cardiovascular: Yes: Tachycardia Respiratory: Yes: Diminished, Other (HFOT) Gastrointestinal: Yes: Normal Bowel Sounds, Soft Edema: No Labs: CBC, BMP 01/29/18 10:28 01/29/18 10:28 INR, PTT INR 1.10 (0.82-1.09) 01/28/18 05:30 Fibrinogen 486.0 mg/dL (238-498) D 01/28/18 05:30 Problem List - Problems (1) Acute respiratory failure with hypoxia Code(s): J96.01 - ACUTE RESPIRATORY FAILURE WITH HYPOXIA (2) Breast cancer Code(s): C50.919 - MALIGNANT NEOPLASM OF UNSP SITE OF UNSPECIFIED FEMALE BREAST Qualifiers: Breast location: unspecified site of breast Estrogen receptor status: unspecified Patient sex: female Laterality: unspecified laterality Qualified Code(s): C50.919 - Malignant neoplasm of unspecified site of unspecified female breast (3) Pancytopenia due to antineoplastic chemotherapy Code(s): D61.810 - ANTINEOPLASTIC CHEMOTHERAPY INDUCED PANCYTOPENIA; T45.1X5A - ADVERSE EFFECT OF ANTINEOPLASTIC AND IMMUNOSUP DRUGS, INIT (4) Pneumonia Code(s): J18.9 - PNEUMONIA, UNSPECIFIED ORGANISM Qualifiers: Pneumonia type: due to unspecified organism Laterality: bilateral Lung location: unspecified part of lung Qualified Code(s): J18.9 - Pneumonia, unspecified organism Assessment/Plan January 16, 2018 Echo: Normal LV size and fxn, tr-mild MR 1. Acute Hypoxic Respiratory Failure->Pneumonia 2. Post Neutropenic Septic Shock 3. Pancytopenia with thrombocyopenia 4. Coagulopathy 5. Metastatic Breast Ca, extensive bone mets on abemaciclib post XRT, suspected lymphangitic spread P: 1. Observe off antibiotics 2. Transfuse monodonor platelets for bleeding or fever, PRBC as needed, neupogen 3. Continue high flow O2 as needed to assist in work of breathing, wean FIO2, BD , IV steroid taper with GI protection, chest CT once stable 4. Diuresis as needed 5. Goals of care being addressed
--- NOTE | 2018-01-29 15:47 | PN ---
Progress Note (short form) - Note Progress Note: Patient seen in follow up. No new complaints. On high fow O2 - comfortable. Inpatient Meds reviewed. Current Medications Generic Name Dose Route Start Last Admin Trade Name Bg PRN Reason Stop Dose Admin Methylprednisolone Sodium Succinate 40 mg 01/26/18 10:00 01/29/18 09:18 Solu-Medrol - IVPUSH 40 mg DAILY TYSHAWN Administration Morphine Sulfate 1.5 mg 01/24/18 21:56 01/27/18 03:50 Morphine Sulfate IVPUSH 1.5 mg Q6H PRN Administration PAIN LEVEL 4 - 6 On Examination: Last Vital Signs Temp Pulse Resp BP Pulse Ox 98.6 F 119 H 22 108/73 93 L 01/29/18 10:00 01/29/18 14:00 01/29/18 14:00 01/29/18 14:00 01/29/18 14:55 General: In no acute distress, lying supine in bed. Extremities: No pallor or icterus. No pedal edema. CVS: S1, S2, regular, no gallop or murmur. Chest: good air entry bilaterally, clear Abdomen: Non-distended, non-tender, no palpable organomegaly. Neuro: Alert, oriented.. Labs: CBC, BMP 01/29/18 10:28 01/29/18 10:28 Assessment. Metastatic breast cancer (HR positive), on AI + palbociclib, admitted with FN and respiratory failure (possibly lymphangitic spread lungs), now improved, not requiring ventilatory support, (albeit still with high O2 requirements), off Abics. Neutropenia resolved. Ongoing thrombocytopenia - but possibly nadired - 21K today. Transfuse if <10K.
--- NOTE | 2018-01-29 18:35 | PN ---
Progress Note, Physician - Current Medication List Current Medications: Active Medications Methylprednisolone Sodium Succinate (Solu-Medrol -) 40 mg IVPUSH DAILY TYSHAWN Last Admin: 01/29/18 09:18 Dose: 40 mg Morphine Sulfate (Morphine Sulfate) 1.5 mg IVPUSH Q6H PRN PRN Reason: PAIN LEVEL 4 - 6 Last Admin: 01/27/18 03:50 Dose: 1.5 mg - Objective Vital Signs: Vital Signs Temperature 98.9 F 01/29/18 18:00 Pulse Rate 121 H 01/29/18 18:00 Respiratory Rate 19 01/29/18 18:00 Blood Pressure 110/75 01/29/18 18:00 O2 Sat by Pulse Oximetry (%) 94 L 01/29/18 16:56 Constitutional: Yes: No Distress Neck: Yes: Supple Cardiovascular: Yes: Regular Rate and Rhythm Respiratory: Yes: Rhonchi, Wheezes Gastrointestinal: Yes: Normal Bowel Sounds Extremities: Yes: WNL Edema: LLE: Trace, RLE: Trace Neurological: Yes: Alert, Oriented Labs: CBC, BMP 01/29/18 10:28 01/29/18 10:28 INR, PTT INR 1.10 (0.82-1.09) 01/28/18 05:30 Fibrinogen 486.0 mg/dL (238-498) D 01/28/18 05:30 Problem List - Problems (1) Altered mental status Assessment/Plan: pt is awake and alert on nc doing well tolerating diet Code(s): R41.82 - ALTERED MENTAL STATUS, UNSPECIFIED Qualifiers: Altered mental status type: unspecified Qualified Code(s): R41.82 - Altered mental status, unspecified (2) Pancytopenia due to antineoplastic chemotherapy Assessment/Plan: s/p prbc and platelets transfusion counts going down again need transfusions prn Code(s): D61.810 - ANTINEOPLASTIC CHEMOTHERAPY INDUCED PANCYTOPENIA; T45.1X5A - ADVERSE EFFECT OF ANTINEOPLASTIC AND IMMUNOSUP DRUGS, INIT (3) Pneumonia Assessment/Plan: off of abx stable Code(s): J18.9 - PNEUMONIA, UNSPECIFIED ORGANISM Qualifiers: Pneumonia type: due to unspecified organism Laterality: bilateral Lung location: unspecified part of lung Qualified Code(s): J18.9 - Pneumonia, unspecified organism (4) Acute respiratory failure with hypoxia Assessment/Plan: on NC now 60 % fio2 on steroid taper Code(s): J96.01 - ACUTE RESPIRATORY FAILURE WITH HYPOXIA (5) Thrombocytopenia Assessment/Plan: platelet transfusion per hematology Code(s): D69.6 - THROMBOCYTOPENIA, UNSPECIFIED Assessment/Plan Critical care time spent in reviewing chart, evaluating patient and formulating plan - 36 minutes.
[2018-01-30] MEDS: methylPREDNISolone NA SUCC 40 MG/1 ML VIAL IVPUSH SCH (09:24)
[2018-01-30 09:27] LABS: BASO % 0.3 % (0-2.0); EOS % 0.2 % (0-4.5); HEMATOCRIT 24.2 % (32.4-45.2); HEMOGLOBIN 8.1 GM/dL (10.7-15.3); LYMPH % 1.6 % (8-40); MCH 31.7 pg (25.7-33.7); MCHC 33.6 g/dl (32.0-36.0); MEAN CELL VOLUME 94.5 fl (80-96); MEAN PLT VOLUME 8.8 fl (7.5-11.1); MONO % 1.8 % (3.8-10.2); NEUT % 96.1 % (42.8-82.8); RBC 2.56 M/mm3 (3.60-5.2); RDW 20.7 % (11.6-15.6)
[2018-01-30 09:42] LABS: PLATELET COUNT 16 K/MM3 (134-434)
[2018-01-30 10:06] LABS: ANION GAP 7 (8-16); BLOOD UREA NITROGEN 11 mg/dL (7-18); CALCIUM 8.1 mg/dL (8.5-10.1); CHLORIDE 96 mmol/L (98-107); CO2 37 mmol/L (21-32); CREATININE 0.3 mg/dL (0.55-1.02); GLUCOSE,RANDOM 231 mg/dL (74-106); POTASSIUM 3.3 mmol/L (3.5-5.1); SODIUM 140 mmol/L (136-145)
[2018-01-30 11:21] LABS: ANISOCYTOSIS 2+; PLATELET ESTIMATE DECREASED; TARGET CELLS 1+
--- NOTE | 2018-01-30 12:28 | PN ---
Progress Note, Physician History of Present Illness: Remains on high flow O2 60% to maintain saO2. CXR worse but stable dyspnea. - Current Medication List Current Medications: Active Medications Methylprednisolone Sodium Succinate (Solu-Medrol -) 40 mg IVPUSH DAILY TYSHAWN Last Admin: 01/30/18 09:24 Dose: 40 mg Morphine Sulfate (Morphine Sulfate) 1.5 mg IVPUSH Q6H PRN PRN Reason: PAIN LEVEL 4 - 6 Last Admin: 01/27/18 03:50 Dose: 1.5 mg - Objective Vital Signs: Vital Signs Temperature 98.2 F 01/30/18 09:40 Pulse Rate 124 H 01/30/18 12:00 Respiratory Rate 22 01/30/18 12:00 Blood Pressure 112/68 01/30/18 12:00 O2 Sat by Pulse Oximetry (%) 93 L 01/30/18 11:35 Constitutional: Yes: No Distress, Calm, Thin Neck: Yes: Supple Cardiovascular: Yes: Regular Rate and Rhythm, Tachycardia Respiratory: Yes: Other (High-flow O2 therapy) Gastrointestinal: Yes: Normal Bowel Sounds, Soft Edema: No Labs: CBC, BMP 01/30/18 08:45 01/30/18 08:45 INR, PTT INR 1.10 (0.82-1.09) 01/28/18 05:30 Fibrinogen 486.0 mg/dL (238-498) D 01/28/18 05:30 - ....Imaging Chest X-ray: Report Reviewed (Congestion and infiltrative changes) Problem List - Problems (1) Acute respiratory failure with hypoxia Code(s): J96.01 - ACUTE RESPIRATORY FAILURE WITH HYPOXIA (2) Breast cancer Code(s): C50.919 - MALIGNANT NEOPLASM OF UNSP SITE OF UNSPECIFIED FEMALE BREAST Qualifiers: Breast location: unspecified site of breast Estrogen receptor status: unspecified Patient sex: female Laterality: unspecified laterality Qualified Code(s): C50.919 - Malignant neoplasm of unspecified site of unspecified female breast (3) Pancytopenia due to antineoplastic chemotherapy Code(s): D61.810 - ANTINEOPLASTIC CHEMOTHERAPY INDUCED PANCYTOPENIA; T45.1X5A - ADVERSE EFFECT OF ANTINEOPLASTIC AND IMMUNOSUP DRUGS, INIT (4) Pneumonia Code(s): J18.9 - PNEUMONIA, UNSPECIFIED ORGANISM Qualifiers: Pneumonia type: due to unspecified organism Laterality: bilateral Lung location: unspecified part of lung Qualified Code(s): J18.9 - Pneumonia, unspecified organism Assessment/Plan January 16, 2018 Echo: Normal LV size and fxn, tr-mild MR 1. Acute Hypoxic Respiratory Failure->Pneumonia 2. Post Neutropenic Septic Shock 3. Pancytopenia with thrombocyopenia 4. Coagulopathy 5. Metastatic Breast Ca, extensive bone mets on abemaciclib post XRT, suspected lymphangitic spread 6. Sinus tachycardia referable to above P: 1. Observe off antibiotics 2. Transfuse monodonor platelets for bleeding or fever, PRBC as needed, neupogen 3. Continue high flow O2 as needed to assist in work of breathing, wean FIO2, BD , IV steroid taper with GI protection, chest CT once stable 4. Diuresis as needed 5. Goals of care being addressed
--- NOTE | 2018-01-30 16:17 | PN ---
Teaching Attending Note Name of Resident: Paul Rodriguez ATTENDING PHYSICIAN STATEMENT I saw and evaluated the patient. I reviewed the resident's note and discussed the case with the resident. I agree with the resident's findings and plan as documented. SUBJECTIVE: Patient seen and examined in the ICU. Remains on significant high flow requirements. Awake and alert. Reports some mild improvements in breathing. Intake & Output 01/27/18 01/28/18 01/29/18 01/30/18 23:59 23:59 23:59 23:59 Intake Total 630 400 410 120 Output Total 2200 1400 1400 1100 Balance -1570 -1000 -990 -980 Weight 143 lb 129 lb 109 lb 1.6 oz Last Vital Signs Temp Pulse Resp BP Pulse Ox 98.4 F 122 H 22 122/77 92 L 01/30/18 14:00 01/30/18 14:00 01/30/18 14:00 01/30/18 14:00 01/30/18 16:08 Active Medications Methylprednisolone Sodium Succinate (Solu-Medrol -) 40 mg IVPUSH DAILY TYSHAWN Last Admin: 01/30/18 09:24 Dose: 40 mg Morphine Sulfate (Morphine Sulfate) 1.5 mg IVPUSH Q6H PRN PRN Reason: PAIN LEVEL 4 - 6 Last Admin: 01/27/18 03:50 Dose: 1.5 mg Gen: Mildly tachypneic on HFOT Heart: tachycardic, regular Lung: diffuse rales/rhonchi, no wheezes Abd: soft, nontender Ext: no edema ASSESSMENT AND PLAN: Acute Hypoxic Respiratory Failure Pneumonia Neutropenic Septic Shock Pancytopenia Coagulopathy Metastatic Breast Ca Volume Overload - Lasix - transfuse as needed for Hgb < 7, Plt < 15 (50 if bleeding) - continue HFOT, taper FiO2 to keep SpO2 >90% - inhaled bronchodilators - taper steroids slowly - prognosis guarded - Need to arrange family to further discuss GOC - ICU monitoring - LTAC evaluation Dr Sosa Critical care time spent in reviewing chart, evaluating patient and formulating plan - 36 minutes.
--- NOTE | 2018-01-30 16:19 | PN ---
Physical Exam: SUBJECTIVE: Patient seen and examined in the ICU. States she is not in any distress. She is tired but is not as short of breath as she has been before. She does not have any other complaints. Discussed with patient the need for a family meeting to discuss goals of care. OBJECTIVE: Last Vital Signs Temp Pulse Resp BP Pulse Ox 98.4 F 122 H 22 122/77 92 L 01/30/18 14:00 01/30/18 14:00 01/30/18 14:00 01/30/18 14:00 01/30/18 16:08 GENERAL: The patient is awake, alert, and fully oriented, in no acute distress. HEAD: Normal with no signs of trauma. EYES: PERRL, extraocular movements intact, sclera anicteric, conjunctiva clear. No ptosis. ENT: Ears normal, nares patent, oropharynx clear without exudates, moist mucous membranes. NECK: Trachea midline, full range of motion, supple. LUNGS: Breath sounds equal, clear to auscultation bilaterally, no wheezes, no crackles, no accessory muscle use. No SOB currently on high flow O2 HEART: Regular rate and rhythm, S1, S2 without murmur, rub or gallop. ABDOMEN: Soft, nontender, nondistended, normoactive bowel sounds, no guarding, no rebound, no hepatosplenomegaly, no masses. EXTREMITIES: 2+ pulses, warm, well-perfused, no edema. SKIN: Warm, dry, normal turgor, no rashes or lesions noted Laboratory Results - last 24 hr 01/30/18 01/30/18 08:45 08:45 WBC 4.0 RBC 2.56 L Hgb 8.1 L Hct 24.2 L MCV 94.5 MCH 31.7 MCHC 33.6 RDW 20.7 H Plt Count 16 L* D MPV 8.8 Absolute Neuts (auto) 3.9 Neutrophils % 96.1 H Neutrophils % (Manual) 97.0 H Band Neutrophils % 1.0 Lymphocytes % 1.6 L D Lymphocytes % (Manual) 1.0 L D Monocytes % 1.8 L Monocytes % (Manual) 1 L Eosinophils % 0.2 D Eosinophils % (Manual) 0.0 Basophils % 0.3 Basophils % (Manual) 0.0 Myelocytes % (Man) 0 Promyelocytes % (Man) 0 Blast Cells % (Manual) 0 Nucleated RBC % 0 Metamyelocytes 0 Hypochromia 1+ Platelet Estimate Decreased Anisocytosis 2+ Microcytosis 1+ Target Cells 1+ Sodium 140 Potassium 3.3 L Chloride 96 L Carbon Dioxide 37 H Anion Gap 7 L BUN 11 Creatinine 0.3 L Creat Clearance w eGFR > 60 Random Glucose 231 H Calcium 8.1 L Albumin 2.0 L Active Medications Generic Name Dose Route Start Last Admin Trade Name Freq PRN Reason Stop Dose Admin Methylprednisolone Sodium Succinate 40 mg 01/26/18 10:00 01/30/18 09:24 Solu-Medrol - IVPUSH 40 mg DAILY TYSHAWN Administration Morphine Sulfate 1.5 mg 01/24/18 21:56 01/27/18 03:50 Morphine Sulfate IVPUSH 1.5 mg Q6H PRN Administration PAIN LEVEL 4 - 6 ASSESSMENT/PLAN: 58 yo female with recent recurrence of Breast CA admitted to the ICU for acute hypoxic respiratory failure and pancytopenia. Neuro Alert and oriented Respiratory Acute hypoxic respiratory failure On high flow O2 Solu-medrol 40 mg Daily Discussed need for goals of care meeting Discussed possible need for intubation/tracheostomy/LTAC facility if unable to wean from high flow O2 Breast CA Oncology consulted Irregularities on CXR consider CT chest if able to tolerate Thrombocytopenia Plt count 16 - trending down Transfuse if below 15 (if <50 if bleeding) Monitor CBC in AM Volume Overload Received Lasix - resolved FEN No need for fluid at this time No electrolyte abnormalities at this time Regular diet Disposition Discussed need for family and patient meeting to discuss goals of care. Continue to monitor in the ICU for now with the possibility of [facility] facility. Problem List - Problems (1) Acute respiratory failure with hypoxia Code(s): J96.01 - ACUTE RESPIRATORY FAILURE WITH HYPOXIA (2) Breast cancer Code(s): C50.919 - MALIGNANT NEOPLASM OF UNSP SITE OF UNSPECIFIED FEMALE BREAST Qualifiers: Breast location: unspecified site of breast Estrogen receptor status: unspecified Patient sex: female Laterality: unspecified laterality Qualified Code(s): C50.919 - Malignant neoplasm of unspecified site of unspecified female breast (3) Hypokalemia Code(s): E87.6 - HYPOKALEMIA (4) Pancytopenia due to antineoplastic chemotherapy Code(s): D61.810 - ANTINEOPLASTIC CHEMOTHERAPY INDUCED PANCYTOPENIA; T45.1X5A - ADVERSE EFFECT OF ANTINEOPLASTIC AND IMMUNOSUP DRUGS, INIT (5) Thrombocytopenia Code(s): D69.6 - THROMBOCYTOPENIA, UNSPECIFIED Visit type - Emergency Visit Emergency Visit: Yes ED Registration Date: 01/16/18 Care time: The patient presented to the Emergency Department on the above date and was hospitalized for further evaluation of their emergent condition. - New Patient This patient is new to me today: Yes Date on this admission: 01/30/18 - Critical Care Critical Care patient: Yes Total Critical Care Time (in minutes): 45 Critical Care Statement: The care of this patient involved high complexity decision making to prevent further life threatening deterioration of the patient 's condition and/or to evaluate & treat vital organ system(s) failure or risk of failure.
--- NOTE | 2018-01-30 16:27 | PN ---
Progress Note, Physician History of Present Illness: no events overnight patient stable not able to wean of high flow o2 still very sob - Current Medication List Current Medications: Active Medications Methylprednisolone Sodium Succinate (Solu-Medrol -) 40 mg IVPUSH DAILY [facility] Last Admin: 01/30/18 09:24 Dose: 40 mg Morphine Sulfate (Morphine Sulfate) 1.5 mg IVPUSH Q6H PRN PRN Reason: PAIN LEVEL 4 - 6 Last Admin: 01/27/18 03:50 Dose: 1.5 mg - Objective Vital Signs: Vital Signs Temperature 98.4 F 01/30/18 14:00 Pulse Rate 116 H 01/30/18 16:00 Respiratory Rate 22 01/30/18 16:00 Blood Pressure 115/76 01/30/18 16:00 O2 Sat by Pulse Oximetry (%) 92 L 01/30/18 16:08 Constitutional: Yes: No Distress, Calm Cardiovascular: Yes: Regular Rate and Rhythm Respiratory: Yes: Regular, Poor Air Entry Gastrointestinal: Yes: Normal Bowel Sounds, Soft Musculoskeletal: Yes: WNL Extremities: Yes: WNL Neurological: Yes: Alert, Oriented Psychiatric: Yes: Alert, Oriented Labs: CBC, BMP 01/30/18 08:45 01/30/18 08:45 INR, PTT INR 1.10 (0.82-1.09) 01/28/18 05:30 Fibrinogen 486.0 mg/dL (238-498) D 01/28/18 05:30 Assessment/Plan pneumonia septic shock neutropenia resp failure hypoxia metastatic breast ca plan stable off of abx resp support monitor closely rest as per the team and icu monitor wbc and platelets onco on board continue monitoring physio cc time 40 min
[2018-01-30] MEDS ORDERED: POTASSIUM CHLORIDE TABS 20 MEQ TABLET.ER (FP) PO ONE ×2 (18:40→21:30)
--- NOTE | 2018-01-30 21:20 | PN ---
Progress Note, Physician History of Present Illness: comfortable - Current Medication List Current Medications: Active Medications Methylprednisolone Sodium Succinate (Solu-Medrol -) 40 mg IVPUSH DAILY TYSHAWN Last Admin: 01/30/18 09:24 Dose: 40 mg - Objective Vital Signs: Vital Signs Temperature 98 F 01/30/18 18:00 Pulse Rate 118 H 01/30/18 18:00 Respiratory Rate 22 01/30/18 18:00 Blood Pressure 115/77 01/30/18 18:00 O2 Sat by Pulse Oximetry (%) 92 L 01/30/18 21:00 Constitutional: Yes: Calm HENT: Yes: Atraumatic Neck: Yes: Supple Cardiovascular: Yes: Regular Rate and Rhythm Respiratory: Yes: Rhonchi, Wheezes Gastrointestinal: Yes: Normal Bowel Sounds Extremities: Yes: WNL Neurological: Yes: Alert, Oriented Labs: CBC, BMP 01/30/18 08:45 01/30/18 08:45 INR, PTT INR 1.10 (0.82-1.09) 01/28/18 05:30 Fibrinogen 486.0 mg/dL (238-498) D 01/28/18 05:30 Problem List - Problems (1) Altered mental status Assessment/Plan: pt is awake and alert on nc doing well tolerating diet Code(s): R41.82 - ALTERED MENTAL STATUS, UNSPECIFIED Qualifiers: Altered mental status type: unspecified Qualified Code(s): R41.82 - Altered mental status, unspecified (2) Pancytopenia due to antineoplastic chemotherapy Assessment/Plan: s/p prbc and platelets transfusion counts going down again need transfusions prn Code(s): D61.810 - ANTINEOPLASTIC CHEMOTHERAPY INDUCED PANCYTOPENIA; T45.1X5A - ADVERSE EFFECT OF ANTINEOPLASTIC AND IMMUNOSUP DRUGS, INIT (3) Pneumonia Assessment/Plan: off of abx stable Code(s): J18.9 - PNEUMONIA, UNSPECIFIED ORGANISM Qualifiers: Pneumonia type: due to unspecified organism Laterality: bilateral Lung location: unspecified part of lung Qualified Code(s): J18.9 - Pneumonia, unspecified organism (4) Acute respiratory failure with hypoxia Assessment/Plan: on NC now 60 % fio2 on steroid taper Code(s): J96.01 - ACUTE RESPIRATORY FAILURE WITH HYPOXIA (5) Thrombocytopenia Assessment/Plan: platelet transfusion per hematology Code(s): D69.6 - THROMBOCYTOPENIA, UNSPECIFIED
[2018-01-30 22:39] LABS: HEMATOCRIT 24.5 % (32.4-45.2); HEMOGLOBIN 8.2 GM/dL (10.7-15.3); MCH 31.6 pg (25.7-33.7); MCHC 33.4 g/dl (32.0-36.0); MEAN CELL VOLUME 94.6 fl (80-96); MEAN PLT VOLUME 9.3 fl (7.5-11.1); RBC 2.59 M/mm3 (3.60-5.2); RDW 21.5 % (11.6-15.6); WHITE BLOOD COUNT 3.9 K/mm3 (4.0-10.0)
[2018-01-30 22:46] LABS: PLATELET COUNT 19 K/MM3 (134-434)
[2018-01-30 23:17] LABS: ANISOCYTOSIS 2+; PLATELET ESTIMATE DECREASED
--- NOTE | 2018-01-30 23:45 | PN ---
Chief Complaint: Feels well. Oriented Denies complaints - Review of Systems Cardiovascular: reports: No Symptoms Respiratory: reports: No Symptoms Gastrointestinal: reports: No Symptoms - Medications/Allergies Allergies/Adverse Reactions: Allergies Allergy/AdvReac Type Severity Reaction Status Date / Time No Known Allergies Allergy Verified 01/16/18 07:21 Medications: Current Medications Methylprednisolone Sodium Succinate (Solu-Medrol -) 40 mg IVPUSH DAILY TYSHAWN Last Admin: 01/30/18 09:24 Dose: 40 mg - Objective Vital Signs: Vital Signs Temperature 98 F 01/30/18 18:00 Pulse Rate 118 H 01/30/18 18:00 Respiratory Rate 22 01/30/18 18:00 Blood Pressure 115/77 01/30/18 18:00 O2 Sat by Pulse Oximetry (%) 92 L 01/30/18 21:00 Constitutional: Yes: No Distress Neck: Yes: WNL Cardiovascular: Yes: WNL, Regular Rate and Rhythm Respiratory: Yes: WNL, Regular Gastrointestinal: Yes: WNL, Normal Bowel Sounds, Soft Musculoskeletal: Yes: WNL Extremities: Yes: WNL Edema: No Neurological: Yes: WNL Labs: CBC, BMP 01/30/18 22:00 01/30/18 08:45 Assessment/Plan 58 y/o patient with metastatic breast cance, admitted with neutropenic sepsis on abemaciclib NEutropenia/sepsisr esolve persistently thrombocytopenic--- persistent marrow suppression from recent use of abemaciclib---last dose 01/16/18 versus, marrow involvement from breast cancer check LDH transfuse monodonor platelets for <[id number] discussed overall poor prognosis with plan to continue supportive care for now
[2018-01-31 06:21] LABS: BASO % 0.2 % (0-2.0); EOS % 0.2 % (0-4.5); HEMATOCRIT 24.8 % (32.4-45.2); HEMOGLOBIN 8.5 GM/dL (10.7-15.3); MCH 32.2 pg (25.7-33.7); MCHC 34.2 g/dl (32.0-36.0); MEAN CELL VOLUME 94.2 fl (80-96); MEAN PLT VOLUME 9.5 fl (7.5-11.1); MONO % 2.5 % (3.8-10.2); NEUT % 95.1 % (42.8-82.8); RBC 2.63 M/mm3 (3.60-5.2); RDW 22.3 % (11.6-15.6)
--- NOTE | 2018-01-31 06:32 | PN ---
Progress Note (short form) - Note Progress Note: Chief Complaint: Events noted, notes reviewed, dyspnea persists, denies any chest pain, sinus rhythm noted sinus tachycardia History of Present Illness: Seen and examined in the ICU. Events noted, notes reviewed, dyspnea persists, denies any chest pain, sinus rhythm noted sinus tachycardia Chest x-ray form this AM noted, slight improvement Echocardiography revealed normal LV size and function, with trace to mild MR Medications: Current Medications Methylprednisolone Sodium Succinate (Solu-Medrol -) 40 mg IVPUSH DAILY TYSHAWN Last Admin: 01/30/18 09:24 Dose: 40 mg Review of Systems Cardiovascular: As noted above Respiratory: denies: Cough or Sputum Production Gastrointestinal: denies: Nausea, Vomiting, Diarrhea, Constipation or Abdominal Discomfort Musculoskeletal: No Symptoms Reported Endocrine: No Symptoms Reported Vital Signs: Last Vital Signs Temp Pulse Resp BP Pulse Ox 98.4 F 117 H 26 H 111/72 90 L 01/31/18 02:00 01/31/18 04:00 01/31/18 04:00 01/31/18 04:00 01/31/18 03:00 Intake & Output 01/28/18 01/29/18 01/30/18 01/31/18 23:59 23:59 23:59 23:59 Intake Total 400 410 240 Output Total 1400 1400 1500 Balance -1000 -990 -1260 Weight 143 lb 129 lb 109 lb 1.6 oz Constitutional: No Distress, Calm, Thin Neck: Supple Negative JVD Respiratory: Bilateral Course Crepitus Cardiovascular: S1 S2 Regular Rate and Rhythm Tachycardia Gastrointestinal: Soft, Benign Normal Bowel Sounds Ext: No Edema Labs: CBC, BMP 01/31/18 05:30 Assessment/Plan ASSESSMENT: 1. Acute Hypoxic Respiratory Failure related to probable pneumonia, as outlined in prior notes rule out lymphangitic spread based on chest x-ray finding and clinical exam 2. Neutropenic Septic Shock, resolved 3. Pancytopenia related to probable chemotherapy 4. Metastatic Breast carcinoma, extensive bone mets on abemaciclib post XRT PLAN: 1. Transfuse and maintain Hg equal or > 8.0 2. Monitor Platelet count and transfuse as needed 3. Consider prn diuretics 4. Consider CT scan of the chest for evaluation of the above noted pulmonary pathology Overall poor prognosis Joselin Sanchez MD
[2018-01-31 06:40] LABS: PLATELET COUNT 14 K/MM3 (134-434)
[2018-01-31 07:29] LABS: ALBUMIN 2.1 g/dl (3.4-5.0); ANION GAP 5 (8-16); BLOOD UREA NITROGEN 13 mg/dL (7-18); CALCIUM 8.6 mg/dL (8.5-10.1); CHLORIDE 96 mmol/L (98-107); CO2 37 mmol/L (21-32); CREATININE 0.3 mg/dL (0.55-1.02); GLUCOSE,RANDOM 240 mg/dL (74-106); LDH 303 U/L (84-246); MAGNESIUM 1.8 mg/dL (1.8-2.4); PHOSPHOROUS 2.2 mg/dL (2.5-4.9); POTASSIUM 4.5 mmol/L (3.5-5.1); SGOT/AST 10 U/L (15-37); SGPT/ALT 36 U/L (12-78); SODIUM 138 mmol/L (136-145)
[2018-01-31 07:30] LABS: ALK PHOS 196 U/L (45-117); BILIRUBIN,TOTAL 0.3 mg/dL (0.2-1.0); TOT PROT 5.9 g/dl (6.4-8.2)
--- NOTE | 2018-01-31 08:34 | PN ---
Progress Note, Physician History of Present Illness: patient stable no complaints on high flow oxygen - Current Medication List Current Medications: Active Medications Methylprednisolone Sodium Succinate (Solu-Medrol -) 40 mg IVPUSH DAILY TYSHAWN Last Admin: 01/30/18 09:24 Dose: 40 mg - Objective Vital Signs: Vital Signs Temperature 99.5 F 01/31/18 06:00 Pulse Rate 124 H 01/31/18 06:00 Respiratory Rate 31 H 01/31/18 06:00 Blood Pressure 113/68 01/31/18 06:00 O2 Sat by Pulse Oximetry (%) 94 L 01/31/18 06:49 Constitutional: Yes: No Distress, Calm Cardiovascular: Yes: Regular Rate and Rhythm Respiratory: Yes: Regular, On Nasal O2 (high flow), Poor Air Entry Gastrointestinal: Yes: Normal Bowel Sounds, Soft Musculoskeletal: Yes: WNL Extremities: Yes: WNL Neurological: Yes: Alert, Oriented Psychiatric: Yes: Alert, Oriented Labs: CBC, BMP 01/31/18 05:30 01/31/18 05:30 INR, PTT INR 1.10 (0.82-1.09) 01/28/18 05:30 Fibrinogen 486.0 mg/dL (238-498) D 01/28/18 05:30 - ....Imaging Chest X-ray: Report Reviewed, Image Reviewed Assessment/Plan pneumonia septic shock neutropenia resp failure hypoxia metastatic breast ca plan stable off of abx resp support monitor closely rest as per the team and icu monitor wbc and platelets onco on board continue monitoring physio incentive mahad cc time 40 min
[2018-01-31] MEDS: methylPREDNISolone NA SUCC 40 MG/1 ML VIAL IVPUSH SCH (09:40)
[2018-01-31 09:52] LABS: ACANTHOCYTES 0; HELMET CELLS 0; HOWELL-JOLLY BODIES 0; PLATELET ESTIMATE DECREASED; ROULEAU 0; SICKELED CELLS 0; TARGET CELLS 0; TEAR DROP CELLS 0; TOXIC GRANULATION 0
[2018-01-31 10:51] LABS: ANISOCYTOSIS 1+; MACROCYTOSIS 1+; OVALOCYTE 1+
--- NOTE | 2018-01-31 13:03 | PN ---
Progress Note, Physician History of Present Illness: comfortable ON NC - Current Medication List Current Medications: Active Medications Methylprednisolone Sodium Succinate (Solu-Medrol -) 40 mg IVPUSH DAILY TYSHAWN Last Admin: 01/31/18 09:40 Dose: 40 mg - Objective Vital Signs: Vital Signs Temperature 98.8 F 01/31/18 12:00 Pulse Rate 122 H 01/31/18 12:00 Respiratory Rate 36 H 01/31/18 12:00 Blood Pressure 113/74 01/31/18 12:00 O2 Sat by Pulse Oximetry (%) 95 01/31/18 11:50 Constitutional: Yes: No Distress HENT: Yes: Atraumatic Neck: Yes: Supple Cardiovascular: Yes: Regular Rate and Rhythm Respiratory: Yes: CTA Bilaterally Gastrointestinal: Yes: Normal Bowel Sounds Extremities: Yes: WNL Edema: LLE: Trace, RLE: Trace Peripheral Pulses WNL: Yes Neurological: Yes: Alert, Oriented Labs: CBC, BMP 01/31/18 05:30 01/31/18 05:30 INR, PTT INR 1.10 (0.82-1.09) 01/28/18 05:30 Fibrinogen 486.0 mg/dL (238-498) D 01/28/18 05:30 Problem List - Problems (1) Altered mental status Assessment/Plan: pt is awake and alert on nc doing well tolerating diet Code(s): R41.82 - ALTERED MENTAL STATUS, UNSPECIFIED Qualifiers: Altered mental status type: unspecified Qualified Code(s): R41.82 - Altered mental status, unspecified (2) Pancytopenia due to antineoplastic chemotherapy Assessment/Plan: s/p prbc and platelets transfusion counts going down again need transfusions prn Code(s): D61.810 - ANTINEOPLASTIC CHEMOTHERAPY INDUCED PANCYTOPENIA; T45.1X5A - ADVERSE EFFECT OF ANTINEOPLASTIC AND IMMUNOSUP DRUGS, INIT (3) Pneumonia Assessment/Plan: off of abx stable Code(s): J18.9 - PNEUMONIA, UNSPECIFIED ORGANISM Qualifiers: Pneumonia type: due to unspecified organism Laterality: bilateral Lung location: unspecified part of lung Qualified Code(s): J18.9 - Pneumonia, unspecified organism (4) Acute respiratory failure with hypoxia Assessment/Plan: on NC now 60 % fio2 on steroid taper Code(s): J96.01 - ACUTE RESPIRATORY FAILURE WITH HYPOXIA (5) Thrombocytopenia Assessment/Plan: platelet transfusion per hematology Code(s): D69.6 - THROMBOCYTOPENIA, UNSPECIFIED Assessment/Plan DR BOWERS COVERING 02/01-02/05 CC TIME 35 MIN
--- NOTE | 2018-01-31 13:07 | PN ---
Teaching Attending Note Name of Resident: Paul Rodriguez ATTENDING PHYSICIAN STATEMENT I saw and evaluated the patient. I reviewed the resident's note and discussed the case with the resident. I agree with the resident's findings and plan as documented. SUBJECTIVE: Patient seen and examined in the ICU. Remains on significant high flow requirements. Awake and alert. The HF device was transiently displaced and she had significant desaturation, requiring several minutes to regain baseline saturation. The conversation about intubation was attempted but she reported that she did not want to talk about that at this point. CXR: No gross change in bilateral dense airspace disease Intake & Output 01/28/18 01/29/18 01/30/18 01/31/18 23:59 23:59 23:59 23:59 Intake Total 400 410 240 60 Output Total 1400 1400 1500 500 Balance -1000 -990 -1260 -440 Weight 143 lb 129 lb 109 lb 1.6 oz Last Vital Signs Temp Pulse Resp BP Pulse Ox 98.8 F 122 H 36 H 113/74 95 01/31/18 12:00 01/31/18 12:00 01/31/18 12:00 01/31/18 12:00 01/31/18 11:50 Active Medications Methylprednisolone Sodium Succinate (Solu-Medrol -) 40 mg IVPUSH DAILY TYSHAWN Last Admin: 01/31/18 09:40 Dose: 40 mg Gen: Mild to moderate tachypnea on HFOT Heart: tachycardic, regular Lung: diffuse rales/rhonchi, no wheezes Abd: soft, nontender Ext: no edema Laboratory Results - last 24 hr 01/30/18 01/31/18 01/31/18 22:00 05:30 05:30 WBC 3.9 L 4.0 RBC 2.59 L 2.63 L Hgb 8.2 L 8.5 L Hct 24.5 L 24.8 L MCV 94.6 94.2 MCH 31.6 32.2 MCHC 33.4 34.2 RDW 21.5 H 22.3 H Plt Count 19 L* 14 L* D MPV 9.3 9.5 Absolute Neuts (auto) 3.8 Neutrophils % No Result Required. 95.1 H Neutrophils % (Manual) 92.0 H 89.8 H Band Neutrophils % 3.0 4.1 Lymphocytes % No Result Required. 2.0 L D Lymphocytes % (Manual) 3.0 L D 3.0 L Monocytes % 2.5 L Monocytes % (Manual) 2 L D 3 L Eosinophils % 0.2 Eosinophils % (Manual) 0.0 Basophils % 0.2 Basophils % (Manual) 0.0 Myelocytes % (Man) 0 Promyelocytes % (Man) 0 Blast Cells % (Manual) 0 Nucleated RBC % 0 0 Metamyelocytes 0 Hypochromia 2+ 0 Toxic Granulation 0 Dohle Bodies 0 Platelet Estimate Decreased Decreased Platelet Comment No clumping noted Polychromasia 0 Poikilocytosis 0 Basophilic Stippling 0 Anisocytosis 2+ 1+ Microcytosis 1+ Macrocytosis 1+ Spherocytes 0 Sickle Cells 0 Target Cells 0 Tear Drop Cells 0 Ovalocytes 1+ Stomatocytes 0 Helmet Cells 0 Perez-[place] Bodies 0 [place] Rings 0 Mary Cells 0 Acanthocytes (Spur) 0 Rouleaux 0 Fragmented RBCs 0 Schistocytes 0 Sodium 138 Potassium 4.5 Chloride 96 L Carbon Dioxide 37 H Anion Gap 5 L BUN 13 Creatinine 0.3 L Creat Clearance w eGFR > 60 Random Glucose 240 H Calcium 8.6 Phosphorus 2.2 L Magnesium 1.8 Total Bilirubin 0.3 AST 10 L ALT 36 Alkaline Phosphatase 196 H D LD Total 303 H Total Protein 5.9 L Albumin 2.1 L Blood Type Antibody Screen 01/31/18 07:35 WBC RBC Hgb Hct MCV MCH MCHC RDW Plt Count MPV Absolute Neuts (auto) Neutrophils % Neutrophils % (Manual) Band Neutrophils % Lymphocytes % Lymphocytes % (Manual) Monocytes % Monocytes % (Manual) Eosinophils % Eosinophils % (Manual) Basophils % Basophils % (Manual) Myelocytes % (Man) Promyelocytes % (Man) Blast Cells % (Manual) Nucleated RBC % Metamyelocytes Hypochromia Toxic Granulation Dohle Bodies Platelet Estimate Platelet Comment Polychromasia Poikilocytosis Basophilic Stippling Anisocytosis Microcytosis Macrocytosis Spherocytes Sickle Cells Target Cells Tear Drop Cells Ovalocytes Stomatocytes Helmet Cells Perez-[place] Bodies [place] Rings Mary Cells Acanthocytes (Spur) Rouleaux Fragmented RBCs Schistocytes Sodium Potassium Chloride Carbon Dioxide Anion Gap BUN Creatinine Creat Clearance w eGFR Random Glucose Calcium Phosphorus Magnesium Total Bilirubin AST ALT Alkaline Phosphatase LD Total Total Protein Albumin Blood Type O POSITIVE Antibody Screen Negative ASSESSMENT AND PLAN: Acute Hypoxic Respiratory Failure Pneumonia Neutropenic Septic Shock Pancytopenia Coagulopathy Metastatic Breast Ca Volume Overload - Continue/titrate HF NC O2; low threshold for intubation - Lasix - transfuse as needed for Hgb < 7, Plt < 15 (50 if bleeding) - inhaled bronchodilators - Steroid taper - Need to arrange formal family to further discuss GOC - ICU monitoring - LTAC evaluation - Overall prognosis appears poor Dr Sosa Critical care time spent in reviewing chart, evaluating patient and formulating plan - 36 minutes.
[2018-01-31] MEDS: morphine SULFATE 4 MG/ML VIAL IVPUSH PRN ×2 (14:25→23:15)
--- NOTE | 2018-01-31 18:01 | PN ---
Physical Exam: SUBJECTIVE: Patient seen and examined in ICU. SOB only complaint. Pt discussed care goals with family but states she has not made a decision about further diagnostic workup, DNI status, or LTAC facility. OBJECTIVE: Last Vital Signs Temp Pulse Resp BP Pulse Ox 98.3 F 119 H 22 109/73 98 01/31/18 16:00 01/31/18 16:00 01/31/18 16:00 01/31/18 16:00 01/31/18 16:15 GENERAL: The patient is awake, alert, and fully oriented, in no acute distress. HEAD: Normal with no signs of trauma. ENT: Ears normal, nares patent, oropharynx clear without exudates, moist mucous membranes. NECK: Trachea midline, full range of motion, supple. LUNGS: Tachypnic, Breath sounds equal, diffuse rales and rhonchi worse in RUL, no accessory muscle use. currently on high flow O2 HEART: Tachycardic, S1, S2 without murmur, rub or gallop. ABDOMEN: Soft, nontender, nondistended, normoactive bowel sounds, no guarding, no rebound, no hepatosplenomegaly, no masses. EXTREMITIES: 2+ pulses, warm, well-perfused, no edema. SKIN: Warm, dry, normal turgor, no rashes or lesions noted Laboratory Results - last 24 hr 01/30/18 01/31/18 01/31/18 22:00 05:30 05:30 WBC 3.9 L 4.0 RBC 2.59 L 2.63 L Hgb 8.2 L 8.5 L Hct 24.5 L 24.8 L MCV 94.6 94.2 MCH 31.6 32.2 MCHC 33.4 34.2 RDW 21.5 H 22.3 H Plt Count 19 L* 14 L* D MPV 9.3 9.5 Absolute Neuts (auto) 3.8 Neutrophils % No Result Required. 95.1 H Neutrophils % (Manual) 92.0 H 89.8 H Band Neutrophils % 3.0 4.1 Lymphocytes % No Result Required. 2.0 L D Lymphocytes % (Manual) 3.0 L D 3.0 L Monocytes % 2.5 L Monocytes % (Manual) 2 L D 3 L Eosinophils % 0.2 Eosinophils % (Manual) 0.0 Basophils % 0.2 Basophils % (Manual) 0.0 Myelocytes % (Man) 0 Promyelocytes % (Man) 0 Blast Cells % (Manual) 0 Nucleated RBC % 0 0 Metamyelocytes 0 Hypochromia 2+ 0 Toxic Granulation 0 Dohle Bodies 0 Platelet Estimate Decreased Decreased Platelet Comment No clumping noted Polychromasia 0 Poikilocytosis 0 Basophilic Stippling 0 Anisocytosis 2+ 1+ Microcytosis 1+ Macrocytosis 1+ Spherocytes 0 Sickle Cells 0 Target Cells 0 Tear Drop Cells 0 Ovalocytes 1+ Stomatocytes 0 Helmet Cells 0 Perez-[place] Bodies 0 [place] Rings 0 [place] Cells 0 Acanthocytes (Spur) 0 Rouleaux 0 Fragmented RBCs 0 Schistocytes 0 Sodium 138 Potassium 4.5 Chloride 96 L Carbon Dioxide 37 H Anion Gap 5 L BUN 13 Creatinine 0.3 L Creat Clearance w eGFR > 60 Random Glucose 240 H Calcium 8.6 Phosphorus 2.2 L Magnesium 1.8 Total Bilirubin 0.3 AST 10 L ALT 36 Alkaline Phosphatase 196 H D LD Total 303 H Total Protein 5.9 L Albumin 2.1 L Blood Type Antibody Screen 01/31/18 07:35 WBC RBC Hgb Hct MCV MCH MCHC RDW Plt Count MPV Absolute Neuts (auto) Neutrophils % Neutrophils % (Manual) Band Neutrophils % Lymphocytes % Lymphocytes % (Manual) Monocytes % Monocytes % (Manual) Eosinophils % Eosinophils % (Manual) Basophils % Basophils % (Manual) Myelocytes % (Man) Promyelocytes % (Man) Blast Cells % (Manual) Nucleated RBC % Metamyelocytes Hypochromia Toxic Granulation Dohle Bodies Platelet Estimate Platelet Comment Polychromasia Poikilocytosis Basophilic Stippling Anisocytosis Microcytosis Macrocytosis Spherocytes Sickle Cells Target Cells Tear Drop Cells Ovalocytes Stomatocytes Helmet Cells Perez-Corazon Bodies [place] Rings Mary Cells Acanthocytes (Spur) Rouleaux Fragmented RBCs Schistocytes Sodium Potassium Chloride Carbon Dioxide Anion Gap BUN Creatinine Creat Clearance w eGFR Random Glucose Calcium Phosphorus Magnesium Total Bilirubin AST ALT Alkaline Phosphatase LD Total Total Protein Albumin Blood Type O POSITIVE Antibody Screen Negative Active Medications Generic Name Dose Route Start Last Admin Trade Name Freq PRN Reason Stop Dose Admin Methylprednisolone Sodium Succinate 40 mg 01/26/18 10:00 01/31/18 09:40 Solu-Medrol - IVPUSH 40 mg DAILY TYSHAWN Administration Morphine Sulfate 0.5 mg 01/31/18 14:18 01/31/18 14:25 Morphine Sulfate IVPUSH 0.5 mg Q1H PRN Administration PAIN LEVEL 1 - 3 ASSESSMENT/PLAN: 58 yo female with recent recurrence of Breast CA admitted to the ICU for acute hypoxic respiratory failure and pancytopenia. Neuro Awake and alert, can conversate and follow commands Respiratory Acute hypoxic respiratory failure On high flow O2 Solu-medrol 40 mg Daily Patient discussed goals of care last night but has not made a decision about current plan Breast CA Oncology consulted Irregularities unchanged on CXR consider CT chest if able to tolerate Thrombocytopenia Plt count 14 today - transfused 2 packs of platelets Transfuse if below 15 (if <50 if bleeding) Monitor CBC in AM Volume Overload Received Lasix - resolved FEN Fluid: No need for fluid at this time Electrolytes: No electrolyte abnormalities at this time Nutrition: Regular diet tolerated well Disposition Continue to monitor in the ICU for now. prognosis is seemingly poor. Problem List - Problems (1) Acute respiratory failure with hypoxia Code(s): J96.01 - ACUTE RESPIRATORY FAILURE WITH HYPOXIA (2) Breast cancer Code(s): C50.919 - MALIGNANT NEOPLASM OF UNSP SITE OF UNSPECIFIED FEMALE BREAST Qualifiers: Breast location: unspecified site of breast Estrogen receptor status: unspecified Patient sex: female Laterality: unspecified laterality Qualified Code(s): C50.919 - Malignant neoplasm of unspecified site of unspecified female breast (3) Hypokalemia Code(s): E87.6 - HYPOKALEMIA (4) Pancytopenia due to antineoplastic chemotherapy Code(s): D61.810 - ANTINEOPLASTIC CHEMOTHERAPY INDUCED PANCYTOPENIA; T45.1X5A - ADVERSE EFFECT OF ANTINEOPLASTIC AND IMMUNOSUP DRUGS, INIT (5) Thrombocytopenia Code(s): D69.6 - THROMBOCYTOPENIA, UNSPECIFIED Visit type - Emergency Visit Emergency Visit: Yes ED Registration Date: 01/16/18 Care time: The patient presented to the Emergency Department on the above date and was hospitalized for further evaluation of their emergent condition. - New Patient This patient is new to me today: No - Critical Care Critical Care patient: Yes Total Critical Care Time (in minutes): 50 Critical Care Statement: The care of this patient involved high complexity decision making to prevent further life threatening deterioration of the patient 's condition and/or to evaluate & treat vital organ system(s) failure or risk of failure.
[2018-01-31 19:53] LABS: HEMATOCRIT 23.4 % (32.4-45.2); HEMOGLOBIN 7.9 GM/dL (10.7-15.3); MCH 32.1 pg (25.7-33.7); MCHC 33.9 g/dl (32.0-36.0); MEAN CELL VOLUME 94.9 fl (80-96); MEAN PLT VOLUME 7.7 fl (7.5-11.1); PLATELET COUNT 79 K/MM3 (134-434); RBC 2.46 M/mm3 (3.60-5.2); RDW 22.3 % (11.6-15.6); WHITE BLOOD COUNT 3.8 K/mm3 (4.0-10.0)
[2018-02-01 06:07] LABS: BASO % 0.1 % (0-2.0); EOS % 0.2 % (0-4.5); HEMATOCRIT 23.8 % (32.4-45.2); HEMOGLOBIN 8.2 GM/dL (10.7-15.3); LYMPH % 2.3 % (8-40); MCH 32.8 pg (25.7-33.7); MCHC 34.4 g/dl (32.0-36.0); MEAN CELL VOLUME 95.3 fl (80-96); MONO % 2.6 % (3.8-10.2); NEUT % 94.8 % (42.8-82.8); PLATELET COUNT 66 K/MM3 (134-434); RBC 2.49 M/mm3 (3.60-5.2)
[2018-02-01 06:33] LABS: ALBUMIN 2.1 g/dl (3.4-5.0); ANION GAP 6 (8-16); BILIRUBIN,TOTAL 0.4 mg/dL (0.2-1.0); BLOOD UREA NITROGEN 13 mg/dL (7-18); CALCIUM 8.5 mg/dL (8.5-10.1); CHLORIDE 96 mmol/L (98-107); CO2 36 mmol/L (21-32); CREATININE 0.2 mg/dL (0.55-1.02); GLUCOSE,RANDOM 203 mg/dL (74-106); MAGNESIUM 1.9 mg/dL (1.8-2.4); PHOSPHOROUS 2.5 mg/dL (2.5-4.9); POTASSIUM 4.4 mmol/L (3.5-5.1); SGOT/AST 11 U/L (15-37); SGPT/ALT 38 U/L (12-78); SODIUM 138 mmol/L (136-145)
[2018-02-01 06:34] LABS: ALK PHOS 180 U/L (45-117)
[2018-02-01] MEDS: methylPREDNISolone NA SUCC 40 MG/1 ML VIAL IVPUSH SCH (09:07)
--- NOTE | 2018-02-01 10:59 | PN ---
Physical Exam: SUBJECTIVE: Patient seen and examined at bedside. She required increase in oxygen requirements overnight. No new complaints. Lying comfortably in bed. at bedside. Breathing is better than last night. Denies CP,OCAMPO, abdominal pain, nausea or vomiting. OBJECTIVE: Vital Signs Period Temp Pulse Resp BP Sys/[place]y Pulse Ox Last 24 Hr 97.8 F-98.9 F 88-122 16-36 91-114/60-74 92-99 GENERAL: The patient is awake, alert, and fully oriented, in no acute distress. LUNGS: Tachypnic, Breath sounds equal, diffuse rales and rhonchi worse in RUL, continues on high flow O2 HEART: Tachycardic, S1, S2 without murmur, rub or gallop. ABDOMEN: soft, NT/ND, NABS EXTREMITIES: 2+ pulses, warm, well-perfused, no edema. SKIN: Warm, dry, normal turgor, no rashes or lesions noted Laboratory Results - last 24 hr 01/31/18 01/31/18 02/01/18 05:30 19:05 05:30 WBC 3.8 L 4.0 RBC 2.46 L 2.49 L Hgb 7.9 L 8.2 L Hct 23.4 L 23.8 L MCV 94.9 95.3 MCH 32.1 32.8 MCHC 33.9 34.4 RDW 22.3 H 23.0 H Plt Count 79 L D 66 L MPV 7.7 D 8.0 Absolute Neuts (auto) 3.8 Neutrophils % 94.8 H Neutrophils % (Manual) 89.8 H Band Neutrophils % 4.1 Lymphocytes % 2.3 L Lymphocytes % (Manual) 3.0 L Monocytes % 2.6 L Monocytes % (Manual) 3 L Eosinophils % 0.2 Eosinophils % (Manual) 0.0 Basophils % 0.1 Basophils % (Manual) 0.0 Myelocytes % (Man) 0 Promyelocytes % (Man) 0 Blast Cells % (Manual) 0 Nucleated RBC % 0 Metamyelocytes 0 Hypochromia 0 Toxic Granulation 0 Dohle Bodies 0 Platelet Estimate Decreased Polychromasia 0 Poikilocytosis 0 Basophilic Stippling 0 Anisocytosis 1+ Microcytosis 1+ Macrocytosis 1+ Spherocytes 0 Sickle Cells 0 Target Cells 0 Tear Drop Cells 0 Ovalocytes 1+ Stomatocytes 0 Helmet Cells 0 Perez-[place] Bodies 0 [place] Rings 0 Mary Cells 0 Acanthocytes (Spur) 0 Rouleaux 0 Fragmented RBCs 0 Schistocytes 0 Sodium Potassium Chloride Carbon Dioxide Anion Gap BUN Creatinine Creat Clearance w eGFR Random Glucose Calcium Phosphorus Magnesium Total Bilirubin AST ALT Alkaline Phosphatase Total Protein Albumin 02/01/18 05:30 WBC RBC Hgb Hct MCV MCH MCHC RDW Plt Count MPV Absolute Neuts (auto) Neutrophils % Neutrophils % (Manual) Band Neutrophils % Lymphocytes % Lymphocytes % (Manual) Monocytes % Monocytes % (Manual) Eosinophils % Eosinophils % (Manual) Basophils % Basophils % (Manual) Myelocytes % (Man) Promyelocytes % (Man) Blast Cells % (Manual) Nucleated RBC % Metamyelocytes Hypochromia Toxic Granulation Dohle Bodies Platelet Estimate Polychromasia Poikilocytosis Basophilic Stippling Anisocytosis Microcytosis Macrocytosis Spherocytes Sickle Cells Target Cells Tear Drop Cells Ovalocytes Stomatocytes Helmet Cells Perez-[place] Bodies [place] Rings Mary Cells Acanthocytes (Spur) Rouleaux Fragmented RBCs Schistocytes Sodium 138 Potassium 4.4 Chloride 96 L Carbon Dioxide 36 H Anion Gap 6 L BUN 13 Creatinine 0.2 L Creat Clearance w eGFR > 60 Random Glucose 203 H Calcium 8.5 Phosphorus 2.5 Magnesium 1.9 Total Bilirubin 0.4 AST 11 L ALT 38 Alkaline Phosphatase 180 H D Total Protein 6.0 L Albumin 2.1 L Active Medications Generic Name Dose Route Start Last Admin Trade Name Freq PRN Reason Stop Dose Admin Methylprednisolone Sodium Succinate 40 mg 01/26/18 10:00 02/01/18 09:07 Solu-Medrol - IVPUSH 40 mg DAILY TYSHAWN Administration Morphine Sulfate 0.5 mg 01/31/18 14:18 01/31/18 23:15 Morphine Sulfate IVPUSH 0.5 mg Q1H PRN Administration PAIN LEVEL 1 - 3 ASSESSMENT/PLAN: 58 yo female with recent recurrence of Breast CA admitted to the ICU for acute hypoxic respiratory failure 2/2 to sepsis with pancytopenia. Neuro: * Awake and alert * Pain control with morphine. Respiratory: * Acute hypoxic respiratory failure * CXR appears worse today * Lengthy discussion with patient and about GOC- possible intubation for CT and Bronch vs. conservative mngmt. * On high flow O2 with FiO2 90% @ 60L/min * Solu-medrol 40 mg Daily Heme/Onc: * Oncology consult appreciated * Will consider intubation for CT scan and possible bronchoscopy with wash for cytology. * Thrombocytopenia-Plt count 66 s/p 2 units of platelets * will try to maintain above 50 for possible diagnostic tap if CT is done and shows accessible effusion. * Monitor CBC in AM FEN: * No IVF * BMP in AM * Nutrition: Regular diet tolerated well Disposition Continue to monitor in the ICU for now. prognosis is guarded. Visit type - Emergency Visit Emergency Visit: Yes ED Registration Date: 01/16/18 Care time: The patient presented to the Emergency Department on the above date and was hospitalized for further evaluation of their emergent condition. - New Patient This patient is new to me today: Yes Date on this admission: 02/01/18 - Critical Care Critical Care patient: Yes Total Critical Care Time (in minutes): 48 Critical Care Statement: The care of this patient involved high complexity decision making to prevent further life threatening deterioration of the patient 's condition and/or to evaluate & treat vital organ system(s) failure or risk of failure.
--- NOTE | 2018-02-01 11:17 | PN ---
Teaching Attending Note Name of Resident: Britton Ring ATTENDING PHYSICIAN STATEMENT I saw and evaluated the patient. I reviewed the resident's note and discussed the case with the resident. I agree with the resident's findings and plan as documented. SUBJECTIVE: Patient seen and examined in the ICU. Remains on significant high flow requirements. Awake and alert. Long discussion with and about GOC. They are still unsure of what direction to proceed with her care. CXR: Worsening airspace disease Intake & Output 01/29/18 01/30/18 01/31/18 02/01/18 23:59 23:59 23:59 23:59 Intake Total 410 240 235 30 Output Total 1400 1500 1550 500 Balance -990 -1260 -1315 -470 Weight 129 lb 109 lb 1.6 oz Last Vital Signs Temp Pulse Resp BP Pulse Ox 98.0 F 122 H 28 H 109/62 92 L 02/01/18 10:00 02/01/18 10:00 02/01/18 10:00 02/01/18 10:00 02/01/18 09:00 Active Medications Methylprednisolone Sodium Succinate (Solu-Medrol -) 40 mg IVPUSH DAILY TYSHAWN Last Admin: 02/01/18 09:07 Dose: 40 mg Morphine Sulfate (Morphine Sulfate) 0.5 mg IVPUSH Q1H PRN PRN Reason: PAIN LEVEL 1 - 3 Last Admin: 01/31/18 23:15 Dose: 0.5 mg Gen: Mild tachypnea on HFOT Heart: tachycardic, regular Lung: diffuse rales/rhonchi, no wheezes Abd: soft, nontender Ext: no edema Laboratory Results - last 24 hr 01/31/18 02/01/18 02/01/18 19:05 05:30 05:30 WBC 3.8 L 4.0 RBC 2.46 L 2.49 L Hgb 7.9 L 8.2 L Hct 23.4 L 23.8 L MCV 94.9 95.3 MCH 32.1 32.8 MCHC 33.9 34.4 RDW 22.3 H 23.0 H Plt Count 79 L D 66 L MPV 7.7 D 8.0 Absolute Neuts (auto) 3.8 Neutrophils % 94.8 H Lymphocytes % 2.3 L Monocytes % 2.6 L Eosinophils % 0.2 Basophils % 0.1 Nucleated RBC % 0 Sodium 138 Potassium 4.4 Chloride 96 L Carbon Dioxide 36 H Anion Gap 6 L BUN 13 Creatinine 0.2 L Creat Clearance w eGFR > 60 Random Glucose 203 H Calcium 8.5 Phosphorus 2.5 Magnesium 1.9 Total Bilirubin 0.4 AST 11 L ALT 38 Alkaline Phosphatase 180 H D Total Protein 6.0 L Albumin 2.1 L ASSESSMENT AND PLAN: Acute Hypoxic Respiratory Failure Pneumonia Neutropenic Septic Shock Pancytopenia Coagulopathy Metastatic Breast Ca Volume Overload - Continue/titrate HF NC O2; low threshold for intubation - Lasix - transfuse as needed for Hgb < 7, Plt < 15 (50 if bleeding) - inhaled bronchodilators - Steroid taper - ICU monitoring - LTAC evaluation - Overall prognosis appears poor - Patient / family to further decide on GOC Dr Sosa Critical care time spent in reviewing chart, evaluating patient and formulating plan - 36 minutes.
[2018-02-01 11:21] LABS: ANISOCYTOSIS 2+; MACROCYTOSIS 1+; PLATELET ESTIMATE DECREASED; TOXIC GRANULATION 1+
--- NOTE | 2018-02-01 11:38 | PN ---
Progress Note (short form) - Note Progress Note: Patient seen and examined . Awake, alert. Family at bedside GOC being decided upon Continues to require HFOT. Last Vital Signs Temp Pulse Resp BP Pulse Ox 98.0 F 122 H 28 H 109/62 92 L 02/01/18 10:00 02/01/18 10:00 02/01/18 10:00 02/01/18 10:00 02/01/18 09:00 HEENT: LYSSA, EOM Intact, oxygen therapy , cannulae Breasts: s/p reconstruction Cor: sinus tach Lungs:diminished breath sounds Abd: Soft, Normal bowel sounds, No organomegaly Ext:No significant edema Skin: No rashes, Integument intact CBC, BMP 02/01/18 05:30 02/01/18 05:30 Current Medications Generic Name Dose Route Start Last Admin Trade Name Freq PRN Reason Stop Dose Admin Methylprednisolone Sodium Succinate 40 mg 01/26/18 10:00 02/01/18 09:07 Solu-Medrol - IVPUSH 40 mg DAILY TYSHAWN Administration Morphine Sulfate 0.5 mg 01/31/18 14:18 01/31/18 23:15 Morphine Sulfate IVPUSH 0.5 mg Q1H PRN Administration PAIN LEVEL 1 - 3 Impression: Metastatic breast cancerBone mets ?lung mets Acute hypoxic respiratory failure Neutropenic fever thrombocytopenia Anemia Pain management GOC Ongoing management per critical care team Direction of future care based upon patient and family wishes.
[2018-02-01] MEDS: morphine SULFATE 4 MG/ML VIAL IVPUSH PRN ×2 (11:50→20:43)
--- NOTE | 2018-02-01 12:28 | PN ---
Progress Note, Physician History of Present Illness: Remains on high flow O2 60% to maintain saO2. CXR and dyspnea worse, started on MSO4 as needed. - Current Medication List Current Medications: Active Medications Methylprednisolone Sodium Succinate (Solu-Medrol -) 40 mg IVPUSH DAILY TYSHAWN Last Admin: 02/01/18 09:07 Dose: 40 mg Morphine Sulfate (Morphine Sulfate) 0.5 mg IVPUSH Q1H PRN PRN Reason: PAIN LEVEL 1 - 3 Last Admin: 02/01/18 11:50 Dose: 0.5 mg - Objective Vital Signs: Vital Signs Temperature 98.0 F 02/01/18 10:00 Pulse Rate 122 H 02/01/18 10:00 Respiratory Rate 28 H 02/01/18 10:00 Blood Pressure 109/62 02/01/18 10:00 O2 Sat by Pulse Oximetry (%) 92 L 02/01/18 09:00 Constitutional: Yes: Anxious, Mild Distress Neck: Yes: Supple Cardiovascular: Yes: Tachycardia Respiratory: Yes: Diminished, On Venti-Mask, Other (HFOT) Gastrointestinal: Yes: Soft, Hypoactive Bowel Sounds Edema: No Labs: CBC, BMP 02/01/18 05:30 02/01/18 05:30 INR, PTT INR 1.10 (0.82-1.09) 01/28/18 05:30 Fibrinogen 486.0 mg/dL (238-498) D 01/28/18 05:30 - ....Imaging Chest X-ray: Report Reviewed (Bilateral airspace disease persists) EKG: Report Reviewed (Tele: ST) Problem List - Problems (1) Acute respiratory failure with hypoxia Code(s): J96.01 - ACUTE RESPIRATORY FAILURE WITH HYPOXIA (2) Breast cancer Code(s): C50.919 - MALIGNANT NEOPLASM OF UNSP SITE OF UNSPECIFIED FEMALE BREAST Qualifiers: Breast location: unspecified site of breast Estrogen receptor status: unspecified Patient sex: female Laterality: unspecified laterality Qualified Code(s): C50.919 - Malignant neoplasm of unspecified site of unspecified female breast (3) Pancytopenia due to antineoplastic chemotherapy Code(s): D61.810 - ANTINEOPLASTIC CHEMOTHERAPY INDUCED PANCYTOPENIA; T45.1X5A - ADVERSE EFFECT OF ANTINEOPLASTIC AND IMMUNOSUP DRUGS, INIT (4) Pneumonia Code(s): J18.9 - PNEUMONIA, UNSPECIFIED ORGANISM Qualifiers: Pneumonia type: due to unspecified organism Laterality: bilateral Lung location: unspecified part of lung Qualified Code(s): J18.9 - Pneumonia, unspecified organism (5) Sinus tachycardia Code(s): R00.0 - TACHYCARDIA, UNSPECIFIED Assessment/Plan January 16, 2018 Echo: Normal LV size and fxn, tr-mild MR 1. Acute Hypoxic Respiratory Failure->Pneumonia 2. Post Neutropenic Septic Shock 3. Pancytopenia with thrombocyopenia 4. Coagulopathy 5. Metastatic Breast Ca, extensive bone mets on abemaciclib post XRT, suspected lymphangitic spread 6. Sinus tachycardia referable to above P: 1. Observe off antibiotics 2. Transfuse monodonor platelets for bleeding or fever, PRBC as needed, neupogen 3. Continue high flow O2 as needed to assist in work of breathing, wean FIO2, BD , IV steroid taper with GI protection, chest CT once stable 4. Diuresis and morphine as needed 5. Goals of care being addressed
--- NOTE | 2018-02-01 23:38 | PN ---
Progress Note, Physician - Current Medication List Current Medications: Active Medications Methylprednisolone Sodium Succinate (Solu-Medrol -) 40 mg IVPUSH DAILY TYSHAWN Last Admin: 02/01/18 09:07 Dose: 40 mg Morphine Sulfate (Morphine Sulfate) 0.5 mg IVPUSH Q1H PRN PRN Reason: PAIN LEVEL 1 - 3 Last Admin: 02/01/18 20:43 Dose: 0.5 mg - Objective Vital Signs: Vital Signs Temperature 97.9 F 02/01/18 18:00 Pulse Rate 115 H 02/01/18 20:00 Respiratory Rate 22 02/01/18 20:00 Blood Pressure 116/75 02/01/18 20:00 O2 Sat by Pulse Oximetry (%) 93 L 02/01/18 21:07 Labs: CBC, BMP 02/01/18 05:30 02/01/18 05:30 INR, PTT INR 1.10 (0.82-1.09) 01/28/18 05:30 Fibrinogen 486.0 mg/dL (238-498) D 01/28/18 05:30
[2018-02-02] MEDS: morphine SULFATE 4 MG/ML VIAL IVPUSH PRN ×5 (00:01→20:15)
[2018-02-02 06:09] LABS: BASO % 0.1 % (0-2.0); EOS % 0.3 % (0-4.5); HEMATOCRIT 22.2 % (32.4-45.2); HEMOGLOBIN 7.7 GM/dL (10.7-15.3); LYMPH % 2.5 % (8-40); MCH 32.8 pg (25.7-33.7); MCHC 34.6 g/dl (32.0-36.0); MEAN CELL VOLUME 94.7 fl (80-96); MEAN PLT VOLUME 7.3 fl (7.5-11.1); MONO % 2.9 % (3.8-10.2); NEUT % 94.2 % (42.8-82.8); PLATELET COUNT 47 K/MM3 (134-434); RBC 2.34 M/mm3 (3.60-5.2); RDW 22.5 % (11.6-15.6); WHITE BLOOD COUNT 3.5 K/mm3 (4.0-10.0)
[2018-02-02 06:24] LABS: ANION GAP 7 (8-16); BLOOD UREA NITROGEN 13 mg/dL (7-18); CALCIUM 8.7 mg/dL (8.5-10.1); CHLORIDE 93 mmol/L (98-107); CO2 37 mmol/L (21-32); CREATININE 0.2 mg/dL (0.55-1.02); GLUCOSE,RANDOM 187 mg/dL (74-106); POTASSIUM 4.1 mmol/L (3.5-5.1); SODIUM 137 mmol/L (136-145)
[2018-02-02] MEDS: methylPREDNISolone NA SUCC 40 MG/1 ML VIAL IVPUSH SCH (10:01)
[2018-02-02 10:39] LABS: ANISOCYTOSIS 1+; MACROCYTOSIS 1+; OVALOCYTE 1+; PLATELET ESTIMATE DECREASED
--- NOTE | 2018-02-02 12:18 | PN ---
Teaching Attending Note Name of Resident: Paul Rodriguez ATTENDING PHYSICIAN STATEMENT I saw and evaluated the patient. I reviewed the resident's note and discussed the case with the resident. I agree with the resident's findings and plan as documented. SUBJECTIVE: Patient seen and examined in the ICU. Remains on significant high flow requirements. Awake and alert. Still no decisions made regarding GOC. CXR: Possible improvement in the RUL. Intake & Output 01/30/18 01/31/18 02/01/18 02/02/18 23:59 23:59 23:59 23:59 Intake Total 240 235 30 700 Output Total 1500 3913 551 8792 Balance -1260 -1315 -470 -1300 Weight 109 lb 1.6 oz Last Vital Signs Temp Pulse Resp BP Pulse Ox 97.5 F L 112 H 24 95/63 93 L 02/02/18 10:00 02/02/18 10:00 02/02/18 10:00 02/02/18 10:00 02/02/18 08:20 Active Medications Methylprednisolone Sodium Succinate (Solu-Medrol -) 40 mg IVPUSH DAILY TYSHAWN Last Admin: 02/02/18 10:01 Dose: 40 mg Morphine Sulfate (Morphine Sulfate) 0.5 mg IVPUSH Q1H PRN PRN Reason: PAIN LEVEL 1 - 3 Last Admin: 02/02/18 10:01 Dose: 0.5 mg Gen: Mild tachypnea on HFOT Heart: tachycardic, regular Lung: diffuse rales/rhonchi, no wheezes Abd: soft, nontender Ext: no edema Laboratory Results - last 24 hr 02/02/18 02/02/18 05:30 05:30 WBC 3.5 L RBC 2.34 L Hgb 7.7 L Hct 22.2 L MCV 94.7 MCH 32.8 MCHC 34.6 RDW 22.5 H Plt Count 47 L D MPV 7.3 L Absolute Neuts (auto) 3.3 Neutrophils % 94.2 H Neutrophils % (Manual) 90.9 H Band Neutrophils % 4.0 Lymphocytes % 2.5 L Lymphocytes % (Manual) 1.0 L Monocytes % 2.9 L Monocytes % (Manual) 4 D Eosinophils % 0.3 Eosinophils % (Manual) 0.0 Basophils % 0.1 Basophils % (Manual) 0.0 Myelocytes % (Man) 0 Promyelocytes % (Man) 0 Blast Cells % (Manual) 0 Nucleated RBC % 0 Metamyelocytes 0 Hypochromia 0 Platelet Estimate Decreased Polychromasia 1+ Poikilocytosis 0 Anisocytosis 1+ Microcytosis 1+ Macrocytosis 1+ Ovalocytes 1+ Sodium 137 Potassium 4.1 Chloride 93 L Carbon Dioxide 37 H Anion Gap 7 L BUN 13 Creatinine 0.2 L Creat Clearance w eGFR > 60 Random Glucose 187 H Calcium 8.7 ASSESSMENT AND PLAN: Acute Hypoxic Respiratory Failure Pneumonia Neutropenic Septic Shock Pancytopenia Coagulopathy Metastatic Breast Ca Volume Overload - Continue/titrate HF NC O2; low threshold for intubation - Lasix - transfuse as needed for Hgb < 7, Plt < 15 (50 if bleeding) - inhaled bronchodilators - Steroid taper - ICU monitoring - LTAC evaluation - Overall prognosis appears poor - Patient / family to further decide on GOC Dr Sosa Critical care time spent in reviewing chart, evaluating patient and formulating plan - 36 minutes.
--- NOTE | 2018-02-02 12:34 | PN ---
Progress Note, Physician History of Present Illness: Remains on high flow O2 60% to maintain saO2. CXR and dyspnea worse, started on MSO4 as needed. - Current Medication List Current Medications: Active Medications Methylprednisolone Sodium Succinate (Solu-Medrol -) 40 mg IVPUSH DAILY TYSHAWN Last Admin: 02/02/18 10:01 Dose: 40 mg Morphine Sulfate (Morphine Sulfate) 0.5 mg IVPUSH Q1H PRN PRN Reason: PAIN LEVEL 1 - 3 Last Admin: 02/02/18 10:01 Dose: 0.5 mg - Objective Vital Signs: Vital Signs Temperature 97.5 F L 02/02/18 10:00 Pulse Rate 119 H 02/02/18 12:00 Respiratory Rate 26 H 02/02/18 12:00 Blood Pressure 102/65 02/02/18 12:00 O2 Sat by Pulse Oximetry (%) 93 L 02/02/18 08:20 Cardiovascular: Yes: Tachycardia Respiratory: Yes: Diminished, Rhonchi, Other (HFOT) Gastrointestinal: Yes: Soft, Hypoactive Bowel Sounds Edema: No Labs: CBC, BMP 02/02/18 05:30 02/02/18 05:30 INR, PTT INR 1.10 (0.82-1.09) 01/28/18 05:30 Fibrinogen 486.0 mg/dL (238-498) D 01/28/18 05:30 - ....Imaging Chest X-ray: Report Reviewed (Extensive airway disease left lung, RLL infiltrates) Problem List - Problems (1) Acute respiratory failure with hypoxia Code(s): J96.01 - ACUTE RESPIRATORY FAILURE WITH HYPOXIA (2) Breast cancer Code(s): C50.919 - MALIGNANT NEOPLASM OF UNSP SITE OF UNSPECIFIED FEMALE BREAST Qualifiers: Breast location: unspecified site of breast Estrogen receptor status: unspecified Patient sex: female Laterality: unspecified laterality Qualified Code(s): C50.919 - Malignant neoplasm of unspecified site of unspecified female breast (3) Pancytopenia due to antineoplastic chemotherapy Code(s): D61.810 - ANTINEOPLASTIC CHEMOTHERAPY INDUCED PANCYTOPENIA; T45.1X5A - ADVERSE EFFECT OF ANTINEOPLASTIC AND IMMUNOSUP DRUGS, INIT (4) Pneumonia Code(s): J18.9 - PNEUMONIA, UNSPECIFIED ORGANISM Qualifiers: Pneumonia type: due to unspecified organism Laterality: bilateral Lung location: unspecified part of lung Qualified Code(s): J18.9 - Pneumonia, unspecified organism (5) Sinus tachycardia Code(s): R00.0 - TACHYCARDIA, UNSPECIFIED Assessment/Plan January 16, 2018 Echo: Normal LV size and fxn, tr-mild MR 1. Acute Hypoxic Respiratory Failure->Pneumonia 2. Post Neutropenic Septic Shock 3. Pancytopenia with thrombocyopenia 4. Coagulopathy 5. Metastatic Breast Ca, extensive bone mets on abemaciclib post XRT, suspected lymphangitic spread 6. Sinus tachycardia referable to above P: 1. Observe off antibiotics 2. Transfuse monodonor platelets for bleeding or fever, PRBC as needed, neupogen 3. Continue high flow O2 as needed to assist in work of breathing, wean FIO2, BD , IV steroid taper with GI protection, chest CT once stable 4. Diuresis and morphine as needed 5. Goals of care being addressed
--- NOTE | 2018-02-02 12:46 | PN ---
Progress Note, Physician History of Present Illness: events noted patient had become very hypoxic now patient breathing better still on high flow xray has worsened - Current Medication List Current Medications: Active Medications Methylprednisolone Sodium Succinate (Solu-Medrol -) 40 mg IVPUSH DAILY TYSHAWN Last Admin: 02/02/18 10:01 Dose: 40 mg Morphine Sulfate (Morphine Sulfate) 0.5 mg IVPUSH Q1H PRN PRN Reason: PAIN LEVEL 1 - 3 Last Admin: 02/02/18 10:01 Dose: 0.5 mg - Objective Vital Signs: Vital Signs Temperature 97.5 F L 02/02/18 10:00 Pulse Rate 119 H 02/02/18 12:00 Respiratory Rate 26 H 02/02/18 12:00 Blood Pressure 102/65 02/02/18 12:00 O2 Sat by Pulse Oximetry (%) 93 L 02/02/18 08:20 Constitutional: Yes: Calm, Mild Distress Eyes: Yes: Conjunctiva Clear Cardiovascular: Yes: Regular Rate and Rhythm, Tachycardia Respiratory: Yes: Other (tachypnoes) Gastrointestinal: Yes: Normal Bowel Sounds, Soft Musculoskeletal: Yes: WNL Extremities: Yes: WNL Neurological: Yes: Alert, Oriented Psychiatric: Yes: Alert, Oriented Labs: CBC, BMP 02/02/18 05:30 02/02/18 05:30 INR, PTT INR 1.10 (0.82-1.09) 01/28/18 05:30 Fibrinogen 486.0 mg/dL (238-498) D 01/28/18 05:30 Assessment/Plan pneumonia septic shock neutropenia resp failure hypoxia metastatic breast ca plan stable off of abx resp support monitor closely rest as per the team and icu monitor wbc and platelets onco on board continue monitoring physio incentive mahad patient xray has worsened the rt upper lobe is showing less areation cc time 40 min
--- NOTE | 2018-02-02 12:48 | PN ---
Progress Note, Physician History of Present Illness: patient more better breathing better still on high flow not able to come off of it - Current Medication List Current Medications: Active Medications Methylprednisolone Sodium Succinate (Solu-Medrol -) 40 mg IVPUSH DAILY TYSHAWN Last Admin: 02/02/18 10:01 Dose: 40 mg Morphine Sulfate (Morphine Sulfate) 0.5 mg IVPUSH Q1H PRN PRN Reason: PAIN LEVEL 1 - 3 Last Admin: 02/02/18 10:01 Dose: 0.5 mg - Objective Vital Signs: Vital Signs Temperature 97.5 F L 02/02/18 10:00 Pulse Rate 119 H 02/02/18 12:00 Respiratory Rate 26 H 02/02/18 12:00 Blood Pressure 102/65 02/02/18 12:00 O2 Sat by Pulse Oximetry (%) 93 L 02/02/18 08:20 Constitutional: Yes: No Distress, Calm Cardiovascular: Yes: Regular Rate and Rhythm, Tachycardia Respiratory: Yes: Regular, Poor Air Entry, Other Gastrointestinal: Yes: Normal Bowel Sounds, Soft Musculoskeletal: Yes: WNL Extremities: Yes: WNL Labs: CBC, BMP 02/02/18 05:30 02/02/18 05:30 INR, PTT INR 1.10 (0.82-1.09) 01/28/18 05:30 Fibrinogen 486.0 mg/dL (238-498) D 01/28/18 05:30 Assessment/Plan pneumonia septic shock neutropenia resp failure hypoxia metastatic breast ca ac resp failure plan resp support monitor closely rest as per the team and icu monitor wbc and platelets continue monitoring follow xray continue to monitor off of abx for now cc time 40 min
[2018-02-02] MEDS: ESCITALOPRAM OXALATE 10 MG TABLET (FP) PO SCH (14:45)
--- NOTE | 2018-02-02 17:08 | PN ---
Physical Exam: SUBJECTIVE: Patient seen and examined in the ICU this morning, though Pt was tired and did not want to be seen by anyone during rounds later on. Stated no current complaints other than SOB with any activity, including desaturating to low 80's during portable CXR this AM. OBJECTIVE: Vital Signs Period Temp Pulse Resp BP Sys/[place]y Pulse Ox Last 24 Hr 97.5 F-99.9 F 107-122 17-29 93-118/63-80 92-94 GENERAL: The patient is awake, alert, and fully oriented, in no acute distress. HEAD: Normal with no signs of trauma. ENT: Ears normal, nares patent, oropharynx clear without exudates, moist mucous membranes. NECK: Trachea midline, full range of motion, supple. LUNGS: Tachypnic, Breath sounds equal, diffuse rales and rhonchi worse in RUL, no accessory muscle use. currently on high flow O2 HEART: Tachycardic, S1, S2 without murmur, rub or gallop. ABDOMEN: Soft, nontender, nondistended, normoactive bowel sounds, no guarding, no rebound, no hepatosplenomegaly, no masses. EXTREMITIES: 2+ pulses, warm, well-perfused, no edema. SKIN: Warm, dry, normal turgor, no rashes or lesions noted Laboratory Results - last 24 hr 02/02/18 02/02/18 05:30 05:30 WBC 3.5 L RBC 2.34 L Hgb 7.7 L Hct 22.2 L MCV 94.7 MCH 32.8 MCHC 34.6 RDW 22.5 H Plt Count 47 L D MPV 7.3 L Absolute Neuts (auto) 3.3 Neutrophils % 94.2 H Neutrophils % (Manual) 90.9 H Band Neutrophils % 4.0 Lymphocytes % 2.5 L Lymphocytes % (Manual) 1.0 L Monocytes % 2.9 L Monocytes % (Manual) 4 D Eosinophils % 0.3 Eosinophils % (Manual) 0.0 Basophils % 0.1 Basophils % (Manual) 0.0 Myelocytes % (Man) 0 Promyelocytes % (Man) 0 Blast Cells % (Manual) 0 Nucleated RBC % 0 Metamyelocytes 0 Hypochromia 0 Platelet Estimate Decreased Polychromasia 1+ Poikilocytosis 0 Anisocytosis 1+ Microcytosis 1+ Macrocytosis 1+ Ovalocytes 1+ Sodium 137 Potassium 4.1 Chloride 93 L Carbon Dioxide 37 H Anion Gap 7 L BUN 13 Creatinine 0.2 L Creat Clearance w eGFR > 60 Random Glucose 187 H Calcium 8.7 Active Medications Generic Name Dose Route Start Last Admin Trade Name Freq PRN Reason Stop Dose Admin Escitalopram Oxalate 10 mg 02/02/18 13:30 02/02/18 14:45 Lexapro - PO 10 mg DAILY TYSHAWN Administration Methylprednisolone Sodium Succinate 40 mg 01/26/18 10:00 02/02/18 10:01 Solu-Medrol - IVPUSH 40 mg DAILY TYSHAWN Administration Morphine Sulfate 0.5 mg 01/31/18 14:18 02/02/18 16:44 Morphine Sulfate IVPUSH 0.5 mg Q1H PRN Administration PAIN LEVEL 1 - 3 ASSESSMENT/PLAN: 58 yo female with recent recurrence of Breast CA admitted to the ICU for acute hypoxic respiratory failure and pancytopenia. Neuro -Awake and alert, can conversate and follow commands Respiratory -Acute hypoxic respiratory failure On high flow O2 Solu-medrol 40 mg Daily -Patient discussed goals of care again yesterday with family and ICU resident/ attending but has not made a decision about current plan Breast CA -Oncology consulted -Irregularities unchanged on CXR multiple days now will avoid CXR in AM due to desaturation each morning during repositioning for image -consider CT chest if able to tolerate Thrombocytopenia -Plt count 47 today -Transfuse if below 15 (if <50 if bleeding) -Monitor CBC in AM Volume Overload -Received Lasix - resolved FEN -Fluid: No need for fluid at this time -Electrolytes: No electrolyte abnormalities at this time -Nutrition: Regular diet tolerated well Disposition -Continue to monitor in the ICU for now. prognosis is seemingly poor. Problem List - Problems (1) Acute respiratory failure with hypoxia Code(s): J96.01 - ACUTE RESPIRATORY FAILURE WITH HYPOXIA (2) Breast cancer Code(s): C50.919 - MALIGNANT NEOPLASM OF UNSP SITE OF UNSPECIFIED FEMALE BREAST Qualifiers: Breast location: unspecified site of breast Estrogen receptor status: unspecified Patient sex: female Laterality: unspecified laterality Qualified Code(s): C50.919 - Malignant neoplasm of unspecified site of unspecified female breast (3) Hypokalemia Code(s): E87.6 - HYPOKALEMIA (4) Pancytopenia due to antineoplastic chemotherapy Code(s): D61.810 - ANTINEOPLASTIC CHEMOTHERAPY INDUCED PANCYTOPENIA; T45.1X5A - ADVERSE EFFECT OF ANTINEOPLASTIC AND IMMUNOSUP DRUGS, INIT (5) Thrombocytopenia Code(s): D69.6 - THROMBOCYTOPENIA, UNSPECIFIED Visit type - Emergency Visit Emergency Visit: Yes ED Registration Date: 01/16/18 Care time: The patient presented to the Emergency Department on the above date and was hospitalized for further evaluation of their emergent condition. - New Patient This patient is new to me today: No - Critical Care Critical Care patient: Yes Total Critical Care Time (in minutes): 35 Critical Care Statement: The care of this patient involved high complexity decision making to prevent further life threatening deterioration of the patient 's condition and/or to evaluate & treat vital organ system(s) failure or risk of failure.
--- NOTE | 2018-02-02 23:53 | PN ---
Progress Note, Physician - Current Medication List Current Medications: Active Medications Escitalopram Oxalate (Lexapro -) 10 mg PO DAILY [facility] Last Admin: 02/02/18 14:45 Dose: 10 mg Methylprednisolone Sodium Succinate (Solu-Medrol -) 40 mg IVPUSH DAILY [facility] Last Admin: 02/02/18 10:01 Dose: 40 mg Morphine Sulfate (Morphine Sulfate) 0.5 mg IVPUSH Q1H PRN PRN Reason: PAIN LEVEL 1 - 3 Last Admin: 02/02/18 16:44 Dose: 0.5 mg - Objective Vital Signs: Vital Signs Temperature 97.7 F 02/02/18 17:06 Pulse Rate 109 H 02/02/18 23:00 Respiratory Rate 19 02/02/18 23:00 Blood Pressure 115/72 02/02/18 23:00 O2 Sat by Pulse Oximetry (%) 93 L 02/02/18 22:00 Labs: CBC, BMP 02/02/18 05:30 02/02/18 05:30 INR, PTT INR 1.10 (0.82-1.09) 01/28/18 05:30 Fibrinogen 486.0 mg/dL (238-498) D 01/28/18 05:30
[2018-02-03] MEDS: morphine SULFATE 4 MG/ML VIAL IVPUSH PRN ×8 (01:00→23:35)
[2018-02-03 06:18] LABS: ANION GAP 6 (8-16); BLOOD UREA NITROGEN 13 mg/dL (7-18); CALCIUM 8.8 mg/dL (8.5-10.1); CHLORIDE 92 mmol/L (98-107); CO2 39 mmol/L (21-32); CREATININE 0.3 mg/dL (0.55-1.02); GLUCOSE,RANDOM 258 mg/dL (74-106); MAGNESIUM 1.9 mg/dL (1.8-2.4); PHOSPHOROUS 2.5 mg/dL (2.5-4.9); POTASSIUM 4.1 mmol/L (3.5-5.1); SODIUM 137 mmol/L (136-145)
[2018-02-03 06:38] LABS: BASO % 0.1 % (0-2.0); EOS % 0.3 % (0-4.5); HEMATOCRIT 21.5 % (32.4-45.2); HEMOGLOBIN 7.4 GM/dL (10.7-15.3); MCH 32.7 pg (25.7-33.7); MCHC 34.2 g/dl (32.0-36.0); MEAN CELL VOLUME 95.6 fl (80-96); MEAN PLT VOLUME 7.8 fl (7.5-11.1); MONO % 2.9 % (3.8-10.2); NEUT % 94.7 % (42.8-82.8); RBC 2.25 M/mm3 (3.60-5.2); RDW 23.1 % (11.6-15.6); WHITE BLOOD COUNT 3.6 K/mm3 (4.0-10.0)
[2018-02-03 07:25] LABS: PLATELET COUNT 36 K/MM3 (134-434)
[2018-02-03] MEDS: methylPREDNISolone NA SUCC 40 MG/1 ML VIAL IVPUSH SCH (09:18)
[2018-02-03] MEDS: ESCITALOPRAM OXALATE 10 MG TABLET (FP) PO SCH (09:18)
[2018-02-03 10:52] LABS: ANISOCYTOSIS 3+; MACROCYTOSIS 0; PLATELET ESTIMATE DECREASED; ROULEAU 1+
--- NOTE | 2018-02-03 11:58 | PN ---
Progress Note, Physician History of Present Illness: still on high flow not able to come off of it icu discussing goal of care patient says she is doing well - Current Medication List Current Medications: Active Medications Escitalopram Oxalate (Lexapro -) 10 mg PO DAILY [facility] Last Admin: 02/03/18 09:18 Dose: 10 mg Methylprednisolone Sodium Succinate (Solu-Medrol -) 40 mg IVPUSH DAILY [facility] Last Admin: 02/03/18 09:18 Dose: 40 mg Morphine Sulfate (Morphine Sulfate) 0.5 mg IVPUSH Q1H PRN PRN Reason: PAIN LEVEL 1 - 3 Last Admin: 02/03/18 11:21 Dose: 0.5 mg - Objective Vital Signs: Vital Signs Temperature 98.4 F 02/03/18 10:00 Pulse Rate 130 H 02/03/18 10:00 Respiratory Rate 23 02/03/18 10:00 Blood Pressure 113/77 02/03/18 10:00 O2 Sat by Pulse Oximetry (%) 89 L 02/03/18 11:15 Constitutional: Yes: Calm, Mild Distress Cardiovascular: Yes: Regular Rate and Rhythm, Tachycardia Respiratory: Yes: Regular, On Nasal O2 (high flow) Gastrointestinal: Yes: Normal Bowel Sounds, Soft Musculoskeletal: Yes: WNL Extremities: Yes: WNL Neurological: Yes: Alert, Oriented Psychiatric: Yes: Alert, Oriented Labs: CBC, BMP 02/03/18 05:30 02/03/18 05:30 INR, PTT INR 1.10 (0.82-1.09) 01/28/18 05:30 Fibrinogen 486.0 mg/dL (238-498) D 01/28/18 05:30 Assessment/Plan pneumonia septic shock neutropenia resp failure hypoxia metastatic breast ca ac resp failure plan resp support monitor closely rest as per the team and icu monitor wbc and platelets continue monitoring follow xray continue to monitor off of abx for now cc time 40 min
[2018-02-03] MEDS ORDERED: MAGNESIUM OXIDE 400 MG TABLET (FP) PO ONE (12:29)
--- NOTE | 2018-02-03 12:30 | PN ---
Progress Note, Physician History of Present Illness: Remains on high flow O2 60% to maintain saO2. CXR and dyspnea worse, placed on MSO4 as needed. - Current Medication List Current Medications: Active Medications Escitalopram Oxalate (Lexapro -) 10 mg PO DAILY [facility] Last Admin: 02/03/18 09:18 Dose: 10 mg Magnesium Oxide (Mag-Ox -) 400 mg PO ONCE ONE Stop: 02/03/18 12:30 Methylprednisolone Sodium Succinate (Solu-Medrol -) 40 mg IVPUSH DAILY [facility] Last Admin: 02/03/18 09:18 Dose: 40 mg Morphine Sulfate (Morphine Sulfate) 0.5 mg IVPUSH Q1H PRN PRN Reason: PAIN LEVEL 1 - 3 Last Admin: 02/03/18 11:21 Dose: 0.5 mg - Objective Vital Signs: Vital Signs Temperature 98.4 F 02/03/18 10:00 Pulse Rate 130 H 02/03/18 10:00 Respiratory Rate 23 02/03/18 10:00 Blood Pressure 113/77 02/03/18 10:00 O2 Sat by Pulse Oximetry (%) 89 L 02/03/18 11:15 Constitutional: Yes: Anxious, Mild Distress, Thin Neck: Yes: Supple Cardiovascular: Yes: Tachycardia Respiratory: Yes: Diminished, Rhonchi, Other (HFOT) Gastrointestinal: Yes: Soft, Hypoactive Bowel Sounds Edema: Yes Edema: LLE: Trace, RLE: Trace Labs: CBC, BMP 02/03/18 05:30 02/03/18 05:30 INR, PTT INR 1.10 (0.82-1.09) 01/28/18 05:30 Fibrinogen 486.0 mg/dL (238-498) D 01/28/18 05:30 Problem List - Problems (1) Acute respiratory failure with hypoxia Code(s): J96.01 - ACUTE RESPIRATORY FAILURE WITH HYPOXIA (2) Breast cancer Code(s): C50.919 - MALIGNANT NEOPLASM OF UNSP SITE OF UNSPECIFIED FEMALE BREAST Qualifiers: Breast location: unspecified site of breast Estrogen receptor status: unspecified Patient sex: female Laterality: unspecified laterality Qualified Code(s): C50.919 - Malignant neoplasm of unspecified site of unspecified female breast (3) Pancytopenia due to antineoplastic chemotherapy Code(s): D61.810 - ANTINEOPLASTIC CHEMOTHERAPY INDUCED PANCYTOPENIA; T45.1X5A - ADVERSE EFFECT OF ANTINEOPLASTIC AND IMMUNOSUP DRUGS, INIT (4) Pneumonia Code(s): J18.9 - PNEUMONIA, UNSPECIFIED ORGANISM Qualifiers: Pneumonia type: due to unspecified organism Laterality: bilateral Lung location: unspecified part of lung Qualified Code(s): J18.9 - Pneumonia, unspecified organism (5) Sinus tachycardia Code(s): R00.0 - TACHYCARDIA, UNSPECIFIED Assessment/Plan January 16, 2018 Echo: Normal LV size and fxn, tr-mild MR 1. Acute Hypoxic Respiratory Failure->Pneumonia 2. Post Neutropenic Septic Shock 3. Pancytopenia with thrombocyopenia 4. Coagulopathy 5. Metastatic Breast Ca, extensive bone mets on abemaciclib post XRT, suspected lymphangitic spread 6. Sinus tachycardia referable to above P: 1. Observe off antibiotics 2. Transfuse monodonor platelets for bleeding or fever, PRBC as needed 3. Continue high flow O2 as needed to assist in work of breathing, wean FIO2, BD , IV steroid taper with GI protection, chest CT once stable 4. Diuresis and morphine as needed 5. Goals of care being addressed
--- NOTE | 2018-02-03 12:57 | PN ---
Teaching Attending Note Name of Resident: Paul Rodriguez ATTENDING PHYSICIAN STATEMENT I saw and evaluated the patient. I reviewed the resident's note and discussed the case with the resident. I agree with the resident's findings and plan as documented. SUBJECTIVE: Patient seen and examined in the ICU. Remains on significant high flow requirements and intermittently 100% NRBM. Awake and alert. Still no decisions made regarding GOC. CXR: None today Intake & Output 01/31/18 02/01/18 02/02/18 02/03/18 23:59 23:59 23:59 23:59 Intake Total 235 30 960 Output Total 8604 644 4225 600 Balance -1315 -470 -2640 -600 Last Vital Signs Temp Pulse Resp BP Pulse Ox 98.4 F 130 H 23 113/77 89 L 02/03/18 10:00 02/03/18 10:00 02/03/18 10:00 02/03/18 10:00 02/03/18 11:15 Active Medications Escitalopram Oxalate (Lexapro -) 10 mg PO DAILY [facility] Last Admin: 02/03/18 09:18 Dose: 10 mg Methylprednisolone Sodium Succinate (Solu-Medrol -) 40 mg IVPUSH DAILY [facility] Last Admin: 02/03/18 09:18 Dose: 40 mg Morphine Sulfate (Morphine Sulfate) 0.5 mg IVPUSH Q1H PRN PRN Reason: PAIN LEVEL 1 - 3 Last Admin: 02/03/18 11:21 Dose: 0.5 mg Gen: Mild tachypnea on HFOT Heart: tachycardic, regular Lung: diffuse rales/rhonchi, no wheezes Abd: soft, nontender Ext: no edema Laboratory Results - last 24 hr 02/03/18 02/03/18 05:30 05:30 WBC 3.6 L RBC 2.25 L Hgb 7.4 L Hct 21.5 L MCV 95.6 MCH 32.7 MCHC 34.2 RDW 23.1 H Plt Count 36 L* D MPV 7.8 Absolute Neuts (auto) 3.4 Neutrophils % 94.7 H Neutrophils % (Manual) 90.1 H Band Neutrophils % 3.9 Lymphocytes % 2.0 L Lymphocytes % (Manual) 3.0 L D Monocytes % 2.9 L Monocytes % (Manual) 1 L Eosinophils % 0.3 Eosinophils % (Manual) 0.0 Basophils % 0.1 Basophils % (Manual) 0.0 Myelocytes % (Man) 1 D Promyelocytes % (Man) 0 Blast Cells % (Manual) 0 Nucleated RBC % 0 Metamyelocytes 0 Hypochromia 1+ Platelet Estimate Decreased Polychromasia 3+ Poikilocytosis 1+ Anisocytosis 3+ Microcytosis 3+ Macrocytosis 0 Rouleaux 1+ Sodium 137 Potassium 4.1 Chloride 92 L Carbon Dioxide 39 H Anion Gap 6 L BUN 13 Creatinine 0.3 L Creat Clearance w eGFR > 60 Random Glucose 258 H Calcium 8.8 Phosphorus 2.5 Magnesium 1.9 ASSESSMENT AND PLAN: Acute Hypoxic Respiratory Failure Pneumonia Neutropenic Septic Shock Pancytopenia Coagulopathy Metastatic Breast Ca Volume Overload - Continue/titrate HF NC O2; low threshold for intubation - Lasix - transfuse as needed for Hgb < 7, Plt < 15 (50 if bleeding) - inhaled bronchodilators - Steroid taper - ICU monitoring - LTAC evaluation - Overall prognosis appears poor - Patient / family to further decide on GOC, no decisions have been made and our treatment interventions have seems to reach its limit. No clinical improvement but slow and progressive deterioration of overall condition. Dr Sosa Critical care time spent in reviewing chart, evaluating patient and formulating plan - 36 minutes.
--- NOTE | 2018-02-03 17:04 | PN ---
Physical Exam: SUBJECTIVE: Patient seen and examined in ICU. Still no decisions made by patient and family regarding goals of care. Pt is short of breath and tired. OBJECTIVE: Vital Signs Period Temp Pulse Resp BP Sys/Langley Pulse Ox Last 24 Hr 95.4 F-98.4 F 79-130 18-36 100-128/68-87 89-93 GENERAL: The patient is awake, alert, and fully oriented, in no acute distress. HEAD: Normal with no signs of trauma. ENT: Ears normal, nares patent, oropharynx clear without exudates, moist mucous membranes. NECK: Trachea midline, full range of motion, supple. LUNGS: Tachypnic, Breath sounds equal, diffuse rales and rhonchi worse in RUL, no accessory muscle use. currently on high flow O2 HEART: Tachycardic, S1, S2 without murmur, rub or gallop. ABDOMEN: Soft, nontender, nondistended, normoactive bowel sounds, no guarding, no rebound, no hepatosplenomegaly, no masses. EXTREMITIES: 2+ pulses, warm, well-perfused, no edema. SKIN: Warm, dry, normal turgor, no rashes or lesions noted Laboratory Results - last 24 hr 02/03/18 02/03/18 05:30 05:30 WBC 3.6 L RBC 2.25 L Hgb 7.4 L Hct 21.5 L MCV 95.6 MCH 32.7 MCHC 34.2 RDW 23.1 H Plt Count 36 L* D MPV 7.8 Absolute Neuts (auto) 3.4 Neutrophils % 94.7 H Neutrophils % (Manual) 90.1 H Band Neutrophils % 3.9 Lymphocytes % 2.0 L Lymphocytes % (Manual) 3.0 L D Monocytes % 2.9 L Monocytes % (Manual) 1 L Eosinophils % 0.3 Eosinophils % (Manual) 0.0 Basophils % 0.1 Basophils % (Manual) 0.0 Myelocytes % (Man) 1 D Promyelocytes % (Man) 0 Blast Cells % (Manual) 0 Nucleated RBC % 0 Metamyelocytes 0 Hypochromia 1+ Platelet Estimate Decreased Polychromasia 3+ Poikilocytosis 1+ Anisocytosis 3+ Microcytosis 3+ Macrocytosis 0 Rouleaux 1+ Sodium 137 Potassium 4.1 Chloride 92 L Carbon Dioxide 39 H Anion Gap 6 L BUN 13 Creatinine 0.3 L Creat Clearance w eGFR > 60 Random Glucose 258 H Calcium 8.8 Phosphorus 2.5 Magnesium 1.9 Active Medications Generic Name Dose Route Start Last Admin Trade Name Bg PRN Reason Stop Dose Admin Escitalopram Oxalate 10 mg 02/02/18 13:30 02/03/18 09:18 Lexapro - PO 10 mg DAILY [facility] Administration Methylprednisolone Sodium Succinate 40 mg 01/26/18 10:00 02/03/18 09:18 Solu-Medrol - IVPUSH 40 mg DAILY [facility] Administration Morphine Sulfate 0.5 mg 01/31/18 14:18 02/03/18 13:12 Morphine Sulfate IVPUSH 0.5 mg Q1H PRN Administration PAIN LEVEL 1 - 3 ASSESSMENT/PLAN: 58 yo female with recent recurrence of Breast CA admitted to the ICU for acute hypoxic respiratory failure and pancytopenia. Neuro -Awake and alert, can conversate and follow commands Respiratory -Acute hypoxic respiratory failure On high flow O2 Solu-medrol 40 mg Daily -Still no decision made on goals of care. Will attempt to contact family for another goals of care meeting and planning. Breast CA -Oncology consulted -Irregularities unchanged on CXR (02/02) repeat CXR as one was not done this morning -consider CT chest if pt wishes further treatment Thrombocytopenia -Plt count 36 today -Transfuse if below 15 (if <50 if bleeding) -Monitor CBC in AM Volume Overload -Received Lasix - resolved FEN -Fluid: No need for fluid at this time -Electrolytes: Mg 1.9 today, MagOx 400 mg PO Once -Nutrition: Regular diet tolerated well Disposition -Continue to monitor in the ICU for now. prognosis is seemingly poor. Problem List - Problems (1) Acute respiratory failure with hypoxia Code(s): J96.01 - ACUTE RESPIRATORY FAILURE WITH HYPOXIA (2) Breast cancer Code(s): C50.919 - MALIGNANT NEOPLASM OF UNSP SITE OF UNSPECIFIED FEMALE BREAST Qualifiers: Breast location: unspecified site of breast Estrogen receptor status: unspecified Patient sex: female Laterality: unspecified laterality Qualified Code(s): C50.919 - Malignant neoplasm of unspecified site of unspecified female breast (3) Hypokalemia Code(s): E87.6 - HYPOKALEMIA (4) Pancytopenia due to antineoplastic chemotherapy Code(s): D61.810 - ANTINEOPLASTIC CHEMOTHERAPY INDUCED PANCYTOPENIA; T45.1X5A - ADVERSE EFFECT OF ANTINEOPLASTIC AND IMMUNOSUP DRUGS, INIT (5) Thrombocytopenia Code(s): D69.6 - THROMBOCYTOPENIA, UNSPECIFIED Visit type - Emergency Visit Emergency Visit: Yes ED Registration Date: 01/16/18 Care time: The patient presented to the Emergency Department on the above date and was hospitalized for further evaluation of their emergent condition. - New Patient This patient is new to me today: No - Critical Care Critical Care patient: Yes Total Critical Care Time (in minutes): 35 Critical Care Statement: The care of this patient involved high complexity decision making to prevent further life threatening deterioration of the patient 's condition and/or to evaluate & treat vital organ system(s) failure or risk of failure.
--- NOTE | 2018-02-03 17:54 | PN ---
Progress Note (short form) - Note Progress Note: Patient seen and examined oriented in person but not in place or time Last Vital Signs Temp Pulse Resp BP Pulse Ox 98 F 127 H 28 H 125/79 91 L 02/03/18 14:21 02/03/18 16:20 02/03/18 16:00 02/03/18 16:00 02/03/18 16:20 Cor: sinus tachycardia, No murmurs, No gallops Lungs: diminished breath sounds bilaterally Abd: Soft, Normal bowel sounds, No organomegaly Ext:No significant edema Abnormal Lab Results 02/03/18 02/03/18 05:30 05:30 WBC 3.6 L RBC 2.25 L Hgb 7.4 L Hct 21.5 L RDW 23.1 H Plt Count 36 L* D Neutrophils % 94.7 H Neutrophils % (Manual) 90.1 H Lymphocytes % 2.0 L Lymphocytes % (Manual) 3.0 L D Monocytes % 2.9 L Monocytes % (Manual) 1 L Chloride 92 L Carbon Dioxide 39 H Anion Gap 6 L Creatinine 0.3 L Random Glucose 258 H Home Medication List Medication Instructions Recorded Confirmed Type Unobtainable 01/16/18 01/16/18 History Active Medications Generic Name Dose Route Start Last Admin Trade Name Freq PRN Reason Stop Dose Admin Escitalopram Oxalate 10 mg 02/02/18 13:30 02/03/18 09:18 Lexapro - PO 10 mg DAILY [facility] Administration Methylprednisolone Sodium Succinate 40 mg 01/26/18 10:00 02/03/18 09:18 Solu-Medrol - IVPUSH 40 mg DAILY [facility] Administration Morphine Sulfate 0.5 mg 01/31/18 14:18 02/03/18 13:12 Morphine Sulfate IVPUSH 0.5 mg Q1H PRN Administration PAIN LEVEL 1 - 3 A/P Metastatic breast cancer Bone mets respiratory failure--?lymphangitic spread s/p neutropenic sepsis Anemia Thrombocytopenia -- marrow suppression from RT/abemaciclib use ongoing discussions regarding goals of care
--- NOTE | 2018-02-03 23:08 | PN ---
Progress Note, Physician History of Present Illness: Pt w/ respiratory distress on NRB - Current Medication List Current Medications: Active Medications Escitalopram Oxalate (Lexapro -) 10 mg PO DAILY [facility] Last Admin: 02/03/18 09:18 Dose: 10 mg Methylprednisolone Sodium Succinate (Solu-Medrol -) 40 mg IVPUSH DAILY [facility] Last Admin: 02/03/18 09:18 Dose: 40 mg Morphine Sulfate (Morphine Sulfate) 1 mg IVPUSH Q1H PRN PRN Reason: PAIN LEVEL 1 - 3 - Objective Vital Signs: Vital Signs Temperature 98 F 02/03/18 14:21 Pulse Rate 124 H 02/03/18 18:00 Respiratory Rate 30 H 02/03/18 18:00 Blood Pressure 134/83 02/03/18 18:00 O2 Sat by Pulse Oximetry (%) 89 L 02/03/18 21:02 Neck: Yes: WNL, Supple Cardiovascular: Yes: WNL, Regular Rate and Rhythm Respiratory: Yes: Rhonchi Gastrointestinal: Yes: WNL, Normal Bowel Sounds, Soft Labs: CBC, BMP 02/03/18 05:30 02/03/18 05:30 INR, PTT INR 1.10 (0.82-1.09) 01/28/18 05:30 Fibrinogen 486.0 mg/dL (238-498) D 01/28/18 05:30 Problem List - Problems (1) Acute respiratory failure with hypoxia Assessment/Plan: Awaiting family decision about DNR Poor prognosis Cont IV steroids/nebulizers Code(s): J96.01 - ACUTE RESPIRATORY FAILURE WITH HYPOXIA (2) Altered mental status Assessment/Plan: Multifactorial Due to infectious/metabolic encephalopathy Code(s): R41.82 - ALTERED MENTAL STATUS, UNSPECIFIED Qualifiers: Altered mental status type: unspecified Qualified Code(s): R41.82 - Altered mental status, unspecified (3) Breast cancer Code(s): C50.919 - MALIGNANT NEOPLASM OF UNSP SITE OF UNSPECIFIED FEMALE BREAST Qualifiers: Breast location: unspecified site of breast Estrogen receptor status: unspecified Patient sex: female Laterality: unspecified laterality Qualified Code(s): C50.919 - Malignant neoplasm of unspecified site of unspecified female breast (4) Pancytopenia Assessment/Plan: Cont to monitor labs Code(s): D61.818 - OTHER PANCYTOPENIA (5) Pneumonia Code(s): J18.9 - PNEUMONIA, UNSPECIFIED ORGANISM Qualifiers: Pneumonia type: due to unspecified organism Laterality: bilateral Lung location: unspecified part of lung Qualified Code(s): J18.9 - Pneumonia, unspecified organism (6) Sepsis Code(s): A41.9 - SEPSIS, UNSPECIFIED ORGANISM
[2018-02-04] MEDS: morphine SULFATE 4 MG/ML VIAL IVPUSH PRN ×4 (01:40→11:43)
[2018-02-04 06:25] LABS: BASO % 0.1 % (0-2.0); EOS % 0.2 % (0-4.5); HEMATOCRIT 22.7 % (32.4-45.2); HEMOGLOBIN 7.8 GM/dL (10.7-15.3); LYMPH % 1.9 % (8-40); MCH 33.2 pg (25.7-33.7); MCHC 34.3 g/dl (32.0-36.0); MEAN CELL VOLUME 96.6 fl (80-96); MEAN PLT VOLUME 8.1 fl (7.5-11.1); MONO % 4.3 % (3.8-10.2); NEUT % 93.5 % (42.8-82.8); RBC 2.35 M/mm3 (3.60-5.2); WHITE BLOOD COUNT 3.3 K/mm3 (4.0-10.0)
[2018-02-04 06:31] LABS: PLATELET COUNT 23 K/MM3 (134-434)
[2018-02-04 06:51] LABS: ALBUMIN 2.1 g/dl (3.4-5.0); ANION GAP 3 (8-16); BLOOD UREA NITROGEN 16 mg/dL (7-18); CALCIUM 8.5 mg/dL (8.5-10.1); CHLORIDE 93 mmol/L (98-107); CO2 40 mmol/L (21-32); CREATININE 0.3 mg/dL (0.55-1.02); GLUCOSE,RANDOM 280 mg/dL (74-106); MAGNESIUM 2.2 mg/dL (1.8-2.4); PHOSPHOROUS 3.1 mg/dL (2.5-4.9); POTASSIUM 4.5 mmol/L (3.5-5.1); SGOT/AST 11 U/L (15-37); SGPT/ALT 31 U/L (12-78); SODIUM 136 mmol/L (136-145)
[2018-02-04 06:53] LABS: ALK PHOS 211 U/L (45-117); BILIRUBIN,TOTAL 0.3 mg/dL (0.2-1.0)
--- NOTE | 2018-02-04 07:34 | PN ---
Progress Note (short form) - Note Progress Note: Chief Complaint: Events noted, notes reviewed, lethargic but arousable, moderate respiratory distress/tachypnea on 100% non re-breather mask, sinus rhythm noted sinus tachycardia History of Present Illness: Seen and examined in the ICU. Events noted, notes reviewed, lethargic but arousable, moderate respiratory distress/tachypnea on 100% non re-breather mask , sinus rhythm noted sinus tachycardia Chest x-ray form this AM noted, worsening ossifications bilaterally Echocardiography revealed normal LV size and function, with trace to mild MR Medications: Current Medications Escitalopram Oxalate (Lexapro -) 10 mg PO DAILY [facility] Last Admin: 02/03/18 09:18 Dose: 10 mg Methylprednisolone Sodium Succinate (Solu-Medrol -) 40 mg IVPUSH DAILY [facility] Last Admin: 02/03/18 09:18 Dose: 40 mg Morphine Sulfate (Morphine Sulfate) 1 mg IVPUSH Q1H PRN PRN Reason: PAIN LEVEL 1 - 3 Last Admin: 02/04/18 05:03 Dose: 1 mg Review of Systems Unable to obtain, lethargic Vital Signs: Last Vital Signs Temp Pulse Resp BP Pulse Ox 98.2 F 115 H 15 115/89 93 L 02/04/18 02:00 02/04/18 06:00 02/04/18 06:00 02/04/18 06:00 02/04/18 05:00 Intake & Output 02/01/18 02/02/18 02/03/18 02/04/18 23:59 23:59 23:59 23:59 Intake Total 30 960 300 Output Total 500 3600 1700 Balance -470 -2640 -1400 Constitutional: No Distress, Calm, Thin Neck: Supple Negative JVD Respiratory: Bilateral Course Crepitus Cardiovascular: S1 S2 Regular Rate and Rhythm Tachycardia Gastrointestinal: Soft, Benign Normal Bowel Sounds Ext: No Edema Labs: CBC, BMP 02/04/18 05:30 02/04/18 05:30 Assessment/Plan ASSESSMENT: 1. Acute Hypoxic Respiratory Failure related to probable pneumonia, as outlined in prior notes rule out lymphangitic spread based on chest x-ray finding and clinical exam 2. Neutropenic Septic Shock, resolved 3. Pancytopenia related to probable chemotherapy 4. Metastatic Breast carcinoma, extensive bone mets on abemaciclib post XRT PLAN: 1. Transfuse and maintain Hg equal or > 8.0 2. Monitor Platelet count and transfuse as needed 3. Consider prn diuretics 4. Overall poor prognosis and outcome, consider supportive/comfort care in view of advanced disease Joselin Sanchez MD
[2018-02-04 09:44] LABS: ANISOCYTOSIS 3+; MACROCYTOSIS 0; PLATELET ESTIMATE DECREASED
--- NOTE | 2018-02-04 10:01 | PN ---
Physical Exam: SUBJECTIVE: Patient seen and examined in the ICU. Appears short of breath but says she is feeling okay. Further discussion with family last night per ICU resident supervisor [employer]. Still no definitive decision on GOC. Pt remains full code at this time. OBJECTIVE: Vital Signs Period Temp Pulse Resp BP Sys/Langley Pulse Ox Last 24 Hr 98 F-98.4 F 110-130 15-33 110-134/75-89 89-93 GENERAL: Intubated and sedated HEAD: Normal with no signs of trauma. ENT: Ears normal, nares patent, oropharynx clear without exudates, moist mucous membranes. NECK: Trachea midline, supple. LUNGS: Breath sounds equal, diffuse rales and rhonchi worse in RUL, no accessory muscle use. HEART: Tachycardic, S1, S2 without murmur, rub or gallop. ABDOMEN: Soft, nontender, nondistended, normoactive bowel sounds, no guarding, no rebound, no hepatosplenomegaly, no masses. EXTREMITIES: petechiae noted on extremities. 2+ pulses, warm, well-perfused, no edema. SKIN: Warm, dry, normal turgor, petechiae as above Laboratory Results - last 24 hr 02/03/18 02/04/18 02/04/18 05:30 05:30 05:30 WBC 3.3 L RBC 2.35 L Hgb 7.8 L Hct 22.7 L MCV 96.6 H MCH 33.2 MCHC 34.3 RDW 23.0 H Plt Count 23 L* D MPV 8.1 Absolute Neuts (auto) 3.1 Neutrophils % 93.5 H Neutrophils % (Manual) 90.1 H 88.9 H Band Neutrophils % 3.9 2.0 Lymphocytes % 1.9 L Lymphocytes % (Manual) 3.0 L D 3.0 L Monocytes % 4.3 Monocytes % (Manual) 1 L 6 D Eosinophils % 0.2 Eosinophils % (Manual) 0.0 0.0 Basophils % 0.1 Basophils % (Manual) 0.0 0.0 Myelocytes % (Man) 1 D 0 D Promyelocytes % (Man) 0 0 Blast Cells % (Manual) 0 0 Nucleated RBC % 0 Metamyelocytes 0 0 Hypochromia 1+ 2+ Platelet Estimate Decreased Decreased Polychromasia 3+ 1+ Poikilocytosis 1+ 0 Anisocytosis 3+ 3+ Microcytosis 3+ 2+ Macrocytosis 0 0 Rouleaux 1+ Sodium 136 Potassium 4.5 Chloride 93 L Carbon Dioxide 40 H Anion Gap 3 L BUN 16 Creatinine 0.3 L Creat Clearance w eGFR > 60 Random Glucose 280 H Calcium 8.5 Phosphorus 3.1 Magnesium 2.2 Total Bilirubin 0.3 AST 11 L ALT 31 Alkaline Phosphatase 211 H D Total Protein 6.0 L Albumin 2.1 L Active Medications Generic Name Dose Route Start Last Admin Trade Name Dakotaq PRN Reason Stop Dose Admin Escitalopram Oxalate 10 mg 02/02/18 13:30 02/03/18 09:18 Lexapro - PO 10 mg DAILY TYSHAWN Administration Methylprednisolone Sodium Succinate 40 mg 01/26/18 10:00 02/03/18 09:18 Solu-Medrol - IVPUSH 40 mg DAILY TYSHAWN Administration Morphine Sulfate 1 mg 02/03/18 19:57 02/04/18 05:03 Morphine Sulfate IVPUSH 1 mg Q1H PRN Administration PAIN LEVEL 1 - 3 ASSESSMENT/PLAN: 58 yo female with recent recurrence of Breast CA admitted to the ICU for acute hypoxic respiratory failure and pancytopenia. Neuro -Sedated and intubated. initially given paralysis with 30 mg of rocuronium after intubation. Respiratory -Acute hypoxic respiratory failure Intubated and sedated Solu-medrol 40 mg Daily -Pt expressed her wishes to be intubated and sedated at this time with the goal of further medical management -Will consider bronchoscopy on Tuesday after noncontrast CT chest today or tomorrow. Breast CA -Oncology consulted -Irregularities unchanged on CXR (02/02) repeat CXR as one was not done this morning -will order CT chest if pt becomes more stable Thrombocytopenia -Plt count 23 today -Transfuse if below 15 (if <50 if bleeding) -Monitor CBC in AM Volume Overload -Received Lasix - resolved FEN -Fluid: No need for fluid at this time -Electrolytes: No electrolyte abnormalities at this time -Nutrition: NPO as patient was intubated today Disposition -Continue to monitor in the ICU for now. prognosis is seemingly poor. Problem List - Problems (1) Acute respiratory failure with hypoxia Code(s): J96.01 - ACUTE RESPIRATORY FAILURE WITH HYPOXIA (2) Breast cancer Code(s): C50.919 - MALIGNANT NEOPLASM OF UNSP SITE OF UNSPECIFIED FEMALE BREAST Qualifiers: Breast location: unspecified site of breast Estrogen receptor status: unspecified Patient sex: female Laterality: unspecified laterality Qualified Code(s): C50.919 - Malignant neoplasm of unspecified site of unspecified female breast (3) Hypokalemia Code(s): E87.6 - HYPOKALEMIA (4) Pancytopenia due to antineoplastic chemotherapy Code(s): D61.810 - ANTINEOPLASTIC CHEMOTHERAPY INDUCED PANCYTOPENIA; T45.1X5A - ADVERSE EFFECT OF ANTINEOPLASTIC AND IMMUNOSUP DRUGS, INIT (5) Thrombocytopenia Code(s): D69.6 - THROMBOCYTOPENIA, UNSPECIFIED Visit type - Emergency Visit Emergency Visit: Yes ED Registration Date: 01/16/18 Care time: The patient presented to the Emergency Department on the above date and was hospitalized for further evaluation of their emergent condition. - New Patient This patient is new to me today: No - Critical Care Critical Care patient: Yes Total Critical Care Time (in minutes): 120 Critical Care Statement: The care of this patient involved high complexity decision making to prevent further life threatening deterioration of the patient 's condition and/or to evaluate & treat vital organ system(s) failure or risk of failure.
--- NOTE | 2018-02-04 10:21 | PN ---
Teaching Attending Note Name of Resident: Paul Rodriguez ATTENDING PHYSICIAN STATEMENT I saw and evaluated the patient. I reviewed the resident's note and discussed the case with the resident. I agree with the resident's findings and plan as documented. SUBJECTIVE: Patient seen and examined in the ICU. Remains on significant high flow requirements and intermittently 100% NRBM. Awake and alert. Refusing to discuss further GOC. CXR: No gross change in bilateral airspace disease Intake & Output 02/01/18 02/02/18 02/03/18 02/04/18 23:59 23:59 23:59 23:59 Intake Total 30 960 300 300 Output Total 500 3600 1700 600 Balance -470 -2640 -1400 -300 Last Vital Signs Temp Pulse Resp BP Pulse Ox 98.2 F 126 H 31 H 128/87 92 L 02/04/18 02:00 02/04/18 08:00 02/04/18 08:00 02/04/18 08:00 02/04/18 07:48 Active Medications Escitalopram Oxalate (Lexapro -) 10 mg PO DAILY [facility] Last Admin: 02/03/18 09:18 Dose: 10 mg Methylprednisolone Sodium Succinate (Solu-Medrol -) 40 mg IVPUSH DAILY [facility] Last Admin: 02/03/18 09:18 Dose: 40 mg Morphine Sulfate (Morphine Sulfate) 1 mg IVPUSH Q1H PRN PRN Reason: PAIN LEVEL 1 - 3 Last Admin: 02/04/18 05:03 Dose: 1 mg Gen: Tachypneic on HFOT Heart: tachycardic, regular Lung: diffuse rales/rhonchi, no wheezes Abd: soft, nontender Ext: no edema Laboratory Results - last 24 hr 02/03/18 02/04/18 02/04/18 05:30 05:30 05:30 WBC 3.3 L RBC 2.35 L Hgb 7.8 L Hct 22.7 L MCV 96.6 H MCH 33.2 MCHC 34.3 RDW 23.0 H Plt Count 23 L* D MPV 8.1 Absolute Neuts (auto) 3.1 Neutrophils % 93.5 H Neutrophils % (Manual) 90.1 H 88.9 H Band Neutrophils % 3.9 2.0 Lymphocytes % 1.9 L Lymphocytes % (Manual) 3.0 L D 3.0 L Monocytes % 4.3 Monocytes % (Manual) 1 L 6 D Eosinophils % 0.2 Eosinophils % (Manual) 0.0 0.0 Basophils % 0.1 Basophils % (Manual) 0.0 0.0 Myelocytes % (Man) 1 D 0 D Promyelocytes % (Man) 0 0 Blast Cells % (Manual) 0 0 Nucleated RBC % 0 Metamyelocytes 0 0 Hypochromia 1+ 2+ Platelet Estimate Decreased Decreased Polychromasia 3+ 1+ Poikilocytosis 1+ 0 Anisocytosis 3+ 3+ Microcytosis 3+ 2+ Macrocytosis 0 0 Rouleaux 1+ Sodium 136 Potassium 4.5 Chloride 93 L Carbon Dioxide 40 H Anion Gap 3 L BUN 16 Creatinine 0.3 L Creat Clearance w eGFR > 60 Random Glucose 280 H Calcium 8.5 Phosphorus 3.1 Magnesium 2.2 Total Bilirubin 0.3 AST 11 L ALT 31 Alkaline Phosphatase 211 H D Total Protein 6.0 L Albumin 2.1 L ASSESSMENT AND PLAN: Acute Hypoxic Respiratory Failure Pneumonia Neutropenic Septic Shock Pancytopenia Coagulopathy Metastatic Breast CA: suspected Lung mets Volume Overload - Continue/titrate HF NC O2; low threshold for intubation if patient allows - Lasix - transfuse as needed for Hgb < 7, Plt < 15 (50 if bleeding) - inhaled bronchodilators - Steroid - ICU monitoring - LTAC evaluation - Overall prognosis appears poor - Patient / family to further decide on GOC, no decisions have been made and our treatment interventions have seems to reach its limit. No clinical improvement but slow and progressive deterioration of overall condition. Dr Sosa Critical care time spent in reviewing chart, evaluating patient and formulating plan - 36 minutes.
[2018-02-04] MEDS: methylPREDNISolone NA SUCC 40 MG/1 ML VIAL IVPUSH SCH (10:24)
[2018-02-04] MEDS: ESCITALOPRAM OXALATE 10 MG TABLET (FP) PO SCH (10:27)
[2018-02-04] MEDS ORDERED: MIDAZOLAM HCL 5 MG/1 ML Single Dose Vial IVPUSH ONE (11:36)
[2018-02-04] MEDS ORDERED: PROPOFOL 200 MG/20 ML VIAL IVPUSH ONE (11:40)
[2018-02-04] MEDS ORDERED: PROPOFOL 1,000,000 MCG/100 ML VIAL ONE (11:46)
[2018-02-04] MEDS ORDERED: ROCURONIUM BROMIDE 50 MG/5 ML VIAL IV ONE ×3 (12:21→17:15)
[2018-02-04] MEDS: PROPOFOL 1,000,000 MCG/100 ML VIAL IVPB SCH (12:35)
--- NOTE | 2018-02-04 12:55 | PROC ---
Intubation - Intubation Reason for Intubation: Respiratory Insufficiency, Respiratory Failure Intubation Method: orotracheal Blade used: Glidescope Tube Size (cm): 8.0 Tube position @ lip (cm): 22 Tube position confirmed by: Direct visualization, CO2 detector, Chest x-ray, Breath sounds Breath Sounds after Intubation: equal Post Intubation Xray: Yes (ordered)
[2018-02-04 14:50] LABS: ARTERIAL BLD GAS O2 SATURATION 87.5 % (90-98.9); ARTERIAL BLOOD GAS PO2 63.2 mmHg (80-100); ARTERIAL BLOOD GAS pH 7.26 (7.35-7.45)
[2018-02-04 14:58] LABS: ALLENS TEST POSITIVE
[2018-02-04 15:01] LABS: ARTERIAL BLOOD GAS PCO2 93.5 mmHg (35-45)
[2018-02-04] MEDS ORDERED: CISATRACURIUM BESYLATE 200 MG/20 ML VIAL IV SCH ×2 (15:15→18:30)
[2018-02-04] MEDS ORDERED: fentaNYL CITRATE 250 MCG/5 ML VIAL ONE ×2 (15:20→15:25)
[2018-02-04] MEDS: FENTANYL INJECTION 500 MCG in DEXTROSE 5%-WATER - 90 ML IVPB SCH ×2 (15:37→21:58)
[2018-02-04 15:42] LABS: ARTERIAL BLD GAS O2 SATURATION 96.2 % (90-98.9); ARTERIAL BLOOD GAS BASE EXCESS 11.8 meq/l (-2-2)
[2018-02-04 15:43] LABS: ALLENS TEST POSITIVE
[2018-02-04 15:46] LABS: ARTERIAL BLOOD GAS PCO2 83.4 mmHg (35-45)
--- NOTE | 2018-02-04 16:50 | PN ---
Progress Note, Physician History of Present Illness: Pt seen and examined. She is now intubated, sedated. Afebrile. - Current Medication List Current Medications: Active Medications Cisatracurium Besylate (Nimbex -) 37.5 mg IV ASDIR [facility] Escitalopram Oxalate (Lexapro -) 10 mg PO DAILY [facility] Last Admin: 02/04/18 10:27 Dose: Not Given Propofol (Diprivan -) 1,000,000 mcg in 100 mls @ 1.485 mls/hr IVPB TITR [facility]; Protocol Last Titration: 02/04/18 13:37 Dose: 10 mcg/kg/min, 2.969 mls/hr Fentanyl 500 mcg/ Dextrose 100 mls @ 5 mls/hr IVPB TITR [facility] Stop: 02/05/18 15:29 Last Admin: 02/04/18 15:37 Dose: 5 mls/hr Methylprednisolone Sodium Succinate (Solu-Medrol -) 40 mg IVPUSH DAILY [facility] Last Admin: 02/04/18 10:24 Dose: 40 mg Morphine Sulfate (Morphine Sulfate) 1 mg IVPUSH Q1H PRN PRN Reason: PAIN LEVEL 1 - 3 Last Admin: 02/04/18 11:43 Dose: 1 mg - Objective Vital Signs: Vital Signs Temperature 98.6 F 02/04/18 13:41 Pulse Rate 130 H 02/04/18 15:00 Respiratory Rate 31 H 02/04/18 15:15 Blood Pressure 136/81 02/04/18 15:00 O2 Sat by Pulse Oximetry (%) 99 02/04/18 13:00 Constitutional: Yes: Other (sedated) Cardiovascular: Yes: Tachycardia Respiratory: Yes: Other (b/l air entry) Gastrointestinal: Yes: Normal Bowel Sounds, Soft Neurological: Yes: Other (sedated) Labs: CBC, BMP 02/04/18 05:30 02/04/18 05:30 INR, PTT INR 1.10 (0.82-1.09) 01/28/18 05:30 Fibrinogen 486.0 mg/dL (238-498) D 01/28/18 05:30 - ....Imaging X-ray: Report Reviewed Problem List - Problems (1) Acute respiratory failure with hypoxia Code(s): J96.01 - ACUTE RESPIRATORY FAILURE WITH HYPOXIA (2) Altered mental status Code(s): R41.82 - ALTERED MENTAL STATUS, UNSPECIFIED Qualifiers: Altered mental status type: unspecified Qualified Code(s): R41.82 - Altered mental status, unspecified (3) Breast cancer Code(s): C50.919 - MALIGNANT NEOPLASM OF UNSP SITE OF UNSPECIFIED FEMALE BREAST Qualifiers: Breast location: unspecified site of breast Estrogen receptor status: unspecified Patient sex: female Laterality: unspecified laterality Qualified Code(s): C50.919 - Malignant neoplasm of unspecified site of unspecified female breast (4) Pancytopenia due to antineoplastic chemotherapy Code(s): D61.810 - ANTINEOPLASTIC CHEMOTHERAPY INDUCED PANCYTOPENIA; T45.1X5A - ADVERSE EFFECT OF ANTINEOPLASTIC AND IMMUNOSUP DRUGS, INIT (5) Pneumonia Code(s): J18.9 - PNEUMONIA, UNSPECIFIED ORGANISM Qualifiers: Pneumonia type: due to unspecified organism Laterality: bilateral Lung location: unspecified part of lung Qualified Code(s): J18.9 - Pneumonia, unspecified organism Assessment/Plan Acute Hypoxic Respiratory Failure s/p intubation Pneumonia/septic shock - treated Pancytopenia Coagulopathy Metastatic Breast CA with likely lung metastasis - pt s/p IV antibiotics, continue monitor vitals - intubated/sedated - continue supportive care management in ICU
[2018-02-04] MEDS ORDERED: MINERAL OIL/PETROLATUM,WHITE 3.5 GM TUBE OU PRN (16:53)
[2018-02-04] MEDS ORDERED: NEOSTIGMINE METHYLSULFATE 0.5 MG/1 ML - 10 ML MDV IVPUSH ONE (18:30)
[2018-02-04] MEDS ORDERED: CISATRACURIUM BESYLATE 10 MG/5 ML VIAL IV SCH ×2 (18:30→19:45)
[2018-02-04] MEDS ORDERED: GLYCOPYRROLATE 0.2 MG/1 ML VIAL IM ONE (18:30)
[2018-02-04] MEDS ORDERED: CISATRACURIUM IV SCH (19:45)
--- NOTE | 2018-02-04 23:33 | PN ---
Progress Note, Physician History of Present Illness: Pt remains intubated - Current Medication List Current Medications: Active Medications Artificial Tears (Artificial Tears Ointment -) 1 applic OU HS PRN PRN Reason: DRY EYES Artificial Tears (Artificial Tears) 1 drop OU Q6H PRN PRN Reason: DRY EYES Escitalopram Oxalate (Lexapro -) 10 mg PO DAILY [facility] Last Admin: 02/04/18 10:27 Dose: Not Given Propofol (Diprivan -) 1,000,000 mcg in 100 mls @ 1.485 mls/hr IVPB TITR [facility]; Protocol Last Titration: 02/04/18 17:00 Dose: 40 mcg/kg/min, 11.877 mls/hr Fentanyl 500 mcg/ Dextrose 100 mls @ 5 mls/hr IVPB TITR [facility] Stop: 02/05/18 15:29 Last Admin: 02/04/18 21:58 Dose: 1 mls/hr Methylprednisolone Sodium Succinate (Solu-Medrol -) 40 mg IVPUSH DAILY [facility] Last Admin: 02/04/18 10:24 Dose: 40 mg Morphine Sulfate (Morphine Sulfate) 1 mg IVPUSH Q1H PRN PRN Reason: PAIN LEVEL 1 - 3 Last Admin: 02/04/18 11:43 Dose: 1 mg - Objective Vital Signs: Vital Signs Temperature 96.8 F L 02/04/18 23:00 Pulse Rate 117 H 02/04/18 22:00 Respiratory Rate 20 02/04/18 23:00 Blood Pressure 102/70 02/04/18 23:00 O2 Sat by Pulse Oximetry (%) 94 L 02/04/18 22:00 Neck: Yes: WNL, Supple Cardiovascular: Yes: Tachycardia Respiratory: Yes: Diminished Gastrointestinal: Yes: WNL, Normal Bowel Sounds, Soft Labs: CBC, BMP 02/04/18 05:30 02/04/18 05:30 INR, PTT INR 1.10 (0.82-1.09) 01/28/18 05:30 Fibrinogen 486.0 mg/dL (238-498) D 01/28/18 05:30 Problem List - Problems (1) Acute respiratory failure with hypoxia Assessment/Plan: Pt remains intubated and sedated Poor prognosis Cont IV steroids/nebulizers Code(s): J96.01 - ACUTE RESPIRATORY FAILURE WITH HYPOXIA (2) Sepsis Assessment/Plan: Resolved Pt off antibxs Cultures remain negative Code(s): A41.9 - SEPSIS, UNSPECIFIED ORGANISM (3) Pancytopenia Assessment/Plan: Cont to monitor labs Code(s): D61.818 - OTHER PANCYTOPENIA (4) Altered mental status Assessment/Plan: Multifactorial Due to infectious/metabolic encephalopathy Code(s): R41.82 - ALTERED MENTAL STATUS, UNSPECIFIED Qualifiers: Altered mental status type: unspecified Qualified Code(s): R41.82 - Altered mental status, unspecified (5) Breast cancer Code(s): C50.919 - MALIGNANT NEOPLASM OF UNSP SITE OF UNSPECIFIED FEMALE BREAST Qualifiers: Breast location: unspecified site of breast Estrogen receptor status: unspecified Patient sex: female Laterality: unspecified laterality Qualified Code(s): C50.919 - Malignant neoplasm of unspecified site of unspecified female breast (6) Pneumonia Assessment/Plan: ?Lung mets Pt is off antibxs Code(s): J18.9 - PNEUMONIA, UNSPECIFIED ORGANISM Qualifiers: Pneumonia type: due to unspecified organism Laterality: bilateral Lung location: unspecified part of lung Qualified Code(s): J18.9 - Pneumonia, unspecified organism
[2018-02-05] MEDS ORDERED: VECURONIUM BROMIDE 50 MG in DEXTROSE 5%-WATER - 250 ML IVPB SCH (02:00)
[2018-02-05 03:00] LABS: ARTERIAL BLOOD GAS BASE EXCESS 12.8 meq/l (-2-2); ARTERIAL BLOOD GAS PO2 68.8 mmHg (80-100)
[2018-02-05 03:01] LABS: ALLENS TEST POSITIVE
[2018-02-05 03:03] LABS: ARTERIAL BLOOD GAS pH 7.24 (7.35-7.45)
[2018-02-05] MEDS ORDERED: ALBUTEROL SO4 8 GM HFA INHALER IH PRN (04:10)
[2018-02-05] MEDS ORDERED: ALBUTEROL SO4 0.083% IH SOL 2.5 MG/3 ML VIAL.NEB. NEB ONE (04:14)
[2018-02-05] MEDS ORDERED: VASOPRESSIN 20 UNITS/ML VIAL IV ONE (04:45)
[2018-02-05 05:08] LABS: ARTERIAL BLD GAS O2 SATURATION 93.4 % (90-98.9); ARTERIAL BLOOD GAS BASE EXCESS 13.3 meq/l (-2-2)
[2018-02-05 05:09] LABS: ARTERIAL BLOOD GAS PO2 64.4 mmHg (80-100); ARTERIAL BLOOD GAS pH 7.32 (7.35-7.45)
[2018-02-05] MEDS ORDERED: ALBUTEROL SO4 0.083% IH SOL 2.5 MG/3 ML VIAL.NEB. NEB PRN (05:09)
[2018-02-05 05:10] LABS: ALLENS TEST POSITIVE
[2018-02-05 05:12] LABS: ARTERIAL BLOOD GAS PCO2 82.5 mmHg (35-45)
[2018-02-05 06:10] LABS: BASO % 0.2 % (0-2.0); HEMATOCRIT 20.2 % (32.4-45.2); LYMPH % 1.2 % (8-40); MCH 33.4 pg (25.7-33.7); MCHC 34.3 g/dl (32.0-36.0); MEAN CELL VOLUME 97.4 fl (80-96); MEAN PLT VOLUME 8.8 fl (7.5-11.1); MONO % 4.2 % (3.8-10.2); NEUT % 94.4 % (42.8-82.8); RBC 2.08 M/mm3 (3.60-5.2); RDW 23.2 % (11.6-15.6); WHITE BLOOD COUNT 3.3 K/mm3 (4.0-10.0)
[2018-02-05 06:17] LABS: HEMOGLOBIN 6.9 GM/dL (10.7-15.3); PLATELET COUNT 14 K/MM3 (134-434)
[2018-02-05] MEDS: ARTIFICIAL TEARS (POLYVINYL ALCOHOL 1.4%) OPTH DROPS OU PRN ×2 (06:29)
[2018-02-05 07:04] LABS: ALBUMIN 1.8 g/dl (3.4-5.0); ANION GAP 7 (8-16); BLOOD UREA NITROGEN 35 mg/dL (7-18); CHLORIDE 93 mmol/L (98-107); CO2 41 mmol/L (21-32); POTASSIUM 4.5 mmol/L (3.5-5.1); SODIUM 141 mmol/L (136-145)
[2018-02-05 07:09] LABS: ALK PHOS 179 U/L (45-117); BILIRUBIN,TOTAL 0.3 mg/dL (0.2-1.0); CREATININE 0.7 mg/dL (0.55-1.02); PHOSPHOROUS 4.5 mg/dL (2.5-4.9); SGOT/AST 6 U/L (15-37); SGPT/ALT 23 U/L (12-78); TOT PROT 5.3 g/dl (6.4-8.2)
[2018-02-05 07:19] LABS: GLUCOSE,RANDOM 313 mg/dL (74-106)
--- NOTE | 2018-02-05 08:03 | PN ---
Progress Note (short form) - Note Progress Note: Chief Complaint: Events noted, notes reviewed, intubated and sedated, sinus rhythm noted sinus tachycardia persists History of Present Illness: Seen and examined in the ICU. Events noted, notes reviewed, intubated and sedated, sinus rhythm noted sinus tachycardia persists Chest x-ray post intubation noted, some improvement noted Echocardiography revealed normal LV size and function, with trace to mild MR Medications: Current Medications Albuterol Sulfate (Ventolin 0.083% Nebulizer Soln -) 1 amp NEB Q4H PRN PRN Reason: SHORT OF BREATH/WHEEZING Last Admin: 02/05/18 04:00 Dose: 1 amp Artificial Tears (Artificial Tears Ointment -) 1 applic OU HS PRN PRN Reason: DRY EYES Last Admin: 02/04/18 22:00 Dose: 1 applic Artificial Tears (Artificial Tears) 1 drop OU Q6H PRN PRN Reason: DRY EYES Last Admin: 02/05/18 06:29 Dose: 1 drop Escitalopram Oxalate (Lexapro -) 10 mg PO DAILY [facility] Last Admin: 02/04/18 10:27 Dose: Not Given Propofol (Diprivan -) 1,000,000 mcg in 100 mls @ 1.485 mls/hr IVPB TITR [facility]; Protocol Last Titration: 02/04/18 17:00 Dose: 40 mcg/kg/min, 11.877 mls/hr Fentanyl 500 mcg/ Dextrose 100 mls @ 5 mls/hr IVPB TITR [facility] Stop: 02/05/18 15:29 Last Admin: 02/04/18 21:58 Dose: 1 mls/hr Vecuronium [place] 50 mg/ (Dextrose) 250 mls @ 14.84 mls/hr IVPB TITR [facility]; Protocol Last Admin: 02/05/18 02:20 Dose: 1 mcg/kg/min, 14.84 mls/hr Methylprednisolone Sodium Succinate (Solu-Medrol -) 40 mg IVPUSH DAILY [facility] Last Admin: 02/04/18 10:24 Dose: 40 mg Morphine Sulfate (Morphine Sulfate) 1 mg IVPUSH Q1H PRN PRN Reason: PAIN LEVEL 1 - 3 Last Admin: 02/04/18 11:43 Dose: 1 mg Review of Systems Unable to obtain, lethargic Vital Signs: Last Vital Signs Temp Pulse Resp BP Pulse Ox 98.1 F 145 H 25 H 104/65 94 L 02/05/18 06:00 02/05/18 06:00 02/05/18 07:37 02/05/18 06:00 02/04/18 22:00 Intake & Output 02/02/18 02/03/18 02/04/18 02/05/18 23:59 23:59 23:59 23:59 Intake Total 960 300 400 140 Output Total 3600 1700 1300 650 Balance -2640 -1400 -900 -510 Weight 103 lb 9.876 oz Constitutional: No Distress, Calm, Thin Neck: Supple Negative JVD Respiratory: Bilateral Course Crepitus Cardiovascular: S1 S2 Regular Rate and Rhythm Tachycardia Gastrointestinal: Soft, Benign Normal Bowel Sounds Ext: No Edema Labs: CBC, BMP 02/05/18 05:30 02/05/18 05:30 Assessment/Plan ASSESSMENT: 1. Acute Hypoxic Respiratory Failure/intubated related to probable pneumonia vs. lymphangitic spread of carcinoma, as outlined in prior notes possible lymphangitic spread based on chest x-ray finding and clinical exam 2. Neutropenic Septic Shock, resolved 3. Pancytopenia related to probable chemotherapy, persistent 4. Metastatic Breast carcinoma, extensive bone mets on abemaciclib post XRT 5. Pre-renal azotemia 6. Sinus tachycardia, reactionary, multifactorial including respiratory failure/ hypoxia, anemia, pre-renal azotemia PLAN: 1. Transfuse and maintain Hg equal or > 8.0 2. Platelet transfusion as per hematology 3. Prn diuretics/Lasix 4. Overall poor prognosis and outcome 5. No therapy indicated for the above noted reactionary sinus tachycardia Joselin Sanchez MD
[2018-02-05 08:36] LABS: INR 1.27 (0.82-1.09); PROTHROMBIN TIME (PATIENT) 14.4 SEC (9.7-13.0)
--- NOTE | 2018-02-05 10:02 | PN ---
Teaching Attending Note Name of Resident: Spike Cruz ATTENDING PHYSICIAN STATEMENT I saw and evaluated the patient. I reviewed the resident's note and discussed the case with the resident. I agree with the resident's findings and plan as documented. SUBJECTIVE: Patient seen and examined in the ICU. Remains intubated on AC Mode of vent. Lung protective ventilation with 5cc/kg. Exceedingly elevated Pplat. (low 40's) Paralyzed on Vecuronium drip. TOF: 1 twitch. Noted severe anemia/thrombocytopenia. CXR: ETT in position / slight improvement in bilateral airspace disease Intake & Output 02/02/18 02/03/18 02/04/18 02/05/18 23:59 23:59 23:59 23:59 Intake Total 960 300 400 140 Output Total 3600 1700 1300 650 Balance -2640 -1400 -900 -510 Weight 103 lb 9.876 oz Last Vital Signs Temp Pulse Resp BP Pulse Ox 98.1 F 140 H 25 H 116/60 94 L 02/05/18 06:00 02/05/18 08:00 02/05/18 08:00 02/05/18 08:00 02/04/18 22:00 Active Medications Albuterol Sulfate (Ventolin 0.083% Nebulizer Soln -) 1 amp NEB Q4H PRN PRN Reason: SHORT OF BREATH/WHEEZING Last Admin: 02/05/18 04:00 Dose: 1 amp Artificial Tears (Artificial Tears Ointment -) 1 applic OU HS PRN PRN Reason: DRY EYES Last Admin: 02/04/18 22:00 Dose: 1 applic Artificial Tears (Artificial Tears) 1 drop OU Q6H PRN PRN Reason: DRY EYES Last Admin: 02/05/18 06:29 Dose: 1 drop Escitalopram Oxalate (Lexapro -) 10 mg PO DAILY [facility] Last Admin: 02/04/18 10:27 Dose: Not Given Propofol (Diprivan -) 1,000,000 mcg in 100 mls @ 1.485 mls/hr IVPB TITR [facility]; Protocol Last Titration: 02/04/18 17:00 Dose: 40 mcg/kg/min, 11.877 mls/hr Fentanyl 500 mcg/ Dextrose 100 mls @ 5 mls/hr IVPB TITR [facility] Stop: 02/05/18 15:29 Last Admin: 02/04/18 21:58 Dose: 1 mls/hr Vecuronium [place] 50 mg/ (Dextrose) 250 mls @ 14.84 mls/hr IVPB TITR [facility]; Protocol Last Admin: 02/05/18 02:20 Dose: 1 mcg/kg/min, 14.84 mls/hr Methylprednisolone Sodium Succinate (Solu-Medrol -) 40 mg IVPUSH DAILY [facility] Last Admin: 02/04/18 10:24 Dose: 40 mg Morphine Sulfate (Morphine Sulfate) 1 mg IVPUSH Q1H PRN PRN Reason: PAIN LEVEL 1 - 3 Last Admin: 02/04/18 11:43 Dose: 1 mg Gen: Intubated, sedated, paralyzed Heart: tachycardic, regular Lung: mechanically ventilated, diffuse rales/rhonchi, no wheezes Abd: soft, nontender Ext: no edema Laboratory Results - last 24 hr 02/04/18 02/04/18 02/05/18 14:05 14:40 02:30 WBC RBC Hgb Hct MCV MCH MCHC RDW Plt Count MPV Absolute Neuts (auto) Neutrophils % Lymphocytes % Monocytes % Eosinophils % Basophils % Nucleated RBC % PT with INR INR PTT (Actin FS) Anticoagulation Therapy No Result Required. Puncture Site No Result Required. Right radial Right radial ABG pH 7.30 L 7.26 L 7.24 L* ABG pCO2 at Pt Temp 83.4 H* D 93.5 H* 102.0 H* ABG pO2 at Pt Temp 90.0 63.2 L D 68.8 L ABG HCO3 39.7 H 40.5 H* 41.8 H* ABG O2 Sat (Measured) 96.2 87.5 L 93.0 ABG O2 Content 11.0 L 9.4 L* 9.6 L* ABG Base Excess 11.8 H 12.0 H 12.8 H Deejay Test Positive Positive Positive O2 Delivery Device No Result Required. Mech vent Vent Oxygen Flow Rate No Result Required. 90% 90 Vent Mode No Result Required. A/c A/c Vent Rate No Result Required. 12 20 Mechanical Rate No Result Required. Yes Yes PEEP 12.0 12.0 Pressure Support Vent No Result Required. 300 245 Sodium Potassium Chloride Carbon Dioxide Anion Gap BUN Creatinine Creat Clearance w eGFR Random Glucose Lactic Acid Calcium Phosphorus Magnesium Total Bilirubin AST ALT Alkaline Phosphatase Total Protein Albumin Crossmatch 02/05/18 02/05/18 02/05/18 04:20 05:30 05:30 WBC 3.3 L RBC 2.08 L Hgb 6.9 L* Hct 20.2 L MCV 97.4 H MCH 33.4 MCHC 34.3 RDW 23.2 H Plt Count 14 L* D MPV 8.8 Absolute Neuts (auto) 3.1 Neutrophils % 94.4 H Lymphocytes % 1.2 L D Monocytes % 4.2 Eosinophils % 0.0 D Basophils % 0.2 Nucleated RBC % 2 H PT with INR INR PTT (Actin FS) Anticoagulation Therapy Puncture Site Right radial ABG pH 7.32 L ABG pCO2 at Pt Temp 82.5 H* ABG pO2 at Pt Temp 64.4 L ABG HCO3 41.0 H* ABG O2 Sat (Measured) 93.4 ABG O2 Content 10.0 L ABG Base Excess 13.3 H Deejay Test Positive O2 Delivery Device Vent Oxygen Flow Rate 100% Vent Mode A/c Vent Rate 25 Mechanical Rate PEEP 12.0 Pressure Support Vent 245 Sodium Potassium Chloride Carbon Dioxide Anion Gap BUN Creatinine Creat Clearance w eGFR Random Glucose Lactic Acid 1.8 Calcium Phosphorus Magnesium Total Bilirubin AST ALT Alkaline Phosphatase Total Protein Albumin Crossmatch 02/05/18 02/05/18 02/05/18 05:30 05:30 05:30 WBC RBC Hgb Hct MCV MCH MCHC RDW Plt Count MPV Absolute Neuts (auto) Neutrophils % Lymphocytes % Monocytes % Eosinophils % Basophils % Nucleated RBC % PT with INR 14.40 H INR 1.27 H PTT (Actin FS) 20.6 L Anticoagulation Therapy Puncture Site ABG pH ABG pCO2 at Pt Temp ABG pO2 at Pt Temp ABG HCO3 ABG O2 Sat (Measured) ABG O2 Content ABG Base Excess Deejay Test O2 Delivery Device Oxygen Flow Rate Vent Mode Vent Rate Mechanical Rate PEEP Pressure Support Vent Sodium 141 Potassium 4.5 Chloride 93 L Carbon Dioxide 41 H Anion Gap 7 L BUN 35 H Creatinine 0.7 Creat Clearance w eGFR > 60 Random Glucose 313 H* Lactic Acid Calcium 8.0 L Phosphorus 4.5 Magnesium 2.0 Total Bilirubin 0.3 AST 6 L ALT 23 Alkaline Phosphatase 179 H D Total Protein 5.3 L Albumin 1.8 L Crossmatch 02/05/18 06:47 WBC RBC Hgb Hct MCV MCH MCHC RDW Plt Count MPV Absolute Neuts (auto) Neutrophils % Lymphocytes % Monocytes % Eosinophils % Basophils % Nucleated RBC % PT with INR INR PTT (Actin FS) Anticoagulation Therapy Puncture Site ABG pH ABG pCO2 at Pt Temp ABG pO2 at Pt Temp ABG HCO3 ABG O2 Sat (Measured) ABG O2 Content ABG Base Excess Deejay Test O2 Delivery Device Oxygen Flow Rate Vent Mode Vent Rate Mechanical Rate PEEP Pressure Support Vent Sodium Potassium Chloride Carbon Dioxide Anion Gap BUN Creatinine Creat Clearance w eGFR Random Glucose Lactic Acid Calcium Phosphorus Magnesium Total Bilirubin AST ALT Alkaline Phosphatase Total Protein Albumin Crossmatch See Detail ASSESSMENT AND PLAN: Acute Hypoxic Respiratory Failure Severe ARDS: exceedingly elevated Pplat despite lung protective ventilation Pneumonia Neutropenic Septic Shock Pancytopenia Coagulopathy Metastatic Breast CA: suspected Lung mets Volume Overload - Current vent settings - Vecuronium drip and follow TOF (need to see 1 twitch) - transfuse as needed for Hgb < 7, Plt < 15 (50 if bleeding) - inhaled bronchodilators - Steroids - ICU monitoring - Overall prognosis for meaningful survival appears grave: Would prefer not to escalate care as we are likely to cause more morbidity than benefit given her overall condition. Will discuss further with family. Dr Sosa Critical care time spent in reviewing chart, evaluating patient and formulating plan - 36 minutes.
--- NOTE | 2018-02-05 11:04 | PN ---
Progress Note, Physician History of Present Illness: events noted patient detoriated had to be intubated requiring high settings - Current Medication List Current Medications: Active Medications Albuterol Sulfate (Ventolin 0.083% Nebulizer Soln -) 1 amp NEB Q4H PRN PRN Reason: SHORT OF BREATH/WHEEZING Last Admin: 02/05/18 04:00 Dose: 1 amp Artificial Tears (Artificial Tears Ointment -) 1 applic OU HS PRN PRN Reason: DRY EYES Last Admin: 02/04/18 22:00 Dose: 1 applic Artificial Tears (Artificial Tears) 1 drop OU Q6H PRN PRN Reason: DRY EYES Last Admin: 02/05/18 06:29 Dose: 1 drop Escitalopram Oxalate (Lexapro -) 10 mg PO DAILY [facility] Last Admin: 02/04/18 10:27 Dose: Not Given Propofol (Diprivan -) 1,000,000 mcg in 100 mls @ 1.485 mls/hr IVPB TITR [facility]; Protocol Last Titration: 02/04/18 17:00 Dose: 40 mcg/kg/min, 11.877 mls/hr Fentanyl 500 mcg/ Dextrose 100 mls @ 5 mls/hr IVPB TITR [facility] Stop: 02/05/18 15:29 Last Admin: 02/04/18 21:58 Dose: 1 mls/hr Vecuronium [place] 50 mg/ (Dextrose) 250 mls @ 14.84 mls/hr IVPB TITR [facility]; Protocol Last Admin: 02/05/18 02:20 Dose: 1 mcg/kg/min, 14.84 mls/hr Methylprednisolone Sodium Succinate (Solu-Medrol -) 40 mg IVPUSH DAILY [facility] Last Admin: 02/04/18 10:24 Dose: 40 mg Morphine Sulfate (Morphine Sulfate) 1 mg IVPUSH Q1H PRN PRN Reason: PAIN LEVEL 1 - 3 Last Admin: 02/04/18 11:43 Dose: 1 mg - Objective Vital Signs: Vital Signs Temperature 98.1 F 02/05/18 06:00 Pulse Rate 140 H 02/05/18 08:00 Respiratory Rate 25 H 02/05/18 09:40 Blood Pressure 116/60 02/05/18 08:00 O2 Sat by Pulse Oximetry (%) 94 L 02/04/18 22:00 Constitutional: Yes: Other Cardiovascular: Yes: Regular Rate and Rhythm, Tachycardia Respiratory: Yes: Intubated, Mechanically Ventilated Gastrointestinal: Yes: Normal Bowel Sounds, Soft Musculoskeletal: Yes: WNL Extremities: Yes: WNL Neurological: Yes: Other Labs: CBC, BMP 02/05/18 05:30 02/05/18 05:30 INR, PTT INR 1.27 (0.82-1.09) H 02/05/18 05:30 Fibrinogen 486.0 mg/dL (238-498) D 01/28/18 05:30 Assessment/Plan pneumonia septic shock neutropenia resp failure hypoxia metastatic breast ca ac resp failure plan resp support monitor closely rest as per the team and icu monitor wbc and platelets onco on board continue monitoring physio incentive mahad prognosis does not look good cc time 40 min
--- NOTE | 2018-02-05 11:20 | PN ---
Physical Exam: SUBJECTIVE: Patient seen and examined at bedside. Intubated yesterday, sedated, on paralytics. OBJECTIVE: Vital Signs Temperature 98.1 F 02/05/18 06:00 Pulse Rate 140 H 02/05/18 08:00 Respiratory Rate 25 H 02/05/18 08:00 Blood Pressure 116/60 02/05/18 08:00 O2 Sat by Pulse Oximetry (%) 94 L 02/04/18 22:00 GENERAL: The patient is intubated, sedated, on paralytics. EYES: sclera anicteric, conjunctiva clear. ENT: Ears normal, nares patent. OG tube draining dark brown fluid. LUNGS: Auscultated anteriorly. Coarse breath sounds b/l HEART: Tachycardic, S1, S2 ABDOMEN: Soft, nontender, nondistended, hypoactive BS. EXTREMITIES: warm, well-perfused, no edema. NEUROLOGICAL: The patient is intubated, sedated, on paralytics. PSYCH:The patient is intubated, sedated, on paralytics. SKIN: Warm, dry Laboratory Results - last 24 hr 02/04/18 02/04/18 02/05/18 14:05 14:40 02:30 WBC RBC Hgb Hct MCV MCH MCHC RDW Plt Count MPV Absolute Neuts (auto) Neutrophils % Lymphocytes % Monocytes % Eosinophils % Basophils % Nucleated RBC % PT with INR INR PTT (Actin FS) Anticoagulation Therapy No Result Required. Puncture Site No Result Required. Right radial Right radial ABG pH 7.30 L 7.26 L 7.24 L* ABG pCO2 at Pt Temp 83.4 H* D 93.5 H* 102.0 H* ABG pO2 at Pt Temp 90.0 63.2 L D 68.8 L ABG HCO3 39.7 H 40.5 H* 41.8 H* ABG O2 Sat (Measured) 96.2 87.5 L 93.0 ABG O2 Content 11.0 L 9.4 L* 9.6 L* ABG Base Excess 11.8 H 12.0 H 12.8 H Deejay Test Positive Positive Positive O2 Delivery Device No Result Required. Mech vent Vent Oxygen Flow Rate No Result Required. 90% 90 Vent Mode No Result Required. A/c A/c Vent Rate No Result Required. 12 20 Mechanical Rate No Result Required. Yes Yes PEEP 12.0 12.0 Pressure Support Vent No Result Required. 300 245 Sodium Potassium Chloride Carbon Dioxide Anion Gap BUN Creatinine Creat Clearance w eGFR Random Glucose Lactic Acid Calcium Phosphorus Magnesium Total Bilirubin AST ALT Alkaline Phosphatase Total Protein Albumin Blood Type Antibody Screen Crossmatch 02/05/18 02/05/18 02/05/18 04:20 05:30 05:30 WBC 3.3 L RBC 2.08 L Hgb 6.9 L* Hct 20.2 L MCV 97.4 H MCH 33.4 MCHC 34.3 RDW 23.2 H Plt Count 14 L* D MPV 8.8 Absolute Neuts (auto) 3.1 Neutrophils % 94.4 H Lymphocytes % 1.2 L D Monocytes % 4.2 Eosinophils % 0.0 D Basophils % 0.2 Nucleated RBC % 2 H PT with INR INR PTT (Actin FS) Anticoagulation Therapy Puncture Site Right radial ABG pH 7.32 L ABG pCO2 at Pt Temp 82.5 H* ABG pO2 at Pt Temp 64.4 L ABG HCO3 41.0 H* ABG O2 Sat (Measured) 93.4 ABG O2 Content 10.0 L ABG Base Excess 13.3 H Deejay Test Positive O2 Delivery Device Vent Oxygen Flow Rate 100% Vent Mode A/c Vent Rate 25 Mechanical Rate PEEP 12.0 Pressure Support Vent 245 Sodium Potassium Chloride Carbon Dioxide Anion Gap BUN Creatinine Creat Clearance w eGFR Random Glucose Lactic Acid 1.8 Calcium Phosphorus Magnesium Total Bilirubin AST ALT Alkaline Phosphatase Total Protein Albumin Blood Type Antibody Screen Crossmatch 02/05/18 02/05/18 02/05/18 05:30 05:30 05:30 WBC RBC Hgb Hct MCV MCH MCHC RDW Plt Count MPV Absolute Neuts (auto) Neutrophils % Lymphocytes % Monocytes % Eosinophils % Basophils % Nucleated RBC % PT with INR 14.40 H INR 1.27 H PTT (Actin FS) 20.6 L Anticoagulation Therapy Puncture Site ABG pH ABG pCO2 at Pt Temp ABG pO2 at Pt Temp ABG HCO3 ABG O2 Sat (Measured) ABG O2 Content ABG Base Excess Deejay Test O2 Delivery Device Oxygen Flow Rate Vent Mode Vent Rate Mechanical Rate PEEP Pressure Support Vent Sodium 141 Potassium 4.5 Chloride 93 L Carbon Dioxide 41 H Anion Gap 7 L BUN 35 H Creatinine 0.7 Creat Clearance w eGFR > 60 Random Glucose 313 H* Lactic Acid Calcium 8.0 L Phosphorus 4.5 Magnesium 2.0 Total Bilirubin 0.3 AST 6 L ALT 23 Alkaline Phosphatase 179 H D Total Protein 5.3 L Albumin 1.8 L Blood Type Antibody Screen Crossmatch 02/05/18 06:47 WBC RBC Hgb Hct MCV MCH MCHC RDW Plt Count MPV Absolute Neuts (auto) Neutrophils % Lymphocytes % Monocytes % Eosinophils % Basophils % Nucleated RBC % PT with INR INR PTT (Actin FS) Anticoagulation Therapy Puncture Site ABG pH ABG pCO2 at Pt Temp ABG pO2 at Pt Temp ABG HCO3 ABG O2 Sat (Measured) ABG O2 Content ABG Base Excess Deejay Test O2 Delivery Device Oxygen Flow Rate Vent Mode Vent Rate Mechanical Rate PEEP Pressure Support Vent Sodium Potassium Chloride Carbon Dioxide Anion Gap BUN Creatinine Creat Clearance w eGFR Random Glucose Lactic Acid Calcium Phosphorus Magnesium Total Bilirubin AST ALT Alkaline Phosphatase Total Protein Albumin Blood Type O POSITIVE Antibody Screen Negative Crossmatch See Detail Active Medications Generic Name Dose Route Start Last Admin Trade Name Freq PRN Reason Stop Dose Admin Albuterol Sulfate 1 amp 02/05/18 05:09 02/05/18 04:00 Ventolin 0.083% Nebulizer Soln - NEB 1 amp Q4H PRN Administration SHORT OF BREATH/WHEEZING Artificial Tears 1 applic 02/04/18 16:53 02/04/18 22:00 Artificial Tears Ointment - OU 1 applic HS PRN Administration DRY EYES Artificial Tears 1 drop 02/04/18 16:53 02/05/18 06:29 Artificial Tears OU 1 drop Q6H PRN Administration DRY EYES Escitalopram Oxalate 10 mg 02/02/18 13:30 02/04/18 10:27 Lexapro - PO Not Given DAILY TYSHAWN Propofol 1,000,000 mcg in 100 mls @ 1.485 mls/hr 02/04/18 13:00 02/04/18 17: 00 Diprivan - IVPB 40 mcg/kg/min TITR TYSHAWN 11.877 mls/hr Titration Protocol 5 MCG/KG/MIN Fentanyl 500 mcg/ Dextrose 100 mls @ 5 mls/hr 02/04/18 15:30 02/04/18 21:58 IVPB 02/05/18 15:29 1 mls/hr TITR TYSHAWN Administration 25 MCG/HR Vecuronium [place] 50 mg/ 250 mls @ 14.84 mls/hr 02/05/18 02:00 02/05/18 02: 20 Dextrose IVPB 1 mcg/kg/min TITR TYSHAWN 14.84 mls/hr Administration Protocol 1 MCG/KG/MIN Methylprednisolone Sodium Succinate 40 mg 01/26/18 10:00 02/04/18 10:24 Solu-Medrol - IVPUSH 40 mg DAILY TYSHAWN Administration Morphine Sulfate 1 mg 02/03/18 19:57 02/04/18 11:43 Morphine Sulfate IVPUSH 1 mg Q1H PRN Administration PAIN LEVEL 1 - 3 ASSESSMENT/PLAN: 58 y/o F w/PMH of breast ca with recent recurrence admitted to ICU for acute hypoxic respiratory failure and pancytopenia. Intubated 02/04/18. Acute hypoxic respiratory failure secondary to likely breast ca with lung mets -Intubated yesterday, on 100% FiO2 and on 5cc / ideal body weight for TV currently. Plateau pressures still remain high. -c/w solumedrol 40 mg IV qd -Discussion held with family about further plans. -Will consider further plan with family -sedated -paralyzed with vecuronium Anemia -1 unit PRBC for today -monitor H/H Thrombocytopenia -1 unit platelets -monitor platelets -DVT ppx -SCDs -FEN -No fluids -Monitor electrolytes -NPO -Dispo: Monitor in ICU. Poor prognosis. Visit type - Emergency Visit Emergency Visit: Yes ED Registration Date: 01/16/18 Care time: The patient presented to the Emergency Department on the above date and was hospitalized for further evaluation of their emergent condition. - New Patient This patient is new to me today: Yes Date on this admission: 02/05/18 - Critical Care Critical Care patient: Yes Total Critical Care Time (in minutes): 45 Critical Care Statement: The care of this patient involved high complexity decision making to prevent further life threatening deterioration of the patient 's condition and/or to evaluate & treat vital organ system(s) failure or risk of failure.
[2018-02-05] MEDS: methylPREDNISolone NA SUCC 40 MG/1 ML VIAL IVPUSH SCH (11:34)
[2018-02-05] MEDS: ESCITALOPRAM OXALATE 10 MG TABLET (FP) PO SCH (11:34)
[2018-02-05 11:43] LABS: ANISOCYTOSIS 3+
[2018-02-05 11:44] LABS: PLATELET ESTIMATE DECREASED
--- NOTE | 2018-02-05 13:45 | PN ---
Progress Note (short form) - Note Progress Note: Extensive discussion between Dr. Sosa and family was had today discussing goals of care. Health care proxy, the , Conor Moya would like the patient to be comfortable and will make the patient DNR. He would also like to stop escalation of care at this time and also would not like to have any invasive procedures that carry risk of harm to the patient including central access catheter placement and use of pressors for blood pressure support.
[2018-02-05 14:00] LABS: ARTERIAL BLD GAS O2 SATURATION 98.5 % (90-98.9); ARTERIAL BLOOD GAS pH 7.23 (7.35-7.45)
[2018-02-05 14:21] LABS: ALLENS TEST POSITIVE
[2018-02-05] MEDS ORDERED: fentaNYL CITRATE 250 MCG/5 ML VIAL ONE (15:29)
[2018-02-05] MEDS: PROPOFOL 1,000,000 MCG/100 ML VIAL IVPB SCH (15:32)
[2018-02-05] MEDS: FENTANYL INJECTION 500 MCG in DEXTROSE 5%-WATER - 90 ML IVPB SCH (16:25)
--- NOTE | 2018-02-05 23:14 | PN ---
Progress Note, Physician History of Present Illness: Pt remains intubated - Current Medication List Current Medications: Active Medications Albuterol Sulfate (Ventolin 0.083% Nebulizer Soln -) 1 amp NEB Q4H PRN PRN Reason: SHORT OF BREATH/WHEEZING Last Admin: 02/05/18 04:00 Dose: 1 amp Artificial Tears (Artificial Tears Ointment -) 1 applic OU HS PRN PRN Reason: DRY EYES Last Admin: 02/04/18 22:00 Dose: 1 applic Artificial Tears (Artificial Tears) 1 drop OU Q6H PRN PRN Reason: DRY EYES Last Admin: 02/05/18 06:29 Dose: 1 drop Escitalopram Oxalate (Lexapro -) 10 mg PO DAILY TYSHAWN Last Admin: 02/05/18 11:34 Dose: Not Given Propofol (Diprivan -) 1,000,000 mcg in 100 mls @ 1.485 mls/hr IVPB TITR TYSHAWN; Protocol Last Admin: 02/05/18 15:32 Dose: 16.83 mcg/kg/min, 5 mls/hr Vecuronium [place] 50 mg/ (Dextrose) 250 mls @ 14.84 mls/hr IVPB TITR TYSHAWN; Protocol Last Titration: 02/05/18 21:48 Dose: 0.1 mcg/kg/min, 1.48 mls/hr Fentanyl 500 mcg/ Dextrose 100 mls @ 5 mls/hr IVPB TITR TYSHAWN; Protocol Last Admin: 02/05/18 16:25 Dose: 5 mls/hr Methylprednisolone Sodium Succinate (Solu-Medrol -) 40 mg IVPUSH DAILY TYSHAWN Last Admin: 02/05/18 11:34 Dose: 40 mg Morphine Sulfate (Morphine Sulfate) 1 mg IVPUSH Q1H PRN PRN Reason: PAIN LEVEL 1 - 3 Last Admin: 02/04/18 11:43 Dose: 1 mg - Objective Vital Signs: Vital Signs Temperature 97.3 F L 02/05/18 21:59 Pulse Rate 133 H 02/05/18 21:59 Respiratory Rate 30 H 02/05/18 21:59 Blood Pressure 99/56 02/05/18 21:59 O2 Sat by Pulse Oximetry (%) 94 L 02/05/18 21:59 Neck: Yes: WNL Cardiovascular: Yes: Tachycardia Respiratory: Yes: Rhonchi Gastrointestinal: Yes: WNL, Normal Bowel Sounds, Soft Labs: CBC, BMP 02/05/18 05:30 02/05/18 05:30 INR, PTT INR 1.27 (0.82-1.09) H 02/05/18 05:30 Fibrinogen 486.0 mg/dL (238-498) D 01/28/18 05:30 Problem List - Problems (1) Acute respiratory failure with hypoxia Assessment/Plan: Pt remains intubated and sedated Poor prognosis Family discussions reviewed No invasive procedures/pressors Code(s): J96.01 - ACUTE RESPIRATORY FAILURE WITH HYPOXIA (2) Breast cancer Code(s): C50.919 - MALIGNANT NEOPLASM OF UNSP SITE OF UNSPECIFIED FEMALE BREAST Qualifiers: Breast location: unspecified site of breast Estrogen receptor status: unspecified Patient sex: female Laterality: unspecified laterality Qualified Code(s): C50.919 - Malignant neoplasm of unspecified site of unspecified female breast (3) Pancytopenia due to antineoplastic chemotherapy Assessment/Plan: Counts are decreasing Pt trsansfused PRBC's/plts Cont to monitor Code(s): D61.810 - ANTINEOPLASTIC CHEMOTHERAPY INDUCED PANCYTOPENIA; T45.1X5A - ADVERSE EFFECT OF ANTINEOPLASTIC AND IMMUNOSUP DRUGS, INIT (4) Pneumonia Assessment/Plan: ?Lung mets Pt is off antibxs Code(s): J18.9 - PNEUMONIA, UNSPECIFIED ORGANISM Qualifiers: Pneumonia type: due to unspecified organism Laterality: bilateral Lung location: unspecified part of lung Qualified Code(s): J18.9 - Pneumonia, unspecified organism (5) Altered mental status Assessment/Plan: Multifactorial Due to infectious/metabolic encephalopathy Code(s): R41.82 - ALTERED MENTAL STATUS, UNSPECIFIED Qualifiers: Altered mental status type: unspecified Qualified Code(s): R41.82 - Altered mental status, unspecified
[2018-02-06 05:58] LABS: BASO % 0.1 % (0-2.0); EOS % 0.2 % (0-4.5); HEMATOCRIT 24.8 % (32.4-45.2); HEMOGLOBIN 8.7 GM/dL (10.7-15.3); MCH 32.9 pg (25.7-33.7); MCHC 35.1 g/dl (32.0-36.0); MEAN CELL VOLUME 93.7 fl (80-96); MEAN PLT VOLUME 7.4 fl (7.5-11.1); MONO % 3.9 % (3.8-10.2); NEUT % 94.8 % (42.8-82.8); PLATELET COUNT 39 K/MM3 (134-434); RBC 2.64 M/mm3 (3.60-5.2); RDW 18.8 % (11.6-15.6); WHITE BLOOD COUNT 2.9 K/mm3 (4.0-10.0)
[2018-02-06 06:08] LABS: INR 1.24 (0.82-1.09)
[2018-02-06 06:10] LABS: ACTIVATED PTT 22.8 SECONDS (25.2-36.5)
[2018-02-06 06:24] LABS: ALBUMIN 1.9 g/dl (3.4-5.0); ALK PHOS 172 U/L (45-117); BILIRUBIN,TOTAL 0.4 mg/dL (0.2-1.0); BLOOD UREA NITROGEN 52 mg/dL (7-18); CALCIUM 8.6 mg/dL (8.5-10.1); CHLORIDE 91 mmol/L (98-107); CREATININE 1.1 mg/dL (0.55-1.02); GLUCOSE,RANDOM 224 mg/dL (74-106); MAGNESIUM 2.1 mg/dL (1.8-2.4); PHOSPHOROUS 3.8 mg/dL (2.5-4.9); POTASSIUM 4.2 mmol/L (3.5-5.1); SGOT/AST 13 U/L (15-37); SGPT/ALT 23 U/L (12-78); SODIUM 142 mmol/L (136-145); TOT PROT 5.7 g/dl (6.4-8.2)
[2018-02-06 07:21] LABS: ANION GAP 3 (8-16); CO2 48 mmol/L (21-32)
--- NOTE | 2018-02-06 09:02 | PN ---
Physical Exam: SUBJECTIVE: Patient seen and examined in the ICU. Received report of extensive conversation with family yesterday. Family wants continued care with no escalation, including no insertion of central access or procedures. Family has signed a DNR as well. OBJECTIVE: Vital Signs Period Temp Pulse Resp BP Sys/[place] Pulse Ox Last 24 Hr 96.8 F-98 F 124-134 25-30 99-142/56-91 94-100 GENERAL: Intubated and sedated HEAD: Normal with no signs of trauma. ENT: Ears normal, nares patent, oropharynx clear without exudates, moist mucous membranes. NECK: Trachea midline, supple. LUNGS: On vent at rate or 30. Breath sounds equal, diffuse rales and rhonchi worse in RUL, no accessory muscle use. HEART: Tachycardic, S1, S2 without murmur, rub or gallop. ABDOMEN: Soft, nontender, nondistended, normoactive bowel sounds, no guarding, no rebound, no hepatosplenomegaly, no masses. NEURO: Pt currently on paralysis, titrated well to 1 twitch on ToF twitch monitoring at 30 mA EXTREMITIES: petechiae noted on extremities. 2+ pulses, warm, well-perfused, no edema. SKIN: Warm, dry, normal turgor, petechiae as above Laboratory Results - last 24 hr 02/05/18 02/05/18 02/05/18 05:30 06:47 13:45 WBC RBC Hgb Hct MCV MCH MCHC RDW Plt Count MPV Absolute Neuts (auto) Neutrophils % Neutrophils % (Manual) 86.0 H Band Neutrophils % 8.0 Lymphocytes % Lymphocytes % (Manual) 3.0 L Monocytes % Monocytes % (Manual) 3 L Eosinophils % Basophils % Nucleated RBC % 4 H Hypochromia 3+ Platelet Estimate Decreased Platelet Comment No clumping noted Polychromasia 1+ Anisocytosis 3+ PT with INR INR PTT (Actin FS) Puncture Site Right radial ABG pH 7.23 L* ABG pCO2 at Pt Temp 103.0 H* D ABG pO2 at Pt Temp 117.0 H D ABG HCO3 41.0 H* ABG O2 Sat (Measured) 98.5 ABG O2 Content 13.1 L ABG Base Excess 11.0 H Deejay Test Positive O2 Delivery Device Mech vent Oxygen Flow Rate 100% Vent Mode A/c Vent Rate 25 Mechanical Rate Yes PEEP 12.0 Pressure Support Vent 245 Sodium Potassium Chloride Carbon Dioxide Anion Gap BUN Creatinine Creat Clearance w eGFR Random Glucose Calcium Phosphorus Magnesium Total Bilirubin AST ALT Alkaline Phosphatase Total Protein Albumin Blood Type O POSITIVE Antibody Screen Negative Crossmatch See Detail 02/06/18 02/06/18 02/06/18 05:30 05:30 05:30 WBC 2.9 L RBC 2.64 L Hgb 8.7 L Hct 24.8 L D MCV 93.7 MCH 32.9 MCHC 35.1 RDW 18.8 H Plt Count 39 L D MPV 7.4 L D Absolute Neuts (auto) 2.7 Neutrophils % 94.8 H Neutrophils % (Manual) Band Neutrophils % Lymphocytes % 1.0 L Lymphocytes % (Manual) Monocytes % 3.9 Monocytes % (Manual) Eosinophils % 0.2 D Basophils % 0.1 Nucleated RBC % 4 H Hypochromia Platelet Estimate Platelet Comment Polychromasia Anisocytosis PT with INR 14.00 H INR 1.24 H PTT (Actin FS) 22.8 L Puncture Site ABG pH ABG pCO2 at Pt Temp ABG pO2 at Pt Temp ABG HCO3 ABG O2 Sat (Measured) ABG O2 Content ABG Base Excess Deejay Test O2 Delivery Device Oxygen Flow Rate Vent Mode Vent Rate Mechanical Rate PEEP Pressure Support Vent Sodium 142 Potassium 4.2 Chloride 91 L Carbon Dioxide 48 H Anion Gap 3 L BUN 52 H Creatinine 1.1 H Creat Clearance w eGFR 51.38 Random Glucose 224 H Calcium 8.6 Phosphorus 3.8 Magnesium 2.1 Total Bilirubin 0.4 AST 13 L ALT 23 Alkaline Phosphatase 172 H Total Protein 5.7 L Albumin 1.9 L Blood Type Antibody Screen Crossmatch Active Medications Generic Name Dose Route Start Last Admin Trade Name Freq PRN Reason Stop Dose Admin Albuterol Sulfate 1 amp 02/05/18 05:09 02/05/18 04:00 Ventolin 0.083% Nebulizer Soln - NEB 1 amp Q4H PRN Administration SHORT OF BREATH/WHEEZING Artificial Tears 1 applic 02/04/18 16:53 02/04/18 22:00 Artificial Tears Ointment - OU 1 applic HS PRN Administration DRY EYES Artificial Tears 1 drop 02/04/18 16:53 02/05/18 06:29 Artificial Tears OU 1 drop Q6H PRN Administration DRY EYES Escitalopram Oxalate 10 mg 02/02/18 13:30 02/05/18 11:34 Lexapro - PO Not Given DAILY TYSHAWN Propofol 1,000,000 mcg in 100 mls @ 1.485 mls/hr 02/04/18 13:00 02/05/18 15: 32 Diprivan - IVPB 16.83 mcg/kg/min TITR TYSHAWN 5 mls/hr Administration Protocol 5 MCG/KG/MIN Vecuronium [place] 50 mg/ 250 mls @ 14.84 mls/hr 02/05/18 02:00 02/05/18 21: 48 Dextrose IVPB 0.1 mcg/kg/min TITR TYSHAWN 1.48 mls/hr Titration Protocol 1 MCG/KG/MIN Fentanyl 500 mcg/ Dextrose 100 mls @ 5 mls/hr 02/05/18 15:45 02/05/18 16:25 IVPB 5 mls/hr TITR TYSHAWN Administration Protocol 25 MCG/HR Methylprednisolone Sodium Succinate 40 mg 01/26/18 10:00 02/05/18 11:34 Solu-Medrol - IVPUSH 40 mg DAILY TYSHAWN Administration Morphine Sulfate 1 mg 02/03/18 19:57 02/04/18 11:43 Morphine Sulfate IVPUSH 1 mg Q1H PRN Administration PAIN LEVEL 1 - 3 ASSESSMENT/PLAN: 58 yo female with recent recurrence of Breast CA admitted to the ICU for acute hypoxic respiratory failure and pancytopenia. Neuro -Sedated and intubated. D/C paralysis at 48 hours. Respiratory -Acute hypoxic respiratory failure Intubated and sedated Solu-medrol 40 mg Daily -Adjusting vent settings as necessary Breast CA -Oncology consulted -Irregularities unchanged on CXR (02/06) - HCP expressed wishes for no further imaging Thrombocytopenia -Plt count trending down possibly due to bone mets -HCP expressed wishes for no further labs FEN -Fluid: No fluids -Electrolytes: No electrolyte abnormalities at this time -Nutrition: NPO Disposition -Continue to monitor in the ICU for now. prognosis is seemingly poor. HCP and family expressed wishes for comfort care. No further labs, imaging, or invasive procedures. Problem List - Problems (1) Acute respiratory failure with hypoxia Code(s): J96.01 - ACUTE RESPIRATORY FAILURE WITH HYPOXIA (2) Breast cancer Code(s): C50.919 - MALIGNANT NEOPLASM OF UNSP SITE OF UNSPECIFIED FEMALE BREAST Qualifiers: Breast location: unspecified site of breast Estrogen receptor status: unspecified Patient sex: female Laterality: unspecified laterality Qualified Code(s): C50.919 - Malignant neoplasm of unspecified site of unspecified female breast (3) Hypokalemia Code(s): E87.6 - HYPOKALEMIA (4) Pancytopenia due to antineoplastic chemotherapy Code(s): D61.810 - ANTINEOPLASTIC CHEMOTHERAPY INDUCED PANCYTOPENIA; T45.1X5A - ADVERSE EFFECT OF ANTINEOPLASTIC AND IMMUNOSUP DRUGS, INIT (5) Thrombocytopenia Code(s): D69.6 - THROMBOCYTOPENIA, UNSPECIFIED Visit type - Emergency Visit Emergency Visit: Yes ED Registration Date: 01/16/18 Care time: The patient presented to the Emergency Department on the above date and was hospitalized for further evaluation of their emergent condition. - New Patient This patient is new to me today: No - Critical Care Critical Care patient: Yes Total Critical Care Time (in minutes): 35 Critical Care Statement: The care of this patient involved high complexity decision making to prevent further life threatening deterioration of the patient 's condition and/or to evaluate & treat vital organ system(s) failure or risk of failure.
[2018-02-06] MEDS: methylPREDNISolone NA SUCC 40 MG/1 ML VIAL IVPUSH SCH (09:28)
[2018-02-06] MEDS: ESCITALOPRAM OXALATE 10 MG TABLET (FP) PO SCH (09:29)
--- NOTE | 2018-02-06 10:59 | PN ---
Teaching Attending Note Name of Resident: Paul Rodriguez ATTENDING PHYSICIAN STATEMENT I saw and evaluated the patient. I reviewed the resident's note and discussed the case with the resident. I agree with the resident's findings and plan as documented. SUBJECTIVE: Patient seen and examined in the ICU. Remains intubated on AC Mode of vent. Lung protective ventilation with 5cc/kg. Still with exceedingly elevated Pplat. (low 40's) Remains paralyzed on Vecuronium drip. TOF: 1 twitch. New ARF. CXR: ETT in position / no gross change in bilateral airspace disease Intake & Output 02/03/18 02/04/18 02/05/18 02/06/18 23:59 23:59 23:59 23:59 Intake Total 300 400 930 125 Output Total 1700 1300 1400 200 Balance -1400 -900 -470 -75 Weight 103 lb 9.876 oz Last Vital Signs Temp Pulse Resp BP Pulse Ox 98 F 124 H 28 H 118/71 99 02/06/18 06:00 02/06/18 10:00 02/06/18 10:00 02/06/18 10:00 02/06/18 09:53 Active Medications Albuterol Sulfate (Ventolin 0.083% Nebulizer Soln -) 1 amp NEB Q4H PRN PRN Reason: SHORT OF BREATH/WHEEZING Last Admin: 02/05/18 04:00 Dose: 1 amp Artificial Tears (Artificial Tears Ointment -) 1 applic OU HS PRN PRN Reason: DRY EYES Last Admin: 02/04/18 22:00 Dose: 1 applic Artificial Tears (Artificial Tears) 1 drop OU Q6H PRN PRN Reason: DRY EYES Last Admin: 02/05/18 06:29 Dose: 1 drop Escitalopram Oxalate (Lexapro -) 10 mg PO DAILY TYSHAWN Last Admin: 02/06/18 09:29 Dose: Not Given Propofol (Diprivan -) 1,000,000 mcg in 100 mls @ 1.485 mls/hr IVPB TITR TYSHAWN; Protocol Last Admin: 02/05/18 15:32 Dose: 16.83 mcg/kg/min, 5 mls/hr Vecuronium [place] 50 mg/ (Dextrose) 250 mls @ 14.84 mls/hr IVPB TITR TYSHAWN; Protocol Last Titration: 02/05/18 21:48 Dose: 0.1 mcg/kg/min, 1.48 mls/hr Fentanyl 500 mcg/ Dextrose 100 mls @ 5 mls/hr IVPB TITR [facility]; Protocol Last Admin: 02/05/18 16:25 Dose: 5 mls/hr Methylprednisolone Sodium Succinate (Solu-Medrol -) 40 mg IVPUSH DAILY [facility] Last Admin: 02/06/18 09:28 Dose: 40 mg Morphine Sulfate (Morphine Sulfate) 1 mg IVPUSH Q1H PRN PRN Reason: PAIN LEVEL 1 - 3 Last Admin: 02/04/18 11:43 Dose: 1 mg Gen: Intubated, sedated, paralyzed Heart: tachycardic, regular Lung: mechanically ventilated, diffuse rales/rhonchi, no wheezes Abd: soft, nontender Ext: no edema Laboratory Results - last 24 hr 02/05/18 02/05/18 02/05/18 05:30 06:47 13:45 WBC RBC Hgb Hct MCV MCH MCHC RDW Plt Count MPV Absolute Neuts (auto) Neutrophils % Neutrophils % (Manual) 86.0 H Band Neutrophils % 8.0 Lymphocytes % Lymphocytes % (Manual) 3.0 L Monocytes % Monocytes % (Manual) 3 L Eosinophils % Basophils % Nucleated RBC % 4 H Hypochromia 3+ Platelet Estimate Decreased Platelet Comment No clumping noted Polychromasia 1+ Anisocytosis 3+ PT with INR INR PTT (Actin FS) Puncture Site Right radial ABG pH 7.23 L* ABG pCO2 at Pt Temp 103.0 H* D ABG pO2 at Pt Temp 117.0 H D ABG HCO3 41.0 H* ABG O2 Sat (Measured) 98.5 ABG O2 Content 13.1 L ABG Base Excess 11.0 H Deejay Test Positive O2 Delivery Device Mech vent Oxygen Flow Rate 100% Vent Mode A/c Vent Rate 25 Mechanical Rate Yes PEEP 12.0 Pressure Support Vent 245 Sodium Potassium Chloride Carbon Dioxide Anion Gap BUN Creatinine Creat Clearance w eGFR POC Glucometer Random Glucose Calcium Phosphorus Magnesium Total Bilirubin AST ALT Alkaline Phosphatase Total Protein Albumin Blood Type O POSITIVE Antibody Screen Negative Crossmatch See Detail 02/05/18 02/06/18 02/06/18 23:41 05:30 05:30 WBC 2.9 L RBC 2.64 L Hgb 8.7 L Hct 24.8 L D MCV 93.7 MCH 32.9 MCHC 35.1 RDW 18.8 H Plt Count 39 L D MPV 7.4 L D Absolute Neuts (auto) 2.7 Neutrophils % 94.8 H Neutrophils % (Manual) Band Neutrophils % Lymphocytes % 1.0 L Lymphocytes % (Manual) Monocytes % 3.9 Monocytes % (Manual) Eosinophils % 0.2 D Basophils % 0.1 Nucleated RBC % 4 H Hypochromia Platelet Estimate Platelet Comment Polychromasia Anisocytosis PT with INR 14.00 H INR 1.24 H PTT (Actin FS) 22.8 L Puncture Site ABG pH ABG pCO2 at Pt Temp ABG pO2 at Pt Temp ABG HCO3 ABG O2 Sat (Measured) ABG O2 Content ABG Base Excess Deejay Test O2 Delivery Device Oxygen Flow Rate Vent Mode Vent Rate Mechanical Rate PEEP Pressure Support Vent Sodium Potassium Chloride Carbon Dioxide Anion Gap BUN Creatinine Creat Clearance w eGFR POC Glucometer [phone] Random Glucose Calcium Phosphorus Magnesium Total Bilirubin AST ALT Alkaline Phosphatase Total Protein Albumin Blood Type Antibody Screen Crossmatch 02/06/18 05:30 WBC RBC Hgb Hct MCV MCH MCHC RDW Plt Count MPV Absolute Neuts (auto) Neutrophils % Neutrophils % (Manual) Band Neutrophils % Lymphocytes % Lymphocytes % (Manual) Monocytes % Monocytes % (Manual) Eosinophils % Basophils % Nucleated RBC % Hypochromia Platelet Estimate Platelet Comment Polychromasia Anisocytosis PT with INR INR PTT (Actin FS) Puncture Site ABG pH ABG pCO2 at Pt Temp ABG pO2 at Pt Temp ABG HCO3 ABG O2 Sat (Measured) ABG O2 Content ABG Base Excess Deejay Test O2 Delivery Device Oxygen Flow Rate Vent Mode Vent Rate Mechanical Rate PEEP Pressure Support Vent Sodium 142 Potassium 4.2 Chloride 91 L Carbon Dioxide 48 H Anion Gap 3 L BUN 52 H Creatinine 1.1 H Creat Clearance w eGFR 51.38 POC Glucometer Random Glucose 224 H Calcium 8.6 Phosphorus 3.8 Magnesium 2.1 Total Bilirubin 0.4 AST 13 L ALT 23 Alkaline Phosphatase 172 H Total Protein 5.7 L Albumin 1.9 L Blood Type Antibody Screen Crossmatch ASSESSMENT AND PLAN: Acute Hypoxic Respiratory Failure Severe ARDS: exceedingly elevated Pplat despite lung protective ventilation Pneumonia Neutropenic Septic Shock Pancytopenia Coagulopathy Metastatic Breast CA: suspected Lung mets Volume Overload - Current vent settings - Vecuronium drip and follow TOF (need to see 1 twitch) - transfuse as needed for Hgb < 7, Plt < 15 (50 if bleeding) - inhaled bronchodilators - Steroids - ICU monitoring - Overall prognosis for meaningful survival appears grave: Long discussion with family yesterday. They do not want pressors, central access, CPR, or "heroic" measures. To discuss further with the family. Dr Sosa Critical care time spent in reviewing chart, evaluating patient and formulating plan - 36 minutes.
--- NOTE | 2018-02-06 11:43 | PN ---
Progress Note (short form) - Note Progress Note: I spoke with Conor Moya, patient's , today who is her HCP who states that he would not like any labs drawn on patient or any imaging done from here on.
[2018-02-06 15:00] VITALS: TEMP 100.4
--- NOTE | 2018-02-06 15:19 | PN ---
Progress Note, Physician History of Present Illness: continues to be intubated still requiring his support - Current Medication List Current Medications: Active Medications Albuterol Sulfate (Ventolin 0.083% Nebulizer Soln -) 1 amp NEB Q4H PRN PRN Reason: SHORT OF BREATH/WHEEZING Last Admin: 02/05/18 04:00 Dose: 1 amp Artificial Tears (Artificial Tears Ointment -) 1 applic OU HS PRN PRN Reason: DRY EYES Last Admin: 02/04/18 22:00 Dose: 1 applic Artificial Tears (Artificial Tears) 1 drop OU Q6H PRN PRN Reason: DRY EYES Last Admin: 02/05/18 06:29 Dose: 1 drop Escitalopram Oxalate (Lexapro -) 10 mg PO DAILY [facility]WN Last Admin: 02/06/18 09:29 Dose: Not Given Propofol (Diprivan -) 1,000,000 mcg in 100 mls @ 1.485 mls/hr IVPB TITR TYSHAWN; Protocol Last Admin: 02/05/18 15:32 Dose: 16.83 mcg/kg/min, 5 mls/hr Fentanyl 500 mcg/ Dextrose 100 mls @ 5 mls/hr IVPB TITR TYSHAWN; Protocol Last Admin: 02/05/18 16:25 Dose: 5 mls/hr Methylprednisolone Sodium Succinate (Solu-Medrol -) 40 mg IVPUSH DAILY [facility] Last Admin: 02/06/18 09:28 Dose: 40 mg Morphine Sulfate (Morphine Sulfate) 1 mg IVPUSH Q1H PRN PRN Reason: PAIN LEVEL 1 - 3 Last Admin: 02/04/18 11:43 Dose: 1 mg - Objective Vital Signs: Vital Signs Temperature 100.4 F H 02/06/18 14:00 Pulse Rate 140 H 02/06/18 14:00 Respiratory Rate 30 H 02/06/18 14:12 Blood Pressure 79/44 02/06/18 14:00 O2 Sat by Pulse Oximetry (%) 90 L 02/06/18 10:00 Constitutional: Yes: Other Cardiovascular: Yes: Tachycardia Respiratory: Yes: Intubated, Mechanically Ventilated Gastrointestinal: Yes: Normal Bowel Sounds, Soft Labs: CBC, BMP 02/06/18 05:30 02/06/18 05:30 INR, PTT INR 1.24 (0.82-1.09) H 02/06/18 05:30 Fibrinogen 486.0 mg/dL (238-498) D 01/28/18 05:30 Assessment/Plan pneumonia septic shock neutropenia resp failure hypoxia metastatic breast ca ac resp failure plan resp support monitor closely rest as per the team and icu monitor wbc and platelets continue monitoring prognosis does not look good cc time 40 min
--- NOTE | 2018-02-06 16:20 | PN ---
Progress Note, Physician History of Present Illness: Sedated and intubated, persists with sinus tachycardia. - Current Medication List Current Medications: Active Medications Albuterol Sulfate (Ventolin 0.083% Nebulizer Soln -) 1 amp NEB Q4H PRN PRN Reason: SHORT OF BREATH/WHEEZING Last Admin: 02/05/18 04:00 Dose: 1 amp Artificial Tears (Artificial Tears Ointment -) 1 applic OU HS PRN PRN Reason: DRY EYES Last Admin: 02/04/18 22:00 Dose: 1 applic Artificial Tears (Artificial Tears) 1 drop OU Q6H PRN PRN Reason: DRY EYES Last Admin: 02/05/18 06:29 Dose: 1 drop Escitalopram Oxalate (Lexapro -) 10 mg PO DAILY T[facility]SHAWN Last Admin: 02/06/18 09:29 Dose: Not Given Propofol (Diprivan -) 1,000,000 mcg in 100 mls @ 1.485 mls/hr IVPB TITR TYSHAWN; Protocol Last Admin: 02/05/18 15:32 Dose: 16.83 mcg/kg/min, 5 mls/hr Fentanyl 500 mcg/ Dextrose 100 mls @ 5 mls/hr IVPB TITR TYSHAWN; Protocol Last Admin: 02/05/18 16:25 Dose: 5 mls/hr Methylprednisolone Sodium Succinate (Solu-Medrol -) 40 mg IVPUSH DAILY [facility] Last Admin: 02/06/18 09:28 Dose: 40 mg Morphine Sulfate (Morphine Sulfate) 1 mg IVPUSH Q1H PRN PRN Reason: PAIN LEVEL 1 - 3 Last Admin: 02/04/18 11:43 Dose: 1 mg - Objective Vital Signs: Vital Signs Temperature 100.4 F H 02/06/18 14:00 Pulse Rate 140 H 02/06/18 14:00 Respiratory Rate 30 H 02/06/18 14:12 Blood Pressure 79/44 02/06/18 14:00 O2 Sat by Pulse Oximetry (%) 90 L 02/06/18 10:00 Constitutional: Yes: No Distress, Calm Neck: Yes: Supple Cardiovascular: Yes: Tachycardia Respiratory: Yes: Diminished, Mechanically Ventilated, Rhonchi Gastrointestinal: Yes: Normal Bowel Sounds, Soft Edema: Yes Edema: LLE: Trace, RLE: Trace Labs: CBC, BMP 02/06/18 05:30 02/06/18 05:30 INR, PTT INR 1.24 (0.82-1.09) H 02/06/18 05:30 Fibrinogen 486.0 mg/dL (238-498) D 01/28/18 05:30 - ....Imaging Chest X-ray: Report Reviewed (Unchanged) Problem List - Problems (1) Acute respiratory failure with hypoxia Code(s): J96.01 - ACUTE RESPIRATORY FAILURE WITH HYPOXIA (2) Breast cancer Code(s): C50.919 - MALIGNANT NEOPLASM OF UNSP SITE OF UNSPECIFIED FEMALE BREAST Qualifiers: Breast location: unspecified site of breast Estrogen receptor status: unspecified Patient sex: female Laterality: unspecified laterality Qualified Code(s): C50.919 - Malignant neoplasm of unspecified site of unspecified female breast (3) Pancytopenia due to antineoplastic chemotherapy Code(s): D61.810 - ANTINEOPLASTIC CHEMOTHERAPY INDUCED PANCYTOPENIA; T45.1X5A - ADVERSE EFFECT OF ANTINEOPLASTIC AND IMMUNOSUP DRUGS, INIT (4) Pneumonia Code(s): J18.9 - PNEUMONIA, UNSPECIFIED ORGANISM Qualifiers: Pneumonia type: due to unspecified organism Laterality: bilateral Lung location: unspecified part of lung Qualified Code(s): J18.9 - Pneumonia, unspecified organism (5) Sinus tachycardia Code(s): R00.0 - TACHYCARDIA, UNSPECIFIED (6) ARDS (adult respiratory distress syndrome) Code(s): J80 - ACUTE RESPIRATORY DISTRESS SYNDROME Assessment/Plan January 16, 2018 Echo: Normal LV size and fxn, tr-mild MR 1. Acute Hypoxic Respiratory Failure/intubated related to probable pneumonia vs. lymphangitic spread of carcinoma, as outlined in prior notes possible lymphangitic spread based on chest x-ray finding and clinical exam 2. Severe ARDS 3. Neutropenic Septic Shock, resolved 4. Pancytopenia related to probable chemotherapy, persistent 5. Metastatic Breast carcinoma, extensive bone mets on abemaciclib post XRT 6. Pre-renal azotemia 7. Sinus tachycardia, reactionary, multifactorial including respiratory failure/ hypoxia, anemia, pre-renal azotemia PLAN: 1. ARDS vent settings with vecoronium gtt 2. Transfuse and maintain Hg equal or > 7.0 , Plt > 15 3. Platelet transfusion as per hematology 4. Prn diuretics/Lasix, BD, steroids 5. Overall poor prognosis and outcome, goals of care being discussed 6. No therapy indicated for the above noted reactionary sinus tachycardia
[2018-02-06 16:35] VITALS: BP 71/42; PULSE 142
[2018-02-06] MEDS ORDERED: fentaNYL CITRATE 250 MCG/5 ML VIAL ONE (17:35)
[2018-02-06] MEDS: PROPOFOL 1,000,000 MCG/100 ML VIAL IVPB SCH (17:41)
[2018-02-06] MEDS: FENTANYL INJECTION 500 MCG in DEXTROSE 5%-WATER - 90 ML IVPB SCH (17:41)
--- NOTE | 2018-02-06 19:11 | PN ---
Progress Note (short form) - Note Progress Note: Pt at 18:38 with at bedside. Pt was DNR and no attempt at resuscitation was performed. Exam: Neuro: no corneal reflex Cardio: No heart sounds on auscultation and no rythm on monitor Lungs: No breath sounds off of ventilator Problem List - Problems (1) Acute respiratory failure with hypoxia Code(s): J96.01 - ACUTE RESPIRATORY FAILURE WITH HYPOXIA (2) Breast cancer Code(s): C50.919 - MALIGNANT NEOPLASM OF UNSP SITE OF UNSPECIFIED FEMALE BREAST Qualifiers: Breast location: unspecified site of breast Estrogen receptor status: unspecified Patient sex: female Laterality: unspecified laterality Qualified Code(s): C50.919 - Malignant neoplasm of unspecified site of unspecified female breast (3) Hypokalemia Code(s): E87.6 - HYPOKALEMIA (4) Pancytopenia due to antineoplastic chemotherapy Code(s): D61.810 - ANTINEOPLASTIC CHEMOTHERAPY INDUCED PANCYTOPENIA; T45.1X5A - ADVERSE EFFECT OF ANTINEOPLASTIC AND IMMUNOSUP DRUGS, INIT (5) Thrombocytopenia Code(s): D69.6 - THROMBOCYTOPENIA, UNSPECIFIED
--- NOTE | 2018-02-06 19:19 | DS ---
Physical Examination Vital Signs: Vital Signs Temperature 100.4 F H 02/06/18 14:00 Pulse Rate 142 H 02/06/18 16:00 Respiratory Rate 30 H 02/06/18 16:10 Blood Pressure 71/42 02/06/18 16:00 O2 Sat by Pulse Oximetry (%) 90 L 02/06/18 10:00 Labs: CBC, BMP 02/06/18 05:30 02/06/18 05:30 Discharge Summary Reason For Visit: ANTINEOPLASTIC CHEMOTHERAPY; MALIG NEOPL OF BREAST Current Active Problems ARDS (adult respiratory distress syndrome) (Acute) Acute respiratory failure with hypoxia (Acute) Altered mental status (Acute) Breast cancer (Acute) Hypokalemia (Acute) Pancytopenia (Acute) Pancytopenia due to antineoplastic chemotherapy (Acute) Pneumonia (Acute) Sepsis (Acute) Septic shock (Acute) Sinus tachycardia (Acute) Thrombocytopenia (Acute) Condition: Guarded - Instructions Referrals: Keri Tay [Primary Care Provider] - - Home Medications Comprehensive Discharge Medication List: Ambulatory Orders Unobtainable 01/16/18 patient pronounced by resident family by bed side i met family. saw patient filled out certificate
== END 2018-02-06 18:30 | disposition expired | DRG 208 ==
LOC: JER 06:56 → JERBED 12:40 → JICU 14:16
PROVIDERS: ADMIT Internal Medicine; ATTEND Internal Medicine
PROC: 30233R1 Transfusion of Nonautologous Platelets into Peripheral Vein, Percutaneous Approach (ICD-10-PCS; 2018-01-16)
PROC: 30233N1 Transfusion of Nonautologous Red Blood Cells into Peripheral Vein, Percutaneous Approach (ICD-10-PCS; 2018-01-16)
PROC: 5A09557 Assistance with Respiratory Ventilation, Greater than 96 Consecutive Hours, Continuous Positive Airway Pressure (ICD-10-PCS; 2018-01-16)
PROC: 5A1945Z Respiratory Ventilation, 24-96 Consecutive Hours (ICD-10-PCS; principal; 2018-02-04)
PROC: 0BH17EZ Insertion of Endotracheal Airway into Trachea, Via Natural or Artificial Opening (ICD-10-PCS; 2018-02-04)
DX: J96.01 Acute respiratory failure with hypoxia (principal); D61.810 Antineoplastic chemotherapy induced pancytopenia; J18.9 Pneumonia, unspecified organism; R65.21 Severe sepsis with septic shock; A41.9 Sepsis, unspecified organism; C79.51 Secondary malignant neoplasm of bone; D68.9 Coagulation defect, unspecified; R41.82 Altered mental status, unspecified; C50.919 Malignant neoplasm of unspecified site of unspecified female breast; J80 Acute respiratory distress syndrome; E87.6 Hypokalemia; D69.6 Thrombocytopenia, unspecified; R00.0 Tachycardia, unspecified; D70.9 Neutropenia, unspecified; E87.70 Fluid overload, unspecified; D64.9 Anemia, unspecified
CPT/HCPCS: 31500; 36415; 36430; 36511; 36600; 70450-TC; 71045-TC-FY; 80048; 80053; 81003; 82040; 82550; 82803; 82962; 83605; 83615; 83735; 84100; 84484; 85025; 85027; 85384; 85610; 85730; 86850; 86900; 86901; 86922; 87040; 87070; 87077; 87086; 87186; 87205; 93005; 93010; 93306-TC; 94002; 94640; 94660; 97161-GP; 99285-25; J1447; J7030; J7620; P9034; P9038; P9058